=== PATIENT | female | born 1965 | race Caucasian/White ===

== ENCOUNTER → 2020-06-14 08:48 | Outpatient (BNVA) | payer MEDICAID, SELFPAY | PROVIDERS: PCP Internal Medicine; Referring Provider Internal Medicine; Visit Provider Internal Medicine Gastroenterology | DX: K59.09 Other constipation (principal); R13.14 Dysphagia, pharyngoesophageal phase; R07.89 Other chest pain; K21.9 Gastro-esophageal reflux disease without esophagitis; Z79.899 Other long term (current) drug therapy | CPT/HCPCS: 99212 ==

== ENCOUNTER → 2020-11-25 09:51 | Outpatient (BNVA) | payer SELFPAY | PROVIDERS: PCP Internal Medicine; Visit Provider Internal Medicine Gastroenterology ==

== ENCOUNTER → 2022-06-02 13:54 | Outpatient (BNVA) | payer OTHER, SELFPAY | PROVIDERS: PCP Internal Medicine; Visit Provider Internal Medicine | DX: K21.9 Gastro-esophageal reflux disease without esophagitis (principal); K59.09 Other constipation; K62.5 Hemorrhage of anus and rectum | CPT/HCPCS: 99212 ==

== ENCOUNTER → 2022-08-23 09:18 | Outpatient (BNVA) | payer OTHER, SELFPAY | PROVIDERS: PCP Internal Medicine; Visit Provider Internal Medicine | DX: K58.1 Irritable bowel syndrome with constipation (principal); K21.9 Gastro-esophageal reflux disease without esophagitis | CPT/HCPCS: 99212 ==

== ENCOUNTER 2022-10-30 13:14 | Outpatient (REF) | payer OTHER, SELFPAY ==
[2022-10-30 14:08] LABS: Hematocrit 40.7 % (37.0-47.0); Hemoglobin 13.4 g/dl (12.0-16.0); Mean Corpuscular HGB Conc 32.9 g/dl (31.0-35.0); Mean Corpuscular Hemoglobin 30.9 pg (27.0-33.0); Mean Platelet Volume 8.8 fL (9.4-12.3); Platelet Count 247 X10*3/uL (160-400); Red Blood Count 4.33 X10*6/uL (4.20-5.50); Red Cell Distribution Width 12.2 % (11.0-16.0); White Blood Count 6.5 X10*3/uL (4.8-10.8)
[2022-10-30 15:01] LABS: Alanine Aminotransferase 21 U/L (0-31); Albumin Level 4.2 g/dL (3.5-5.0); Alkaline Phosphatase 101 U/L (39-117); Anion Gap 9 (12-20); Aspartate Amino Transferase 21 U/L (5-31); Bilirubin Total 0.4 mg/dL (0.0-1.0); Blood Urea Nitrogen 13 mg/dL (9-16); Calcium 9.5 mg/dL (8.4-10.2); Carbon Dioxide 31 mmol/L (22-29); Chloride 105 mmol/L (96-108); Estimated Glomerular Filt Rate > 60; Glucose Random 92 mg/dL (60-115); Potassium 4.3 mmol/L (3.3-5.1); Sodium 141 mmol/L (135-145); Total Protein 7.6 g/dL (6.5-8.0)
== END 2022-10-30 13:15 | disposition home or self-care (01) ==
LOC: HO.LAB 13:14
PROVIDERS: PCP Internal Medicine; Visit Provider Internal Medicine
DX: R19.7 Diarrhea, unspecified (principal); K58.1 Irritable bowel syndrome with constipation
CPT/HCPCS: 36415; 80053; 85027; 99212

== ENCOUNTER 2022-11-01 11:49 | Outpatient (REF) | payer OTHER, SELFPAY ==
[2022-11-01 14:10] LABS: Adenovirus F 40/41 Not Detected (Not Detect.); Astrovirus Not Detected (Not Detect.); Campylobacter Not Detected (Not Detect.); Cryptosporidium Not Detected (Not Detect.); Cyclospora cayetanensis Not Detected (Not Detect.); E. coli EAEC Not Detected (Not Detect.); E. coli EPEC Not Detected (Not Detect.); E. coli ETEC Not Detected (Not Detect.); E. coli STEC Not Detected (Not Detect.); Entamoeba histolytica Not Detected (Not Detect.); Giardia lamblia Not Detected (Not Detect.); Norovirus GI/GII Not Detected (Not Detect.); Plesiomonas shigelloides Not Detected (Not Detect.); Rotavirus A Not Detected (Not Detect.); Salmonella Not Detected (Not Detect.); Sapovirus Not Detected (Not Detect.); Shigella sp./EIEC Not Detected (Not Detect.); Vibrio Not Detected (Not Detect.); Vibrio Cholerae Not Detected (Not Detect.); Yersinia enterocolitica Not Detected (Not Detect.)
== END 2022-11-01 11:50 | disposition home or self-care (01) ==
LOC: HO.LNP 11:49
PROVIDERS: Visit Provider Internal Medicine
DX: R19.7 Diarrhea, unspecified (principal)
CPT/HCPCS: 87177; 87209; 87507

== ENCOUNTER → 2023-03-02 14:14 | Outpatient (BNVA) | payer OTHER, SELFPAY | PROVIDERS: PCP Internal Medicine; Visit Provider Physician Assistant ==

== ENCOUNTER 2023-04-02 12:44 | Outpatient (AMB) | payer OTHER, SELFPAY ==
--- NOTE | 2023-04-02 12:50 | MHC.OFFVIS ---
Intake Vital Signs 04/02/23 12:55 Height 5 ft 6 in Weight 144 lb BMI 23.2 BP 108/59 L Blood Pressure Location Lt brachial Position Sitting Pulse 66 Intake Visit Reasons: 4 months follow up IBS Intake Note: María Elena presents in the office as a 4 month follow upp. CC: No concerns today. She stated that she had a BBL since her last visit. Petrophysical Engineer Required: Yes Petrophysical Engineer Name: Shahid [id number] Allergies No Known Allergies Allergy (Verified 04/02/23 12:52) HPI HPI Comments History of Present Illness Details This is a 56-year-old female past medical history of migraines, hypothyroidism, GERD who presents to the office for follow-up. Initial visit 06/02/22: She was last seen in the office in 2020 (Dr. Spain). Has 2 main complaints: -heartburn: She states that her heartburn had been pretty well controlled with pantoprazole in the last 1 and half year. However, 3 months ago, she started experiencing recurrence of symptoms that she described as severe burning sensation retrosternally associated with some nausea, decrease in appetite and bloating. Symptoms are persistent throughout the day. Has been taking PPI once daily with food for this. Denies any NSAIDs, recent medication changes. No painful or difficulty swallowing, vomiting, unintentional weight loss, changes in bowel habits. -constipation, episode of BRBPR: Tells me that around a month ago, she had a very severe bout of constipation where she was training for quite some time before she managed to pass a bowel movement. She noticed some blood on top of the stool, also on wiping. This was single episode on describes the blood is scant in amount. Has not recurred since. Last colonoscopy was in 2018 and did show moderate hemorrhoids. Has baseline constipation, which she manages with p.r.n. Amitiza. Unable to take it regularly due to abdominal cramping. Splinting+, excessive straining+, digitalization+. Of note, patient has history of 3 pregnancies carried to term with vaginal delivery. Denies any sexual trauma history. No bladder issues. 08/23/22: Reports heartburn is better but continues to have the cramping sensation in her abdomen which is associated with nausea, and constipation. Present most of the days of the week. Cramping gets better with passing BM. No relation to food intake or activity. Sx more prominent at night time. No fevers or chills. Appetite is unchanged. No further blood in stool. No unintentional weight loss. Continues to take Amitiza on p.r.n. basis only. 10/30/22: Reports possible food-borne infection in the past couple of weeks. Reports eating out from [employer], had a cheeseburger. Within a day developed abdominal cramping, nausea, vomiting and diarrhea. Vomiting and diarrhea has resolved, continues to have abdominal cramping, which is also improving. Outside of this episode, reports excellent response to Amitiza. Bowel movement frequency has gone from once in a week to every day. Stool consistency has also normalized, patient does not have to strain as much. Patient also reports improvement in her bloating. Continues to take fiber supplement. She did stop her MiraLax, as she felt that made her more nauseous. 04/02/23: Here for follow up. Reports sx of food getting stuck in upper throat is getting worse. Clears her throat very often. Otherwise no N,V or difficulty swallowing. No unintentional weight loss. GERD persistent despite taking protonix. Sx are more pronounced at night time. IBS-C well controlled on Amitiza. Taking only 4mcg BID. [facility] Medical History Cervicalgia Hx of migraine headaches Hypothyroidism Microscopic hematuria Seasonal allergies Surgical History History of colonoscopy Hx of endoscopy Family History Father Leukemia Mother No problems noted. Social History Household Members: None Alcohol intake: never Review of Systems Const All systems reviewed & are unremarkable except as noted in HPI and below Physical Exam Vital Signs: Last Vital Signs Pulse 66 04/02/23 12:55 BP 108/59 L 04/02/23 12:55 BMI result Body Mass Index 23.2 Gen appear: NAD HEENT: nonicteric, no cervical lymphadenopathy Chest: CTA CVS: Regular S1/S2 Abd: soft, nontender, nondistended, bowel sounds + Ext: no peripheral edema Neuro: A/Ox3, noted to move all extremities spontaneously Psych: interacting appropriately Assessment & Plan Assessment & Plan (1) Irritable bowel syndrome with constipation: Code(s): K58.1 - Irritable bowel syndrome with constipation Plan: Excellent response to Amitiza. Continue 4mcg BID (2) GERD (gastroesophageal reflux disease): Code(s): K21.9 - Gastro-esophageal reflux disease without esophagitis (3) Dysphagia, pharyngoesophageal phase: Code(s): R13.14 - Dysphagia, pharyngoesophageal phase Plan: Discussed that sensation of food getting stuck could possibly be due to dysmotility as noted in prior EGD in 2018. However, given worsening of both reflux as well as globus sensation, will evaluate with anotehr EGD +/- dilation. In the meantime, recommend switching PPI to nexium to be taken at night time Add wedge pillow EGD to be done OFF ppi therapy x 2 weeks Plan Follow up after EGD Medications: New esomeprazole magnesium 20 mg PO DAILY 90 caps 1RF [wedge pillow] at night 1 ea 0RF reflux Coding Level of Care Code Est Pt Level 4 (42968) Diagnoses Irritable bowel syndrome with constipation K58.1 GERD (gastroesophageal reflux disease) K21.9 Dysphagia, pharyngoesophageal phase R13.14
[2023-04-02 12:55] VITALS: BP 108/59; PULSE 66; BMI 23.2
== END 2023-04-02 16:37 | disposition home or self-care (01) ==
PROVIDERS: Visit Provider Internal Medicine
DX: K58.1 Irritable bowel syndrome with constipation (principal); K21.9 Gastro-esophageal reflux disease without esophagitis; R13.14 Dysphagia, pharyngoesophageal phase
CPT/HCPCS: 99214

== ENCOUNTER → 2023-04-02 12:44 | Outpatient (BNVA) | payer OTHER, SELFPAY | PROVIDERS: Visit Provider Internal Medicine | DX: R13.14 Dysphagia, pharyngoesophageal phase (principal); K21.9 Gastro-esophageal reflux disease without esophagitis; K58.1 Irritable bowel syndrome with constipation | CPT/HCPCS: 99212 ==

== ENCOUNTER 2023-09-18 08:26 | Day surgery (SDC) | payer OTHER, SELFPAY ==
--- OUTSIDE RECORDS SUMMARY | 2023-09-18 08:29 | XMS_ITS | Continuity of Care Document ---
Author Name Unknown Organization [facility] Address [address] [place] [address]- Care Team Providers Care Agricultural Education Teacher Name Role Phone Terrance KING, Flynn Ratliff Primary Care Physician [phone] Encounter [facility] Date(s): 07/26/21 - 08/25/21 [facility] [address], [place] [id number] Allergies, Adverse Reactions, Alerts Substance Reaction Severity Status [place] Active Latex SWELLING Moderate Active Immunizations Given and Recorded Vaccine Date Status Refusal Reason SARS-CoV-2 (COVID-19) mRNA BNT-162b2 vac 12/24/20 Given SARS-CoV-2 (COVID-19) mRNA BNT-162b2 vac 12/03/20 Given Medications Acetaminophen 0 Refills, Maintenance, 11/17/20 17:36:00 EDT, Partial fill upon patient request if the prescription is for a schedule II opioid drug. Start Date: 11/17/20 Status: Ordered Amitiza 8 mcg oral capsule 1 capsule = 8 mcg, By Mouth, 2 times a day, take with food label in [place]e, # 60 capsule, 6 Refills, Maintenance, 08/02/20 11:46:00 EST, [facility], Partial fill upon patient requestif the prescription is for a schedule II opioid Start Date: 08/02/20 Stop Date: 02/28/21 Status: Ordered amitriptyline 25 mg oral tablet See Instructions, start 2 tablet By Mouth Daily at bedtime. Increase if needed after 2 weeks to 3 tablet at bedtime. 30 days, # 90 tablet, Refills 5, Tot. Refills 5, Maintenance, 08/16/21 6:54:00 EST, Instructions Replace Required Details, Route to P... Start Date: 08/16/21 Status: Ordered Carafate 1 gm oral tablet 1 Gm, 1, tablet, By Mouth, 3 times a day before meals and bedtime, Refills 0, Maintenance, 11/17/2116:37:00 EDT, Partial fill upon patient request if the prescription is for a schedule II opioid drug. Start Date: 11/17/20 Status: Ordered cetirizine 10 mg oral tablet See Instructions, SUDHIR 1 TABLETA POR LA BOCA CADA CHASE, # 30 tablet, 3 Refills, [facility], 165.1, cm, 06/14/21 15:59:00 EDT, Height Start Date: 07/26/21 Status: Ordered cromolyn 4% ophthalmic solution via spindle carver Dr Sol, 0 Refills, Maintenance, 11/17/20 17:44:00 EDT, Partial fill upon patient request if the prescription is for a schedule II opioid drug. Start Date: 11/17/20 Status: Ordered diclofenac 1% topical gel 1 application, Topically, 4 times a day, # 100 Gm, 0 Refills, Maintenance, 10/15/20 16:35:00 EST, Gel, [facility]., Partial fill upon patient request if the prescription is for a schedule II opioid drug., 165.1, cm, 10/15/20 14:34:00 ES... Start Date: 10/15/20 Status: Ordered flunisolide 25 mcg/inh nasal spray 2 puffs, Nares, Both, Daily, # 25 mL, 6 Refills, Maintenance, 03/04/21 14:56:00 EDT, [place], [facility]., Partial fill upon patient request if the prescription is for a schedule II opioid drug., 2 puffs Nares, Both Daily, 165.1, cm, 02/17... Start Date: 03/04/21 Status: Ordered fluticasone 50 mcg/inh nasal spray via Dr Sol, spindle carver, 0 Refills, Maintenance, 11/17/20 17:44:00 EDT, Partial fill upon patient request if the prescription is for a schedule II opioid drug. Start Date: 11/17/20 Status: Ordered gabapentin 300 mg oral capsule 300 mg, 1, capsule, By Mouth, 3 times a day, label in [place], # 90 capsule, Refills 5, Tot. Refills 5, Maintenance, 07/20/20 14:53:00 EST, Route to Pharmacy Electronically, [facility]/pharmacy #[id number], Partial fill upon patient request if the prescription is... Start Date: 07/20/20 Status: Ordered levothyroxine 50 mcg (0.05 mg) oral capsule 1 capsule = 50 mcg, By Mouth, Daily, # 30 capsule, 11 Refills, Maintenance, 09/14/20 7:41:00 EST, Capsule, [facility]., Partial fill upon patient request if the prescription is for a schedule II opioid drug., 165.1, cm, 06/12/19 15:36:0... Start Date: 09/14/20 Status: Ordered metoprolol 25 mg oral tablet 25 mg, 1, tablet, By Mouth, 2 times a day, # 60 tablet, Refills 0, Tot. Refills 0, Maintenance, 06/12/19 16:47:18 EDT, Route to Pharmacy Electronically, MAPDP_[id number], [facility] Start Date: 06/12/19 Status: Ordered pantoprazole 40 mg oral delayed release tablet See Instructions, SUDHIR 1 TABLETA POR LA BOCA CADA CHASE, # 30 tablet, 5 Refills, 165.1, cm, 04/12/2114:30:00 EDT, Height Start Date: 04/14/21 Status: Ordered SUMAtriptan 50 mg oral tablet 1 tablet = 50 mg, By Mouth, Once, PRN Migraine Headache, label all medications in [place]e, # 18 tablet, 1 Refills, Soft Stop, 07/04/21 16:07:00 EST, Tablet, [facility]., Partial fill upon patient request if the prescription is for a tamara... Start Date: 07/04/21 Status: Ordered Vitamin B Complex oral tablet, extended release 1 tablet, By Mouth, Daily, # 90 tablet, 3 Refills, Maintenance, 03/04/21 14:55:00 EDT, [facility]., Partial fill upon patient request if the prescription is for a schedule II opioid drug., 1 tablet By Mouth Daily, 165.1, cm, 03/04/21 14... 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, spindle carver Dr Sol in past(Confirmed) Active Hematuria(Confirmed) Active Chronic bilateral low back pain(Confirmed) Active Exposure to COVID-19 virus(Confirmed) Active Abdominal cramping(Confirmed) Active Heartburn(Confirmed) Active Hypothyroidism(Confirmed) Active IBS (irritable colon syndrome)(Confirmed) Active Menopausal state(Confirmed) Active Migraine(Confirmed) Active Hernia, cerebellar(Confirmed) Active Social History Social History Type Response Smoking Status Never (less than 100 in lifetime) entered on: 07/20/20 Sex
--- OUTSIDE RECORDS SUMMARY | 2023-09-18 08:29 | XMS_ITS | Continuity of Care Document ---
Author Name Unknown Organization [facility] Address [address] [place] [address]- Care Team Providers Care Conservation Educator Name Role Phone Flynn Carlos MD Primary Care Physician [phone] Encounter [facility] Date(s): 08/10/20 - 09/09/20 [facility] [address], [place] [address] Attending Physician: Chad Sofia Admitting Physician: AdmtrChad Referring Physician: Admtr, [id number] Allergies, Adverse Reactions, Alerts Substance Reaction Severity Status Latex SWELLING Moderate Active Medications Amitiza 8 mcg oral capsule 1 capsule = 8 mcg, By Mouth, 2 times a day, take with food label in [place], # 60 capsule, 6 Refills, Maintenance, 08/02/20 11:46:00 EST[facility] upon patient requestif the prescription is for a schedule II opioid Start Date: 08/02/20 Stop Date: 02/28/21 Status: Ordered amitriptyline 25 mg oral tablet 25 mg, 1, tablet, By Mouth, Daily at bedtime, label in [place], # 30 tablet, Refills 4, Tot. Refills 4, Maintenance, 07/20/20 14:55:00 EST, Route to Pharmacy Electronically, [facility]/pharmacy #[id number], Partial fill upon patient request if the prescription is... Start Date: 07/20/20 Stop Date: 12/17/20 Status: Ordered aspirin 81 mg oral delayed release tablet 81 mg, 1, tablet, By Mouth, Daily, # 30 tablet, Refills 0, Tot. Refills 0, Maintenance, 06/12/19 16:47:09 EDT, Route to Pharmacy Electronically, NCPDP_ID- [id number], [facility] Start Date: 06/12/19 Status: Ordered gabapentin 300 mg oral capsule 300 mg, 1, capsule, By Mouth, 3 times a day, label in [place], # 90 capsule, Refills 5, Tot. Refills 5, Maintenance, 07/20/20 14:53:00 EST, Route to Pharmacy Electronically, [facility]/pharmacy #[id number], Partial fill upon patient request if the prescription is... Start Date: 07/20/20 Status: Ordered levothyroxine 50 mcg (0.05 mg) oral capsule 1 capsule = 50 mcg, By Mouth, Daily, # 30 capsule, 0 Refills, Maintenance, 07/20/20 14:45:00 EST, Capsule, [facility]/pharmacy #[id number], Partial fill upon patient request if the prescription is for a schedule II opioid drug., 165.1, cm, 06/12/19 15:36:00 EDT, H... Start Date: 07/20/20 Status: Ordered metoprolol 25 mg oral tablet 25 mg, 1, tablet, By Mouth, 2 times a day, # 60 tablet, Refills 0, Tot. Refills 0, Maintenance, 06/12/19 16:47:18 EDT, [id number] Start Date: 06/12/19 Status: Ordered Protonix 40 mg oral delayed release tablet 1 tablet = 40 mg, By Mouth, Daily, # 30 tablet, 0 Refills, Maintenance, 07/20/20 14:45:00 EST, EC Tablet, 165.1, cm, 06/12/19 15:36:00 EDT, Height Start Date: 07/20/20 Status: Ordered SUMAtriptan 50 mg oral tablet 1 tablet = 50 mg, By Mouth, Once, PRN Migraine Headache, label all medications in [place], # 18 tablet, 1 Refills, Soft Stop, 07/20/20 14:45:00 EST, Tablet, [facility]/pharmacy #[id number], Partial fill upon patient request if the prescription is for a schedule II... Start Date: 07/20/20 Status: Ordered tiZANidine 4 mg oral tablet 4 mg, 1, tablet, By Mouth, Every 8 hours, PRN, label in [place], # 60 tablet, Refills 1, Tot. Refills 1, Maintenance, back pain, 07/20/20 14:54:00 EST, Route to Pharmacy Electronically, [facility]/pharmacy #[id number], Partial fill upon patient request if the pres... Start Date: 07/20/20 Stop Date: 08/31/20 Status: Ordered traZODone 100 mg oral tablet 100 mg, 1, tablet, By Mouth, 3 times a day, Refills 0, Maintenance, 06/12/19 16:27:17 EDT Start Date: 06/12/19 Status: Ordered Zyrtec 10 mg oral tablet 10, mg, 1, tablet, By Mouth, Daily, 0, 02/07/06 13:20:55, Print MP Number, [id number], Constant Indicator Start Date: 02/07/06 Status: Ordered Problem List Condition Effective Dates Status Health Status Inform ant Hematuria(Confirmed) Active Chronic bilateral low back pain(Confirmed) Active Exposure to COVID-19 virus(Confirmed) Active Abdominal cramping(Confirmed) Active Heartburn(Confirmed) Active Adult hypothyroidism(Confirmed) Active IBS (irritable colon syndrome)(Confirmed) Active Menopausal state(Confirmed) Active Migraine(Confirmed) Active Social History Social History Type Response Smoking Status Never (less than 100 in lifetime) entered on: 07/20/20 Sex
--- OUTSIDE RECORDS SUMMARY | 2023-09-18 08:29 | XMS_ITS | Continuity of Care Document ---
Author Name Unknown Organization [facility] Address [address] [place] [address]- Care Team Providers Care Dealer Sales Rep Name Role Phone Flynn Carlos MD Primary Care Physician Encounter [facility] Date(s): 02/10/21 - 05/04/[address] [address]- Attending Physician: Josiane Arroyo Admitting Physician: Josiane Arroyo Referring Physician: Flynn Carlos MD Allergies, Adverse Reactions, Alerts Substance Reaction Severity Status [place] Active Latex SWELLING Moderate Active Immunizations Given [...] a day, take with food label in [place], # 60 capsule, 6 Refills, Maintenance, 08/02/20 11:46:00 EST, [facility], Partial fill upon patient requestif the prescription is for a schedule II opioid . Start Date: 08/02/20 Stop Date: 02/28/21 Status: Ordered amitriptyline 25 mg oral tablet 25 mg, 1, tablet, By Mouth, Daily at bedtime, label in [place], # 30 tablet, Refills 5, Tot. Refills 5, Maintenance, 02/17/21 6:54:00 EDT, Route to Pharmacy Electronically, [facility], Partial fill upon patient request if the prescript... Start Date: 02/17/21 Stop Date: 08/16/21 Status: Ordered Carafate 1 gm oral tablet 1 Gm, 1, tablet, By Mouth, 3 times a day before meals and bedtime, Refills 0, Maintenance, 11/17/2116:37:00 EDT, Partial fill upon patient request if the prescription is for a schedule II opioid drug. Start Date: 11/17/20 Status: Ordered cromolyn 4% ophthalmic solution via ethics officer Dr Sol, 0 Refills, Maintenance, 11/17/20 17:44:00 EDT, Partial fill upon patient request if the prescription is for a schedule II opioid drug. Start Date: 11/17/20 Status: Ordered diclofenac 1% topical gel 1 application, Topically, 4 times a day, # 100 Gm, 0 Refills, Maintenance, 10/15/20 16:35:00 EST, Gel, [facility], Partial fill upon patient request if the prescription is for a schedule II opioid drug., 165.1, cm, 10/15/20 14:34:00 ES... Start Date: 10/15/20 Status: Ordered flunisolide 25 mcg/inh nasal spray 2 puffs, Nares, Both, Daily, # 25 mL, 6 Refills, Maintenance, 03/04/21 14:56:00 EDT, [place], [facility], Partial fill upon patient request if the prescription is for a schedule II opioid drug., 2 puffs Nares, Both Daily, 165.1, cm, 02/17... Start Date: 03/04/21 Status: Ordered fluticasone 50 mcg/inh nasal spray via Dr Sol, ethics officer, 0 Refills, Maintenance, 11/17/20 17:44:00 EDT, Partial fill upon patient request if the prescription is for a schedule II opioid drug. Start Date: 11/17/20 Status: Ordered gabapentin 300 mg oral capsule 300 mg, 1, capsule, By Mouth, 3 times a day, label in [place], # 90 capsule, Refills 5, Tot. Refills 5, Maintenance, 07/20/20 14:53:00 EST, Route to Pharmacy Electronically, [facility]/pharmacy #[id number], Partial fill upon patient request if the prescription is... Start Date: 07/20/20 Status: Ordered levothyroxine 50 mcg (0.05 mg) oral capsule 1 capsule = 50 mcg, By Mouth, Daily, # 30 capsule, 11 Refills, Maintenance, 09/14/20 7:41:00 EST, Capsule, [facility]., Partial fill upon patient request if the prescription is for a schedule II opioid drug., 165.1, cm, 06/12/19 15:36:0... Start Date: 09/14/20 Status: Ordered metoprolol 25 mg oral tablet 25 mg, 1, tablet, By Mouth, 2 times a day, # 60 tablet, Refills 0, Tot. Refills 0, Maintenance, 06/12/19 16:47:18 EDT, Route to Pharmacy Electronically, NCPDP_ID-[id number], [facility] Start Date: 06/12/19 Status: Ordered pantoprazole 40 mg oral delayed release tablet See Instructions, SUDHIR 1 TABLETA POR LA BOCA CADA CHASE, # 30 tablet, 5 Refills, 165.1, cm, 04/12/2114:30:00 EDT, Height Start Date: 04/14/21 Status: Ordered SUMAtriptan 50 mg oral tablet 1 tablet = 50 mg, By Mouth, Once, PRN Migraine Headache, label all medications in [place], # 18 tablet, 1 Refills, Soft Stop, 12/29/20 16:12:00 EDT, Tablet, [facility]., Partial fill upon patient request if the prescription is for a tamara... Start Date: 12/29/20 Status: Ordered Vitamin B Complex oral tablet, extended release 1 tablet, By Mouth, Daily, # 90 tablet, 3 Refills, Maintenance, 03/04/21 14:55:00 EDT, [facility]., Partial fill upon patient request if the prescription is for a schedule II opioid drug., 1 tablet By Mouth Daily, 165.1, cm, 03/04/21 14... Start Date: 03/04/21 Stop Date: 04/03/21 Status: Ordered ZyrTEC 10 mg oral tablet 1 tablet = 10 mg, By Mouth, Daily, # 30 tablet, 3 Refills, Maintenance, 03/04/21 14:51:00 EDT, [facility], Partial fill upon patient request if the prescription is for a schedule II opioid drug., 165.1, cm, 03/04/21 14:25:00 EDT, Height Start Date: 03/04/21 Status: Ordered Problem List Condition Effective Dates Status Health Status Inform ant Allergic rhinitis, ethics officer Dr Sol in past(Confirmed) Active Hematuria(Confirmed) Active Chronic bilateral low back pain(Confirmed) Active Exposure to COVID-19 virus(Confirmed) Active Abdominal cramping(Confirmed) Active Heartburn(Confirmed) Active Hypothyroidism(Confirmed) Active IBS (irritable colon syndrome)(Confirmed) Active Menopausal state(Confirmed) Active Migraine(Confirmed) Active Hernia, cerebellar(Confirmed) Active Social History Social History Type Response Smoking Status Never (less than 100 in lifetime) entered on: 07/20/20 Sex
--- OUTSIDE RECORDS SUMMARY | 2023-09-18 08:29 | XMS_ITS | Continuity of Care Document ---
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 Name Role Phone Flynn Carlos MD Primary Care Physician [phone] Encounter [facility] ACCT R [id number] Date(s): 01/11/21 - 03/16/21 [facility] [address] [place] [address]- Attending Physician: Flynn Carlos MD Admitting Physician: Flynn Carlos MD Allergies, Adverse Reactions, Alerts Substance Reaction Severity Status [place] Active Latex SWELLING Moderate Active Immunizations Given [...] a day, take with food label in Liberian, # 60 capsule, 6 Refills, Maintenance, 08/02/20 11:46:00 EST, [facility], Partial fill upon patient requestif the prescription is for a schedule II opioid . Start Date: 08/02/20 Stop Date: 02/28/21 Status: Ordered amitriptyline 25 mg oral tablet 25 mg, 1, tablet, By Mouth, Daily at bedtime, label in Liberian, # 30 tablet, Refills 5, Tot. Refills 5, Maintenance, 02/17/21 6:54:00 EDT, Route to Pharmacy Electronically, [facility] Partial fill upon patient request if the [...] Status: Ordered cromolyn 4% ophthalmic solution via finished goods stock clerk Dr Sol, 0 Refills, Maintenance, 11/17/20 17:44:00 EDT, Partial fill upon patient request if the prescription is for a schedule II opioid drug. Start Date: 11/17/20 Status: Ordered diclofenac 1% topical gel 1 application, Topically, 4 times a day, # 100 Gm, 0 Refills, Maintenance, 10/15/20 16:35:00 EST, Gel, [facility] Partial fill upon patient request if the prescription is for a schedule II opioid drug., 165.1, cm, 10/15/20 14:34:00 ES... Start Date: 10/15/20 Status: Ordered diphenhydrAMINE 25 mg oral tablet 1 capsule, By Mouth, Daily at bedtime, PRN as needed for allergy symptoms, for 30 days, # 100 tablet, 1 Refills, Acute 05/03/21 14:55:00 EDT, 03/04/21 14:55:00 EDT, Capsule, [facility]., Partial fill upon patient request if the prescrip... Start Date: 03/04/21 Stop Date: 05/03/21 Status: Ordered flunisolide 25 mcg/inh nasal spray 2 puffs, Nares, Both, Daily, # 25 mL, 6 Refills, Maintenance, 03/04/21 14:56:00 EDT, [place], [facility] Partial fill upon patient request if the prescription is for a schedule II opioid drug., 2 puffs Nares, Both Daily, 165.1, cm, 02/17... Start Date: 03/04/21 Status: Ordered fluticasone 50 mcg/inh nasal spray via Dr Sol, finished goods stock clerk, 0 Refills, Maintenance, 11/17/20 17:44:00 EDT, Partial fill upon patient request if the prescription is for a schedule II opioid drug. Start Date: 11/17/20 Status: Ordered gabapentin 300 mg oral capsule 300 mg, 1, capsule, By Mouth, 3 times a day, label in Liberian, # 90 capsule, Refills 5, Tot. Refills 5, Maintenance, 07/20/20 14:53:00 EST, Route to Pharmacy Electronically, [facility][id number], Partial fill upon patient request if the prescription is... Start Date: 07/20/20 Status: Ordered levothyroxine 50 mcg (0.05 mg) oral capsule 1 capsule = 50 mcg, By Mouth, Daily, # 30 capsule, 11 Refills, Maintenance, 09/14/20 7:41:00 EST, Capsule, [facility], Partial fill upon patient request if the prescription is for a schedule II opioid drug., 165.1, cm, 06/12/19 15:36:0... Start Date: 09/14/20 Status: Ordered Loratadine By Mouth, Daily, Refills 0, Maintenance, 11/17/20 17:46:00 EDT, Partial fill upon patient request if the prescription is for a schedule II opioid drug. Start Date: 11/17/20 Status: Ordered metoprolol 25 mg oral tablet 25 mg, 1, tablet, By Mouth, 2 times a day, # 60 tablet, Refills 0, Tot. Refills 0, Maintenance, 06/12/19 16:47:18 EDT, Route to Pharmacy Electronically, NCPDP_[id number], [facility] Start Date: 06/12/19 Status: Ordered Protonix 40 mg oral delayed release tablet 1 tablet = 40 mg, By Mouth, Daily, # 30 tablet, 2 Refills, Maintenance, 01/19/21 9:45:00 EDT, EC Tablet, 165.1, cm, 11/30/20 19:08:00 EDT, Height Start Date: 01/19/21 Status: Ordered SUMAtriptan 50 mg oral tablet 1 tablet = 50 mg, By Mouth, Once, PRN Migraine Headache, label all medications in Liberian, # 18 tablet, 1 Refills, Soft Stop, 12/29/20 16:12:00 EDT, Tablet, [facility] Partial fill upon patient request if the prescription is for a tamara... Start Date: 12/29/20 Status: Ordered Vitamin B Complex oral tablet, extended release 1 tablet, By Mouth, Daily, # 90 tablet, 3 Refills, Maintenance, 03/04/21 14:55:00 EDT, [facility]., Partial fill upon patient request if the prescription is for a schedule II opioid drug., 1 tablet By Mouth Daily, 165.1, cm, 03/04/21 14... 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
--- OUTSIDE RECORDS SUMMARY | 2023-09-18 08:29 | XMS_ITS | Continuity of Care Document ---
Author Name Unknown Organization [facility] Address [address] [place] [address]- Care Team Providers Care Director Call Name Role Phone Flynn Carlos MD Primary Care Physician [phone] Encounter [facility] Date(s): 05/17/22 - 08/03/22 [facility] [address] [place] [address]- Attending Physician: Flynn Carlos MD Admitting Physician: Flynn Carlos MD Allergies, Adverse Reactions, Alerts Substance Reaction Severity Status [place] Active Latex SWELLING Moderate Active Immunizations Given and Recorded Vaccine Date Status Refusal Reason influenza virus vaccine, inactivated 06/21/21 Emmanuel rded SARS-CoV-2 (COVID-19) mRNA BNT-162b2 vac 12/24/20 Given SARS-CoV-2 (COVID-19) mRNA BNT-162b2 vac 12/03/20 Given tetanus/diphtheria/pertussis, acel(Tdap) 06/29/16 Recorded Medications acetaminophen 325 mg oral tablet See Instructions, SUDHIR 2 TABLETAS POR LA BOCA CADA 4 HORAS CUANDO SEA NECESARIO PARA EL DOLOR MODERADO, # 100 tablet, Refills 1, Maintenance, 06/21/22 10:10:00 EDT, Instructions Replace Required Details, Route to Pharmacy Electronically, [facility]... Start Date: 06/21/22 Status: Ordered amitriptyline 25 mg oral tablet 25 mg, 1, tablet, By Mouth, Daily at bedtime, # 30 tablet, Refills 11, Tot. Refills 11, Maintenance, 04/11/22 14:19:00 EDT, Route to Pharmacy Electronically, [facility], Partial fill upon patient request if the prescription is for a sc... Start Date: 04/11/22 Status: Ordered B-Plex Vitamin B Complex oral tablet 1 tablet, By Mouth, Daily, # 100 tablet, 3 Refills, Maintenance, 10/27/21 15:26:00 EST, Tablet, [facility] Partial fill upon patient request if the prescription is for a schedule II opioid drug., 1 tablet By Mouth Daily, 165.1, cm, 03... Start Date: 10/27/21 Status: Ordered cetirizine 10 mg oral tablet See Instructions, SUDHIR 1 TABLETA POR LA BOCA CADA CHASE, # 30 tablet, 3 Refills, 04/11/22 14:22:00 EDT, [facility] 165.1, cm, 04/11/22 14:14:00 EDT, Height Start Date: 04/11/22 Status: Ordered dicyclomine 20 mg oral tablet 1 tablet = 20 mg, By Mouth, 2 times a day, please take for spasm pain not more than twice per day, please label in Bulgarian., # 60 tablet, 1 Refills, Maintenance, 05/16/22 15:52:00 EDT, Tablet, [facility] Partial fill upon patient requ... Start Date: 05/16/22 Stop Date: 07/15/22 Status: Ordered diphenhydrAMINE 25 mg oral capsule 1 capsule = 25 mg, By Mouth, 3 times a day, PRN for allergy symptoms, # 30 capsule, 0 Refills, Maintenance, 11/03/21 12:50:00 EDT, Capsule, [facility] Partial fill upon patient request if the prescription is for a schedule II opioid d... Start Date: 11/03/21 Status: Ordered flunisolide 25 mcg/inh nasal spray 2 puffs, Nares, Both, Daily, # 25 mL, 6 Refills, Maintenance, 03/04/21 14:56:00 EDT, [place], [facility] Partial fill upon patient request if the prescription is for a schedule II opioid drug., 2 puffs Nares, Both Daily, 165.1, cm, 02/17... Start Date: 03/04/21 Status: Ordered gabapentin 600 mg oral tablet 1 tablet = 600 mg, By Mouth, 3 times a day, # 90 tablet, 5 Refills, Maintenance, 01/17/22 16:55:00 EDT, Tablet, [facility]., Partial fill upon patient request if the prescription is for a schedule II opioid drug., 165.1, cm, 01/17/22 16... Start Date: 01/17/22 Status: Ordered levothyroxine 50 mcg (0.05 mg) oral capsule 1 capsule = 50 mcg, By Mouth, Daily, # 30 capsule, 5 Refills, Maintenance, 07/17/22 17:27:00 EST, Capsule, [facility] Partial fill upon patient request if the prescription is for a schedule II opioid drug., 165.1, cm, 05/16/22 15:42:0... Start Date: 07/17/22 Status: Ordered pantoprazole 40 mg oral delayed release tablet See Instructions, SUDHIR 1 TABLETA POR LA BOCA CADA CHASE, # 30 tablet, 2 Refills, Maintenance, 05/11/22 16:05:00 EDT, 165.1, cm, 04/11/22 14:14:00 EDT, Height Start Date: 05/11/22 Status: Ordered SUMAtriptan 50 mg oral tablet See Instructions, SUDHIR 1 TABLETA POR LA BOCA LITTLE VEZ CUANDO SEA NECESARIO PARA LA MIGRANA, # 12 tablet, 1 Refills, Maintenance, 06/21/22 10:10:00 EDT, [facility], 165.1, cm, 05/16/22 15:42:00 EDT, Height Start Date: 06/21/22 Status: Ordered Vitamin B Complex oral tablet, extended release 1 tablet, By Mouth, Daily, # 90 tablet, 3 Refills, Maintenance, 03/04/21 14:55:00 EDT, [facility] Partial fill upon patient request if the prescription is for a schedule II opioid drug., 1 tablet By Mouth Daily, 165.1, cm, 03/04/21 14... 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 Hematuria Confirmed Active Cervicogenic headache Confirmed Active Chronic bilateral low back pain Confirmed Active Exposure to COVID-19 virus Confirmed Active Abdominal cramping Confirmed Active Headache Confirmed Active Heartburn Confirmed Active Hypothyroidism Confirmed Active Insomnia Confirmed Active IBS (irritable colon syndrome) Confirmed Active Menopausal state Confirmed Active Migraine Confirmed Active Neck pain Confirmed Active Health maintenance examination Confirmed Active Hernia, cerebellar Confirmed Active Social History Social History Type Response Smoking Status Never (less than 100 in lifetime) entered on: 07/20/20 Sex Patient Care team information Care Team Personnel Name: Terrance KING, Flynn Ratliff Position: S Primary Care Physician Member Role: PCP Address: Address: [address] [place] [address], [facility] [place] [address]- Care Team Related Persons Name: SCOTT BERNABE Address: home [address] [place] [address]
--- OUTSIDE RECORDS SUMMARY | 2023-09-18 08:29 | XMS_ITS | Continuity of Care Document ---
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 Date(s): 03/02/22 - 04/07/22 [facility] [address] [place], [place] [address] Attending Physician: Stacey Daniel DO Admitting Physician: Stacey Daniel DO Allergies, Adverse Reactions, Alerts Substance Reaction Severity Status [place] Active Latex SWELLING Moderate Active Immunizations Given and Recorded Vaccine Date Status Refusal Reason influenza virus vaccine, inactivated 06/21/21 Emmanuel rded SARS-CoV-2 (COVID-19) mRNA BNT-162b2 vac 12/24/20 Given SARS-CoV-2 (COVID-19) mRNA BNT-162b2 vac 12/03/20 Given tetanus/diphtheria/pertussis, acel(Tdap) 06/29/16 Recorded Medications acetaminophen 325 mg oral tablet 650 mg, 2, tablet, By Mouth, Every 4 hours, PRN, # 100 tablet, Refills 1, Tot. Refills 1, Maintenance, Pain , Moderate, 01/19/22 13:11:00 EDT, Route to Pharmacy Electronically, [facility] Partial fill upon patient request if the presc... Start Date: 01/19/22 Status: Ordered amitriptyline 25 mg oral tablet 25 mg, 1, tablet, By Mouth, Daily at bedtime, # 30 tablet, Refills 11, Tot. Refills 11, Maintenance, 11/04/21 10:40:00 EDT, Route to Pharmacy Electronically, [facility]., Partial fill upon patient request if the prescription is for a sc... Start Date: 11/04/21 Status: Ordered B-Plex Vitamin B Complex oral tablet 1 tablet, By Mouth, Daily, # 100 tablet, 3 Refills, Maintenance, 10/27/21 15:26:00 EST, Tablet, [facility] Partial fill upon patient request if the prescription is for a schedule II opioid drug., 1 tablet By Mouth Daily, 165.1, cm, 03... Start Date: 10/27/21 Status: Ordered cetirizine 10 mg oral tablet See Instructions, SUDHIR 1 TABLETA POR LA BOCA CADA CHASE, # 30 tablet, 3 Refills, [facility], 165.1, cm, 06/14/21 15:59:00 EDT, Height Start Date: 07/26/21 Status: Ordered diphenhydrAMINE 25 mg oral capsule 1 capsule = 25 mg, By Mouth, 3 times a day, PRN for allergy symptoms, # 30 capsule, 0 Refills, Maintenance, 11/03/21 12:50:00 EDT, Capsule, [facility] Partial fill upon patient request if the prescription is for a schedule II opioid d... Start Date: 11/03/21 Status: Ordered flunisolide 25 mcg/inh nasal spray 2 puffs, Nares, Both, Daily, # 25 mL, 6 Refills, Maintenance, 03/04/21 14:56:00 EDT, [place], [facility] Partial fill upon patient request if the prescription is for a schedule II opioid drug., 2 puffs Nares, Both Daily, 165.1, cm, 02/17... Start Date: 03/04/21 Status: Ordered gabapentin 600 mg oral tablet 1 tablet = 600 mg, By Mouth, 3 times a day, # 90 tablet, 5 Refills, Maintenance, 01/17/22 16:55:00 EDT, Tablet, [facility] Partial fill upon patient request if the prescription is for a schedule II opioid drug., 165.1, cm, 01/17/22 16... Start Date: 01/17/22 Status: Ordered levothyroxine 50 mcg (0.05 mg) oral capsule 1 capsule = 50 mcg, By Mouth, Daily, # 30 capsule, 5 Refills, Maintenance, 01/03/22 19:00:00 EDT, Capsule, [facility] Partial fill upon patient request if the prescription is for a schedule II opioid drug., 165.1, cm, 12/20/21 13:05:0... Start Date: 01/03/22 Status: Ordered pantoprazole 40 mg oral delayed release tablet See Instructions, SUDHIR 1 TABLETA POR LA BOCA CADA CHASE, # 30 tablet, 5 Refills, 165.1, cm, 10/24/2217:38:00 EST, Height Start Date: 11/02/21 Status: Ordered SUMAtriptan 50 mg oral tablet See Instructions, SUDHIR 1 TABLETA POR LA BOCA LITTLE VEZ CUANDO SEA NECESARIO PARA LA MIGRANA, # 12 tablet, 1 Refills, [facility], 165.1, cm, 11/04/21 10:21:00 EDT, Height Start Date: 11/29/21 Status: Ordered Vitamin B Complex oral tablet, extended release 1 tablet, By Mouth, Daily, # 90 tablet, 3 Refills, Maintenance, 03/04/21 14:55:00 EDT, [facility]., Partial fill upon patient request if the prescription is for a schedule II opioid drug., 1 tablet By Mouth Daily, 165.1, cm, 03/04/21 14... 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 Hematuria(Confirmed) Active Cervicogenic headache(Confirmed) Active Chronic bilateral low back pain(Confirmed) Active Exposure to COVID-19 virus(Confirmed) Active Abdominal cramping(Confirmed) Active Headache(Confirmed) Active Heartburn(Confirmed) Active Hypothyroidism(Confirmed) Active Insomnia(Confirmed) Active IBS (irritable colon syndrome)(Confirmed) Active Menopausal state(Confirmed) Active Migraine(Confirmed) Active Neck pain(Confirmed) Active Health maintenance examination(Confirmed) Active Hernia, cerebellar(Confirmed) Active Social History Social History Type Response Smoking Status Never (less than 100 in lifetime) entered on: 07/20/20 Sex
--- OUTSIDE RECORDS SUMMARY | 2023-09-18 08:29 | XMS_ITS | Continuity of Care Document ---
Author Name Unknown Organization [facility] ter Address [address] [place] [id number]- Care Team Providers Care Packaging Clerk Name Role Phone Flynn Carlos MD Primary Care Physician [phone] Encounter [facility] Date(s): 06/01/22 - 09/02/[address] [address] Attending Physician: Flynn Carlos MD Admitting Physician: Flynn Carlos MD Referring Physician: Flynn Carlos MD Allergies, Adverse Reactions, Alerts Substance Reaction Severity Status [place] Active Latex SWELLING Moderate Active Immunizations Given [...] Replace Required Details, Route to Pharmacy Electronically, [facility]... Start Date: 06/21/22 Status: Ordered amitriptyline 25 mg oral tablet 25 mg, 1, tablet, By Mouth, Daily at bedtime, # 30 tablet, Refills 11, Tot. Refills 11, Maintenance, 04/11/22 14:19:00 EDT, Route to Pharmacy Electronically, [facility], Partial fill upon patient request if the prescription is for a sc... Start Date: 04/11/22 Status: Ordered B-Plex Vitamin B Complex oral tablet 1 tablet, By Mouth, Daily, # 100 tablet, 3 Refills, Maintenance, 10/27/21 15:26:00 EST, Tablet, [facility] Partial fill upon patient request if the prescription is for a schedule II opioid drug., 1 tablet By Mouth Daily, 165.1, cm, 03... Start Date: 10/27/21 Status: Ordered cetirizine 10 mg oral tablet See Instructions, SUDHIR 1 TABLETA POR LA BOCA CADA CHASE, # 30 tablet, 3 Refills, 04/11/22 14:22:00 EDT, [facility] 165.1, cm, 04/11/22 14:14:00 EDT, Height Start Date: 04/11/22 Status: Ordered dicyclomine 20 mg oral tablet 1 tablet = 20 mg, By Mouth, 2 times a day, please take for spasm pain not more than twice per day, please label in Romanian., # 60 tablet, 1 Refills, Maintenance, 05/16/22 15:52:00 EDT, Tablet, [facility] Partial fill upon patient requ... Start Date: 05/16/22 Stop Date: 07/15/22 Status: Ordered diphenhydrAMINE 25 mg oral capsule 1 capsule = 25 mg, By Mouth, 3 times a day, PRN for allergy symptoms, # 30 capsule, 0 Refills, Maintenance, 11/03/21 12:50:00 EDT, Capsule, [facility] Partial fill upon patient request if the prescription is for a schedule II opioid d... Start Date: 11/03/21 Status: Ordered flunisolide 25 mcg/inh nasal spray 2 puffs, Nares, Both, Daily, # 25 mL, 6 Refills, Maintenance, 03/04/21 14:56:00 EDT, [place], [facility] Partial fill upon patient request if the prescription is for a schedule II opioid drug., 2 puffs Nares, Both Daily, 165.1, cm, 02/17... Start Date: 03/04/21 Status: Ordered gabapentin 600 mg oral tablet 1 tablet = 600 mg, By Mouth, 3 times a day, # 90 tablet, 5 Refills, Maintenance, 01/17/22 16:55:00 EDT, Tablet, [facility]., Partial fill upon patient request if the prescription is for a schedule II opioid drug., 165.1, cm, 01/17/22 16... Start Date: 01/17/22 Status: Ordered levothyroxine 50 mcg (0.05 mg) oral capsule 1 capsule = 50 mcg, By Mouth, Daily, # 30 capsule, 5 Refills, Maintenance, 07/17/22 17:27:00 EST, Capsule, [facility] Partial fill upon patient request if the prescription is for a schedule II opioid drug., 165.1, cm, 05/16/22 15:42:0... Start Date: 07/17/22 Status: Ordered pantoprazole 40 mg oral delayed release tablet See Instructions, SUDHIR 1 TABLETA POR LA BOCA CADA CHASE, # 30 tablet, 2 Refills, Maintenance, 08/23/22 11:00:00 EST, 165.1, cm, 07/24/22 11:33:00 EST, Height Start Date: 08/23/22 Status: Ordered SUMAtriptan 50 mg oral tablet See Instructions, SUDHIR 1 TABLETA POR LA BOCA LITTLE VEZ CUANDO SEA NECESARIO PARA LA MIGRANA, # 12 tablet, 1 Refills, Maintenance, 06/21/22 10:10:00 EDT, [facility], 165.1, cm, 05/16/22 15:42:00 EDT, Height Start Date: 06/21/22 Status: Ordered Vitamin B Complex oral tablet, extended release 1 tablet, By Mouth, Daily, # 90 tablet, 3 Refills, Maintenance, 03/04/21 14:55:00 EDT, [facility] Partial fill upon patient request if the prescription is for a schedule II opioid drug., 1 tablet By Mouth Daily, 165.1, cm, 03/04/21 14... 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
--- OUTSIDE RECORDS SUMMARY | 2023-09-18 08:29 | XMS_ITS | Continuity of Care Document ---
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
--- OUTSIDE RECORDS SUMMARY | 2023-09-18 08:29 | XMS_ITS | Continuity of Care Document ---
Author Name Unknown Organization [facility] [place] Address [address] [place] [address]- Care Team Providers Care Jewelry Appraiser Name Role Phone Ethel KING, Idris Primary Care Physician Encounter [facility] Date(s): 04/12/20 - 05/14/20 [facility] [place] [address] [place] [address]- [facility] Attending Physician: Trevor Purcell NP Referring Physician: Shawn Davenport MD Allergies, Adverse Reactions, Alerts Substance Reaction Severity Status Latex SWELLING Moderate Active Medications aspirin 81 mg oral delayed release tablet 81 mg, 1, tablet, By Mouth, Daily, # 30 tablet, Refills 0, Tot. Refills 0, Maintenance, 06/12/19 16:47:09 EDT, Route to Pharmacy Electronically, NCPDP_ID- [id number], [facility] Start Date: 06/12/19 Status: Ordered gabapentin 300 mg oral capsule 300 mg, 1, capsule, By Mouth, 3 times a day, # 90 capsule, Refills 0, Maintenance, 06/12/19 16:26:56 EDT Start Date: 06/12/19 Status: Ordered levothyroxine 50 mcg (0.05 mg) oral capsule 1 capsule = 50 mcg, By Mouth, Daily, # 30 capsule, 0 Refills, Maintenance, 06/12/19 16:26:20 EDT, Capsule Start Date: 06/12/19 Status: Ordered metoprolol 25 mg oral tablet 25 mg, 1, tablet, By Mouth, 2 times a day, # 60 tablet, Refills 0, Tot. Refills 0, Maintenance, 06/12/19 16:47:18 EDT, Route to Pharmacy Electronically, NCPDP_[id number], [facility] Start Date: 06/12/19 Status: Ordered Protonix 40 mg oral delayed release tablet 1 tablet = 40 mg, By Mouth, Daily, # 30 tablet, 0 Refills, Maintenance, 06/12/19 16:26:07 EDT, EC Tablet Start Date: 06/12/19 Status: Ordered Sumatriptan Once, 0 Refills, Maintenance, 06/12/19 16:26:34 EDT Start Date: 06/12/19 Status: Ordered traZODone 100 mg oral tablet 100 mg, 1, tablet, By Mouth, 3 times a day, Refills 0, Maintenance, 06/12/19 16:27:17 EDT Start Date: 06/12/19 Status: Ordered Zyrtec 10 mg oral tablet 10, mg, 1, tablet, By Mouth, Daily, 0, 02/07/06 13:20:55, Print MP Number, [id number], Constant Indicator Start Date: 02/07/06 Status: Ordered
--- OUTSIDE RECORDS SUMMARY | 2023-09-18 08:29 | XMS_ITS | Continuity of Care Document ---
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 Name Role Phone Flynn Carlos MD Primary Care Physician Encounter [facility] Date(s): 12/15/20 - 02/19/21 [facility] [address] [place] [id number]- Attending Physician: Ifrah Artis MD Admitting Physician: Ifrah Artis MD Referring Physician: Flynn Carlos MD Allergies, Adverse Reactions, Alerts Substance Reaction Severity Status [place] Active Latex SWELLING Moderate Active Immunizations Given [...] a day, take with food label in Samoan, # 60 capsule, 6 Refills, Maintenance, 08/02/20 11:46:00 EST, [facility] upon patient requestif the prescription is for a schedule II opioid . Start Date: 08/02/20 Stop Date: 02/28/21 Status: Ordered amitriptyline 25 mg oral tablet 25 mg, 1, tablet, By Mouth, Daily at bedtime, label in Samoan, # 30 tablet, Refills 5, Tot. Refills 5, Maintenance, 02/17/21 6:54:00 EDT, Route to Pharmacy Electronically, [facility]., Partial fill upon patient request [...] Status: Ordered cromolyn 4% ophthalmic solution via waistline joiner Dr Sol, 0 Refills, Maintenance, 11/17/20 17:44:00 EDT, Partial fill upon patient request if the prescription is for a schedule II opioid drug. Start Date: 11/17/20 Status: Ordered diclofenac 1% topical gel 1 application, Topically, 4 times a day, # 100 Gm, 0 Refills, Maintenance, 10/15/20 16:35:00 EST, Gel, [facility], Partial fill upon patient request if the prescription is for a schedule II opioid drug., 165.1, cm, 10/15/20 14:34:00 ES... Start Date: 10/15/20 Status: Ordered fluticasone 50 mcg/inh nasal spray via Dr Sol, waistline joiner, 0 Refills, Maintenance, 11/17/20 17:44:00 EDT, Partial fill upon patient request if the prescription is for a schedule II opioid drug. Start Date: 11/17/20 Status: Ordered gabapentin 300 mg oral capsule 300 mg, 1, capsule, By Mouth, 3 times a day, label in Samoan, # 90 capsule, Refills 5, Tot. Refills 5, Maintenance, 07/20/20 14:53:00 EST, Route to Pharmacy Electronically, [facility]/pharmacy #[id number], Partial fill upon patient request if the prescription is... Start Date: 07/20/20 Status: Ordered levothyroxine 50 mcg (0.05 mg) oral capsule 1 capsule = 50 mcg, By Mouth, Daily, # 30 capsule, 11 Refills, Maintenance, 09/14/20 7:41:00 EST, Capsule, [facility], Partial fill upon patient request if the prescription is for a schedule II opioid drug., 165.1, cm, 06/12/19 15:36:0... Start Date: 09/14/20 Status: Ordered Loratadine By Mouth, Daily, Refills 0, Maintenance, 11/17/20 17:46:00 EDT, Partial fill upon patient request if the prescription is for a schedule II opioid drug. Start Date: 11/17/20 Status: Ordered loratadine 10 mg oral tablet 10 mg, 1, tablet, By Mouth, Daily, # 30 tablet, Refills 6, Tot. Refills 6, Maintenance, 01/27/21 10:07:00 EDT, Route to Pharmacy Electronically, [facility]., Partial fill upon patient request if the prescription is for a schedule II opi... Start Date: 01/27/21 Status: Ordered metoprolol 25 mg oral tablet 25 mg, 1, tablet, By Mouth, 2 times a day, # 60 tablet, Refills 0, Tot. Refills 0, Maintenance, 06/12/19 16:47:18 EDT, Route to Pharmacy Electronically, NCPDP_[id number], [facility] Start Date: [...] PRN Migraine Headache, label all medications in Samoan, # 18 tablet, 1 Refills, Soft Stop, 12/29/20 16:12:00 EDT, Tablet, [facility]., Partial fill upon patient request if the prescription is for a tamara... 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
--- OUTSIDE RECORDS SUMMARY | 2023-09-18 08:29 | XMS_ITS | Continuity of Care Document ---
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 Name Role Phone Terrance KING, Flynn Ratliff Primary Care Physician Encounter [facility] Date(s): 07/25/23 - 08/30/[address] [address] Attending Physician: Chad Rankin Admitting Physician: Chad Rankin Referring Physician: Chad Rankin Allergies, Adverse Reactions, Alerts Substance Reaction Severity Status [place] Active Latex SWELLING Moderate Active Immunizations Given and Recorded Vaccine Date Status Refusal Reason influenza virus vaccine, inactivated 06/05/23 Give n influenza virus vaccine, inactivated 06/21/21 Emmanuel rded SARS-CoV-2 (COVID-19) mRNA BNT-162b2 vac 12/24/20 Given SARS-CoV-2 (COVID-19) mRNA BNT-162b2 vac 12/03/20 Given tetanus/diphtheria/pertussis, acel(Tdap) 06/29/16 Recorded Medications acetaminophen 325 mg oral tablet See Instructions, SUDHIR 2 TABLETAS POR LA BOCA CADA 4 HORAS CUANDO SEA NECESARIO PARA EL DOLOR MODERADO, # 100 tablet, Refills 1, Tot. Refills 1, Maintenance, 11/27/22 15:15:00 EDT, Instructions Replace Required Details, Route to Pharmacy Electronical... Start Date: 11/27/22 Status: Ordered All Day Allergy 10 mg oral tablet See Instructions, SUDHIR 1 TABLETA POR LA BOCA CADA CHASE, # 30 tablet, 5 Refills, Maintenance, 07/13/23 8:59:00 EST, [facility], 167, cm, 06/26/23 4:14:00 EST, Height, 66, kg, 06/26/23 4:14:00 EST, Dry Weight Start Date: 07/13/23 Status: Ordered amitriptyline 25 mg oral tablet 25 mg, 1, tablet, By Mouth, Daily at bedtime, # 30 tablet, Refills 11, Tot. Refills 11, Maintenance, 04/11/22 14:19:00 EDT, Route to Pharmacy Electronically, [facility]., Partial fill upon patient request if the prescription is for a sc... Start Date: 04/11/22 Status: Ordered B-Plex Vitamin B Complex oral tablet 1 tablet, By Mouth, Daily, # 100 tablet, 3 Refills, Maintenance, 10/27/21 15:26:00 EST, Tablet, [facility] Partial fill upon patient request if the prescription is for a schedule II opioid drug., 1 tablet By Mouth Daily, 165.1, cm, 03... Start Date: 10/27/21 Status: Ordered cromolyn 4% ophthalmic solution 1 drops, Eyes, Both, 4 times a day, # 10 mL, 3 Refills, Maintenance, 04/19/23 16:16:00 EDT, Solution, [facility] Partial fill upon patient request if the prescription is for a schedule II opioid drug., 1 drops Eyes, Both 4 times a day... Start Date: 04/19/23 Status: Ordered diclofenac 1% topical gel 1 application, Topically, 4 times a day, # 100 Gm, 1 Refills, Maintenance, 07/25/23 15:01:00 EST, Gel, [facility] Partial fill upon patient request if the prescription is for a schedule II opioid drug., 167, cm, 07/25/23 14:07:00 EST,... Start Date: 07/25/23 Status: Ordered dicyclomine 20 mg oral tablet 1 tablet = 20 mg, By Mouth, 2 times a day, please take for spasm pain not more than twice per day, please label in Stateless., # 60 tablet, 1 Refills, Maintenance, 06/05/23 14:57:00 EDT, Tablet, [facility] Partial fill upon patient requ... Start Date: 06/05/23 Stop Date: 08/04/23 Status: Ordered diphenhydrAMINE 25 mg oral capsule 1 capsule = 25 mg, By Mouth, 3 times a day, PRN for allergy symptoms, # 30 capsule, 4 Refills, Maintenance, 09/28/22 11:26:00 EST, [facility]apsule[facility] Partial fill upon patient request if the prescription is for a schedule II opioid d... Start Date: 09/28/22 Status: Ordered esomeprazole 20 mg oral enteric coated capsule 1 capsule = 20 mg, By Mouth, Daily, # 30 capsule, 0 Refills, Maintenance, 06/05/23 14:58:00 EDT, ECCapsule, Partial fill upon patient request if the prescription is for a schedule II opioid drug. Start Date: 06/05/23 Status: Ordered fluticasone 27.5 mcg/inh nasal spray 1 sprays, Nares, Both, Daily, PRN for allergy symptoms, # 10 Gm, 6 Refills, Maintenance, 04/24/23 10:44:00 EDT, [place], [facility] Partial fill upon patient request if the prescription is for a schedule II opioid drug., 1 sprays Nares,... Start Date: 04/24/23 Status: Ordered gabapentin 600 mg oral tablet 1 tablet = 600 mg, By Mouth, 3 times a day, # 90 tablet, 5 Refills, Maintenance, 06/05/23 15:03:00 EDT, Tablet[facility] Partial fill upon patient request if the prescription is for a schedule II opioid drug., 165.1, cm, 06/05/23 14... Start Date: 06/05/23 Status: Ordered levothyroxine 50 mcg (0.05 mg) oral capsule 1 capsule = 50 mcg, By Mouth, Daily, # 90 capsule, 6 Refills, Maintenance, 08/30/23 15:37:00 EST, Capsule, [facility] Partial fill upon patient request if the prescription is for a schedule II opioid drug., 167, cm, 07/25/23 14:07:00... Start Date: 08/30/23 Status: Ordered SUMAtriptan 50 mg oral tablet See Instructions, SUDHIR 1 TABLETA POR LA BOCA LITTLE VEZ CUANDO SEA NECESARIO PARA LA MIGRANA, # 12 tablet, 1 Refills, Maintenance, 04/19/23 16:14:00 EDT, [facility]., 165.1, cm, 04/19/2316:01:00 EDT, Height Start Date: 04/19/23 Status: Ordered tiZANidine 2 mg oral tablet 2 mg, 1, tablet, By Mouth, Every 8 hours, label in singaporean, # 21 tablet, Refills 0, Tot. Refills 0,Maintenance, 06/05/23 15:00:00 EDT, Route to Pharmacy Electronically, [facility], Partial fill upon patient request if the prescription... Start Date: 06/05/23 Stop Date: 06/12/23 Status: Ordered Topamax 25 mg oral tablet 2 tablet = 50 mg, By Mouth, Daily, label in singaporean, # 60 tablet, 3 Refills, Maintenance, 04/19/23 16:12:00 EDT, Tablet, [facility]., Partial fill upon patient request if the prescription is for a schedule II opioid drug., 165.1, cm, 08... Start Date: 04/19/23 Status: Ordered Vitamin B Complex oral tablet, extended release 1 tablet, By Mouth, Daily, # 90 tablet, 3 Refills, Maintenance, 03/04/21 14:55:00 EDT, [facility], Partial fill upon patient request if the prescription is for a schedule II opioid drug., 1 tablet By Mouth Daily, 165.1, cm, 03/04/21 14... 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
--- OUTSIDE RECORDS SUMMARY | 2023-09-18 08:29 | XMS_ITS | Continuity of Care Document ---
Author Name Unknown Organization [facility] ter Address [address] [place] [id number]- Care Team Providers Care Magnetic Doctor Name Role Phone Flynn Carlos MD Primary Care Physician Encounter [facility] Date(s): 06/26/23 - 06/26/[address] [address]- Discharge Disposition: A-D/C Walkout Attending Physician: Not on Staff, Attending MD Admitting Physician: Not on Staff, Admitting MD Referring Physician: Not on Staff, Referring MD Allergies, Adverse Reactions, Alerts Substance Reaction Severity Status [place] Active Latex SWELLING Moderate Active Immunizations Given [...] Pharmacy Electronical... Start Date: 11/27/22 Status: Ordered amitriptyline 25 mg oral tablet 25 mg, 1, tablet, By Mouth, Daily at bedtime, # 30 tablet, Refills 11, Tot. Refills 11, Maintenance, 04/11/22 14:19:00 EDT, Route to Pharmacy Electronically, [facility]., Partial fill upon patient request if the prescription is for a sc... Start Date: 04/11/22 Status: Ordered B-Plex Vitamin B Complex oral tablet 1 tablet, By Mouth, Daily, # 100 tablet, 3 Refills, Maintenance, 10/27/21 15:26:00 EST, Tablet, [facility] Partial fill upon patient request if the prescription is for a schedule II opioid drug., 1 tablet By Mouth Daily, 165.1, cm, 03... Start Date: 10/27/21 Status: Ordered cetirizine 10 mg oral tablet See Instructions, SUDHIR 1 TABLETA POR LA BOCA CADA CHASE, # 30 tablet, 3 Refills, 09/28/22 12:13:00 EST, [facility] 165.1, cm, 09/28/22 11:27:00 EST, Height Start Date: 09/28/22 Status: Ordered cromolyn 4% ophthalmic solution 1 drops, Eyes, Both, 4 times a day, # 10 mL, 3 Refills, Maintenance, 04/19/23 16:16:00 EDT, Solution, [facility] Partial fill upon patient request if the prescription is for a schedule II opioid drug., 1 drops Eyes, Both 4 times a day... Start Date: 04/19/23 Status: Ordered dicyclomine 20 mg oral tablet 1 tablet = 20 mg, By Mouth, 2 times a day, please take for spasm pain not more than twice per day, please label in Liberian., # 60 tablet, 1 Refills, Maintenance, 06/05/23 14:57:00 EDT, Tablet, [facility] Partial fill upon patient requ... Start Date: 06/05/23 Stop Date: 08/04/23 Status: Ordered diphenhydrAMINE 25 mg oral capsule 1 capsule = 25 mg, By Mouth, 3 times a day, PRN for allergy symptoms, # 30 capsule, 4 Refills, Maintenance, 09/28/22 11:26:00 EST, Capsule, [facility] Partial fill upon patient [...] Gm, 6 Refills, Maintenance, 04/24/23 10:44:00 EDT, [place], [facility] Partial fill upon patient request if the prescription is for a schedule II opioid drug., 1 sprays Nares,... Start Date: 04/24/23 Status: Ordered gabapentin 600 mg oral tablet 1 tablet = 600 mg, By Mouth, 3 times a day, # 90 tablet, 5 Refills, Maintenance, 06/05/23 15:03:00 EDT, Tablet, [facility] Partial fill upon patient request if the prescription is for a schedule II opioid drug., 165.1, cm, 06/05/23 14... Start Date: 06/05/23 Status: Ordered levothyroxine 50 mcg (0.05 mg) oral capsule 1 capsule = 50 mcg, By Mouth, Daily, # 90 capsule, 6 Refills, Maintenance, 12/07/22 15:43:00 EDT, Capsule, [facility] Partial fill upon patient request if the prescription is for a schedule II opioid drug., 165.1, cm, 12/07/22 10:52:0... Start Date: 12/07/22 Status: Ordered SUMAtriptan 50 mg oral tablet See Instructions, SUDHIR 1 TABLETA POR LA BOCA LITTLE VEZ CUANDO SEA NECESARIO PARA LA MIGRANA, # 12 tablet, 1 Refills, Maintenance, 04/19/23 16:14:00 EDT, [facility] 165.1, cm, 04/19/2316:01:00 EDT, Height Start Date: 04/19/23 Status: Ordered tiZANidine 2 mg oral tablet 2 mg, 1, tablet, By Mouth, Every 8 hours, label in american, # 21 tablet, Refills 0, Tot. Refills 0,Maintenance, 06/05/23 15:00:00 EDT, Route to Pharmacy Electronically, [facility]., Partial fill upon patient request if the prescription... Start Date: 06/05/23 Stop Date: 06/12/23 Status: Ordered Topamax 25 mg oral tablet 2 tablet = 50 mg, By Mouth, Daily, label in american, # 60 tablet, 3 Refills, Maintenance, 04/19/23 16:12:00 EDT, Tablet, [facility]., Partial fill upon patient request if the prescription is for a schedule II opioid drug., 165.1, cm, 08... Start Date: 04/19/23 Status: Ordered Vitamin B Complex oral tablet, extended release 1 tablet, By Mouth, Daily, # 90 tablet, 3 Refills, Maintenance, 03/04/21 14:55:00 EDT, [facility]., Partial fill upon patient request if the prescription is for a schedule II opioid drug., 1 tablet By Mouth Daily, 165.1, cm, 03/04/21 14... 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 Active Hematuria [...] examination Confirmed Active Hernia, cerebellar Confirmed Active Vital Signs Most recent to oldest [Reference Range]: 1 2 Height 167 cm (06/26/23 4:14 AM) 165 cm (06/26/23 4:13 AM) Weight 66 kg (06/26/23 4:14 AM) 66 kg (06/26/23 4:13 AM) Oxygen Saturation [94-100 %] 100 % (06/26/23 4:13 AM) Pulse Rate [55-90 bpm] 63 bpm (06/26/23 4:13 AM) Body Mass Index [18.5-24.99 kg/m2] 24.24 kg/m2 (06/26/23 4:13 AM) Blood Pressure [90-138/55-84 mm Hg] 129/ 75mm Hg (06/26/23 4:13 AM) Temperature [96.8-100.4 DegF] 98.1 DegF (06/26/23 4:13 AM) Mode of Delivery (Oxygen) Room air (06/26/23 4:13 AM) Blood pressure sites Arm, left (06/26/23 4:13 AM) Temperature Route Oral (06/26/23 4:13 AM) Dry Weight 66 kg (06/26/23 4:14 AM) 66 kg (06/26/23 4:13 AM) Weight Obtained Via Standing scale (06/26/23 4:13 AM) Dry Weight Obtained Via Standing scale (06/26/23 4:13 AM) Social History Social History Type Response Smoking Status Never (less than 100 in lifetime) entered on: 07/20/20 Sex Patient Care team information Care Team Personnel Name: Terrance KING, Flynn Ratliff Position: S Physician - Primary Care Member Role: PCP Address: Address: [address] [facility], [facility] [place] [address]- Care Team Related Persons Name: SCOTT BERNABE Address: home [address] [place] [address]
--- OUTSIDE RECORDS SUMMARY | 2023-09-18 08:29 | XMS_ITS | Continuity of Care Document ---
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 Name Role Phone Terrance KING, Flynn Ratliff Primary Care Physician [phone] [place] [facility] [place] 09/10/21 [facility] Francsav FelizRevolutionary Conceptss [facility] [address], [address] [place] [address]- Allergies, Adverse Reactions, Alerts Substance Reaction Severity Status [place] Active Latex SWELLING Moderate Active Immunizations Given [...] a day, take with food label in Ukrainian, # 60 capsule, 6 Refills, Maintenance, 08/02/20 11:46:00 EST, [facility] upon patient requestif the [...] CADA CHASE, # 30 tablet, 3 Refills, [facility], 165.1, cm, 06/14/21 15:59:00 EDT, Height Start Date: 07/26/21 Status: Ordered cromolyn 4% ophthalmic solution via impregnating tank operator Dr Sol, 0 Refills, Maintenance, 11/17/20 17:44:00 EDT, Partial fill upon patient request if the prescription is for a schedule II opioid drug. Start Date: 11/17/20 Status: Ordered diclofenac 1% topical gel 1 application, Topically, 4 times a day, # 100 Gm, 0 Refills, Maintenance, 10/15/20 16:35:00 EST, Gel, [facility]., Partial fill upon patient request if the prescription is for a schedule II opioid drug., 165.1, cm, 10/15/20 14:34:00 ES... Start Date: 10/15/20 Status: Ordered flunisolide 25 mcg/inh nasal spray 2 puffs, Nares, Both, Daily, # 25 mL, 6 Refills, Maintenance, 03/04/21 14:56:00 EDT, [place], [facility] Partial fill upon patient request if the prescription is for a schedule II opioid drug., 2 puffs Nares, Both Daily, 165.1, cm, 02/17... Start Date: 03/04/21 Status: Ordered fluticasone 50 mcg/inh nasal spray via Dr Sol, impregnating tank operator, 0 Refills, Maintenance, 11/17/20 17:44:00 EDT, Partial fill upon patient request if the prescription is for a schedule II opioid drug. Start Date: 11/17/20 Status: Ordered gabapentin 300 mg oral capsule 300 mg, 1, capsule, By Mouth, 3 times a day, label in Ukrainian, # 90 capsule, Refills 5, Tot. Refills 5, Maintenance, 07/20/20 14:53:00 EST, Route to Pharmacy Electronically, [facility]/pharmacy #[id number], Partial fill upon patient request if the prescription is... Start Date: 07/20/20 Status: Ordered levothyroxine 50 mcg (0.05 mg) oral capsule 1 capsule = 50 mcg, By Mouth, Daily, # 30 capsule, 11 Refills, Maintenance, 09/14/20 7:41:00 EST, Capsule, [facility]., Partial fill upon patient request if the prescription is for a schedule II opioid drug., 165.1, cm, 06/12/19 15:36:0... Start Date: 09/14/20 Status: Ordered metoprolol 25 mg oral tablet 25 mg, 1, tablet, By Mouth, 2 times a day, # 60 tablet, Refills 0, Tot. Refills 0, Maintenance, 06/12/19 16:47:18 EDT, Route to Pharmacy Electronically, [id number]_[id number], [facility] Start Date: 06/12/19 Status: Ordered pantoprazole 40 mg oral delayed release tablet See Instructions, SUDHIR 1 TABLETA POR LA BOCA CADA CHASE, # 30 tablet, 5 Refills, 165.1, cm, 04/12/2114:30:00 EDT, Height Start Date: 04/14/21 Status: Ordered SUMAtriptan 50 mg oral tablet 1 tablet = 50 mg, By Mouth, Once, PRN Migraine Headache, label all medications in Ukrainian, # 18 tablet, 1 Refills, Soft Stop, 07/04/21 16:07:00 EST, Tablet, [facility] Partial fill upon patient request if the prescription is for a tamara... Start Date: 07/04/21 Status: Ordered Vitamin B Complex oral tablet, extended release 1 tablet, By Mouth, Daily, # 90 tablet, 3 Refills, Maintenance, 03/04/21 14:55:00 EDT, [facility]., Partial fill upon patient request if the prescription is for a schedule II opioid drug., 1 tablet By Mouth Daily, 165.1, cm, 03/04/21 14... 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
--- OUTSIDE RECORDS SUMMARY | 2023-09-18 08:29 | XMS_ITS | Continuity of Care Document ---
Author Name Unknown Organization [facility] Address Unknown Care Team Providers Care Disease And Insect Control Boss Name Role Phone Terrance KING, Flynn Ratliff Primary Care Physician [phone] [place] [facility] [place] 05/19/21 [facility] Allergies, Adverse Reactions, Alerts Substance Reaction Severity Status [place] Active Latex SWELLING Moderate Active Immunizations Given [...] a day, take with food label in Greenlandic, # 60 capsule, 6 Refills, Maintenance, 08/02/20 11:46:00 EST, [facility], Partial fill upon patient requestif the prescription is for a schedule II opioid Start Date: 08/02/20 Stop Date: 02/28/21 Status: Ordered amitriptyline 25 mg oral tablet 25 mg, 1, tablet, By Mouth, Daily at bedtime, label in Greenlandic, # 30 tablet, Refills 5, Tot. Refills 5, Maintenance, 02/17/21 6:54:00 EDT, Route to Pharmacy Electronically, [facility], Partial fill upon patient request if [...] Status: Ordered cromolyn 4% ophthalmic solution via business systems architect Dr Sol, 0 Refills, Maintenance, 11/17/20 17:44:00 EDT, Partial fill upon patient request if the prescription is for a schedule II opioid drug. Start Date: 11/17/20 Status: Ordered diclofenac 1% topical gel 1 application, Topically, 4 times a day, # 100 Gm, 0 Refills, Maintenance, 10/15/20 16:35:00 EST, Gel, [facility]., Partial fill upon patient request if the prescription is for a schedule II opioid drug., 165.1, cm, 10/15/20 14:34:00 ES... Start Date: 10/15/20 Status: Ordered flunisolide 25 mcg/inh nasal spray 2 puffs, Nares, Both, Daily, # 25 mL, 6 Refills, Maintenance, 03/04/21 14:56:00 EDT, [place], [facility]., Partial fill upon patient request if the prescription is for a schedule II opioid drug., 2 puffs Nares, Both Daily, 165.1, cm, 02/17... Start Date: 03/04/21 Status: Ordered fluticasone 50 mcg/inh nasal spray via Dr Sol, business systems architect, 0 Refills, Maintenance, 11/17/20 17:44:00 EDT, Partial fill upon patient request if the prescription is for a schedule II opioid drug. Start Date: 11/17/20 Status: Ordered gabapentin 300 mg oral capsule 300 mg, 1, capsule, By Mouth, 3 times a day, label in Greenlandic, # 90 capsule, Refills 5, Tot. Refills 5, Maintenance, 07/20/20 14:53:00 EST, Route to Pharmacy Electronically, [facility]/pharmacy #[id number], Partial fill upon patient request if the prescription is... Start Date: 07/20/20 Status: Ordered levothyroxine 50 mcg (0.05 mg) oral capsule 1 capsule = 50 mcg, By Mouth, Daily, # 30 capsule, 11 Refills, Maintenance, 09/14/20 7:41:00 EST, Capsule, [facility] Partial fill upon patient request if the prescription is for a schedule II opioid drug., 165.1, cm, 06/12/19 15:36:0... Start Date: 09/14/20 Status: Ordered metoprolol 25 mg oral tablet 25 mg, 1, tablet, By Mouth, 2 times a day, # 60 tablet, Refills 0, Tot. Refills 0, Maintenance, 06/12/19 16:47:18 EDT, Route to Pharmacy Electronically, NCPDP_[id number], [facility] Start Date: 06/12/19 Status: Ordered pantoprazole 40 mg oral delayed release tablet See Instructions, SUDHIR 1 TABLETA POR LA BOCA CADA CHASE, # 30 tablet, 5 Refills, 165.1, cm, 04/12/2114:30:00 EDT, Height Start Date: 04/14/21 Status: Ordered SUMAtriptan 50 mg oral tablet 1 tablet = 50 mg, By Mouth, Once, PRN Migraine Headache, label all medications in Greenlandic, # 18 tablet, 1 Refills, Soft Stop, 12/29/20 16:12:00 EDT, Tablet, [facility]., Partial fill upon patient request if the prescription is for a tamara... Start Date: 12/29/20 Status: Ordered Vitamin B Complex oral tablet, extended release 1 tablet, By Mouth, Daily, # 90 tablet, 3 Refills, Maintenance, 03/04/21 14:55:00 EDT, [facility]., Partial fill upon patient request if the prescription is for a schedule II opioid drug., 1 tablet By Mouth Daily, 165.1, cm, 03/04/21 14... 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
--- OUTSIDE RECORDS SUMMARY | 2023-09-18 08:29 | XMS_ITS | Continuity of Care Document ---
Author Name Unknown Organization [facility] Address [address] [place] [address]- Care Team Providers Care Rod Bending Machine Operator Name Role Phone Flynn Carlos MD Primary Care Physician [place] [facility] [place](s): 07/17/22 - 08/16/22 [facility] [address] [place] [address]- Allergies, Adverse Reactions, Alerts Substance Reaction Severity Status [place] Active Latex SWELLING Moderate Active Immunizations Given [...] Replace Required Details, Route to Pharmacy Electronically, [facility]... Start Date: 06/21/22 Status: Ordered amitriptyline 25 mg oral tablet 25 mg, 1, tablet, By Mouth, Daily at bedtime, # 30 tablet, Refills 11, Tot. Refills 11, Maintenance, 04/11/22 14:19:00 EDT, [facility], Partial fill upon patient request if the prescription is for a sc... Start Date: 04/11/22 Status: Ordered B-Plex Vitamin B Complex oral tablet 1 tablet, By Mouth, Daily, # 100 tablet, 3 Refills, Maintenance, 10/27/21 15:26:00 EST, Tablet, [facility] Partial fill upon patient request if the prescription is for a schedule II opioid drug., 1 tablet By Mouth Daily, 165.1, cm, 03... Start Date: 10/27/21 Status: Ordered cetirizine 10 mg oral tablet See Instructions, SUDHIR 1 TABLETA POR LA BOCA CADA CHASE, # 30 tablet, 3 Refills, 04/11/22 14:22:00 EDT, [facility] 165.1, cm, 04/11/22 14:14:00 EDT, Height Start Date: 04/11/22 Status: Ordered dicyclomine 20 mg oral tablet 1 tablet = 20 mg, By Mouth, 2 times a day, please take for spasm pain not more than twice per day, please label in [place]., # 60 tablet, 1 Refills, Maintenance, 05/16/22 15:52:00 EDT, Tablet, [facility] Partial fill upon patient requ... Start Date: 05/16/22 Stop Date: 07/15/22 Status: Ordered diphenhydrAMINE 25 mg oral capsule 1 capsule = 25 mg, By Mouth, 3 times a day, PRN for allergy symptoms, # 30 capsule, 0 Refills, Maintenance, 11/03/21 12:50:00 EDT, Capsule, [facility] Partial fill upon patient request if the prescription is for a schedule II opioid d... Start Date: 11/03/21 Status: Ordered flunisolide 25 mcg/inh nasal spray 2 puffs, Nares, Both, Daily, # 25 mL, 6 Refills, Maintenance, 03/04/21 14:56:00 EDT, [place], [facility] Partial fill upon patient request if the prescription is for a schedule II opioid drug., 2 puffs Nares, Both Daily, 165.1, cm, 02/17... Start Date: 03/04/21 Status: Ordered gabapentin 600 mg oral tablet 1 tablet = 600 mg, By Mouth, 3 times a day, # 90 tablet, 5 Refills, Maintenance, 01/17/22 16:55:00 EDT, Tablet, [facility] Partial fill upon patient request if the prescription is for a schedule II opioid drug., 165.1, cm, 01/17/22 16... Start Date: 01/17/22 Status: Ordered levothyroxine 50 mcg (0.05 mg) oral capsule 1 capsule = 50 mcg, By Mouth, Daily, # 30 capsule, 5 Refills, Maintenance, 07/17/22 17:27:00 EST, Capsule, [facility]., Partial fill upon patient request if [...] tablet, 1 Refills, Maintenance, 06/21/22 10:10:00 EDT, [facility], 165.1, cm, 05/16/22 15:42:00 EDT, Height Start Date: 06/21/22 Status: Ordered Vitamin B Complex oral tablet, extended release 1 tablet, By Mouth, Daily, # 90 tablet, 3 Refills, Maintenance, 03/04/21 14:55:00 EDT, [facility]., Partial fill upon patient request if the prescription is for a schedule II opioid drug., 1 tablet By Mouth Daily, 165.1, cm, 03/04/21 14... 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
--- OUTSIDE RECORDS SUMMARY | 2023-09-18 08:29 | XMS_ITS | Continuity of Care Document ---
Author Name Unknown Organization [facility] Franc hanFTRANSkelsi [facility] Address [address] [place] [address]- Care Team Providers Care Licensed Esthetician Name Role Phone Ethel KING, Idris Primary Care Physician [place] [facility] [place] ACCT R [id number] Date(s): 11/03/19 - 11/13/19 [facility] Francsav FelizFTRANSs [facility] [address] [place] [address]- Attending Physician: Chad Sofia Admitting Physician: Chad Sofai Referring Physician: AdmtrChad Allergies, Adverse Reactions, Alerts Substance Reaction Severity Status Latex SWELLING Moderate Active Medications aspirin 81 mg oral delayed release tablet 81 mg, 1, tablet, By Mouth, Daily, # 30 tablet, Refills 0, Tot. Refills 0, Maintenance, 06/12/19 16:47:09 EDT, Route to Pharmacy Electronically, NCPDP_ID- [id number], [facility] Start Date: 06/12/19 Status: [...] 06/12/19 16:47:18 EDT, Route to Pharmacy Electronically, NCPDP_[id number], [facility] Start Date: 06/12/19 Status: [...] Daily, 0, 02/07/06 13:20:55, Print MP Number, [id number], Constant Indicator Start Date: 02/07/06 Status: Ordered
--- OUTSIDE RECORDS SUMMARY | 2023-09-18 08:29 | XMS_ITS | Continuity of Care Document ---
Author Name Unknown Organization [facility] Address [address] [place] [address]- Care Team Providers Care Highway Engineer Name Role Phone Flynn Carlos MD Primary Care Physician [phone] [place] [facility] [place](s[place] 12/07/22 - 01/06/23 [facility] [address] [place] [address]- Attending Physician: Admtr, Chad Admitting Physician: Admtr, [id number] Referring Physician: Admtr, [id number] Allergies, Adverse Reactions, Alerts Substance Reaction Severity Status [place] Active Latex SWELLING Moderate Active Immunizations Given [...] 04/11/22 14:19:00 EDT, [facility], [facility] fill upon patient request if the prescription is for a sc... Start Date: 04/11/22 Status: Ordered B-Plex Vitamin B Complex oral tablet 1 tablet, By Mouth, Daily, # 100 tablet, 3 Refills, Maintenance, 10/27/21 15:26:00 EST, Tablet, [facility] Partial fill upon patient request if the prescription is for a schedule II opioid drug., 1 tablet By Mouth Daily, 165.1, cm, 03... Start Date: 10/27/21 Status: Ordered cetirizine 10 mg oral tablet See Instructions, SUDHIR 1 TABLETA POR LA BOCA CADA CHASE, # 30 tablet, 3 Refills, 09/28/22 12:13:00 EST, [facility] 165.1, cm, 09/28/22 11:27:00 EST, Height Start Date: 09/28/22 Status: Ordered cromolyn 4% ophthalmic solution 1 drops, Eyes, Both, 4 times a day, # 10 mL, 3 Refills, Maintenance, 09/28/22 12:14:00 EST, [place], [facility] Partial fill upon patient request if the prescription is for a schedule II opioid drug., 1 drops Eyes, Both 4 times a day... Start Date: 09/28/22 Status: Ordered dicyclomine 20 mg oral tablet 1 tablet = 20 mg, By Mouth, 2 times a day, please take for spasm pain not more than twice per day, please label in Luxembourgish., # 60 tablet, 1 Refills, Maintenance, 05/16/22 15:52:00 EDT, Tablet, [facility] Partial fill upon patient requ... Start Date: 05/16/22 Stop Date: 07/15/22 Status: Ordered diphenhydrAMINE 25 mg oral capsule 1 capsule = 25 mg, By Mouth, 3 times a day, PRN for allergy symptoms, # 30 capsule, 4 Refills, Maintenance, 09/28/22 11:26:00 EST, Capsule, [facility] Partial fill upon patient request if the prescription is for a schedule II opioid d... Start Date: 09/28/22 Status: Ordered flunisolide 25 mcg/inh nasal spray 2 puffs, Nares, Both, Daily, # 25 mL, 6 Refills, Maintenance, 03/04/21 14:56:00 EDT, [place], [facility] Partial fill upon patient request if the prescription is for a schedule II opioid drug., 2 puffs Nares, Both Daily, 165.1, cm, 02/17... Start Date: 03/04/21 Status: Ordered levothyroxine 0.05 mg oral tablet 1 tablet = 50 mcg, By Mouth, Daily, # 90 tablet, 6 Refills, Maintenance, 12/07/22 16:42:00 EDT, Tablet, [facility] Partial fill upon patient request if the prescription is for a schedule II opioid drug., 165.1, cm, 12/07/22 10:52:00 E... Start Date: 12/07/22 Status: Ordered levothyroxine 50 mcg (0.05 mg) oral capsule 1 capsule = 50 mcg, By Mouth, Daily, # 90 capsule, 6 Refills, Maintenance, 12/07/22 15:43:00 EDT, Capsule, [facility]., Partial fill upon patient request if the prescription is for a schedule II opioid drug., 165.1, cm, 12/07/22 10:52:0... Start Date: 12/07/22 Status: Ordered pantoprazole 40 mg oral delayed release tablet See Instructions, SUDHIR 1 TABLETA POR LA BOCA CADA CHASE, # 90 tablet, 0 Refills, Maintenance, 11/29/22 10:52:00 EDT, 165.1, cm, 10/26/22 10:56:00 EST, Height Start Date: 11/29/22 Status: Ordered SUMAtriptan 50 mg oral tablet See Instructions, SUDHIR 1 TABLETA POR LA BOCA LITTLE VEZ CUANDO SEA NECESARIO PARA LA MIGRANA, # 12 tablet, 1 Refills, Maintenance, 11/01/22 12:58:00 EDT, [facility] 165.1, cm, 10/26/2309:56:00 EST, Height Start Date: 11/01/22 Status: Ordered tiZANidine 2 mg oral tablet 2 mg, 1, tablet, By Mouth, Every 8 hours, label in ecuadorean, # 21 tablet, Refills 0, Tot. Refills 0,Maintenance, 12/07/22 11:52:00 EDT, Route to Pharmacy Electronically, [facility], Partial fill upon patient request if the prescription... Start Date: 12/07/22 Stop Date: 12/14/22 Status: Ordered Vitamin B Complex oral tablet, extended release 1 tablet, By Mouth, Daily, # 90 tablet, 3 Refills, Maintenance, 03/04/21 14:55:00 EDT, [facility], Partial fill upon patient request if the prescription is for a schedule II opioid drug., 1 tablet By Mouth Daily, 165.1, cm, 03/04/21 14... 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, [facility] [place] [address]- Care Team Related Persons Name: SCOTT BERNABE Address: [address] [place] [address]
--- OUTSIDE RECORDS SUMMARY | 2023-09-18 08:29 | XMS_ITS | Continuity of Care Document ---
Author Name Unknown Organization [facility] Address [address] [place] [address]- Care Team Providers Care Sausage Meat Trimmer Name Role Phone Terrance KING, Flynn Ratliff Primary Care Physician [phone] Encounter [facility] [place] ACCT R [id number] Date(s): 11/26/20 - 01/16/21 [facility] [address] [place] [address]- Attending Physician: Roberto Cantu MD Admitting Physician: Roberto Cantu MD Allergies, Adverse Reactions, Alerts Substance Reaction Severity Status [place] Active Latex SWELLING Moderate Active Immunizations Given [...] capsule, 6 Refills, Maintenance, 08/02/20 11:46:00 EST, [facility] fill upon patient requestif the prescription is for a schedule II opioid . Start Date: 08/02/20 Stop Date: 02/28/21 Status: Ordered amitriptyline 25 mg oral tablet 25 mg, 1, tablet, By Mouth, Daily at bedtime, label in Ukrainian, # 30 tablet, Refills 4, Tot. Refills 4, Maintenance, 07/20/20 14:55:00 EST, Route to Pharmacy Electronically, [facility]/pharmacy #[id number], Partial fill upon patient request if the prescription is... Start Date: 07/20/20 Stop Date: 12/17/20 Status: Ordered Carafate 1 gm oral tablet 1 Gm, 1, tablet, By Mouth, 3 times a day before meals and bedtime, Refills 0, Maintenance, 11/17/2116:37:00 EDT, Partial fill upon patient request if the prescription is for a schedule II opioid drug. Start Date: 11/17/20 Status: Ordered cromolyn 4% ophthalmic solution via day care assistant Dr Sol, 0 Refills, Maintenance, 11/17/20 17:44:00 EDT, Partial fill upon patient request if the prescription is for a schedule II opioid drug. Start Date: 11/17/20 Status: Ordered diclofenac 1% topical gel 1 application, Topically, 4 times a day, # 100 Gm, 0 Refills, Maintenance, 10/15/20 16:35:00 EST, Gel, [facility]., Partial fill upon patient request if the prescription is for a schedule II opioid drug., 165.1, cm, 10/15/20 14:34:00 ES... Start Date: 10/15/20 Status: Ordered fluticasone 50 mcg/inh nasal spray via Dr Sol, day care assistant, 0 Refills, Maintenance, 11/17/20 17:44:00 EDT, Partial fill upon patient request if the prescription is for a schedule II opioid drug. Start Date: 11/17/20 Status: Ordered gabapentin 300 mg oral capsule 300 mg, 1, capsule, By Mouth, 3 times a day, label in Ukrainian, # 90 capsule, Refills 5, Tot. Refills 5, Maintenance, 07/20/20 14:53:00 EST, Route to Pharmacy Electronically, [facility]/pharmacy #[id number], Partial fill upon patient request if the prescription is... Start Date: 07/20/20 Status: Ordered levothyroxine 50 mcg (0.05 mg) oral capsule 1 capsule = 50 mcg, By Mouth, Daily, # 30 capsule, 11 Refills, Maintenance, 09/14/20 7:41:00 EST, Capsule, [facility]., Partial fill upon patient request [...] 06/12/19 16:47:18 EDT, Route to Pharmacy Electronically, NCPDP_[id number], [facility] Start Date: 06/12/19 Status: Ordered Protonix 40 mg oral delayed release tablet 1 tablet = 40 mg, By Mouth, Daily, # 30 tablet, 2 Refills, Maintenance, 10/14/20 8:37:00 EST, EC Tablet, 165.1, cm, 06/12/19 15:36:00 EDT, Height Start Date: 10/14/20 Status: Ordered SUMAtriptan 50 mg oral tablet 1 tablet = 50 mg, By Mouth, Once, PRN Migraine Headache, label all medications in Ukrainian, # 18 tablet, 1 Refills, Soft Stop, 12/29/20 16:12:00 EDT, Tablet, [facility], Partial fill upon patient request if the prescription is for a tamara... 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
--- OUTSIDE RECORDS SUMMARY | 2023-09-18 08:29 | XMS_ITS | Continuity of Care Document ---
Author Name Unknown Organization [facility] Address [address] [place] [address]- Care Team Providers Care Tire Buster Name Role Phone Ethel KING, Idris Primary Care Physician [phone] Encounter [facility] Date(s): 04/16/20 - 06/11/20 [facility] [address] [place] [address]- [facility] Attending Physician: Trevor Purcell NP Referring Physician: Shawn Davenport MD Allergies, Adverse Reactions, Alerts Substance Reaction Severity Status Latex SWELLING Moderate Active Medications aspirin 81 mg oral delayed release tablet 81 mg, 1, tablet, By Mouth, Daily, # 30 tablet, Refills 0, Tot. Refills 0, Maintenance, 06/12/19 16:47:09 EDT, Route to Pharmacy Electronically, NCPDP_ID- [id number], [facility] Start Date: [...] 06/12/19 16:47:18 EDT, Route to Pharmacy Electronically, NCPDP_[id number], [facility] Start Date: [...] Daily, 0, 02/07/06 13:20:55, Print MP Number, [id number], Constant Indicator Start Date: 02/07/06 Status: Ordered
--- OUTSIDE RECORDS SUMMARY | 2023-09-18 08:29 | XMS_ITS | Continuity of Care Document ---
Author Name Unknown Organization [facility] ter Address [address] [place] [id number]- Care Team Providers Care Sprayer Leather Name Role Phone Terrance KING, Flynn Ratliff Primary Care Physician [place] [facility] [place] [id number] Date(s): 12/28/20 - 02/19/[address] [address]- Attending Physician: Gerald Barnard MD Admitting Physician: Gerald Barnard MD Referring Physician: Flynn Carlos MD Allergies, Adverse Reactions, Alerts Substance Reaction Severity Status [place] Active Latex SWELLING Moderate Active Immunizations Given [...] a day, take with food label in Portuguese, # 60 capsule, 6 Refills, Maintenance, 08/02/20 11:46:00 EST, [facility] upon patient requestif the prescription is for a schedule II opioid . Start Date: 08/02/20 Stop Date: 02/28/21 Status: Ordered amitriptyline 25 mg oral tablet 25 mg, 1, tablet, By Mouth, Daily at bedtime, label in Portuguese, # 30 tablet, Refills 5, Tot. Refills 5, Maintenance, 02/17/21 6:54:00 EDT, Route to Pharmacy Electronically, [facility]., Partial fill [...] Status: Ordered cromolyn 4% ophthalmic solution via grazing examiner Dr Sol, 0 Refills, Maintenance, 11/17/20 17:44:00 EDT, Partial fill upon patient request if the prescription is for a schedule II opioid drug. Start Date: 11/17/20 Status: Ordered diclofenac 1% topical gel 1 application, Topically, 4 times a day, # 100 Gm, 0 Refills, Maintenance, 10/15/20 16:35:00 EST, Gel, [facility], Partial fill upon patient request if the prescription is for a schedule II opioid drug., 165.1, cm, 10/15/20 14:34:00 ES... Start Date: 10/15/20 Status: Ordered fluticasone 50 mcg/inh nasal spray via Dr Sol, grazing examiner, 0 Refills, Maintenance, 11/17/20 17:44:00 EDT, Partial fill upon patient request if the prescription is for a schedule II opioid drug. Start Date: 11/17/20 Status: Ordered gabapentin 300 mg oral capsule 300 mg, 1, capsule, By Mouth, 3 times a day, label in Portuguese, # 90 capsule, Refills 5, Tot. Refills 5, Maintenance, 07/20/20 14:53:00 EST, Route to Pharmacy Electronically, [facility]/pharmacy #[id number], Partial fill upon patient request if the prescription is... Start Date: 07/20/20 Status: Ordered levothyroxine 50 mcg (0.05 mg) oral capsule 1 capsule = 50 mcg, By Mouth, Daily, # 30 capsule, 11 Refills, Maintenance, 09/14/20 7:41:00 EST, Capsule, [facility]., Partial fill upon patient request if the prescription is for a schedule II opioid drug., 165.1, cm, 10/24/19 15:36:0... Start Date: 09/14/20 Status: Ordered Loratadine [...] 01/27/21 10:07:00 EDT, Route to Pharmacy Electronically, [facility]., Partial fill upon patient request if the prescription is for a schedule II opi... Start Date: 01/27/21 Status: Ordered metoprolol 25 mg oral tablet 25 mg, 1, tablet, By Mouth, 2 times a day, # 60 tablet, Refills 0, Tot. Refills 0, Maintenance, 06/12/19 16:47:18 EDT, Route to Pharmacy Electronically, NCPDP_[id number], [facility] - C Start [...] PRN Migraine Headache, label all medications in Portuguese, # 18 tablet, 1 Refills, Soft Stop, 12/29/20 16:12:00 EDT, Tablet, [facility]., Partial fill upon patient request if the prescription is for a tamara... 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
--- OUTSIDE RECORDS SUMMARY | 2023-09-18 08:29 | XMS_ITS | Continuity of Care Document ---
Author Name Unknown Organization [facility] Address [address] [place] [address]- Care Team Providers Care Set Designer Name Role Phone Flynn Carlos MD Primary Care Physician [place] [facility] [place](s): 12/08/20 - 02/10/21 [facility] [address] [place], [place] [address] Attending Physician: Flynn Carlos MD Admitting Physician: Flynn Carlos MD Allergies, Adverse Reactions, Alerts Substance Reaction Severity Status [place] Active Latex SWELLING Moderate Active Immunizations Given [...] a day, take with food label in Gabonese, # 60 capsule, 6 Refills, Maintenance, 08/02/20 11:46:00 EST, [facility] fill upon patient requestif the prescription is for a schedule II opioid . Start Date: 08/02/20 Stop Date: 02/28/21 Status: Ordered amitriptyline 25 mg oral tablet 25 mg, 1, tablet, By Mouth, Daily at bedtime, label in Gabonese, # 30 tablet, Refills 4, Tot. Refills 4, Maintenance, 07/20/20 14:55:00 EST, Route to Pharmacy Electronically, [facility]/pharmacy #[id number], Partial fill upon patient request if [...] Status: Ordered cromolyn 4% ophthalmic solution via real estate utilization officer Dr Sol, 0 Refills, Maintenance, 11/17/20 17:44:00 EDT, Partial fill upon patient request if the prescription is for a schedule II opioid drug. Start Date: 11/17/20 Status: Ordered diclofenac 1% topical gel 1 application, Topically, 4 times a day, # 100 Gm, 0 Refills, Maintenance, 10/15/20 16:35:00 EST, Gel, [facility]., Partial fill upon patient request if the prescription is for a schedule II opioid drug., 165.1, cm, 10/15/20 14:34:00 ES... Start Date: 10/15/20 Status: Ordered fluticasone 50 mcg/inh nasal spray via Dr Sol, real estate utilization officer, 0 Refills, Maintenance, 11/17/20 17:44:00 EDT, Partial fill upon patient request if the prescription is for a schedule II opioid drug. Start Date: 11/17/20 Status: Ordered gabapentin 300 mg oral capsule 300 mg, 1, capsule, By Mouth, 3 times a day, label in Gabonese, # 90 capsule, Refills 5, Tot. Refills 5, Maintenance, 07/20/20 14:53:00 EST, Route to Pharmacy Electronically, [facility]/pharmacy #[id number], Partial fill upon patient request if the prescription is... Start Date: 07/20/20 Status: Ordered levothyroxine 50 mcg (0.05 mg) oral capsule 1 capsule = 50 mcg, By Mouth, Daily, # 30 capsule, 11 Refills, Maintenance, 09/14/20 7:41:00 EST, Capsule, [facility]., Partial fill upon patient request if [...] 01/27/21 10:07:00 EDT, Route to Pharmacy Electronically, [facility]., Partial fill upon patient request if the prescription is for a schedule II opi... Start Date: 01/27/21 Status: Ordered metoprolol 25 mg oral tablet 25 mg, 1, tablet, By Mouth, 2 times a day, # 60 tablet, Refills 0, Tot. Refills 0, Maintenance, 06/12/19 16:47:18 EDT, Route to Pharmacy Electronically, NCPDP_[id number], [facility] C Start Date: 06/12/19 Status: [...] PRN Migraine Headache, label all medications in Gabonese, # 18 tablet, 1 Refills, Soft Stop, 12/29/20 16:12:00 EDT, Tablet, [facility]., Partial fill upon patient request if the prescription is for a tamara... Start Date: 12/29/20 Status: Ordered Problem List Condition Effective Dates Status Health Status Inform ant Allergic rhinitis, real estate utilization officer Dr Sol in past(Confirmed) Active Hematuria(Confirmed) [...]
--- OUTSIDE RECORDS SUMMARY | 2023-09-18 08:29 | XMS_ITS | Continuity of Care Document ---
Author Name Unknown Organization [facility] Address [address] [place] [address]- Care Team Providers Care Registered Associate Name Role Phone Flynn Carlos MD Primary Care Physician Encounter [facility] [place] Date(s): 07/24/22 - 08/23/22 [facility] [address] [place] [address]- Attending Physician: Admtr, Chad Admitting Physician: Admtr, [id number] Referring Physician: Admtr, Ar8 Allergies, Adverse Reactions, Alerts Substance Reaction Severity Status [place] Active Latex SWELLING Moderate Active Immunizations Given [...] Replace Required Details, Route to Pharmacy Electronically, [facility]... Start Date: 06/21/22 Status: Ordered amitriptyline 25 mg oral tablet 25 mg, 1, tablet, By Mouth, Daily at bedtime, # 30 tablet, Refills 11, Tot. Refills 11, Maintenance, 04/11/22 14:19:00 EDT, Route to Pharmacy Electronically, [facility], Partial fill upon patient request if the prescription is for a sc... Start Date: 04/11/22 Status: Ordered B-Plex Vitamin B Complex oral tablet 1 tablet, By Mouth, Daily, # 100 tablet, 3 Refills, Maintenance, 10/27/21 15:26:00 EST, [facility] fill upon patient request if the prescription is for a schedule II opioid drug., 1 tablet By Mouth Daily, 165.1, cm, 03... Start Date: 10/27/21 Status: Ordered cetirizine 10 mg oral tablet See Instructions, SUDHIR 1 TABLETA POR LA BOCA CADA CHASE, # 30 tablet, 3 Refills, 04/11/22 14:22:00 EDT, [facility] 165.1, cm, 04/11/22 14:14:00 EDT, Height Start Date: 04/11/22 Status: Ordered dicyclomine 20 mg oral tablet 1 tablet = 20 mg, By Mouth, 2 times a day, please take for spasm pain not more than twice per day, please label in Macedonian., # 60 tablet, 1 Refills, Maintenance, 05/16/22 15:52:00 EDT, Tablet, [facility] Partial fill upon patient requ... Start Date: 05/16/22 Stop Date: 07/15/22 Status: Ordered diphenhydrAMINE 25 mg oral capsule 1 capsule = 25 mg, By Mouth, 3 times a day, PRN for allergy symptoms, # 30 capsule, 0 Refills, Maintenance, 11/03/21 12:50:00 EDT, Capsule, [facility] Partial fill upon patient request if the prescription is for a schedule II opioid d... Start Date: 11/03/21 Status: Ordered flunisolide 25 mcg/inh nasal spray 2 puffs, Nares, Both, Daily, # 25 mL, 6 Refills, Maintenance, 03/04/21 14:56:00 EDT, [place], [facility] Partial fill upon patient request if the prescription is for a schedule II opioid drug., 2 puffs Nares, Both Daily, 165.1, cm, 02/17... Start Date: 03/04/21 Status: Ordered gabapentin 600 mg oral tablet 1 tablet = 600 mg, By Mouth, 3 times a day, # 90 tablet, 5 Refills, Maintenance, 01/17/22 16:55:00 EDT, Tablet, [facility] Partial fill upon patient request if the prescription is for a schedule II opioid drug., 165.1, cm, 01/17/22 16... Start Date: 01/17/22 Status: Ordered levothyroxine 50 mcg (0.05 mg) oral capsule 1 capsule = 50 mcg, By Mouth, Daily, # 30 capsule, 5 Refills, Maintenance, 07/17/22 17:27:00 EST, Capsule, [facility] Partial fill upon patient request if [...] tablet, 3 Refills, Maintenance, 03/04/21 14:55:00 EDT, [facility] Partial fill upon patient request if the prescription is for a schedule II opioid drug., 1 tablet By Mouth Daily, 165.1, cm, 03/04/21 14... 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
--- OUTSIDE RECORDS SUMMARY | 2023-09-18 08:29 | XMS_ITS | Continuity of Care Document ---
Author Name Unknown Organization [facility] Address [address] [place] [address]- Care Team Providers Care Actimize Architect Name Role Phone Flynn Carlos MD Primary Care Physician [place] [facility] [place]25/22 [facility] [address] [place] [address]- Attending Physician: Admtr, Chad Admitting Physician: Admtr, [id number] Referring Physician: Admtr, Ar8 Allergies, Adverse Reactions, Alerts Substance Reaction Severity Status [place] Active Latex SWELLING Moderate Active Immunizations Given [...] Replace Required Details, Route to Pharmacy Electronically, [facility]... Start Date: 06/21/22 Status: Ordered amitriptyline 25 mg oral tablet 25 mg, 1, tablet, By Mouth, Daily at bedtime, # 30 tablet, Refills 11, Tot. Refills 11, Maintenance, 04/11/22 14:19:00 EDT, Route to Pharmacy Electronically, [facility], Partial fill upon patient request if the prescription is for a sc... Start Date: 04/11/22 Status: Ordered B-Plex Vitamin B Complex oral tablet 1 tablet, By Mouth, Daily, # 100 tablet, 3 Refills, Maintenance, 10/27/21 15:26:00 EST, Tablet, [facility] Partial fill upon patient request if the prescription is for a schedule II opioid drug., 1 tablet By Mouth Daily, 165.1, cm, 03... Start Date: 10/27/21 Status: Ordered cetirizine 10 mg oral tablet See Instructions, SUDHIR 1 TABLETA POR LA BOCA CADA CHASE, # 30 tablet, 3 Refills, 09/28/22 12:13:00 EST, [facility] 165.1, cm, 09/28/22 11:27:00 EST, Height Start Date: 09/28/22 Status: Ordered cromolyn 4% ophthalmic solution 1 drops, Eyes, Both, 4 times a day, # 10 mL, 3 Refills, Maintenance, 09/28/22 12:14:00 EST, Solution, [facility] Partial fill upon patient request if the prescription is for a schedule II opioid drug., 1 drops Eyes, Both 4 times a day... Start Date: 09/28/22 Status: Ordered dicyclomine 20 mg oral tablet 1 tablet = 20 mg, By Mouth, 2 times a day, please take for spasm pain not more than twice per day, please label in Lao., # 60 tablet, 1 Refills, Maintenance, 05/16/22 15:52:00 EDT, Tablet, [facility] Partial fill upon patient requ... Start Date: 05/16/22 Stop Date: 07/15/22 Status: Ordered diphenhydrAMINE 25 mg oral capsule 1 capsule = 25 mg, By Mouth, 3 times a day, PRN for allergy symptoms, # 30 capsule, 4 Refills, Maintenance, 09/28/22 11:26:00 EST, Capsule, [facility] Partial fill upon patient request if the prescription is for a schedule II opioid d... Start Date: 09/28/22 Status: Ordered flunisolide 25 mcg/inh nasal spray 2 puffs, Nares, Both, Daily, # 25 mL, 6 Refills, Maintenance, 03/04/21 14:56:00 EDT, [place], [facility] Partial fill upon patient request if the prescription is for a schedule II opioid drug., 2 puffs Nares, Both Daily, 165.1, cm, 02/17... Start Date: 03/04/21 Status: Ordered gabapentin 600 mg oral tablet 1 tablet = 600 mg, By Mouth, 3 times a day, # 90 tablet, 5 Refills, Maintenance, 01/17/22 16:55:00 EDT, Tablet, [facility] Partial fill upon patient request if the prescription is for a schedule II opioid drug., 165.1, cm, 01/17/22 16... Start Date: 01/17/22 Status: Ordered levothyroxine 50 mcg (0.05 mg) oral capsule 1 capsule = 50 mcg, By Mouth, Daily, # 30 capsule, 5 Refills, Maintenance, 07/17/22 17:27:00 EST, Capsule, [facility]., Partial [...] tablet, 1 Refills, Maintenance, 11/01/22 12:58:00 EDT, [facility] 165.1, cm, 10/26/2309:56:00 EST, Height Start Date: 11/01/22 Status: Ordered Vitamin B Complex oral tablet, extended release 1 tablet, By Mouth, Daily, # 90 tablet, 3 Refills, Maintenance, 03/04/21 14:55:00 EDT, [facility] Partial fill upon patient request if the prescription is for a schedule II opioid drug., 1 tablet By Mouth Daily, 165.1, cm, 03/04/21 14... 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 [place] [address]- Care Team Related Persons Name: SCOTT BERNABE Address: home [address] [place] [address]
--- OUTSIDE RECORDS SUMMARY | 2023-09-18 08:29 | XMS_ITS | Continuity of Care Document ---
Author Name Unknown Organization [facility] Address [address] [place] [address]- Care Team Providers Care Hot Tar Roofer Name Role Phone Flynn Carlos MD Primary Care Physician En[place] [facility] [place](s): 07/05/20 - 08/19/20 [facility] [address] [place], [place] [address] Attending Physician: Flynn Carlos MD Admitting Physician: Flynn Carlos MD Allergies, Adverse Reactions, Alerts Substance Reaction Severity Status Latex SWELLING Moderate Active Medications Amitiza 8 mcg oral capsule 1 capsule = 8 mcg, By Mouth, 2 times a day, take with food label in Paraguayan, # 60 capsule, 6 Refills, Maintenance, 08/02/20 11:46:00 EST, [facility] upon patient requestif the prescription is for a schedule II opioid Start Date: 08/02/20 Stop Date: 02/28/21 Status: Ordered amitriptyline 25 mg oral tablet 25 mg, 1, tablet, By Mouth, Daily at bedtime, label in Paraguayan, # 30 tablet, Refills 4, Tot. Refills 4, Maintenance, 07/20/20 14:55:00 EST, Route to Pharmacy Electronically, [facility]/pharmacy #[id number], Partial fill upon patient request if the prescription is... Start Date: 07/20/20 Stop Date: 12/17/20 Status: Ordered aspirin 81 mg oral delayed release tablet 81 mg, 1, tablet, By Mouth, Daily, # 30 tablet, Refills 0, Tot. Refills 0, Maintenance, 06/12/19 16:47:09 EDT, Route to Pharmacy Electronically, NCPDP_ID- [id number], [facility] Start Date: 06/12/19 Status: Ordered gabapentin 300 mg oral capsule 300 mg, 1, capsule, By Mouth, 3 times a day, label in [place]aguayan, # 90 capsule, Refills 5, Tot. Refills 5, Maintenance, 07/20/20 14:53:00 EST, Route to Pharmacy Electronically, [facility]/pharmacy #[id number], Partial fill upon patient request if the prescription is... Start Date: 07/20/20 Status: Ordered levothyroxine 50 mcg (0.05 mg) oral capsule 1 capsule = 50 mcg, By Mouth, Daily, # 30 capsule, 0 Refills, Maintenance, 07/20/20 14:45:00 EST, Capsule, [facility]/pharmacy #[id number], Partial fill upon patient request if the prescription is for a schedule II opioid drug., 165.1, cm, 06/12/19 15:36:00 EDT, H... Start Date: 07/20/20 Status: Ordered metoprolol 25 mg oral tablet 25 mg, 1, tablet, By Mouth, 2 times a day, # 60 tablet, Refills 0, Tot. Refills 0, Maintenance, 06/12/19 16:47:18 EDT, [id number] Start Date: 06/12/19 [...] PRN Migraine Headache, label all medications in Paraguayan, # 18 tablet, 1 Refills, Soft Stop, 07/20/20 14:45:00 EST, Tablet, [facility]/pharmacy #[id number], Partial fill upon patient request if the prescription is for a schedule II... Start Date: 07/20/20 Status: Ordered tiZANidine 4 mg oral tablet 4 mg, 1, tablet, By Mouth, Every 8 hours, PRN, label in Paraguayan, # 60 tablet, Refills 1, Tot. Refills 1, Maintenance, back pain, 07/20/20 14:54:00 EST, Route to Pharmacy Electronically, [facility]/pharmacy #[id number], Partial fill upon patient request if the pres... Start Date: 07/20/20 Stop Date: 08/31/20 Status: Ordered traZODone 100 mg oral tablet 100 mg, 1, tablet, By Mouth, 3 times a day, Refills 0, Maintenance, 06/12/19 16:27:17 EDT Start Date: 06/12/19 Status: Ordered Zyrtec 10 mg oral tablet 10, mg, 1, tablet, By Mouth, Daily, 0, 02/07/06 13:20:55, Print MP Number, [id number], Constant Indicator Start Date: 02/07/06 Status: Ordered [...]
--- OUTSIDE RECORDS SUMMARY | 2023-09-18 08:30 | XMS_ITS | Continuity of Care Document ---
Author Name Unknown Organization [facility] Address [address] [place] [address]- Care Team Providers Care Portrait Painter Name Role Phone Terrance KING, Flynn Ratliff Primary Care Physician [place] [facility] [place] 06[place]18/21 [facility] [address] [place] [address]- Attending Physician: Not on Staff, Attending MD Allergies, Adverse Reactions, Alerts Substance Reaction Severity Status [place] Active Latex SWELLING Moderate Active Immunizations Given [...] a day, take with food label in Taiwanese, # 60 capsule, 6 Refills, Maintenance, 08/02/20 11:46:00 EST, [facility] upon patient requestif the prescription [...] to P... Start Date: 08/16/21 Status: Ordered amitriptyline 25 mg oral tablet 25 mg, 1, tablet, By Mouth, Daily at bedtime, for 30 days, label in Taiwanese, # 30 tablet, Refills 5, Tot. Refills 5, Hard Stop 08/16/21 6:54:00 EST, 02/17/21 6:54:00 EDT, Route to Pharmacy Electronically, [facility], Partial fill upon... Start Date: 02/17/21 Stop Date: 08/16/21 Status: Ordered Carafate 1 gm oral tablet 1 Gm, 1, tablet, By Mouth, 3 times a day before meals and bedtime, Refills 0, Maintenance, 11/17/2116:37:00 EDT, Partial fill upon patient request if the prescription is for a schedule II opioid drug. Start Date: 11/17/20 Status: Ordered cromolyn 4% ophthalmic solution via technology applications engineer Dr Sol, 0 Refills, Maintenance, 11/17/20 17:44:00 EDT, Partial fill upon patient request if the prescription is for a schedule II opioid drug. Start Date: 11/17/20 Status: Ordered diclofenac 1% topical gel 1 application, Topically, 4 times a day, # 100 Gm, 0 Refills, Maintenance, 10/15/20 16:35:00 EST, Gel, [facility]., Partial fill upon patient request if the prescription is for a schedule II opioid drug., 165.1, cm, 10/15/20 14:34:00 ES... Start Date: 10/15/20 Status: Ordered flunisolide 25 mcg/inh nasal spray 2 puffs, Nares, Both, Daily, # 25 mL, 6 Refills, Maintenance, 03/04/21 14:56:00 EDT, [place], [facility]., Partial fill upon patient request if the prescription is for a schedule II opioid drug., 2 puffs Nares, Both Daily, 165.1, cm, 02/17... Start Date: 03/04/21 Status: Ordered fluticasone 50 mcg/inh nasal spray via Dr Sol, technology applications engineer, 0 Refills, Maintenance, 11/17/20 17:44:00 EDT, Partial fill upon patient request if the prescription is for a schedule II opioid drug. Start Date: 11/17/20 Status: Ordered gabapentin 300 mg oral capsule 300 mg, 1, capsule, By Mouth, 3 times a day, label in Taiwanese, # 90 capsule, Refills 5, Tot. Refills 5, Maintenance, 07/20/20 14:53:00 EST, Route to Pharmacy Electronically, [facility]/pharmacy #[id number], Partial fill upon patient request if the prescription is... Start Date: 07/20/20 Status: Ordered levothyroxine 50 mcg (0.05 mg) oral capsule 1 capsule = 50 mcg, By Mouth, Daily, # 30 capsule, 11 Refills, Maintenance, 09/14/20 7:41:00 EST, Capsule, [facility]., Partial fill upon patient request if the prescription is for a schedule II opioid drug., 165.1, cm, 06/12/19 15:36:0... Start Date: 09/14/20 Status: Ordered metoprolol 25 mg oral tablet 25 mg, 1, tablet, By Mouth, 2 times a day, # 60 tablet, Refills 0, Tot. Refills 0, Maintenance, 06/12/19 16:47:18 EDT, [id number] Start Date: 06/12/19 Status: Ordered pantoprazole 40 mg oral delayed release tablet See Instructions, SUDHIR 1 TABLETA POR LA BOCA CADA CHASE, # 30 tablet, 5 Refills, 165.1, cm, 04/12/2114:30:00 EDT, Height Start Date: 04/14/21 Status: Ordered SUMAtriptan 50 mg oral tablet 1 tablet = 50 mg, By Mouth, Once, PRN Migraine Headache, label all medications in Taiwanese, # 18 tablet, 1 Refills, Soft Stop, 12/29/20 16:12:00 EDT, Tablet, [facility]., Partial fill upon patient request if the prescription is for a tamara... Start Date: 12/29/20 Status: Ordered Vitamin B Complex oral tablet, extended release 1 tablet, By Mouth, Daily, # 90 tablet, 3 Refills, Maintenance, 03/04/21 14:55:00 EDT, [facility]., Partial fill upon patient request if the prescription is for a schedule II opioid drug., 1 tablet By Mouth Daily, 165.1, cm, 03/04/21 14... Start Date: 03/04/21 Stop Date: 04/03/21 Status: Ordered ZyrTEC 10 mg oral tablet 1 tablet = 10 mg, By Mouth, Daily, # 30 tablet, 3 Refills, Maintenance, 03/04/21 14:51:00 EDT, [facility]., Partial fill upon patient request if the prescription is for a schedule II opioid drug., 165.1, cm, 03/04/21 14:25:00 EDT, Height Start Date: 03/04/21 Status: Ordered Problem List Condition Effective Dates Status Health Status Inform ant Allergic rhinitis, technology applications engineer Dr Sol in past(Confirmed) Active Hematuria(Confirmed) Active Chronic bilateral low back pain(Confirmed) Active Exposure to COVID-19 virus(Confirmed) Active Abdominal cramping(Confirmed) Active Heartburn(Confirmed) Active Hypothyroidism(Confirmed) Active IBS (irritable colon syndrome)(Confirmed) Active Menopausal state(Confirmed) Active Migraine(Confirmed) Active Hernia, cerebellar(Confirmed) Active Social History Social History Type Response Smoking Status Never (less than 100 in lifetime) entered on: 07/20/20 Sex
--- OUTSIDE RECORDS SUMMARY | 2023-09-18 08:30 | XMS_ITS | Continuity of Care Document ---
Author Name Unknown Organization [facility] Address [address] [place] [address]- Care Team Providers Care Sales Administration Manager Name Role Phone Terrance KING, Flynn Ratliff Primary Care Physician [phone] [place] [facility] [place]s): 08/05/21 - 09/07/21 [facility] [address] [place] [address]- Attending Physician: Lauri Santos MD Admitting Physician: Lauri Santos MD Allergies, Adverse Reactions, Alerts Substance Reaction Severity Status [place] Active Latex SWELLING Moderate Active Immunizations Given [...] a day, take with food label in Chilean, # 60 capsule, 6 Refills, Maintenance, 08/02/20 11:46:00 EST, [facility] upon patient [...] CADA CHASE, # 30 tablet, 3 Refills, [facility], 165.1, cm, 06/14/21 15:59:00 EDT, Height Start Date: 07/26/21 Status: Ordered cromolyn 4% ophthalmic solution via compressor engineer Dr Sol, 0 Refills, Maintenance, 11/17/20 17:44:00 EDT, Partial fill upon patient request if the prescription is for a schedule II opioid drug. Start Date: 11/17/20 Status: Ordered diclofenac 1% topical gel 1 application, Topically, 4 times a day, # 100 Gm, 0 Refills, Maintenance, 10/15/20 16:35:00 EST, Gel, [facility]., Partial fill upon patient request if the prescription is for a schedule II opioid drug., 165.1, cm, 10/15/20 14:34:00 ES... Start Date: 10/15/20 Status: Ordered flunisolide 25 mcg/inh nasal spray 2 puffs, Nares, Both, Daily, # 25 mL, 6 Refills, Maintenance, 03/04/21 14:56:00 EDT, [place], [facility] Partial fill upon patient request if the prescription is for a schedule II opioid drug., 2 puffs Nares, Both Daily, 165.1, cm, 02/17... Start Date: 03/04/21 Status: Ordered fluticasone 50 mcg/inh nasal spray via Dr Sol, compressor engineer, 0 Refills, Maintenance, 11/17/20 17:44:00 EDT, Partial fill upon patient request if the prescription is for a schedule II opioid drug. Start Date: 11/17/20 Status: Ordered gabapentin 300 mg oral capsule 300 mg, 1, capsule, By Mouth, 3 times a day, label in [place]an, # 90 capsule, Refills 5, Tot. Refills 5, Maintenance, 07/20/20 14:53:00 EST, Route to Pharmacy Electronically, [facility]/pharmacy #[id number], Partial fill upon patient request if the prescription is... Start Date: 07/20/20 Status: Ordered levothyroxine 50 mcg (0.05 mg) oral capsule 1 capsule = 50 mcg, By Mouth, Daily, # 30 capsule, 11 Refills, Maintenance, 09/14/20 7:41:00 EST, Capsule, [facility]., Partial fill upon patient request if the prescription is for a schedule II opioid drug., 165.1, cm, 06/12/19 15:36:0... Start Date: 09/14/20 Status: Ordered metoprolol 25 mg oral tablet 25 mg, 1, tablet, By Mouth, 2 times a day, # 60 tablet, Refills 0, Tot. Refills 0, Maintenance, 06/12/19 16:47:18 EDT, [id number] Start Date: 06/12/19 Status: Ordered pantoprazole 40 mg oral delayed release tablet See Instructions, SUDHIR 1 TABLETA POR LA BOCA CADA CHASE, # 30 tablet, 5 Refills, 165.1, cm, 04/12/2114:30:00 EDT, Height Start Date: 04/14/21 Status: Ordered SUMAtriptan 50 mg oral tablet 1 tablet = 50 mg, By Mouth, Once, PRN Migraine Headache, label all medications in Chilean, # 18 tablet, 1 Refills, Soft Stop, 07/04/21 16:07:00 EST, Tablet, [facility]., Partial fill upon patient request if the prescription is for a tamara... Start Date: 07/04/21 Status: Ordered Vitamin B Complex oral tablet, extended release 1 tablet, By Mouth, Daily, # 90 tablet, 3 Refills, Maintenance, 03/04/21 14:55:00 EDT, [facility]., Partial fill upon patient request if the prescription is for a schedule II opioid drug., 1 tablet By Mouth Daily, 165.1, cm, 03/04/21 14... 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
--- OUTSIDE RECORDS SUMMARY | 2023-09-18 08:30 | XMS_ITS | Continuity of Care Document ---
Author Name Unknown Organization [facility] Address [address] [place] [address]- Care Team Providers Care Wildlife Ecology Professor Name Role Phone Flynn Carlos MD Primary Care Physician [place] [facility] [place] [facility] [address] [place], [place] [address] Allergies, Adverse Reactions, Alerts Substance Reaction Severity Status Latex SWELLING Moderate Active Medications Amitiza 8 mcg oral capsule 1 capsule = 8 mcg, By Mouth, 2 times a day, take with food label in Cymraes, # 60 capsule, 6 Refills, Maintenance, 08/02/20 11:46:00 EST, [facility], Partial fill upon patient requestif the prescription is for a schedule II opioid . Start Date: 08/02/20 Stop Date: 02/28/21 Status: Ordered amitriptyline 25 mg oral tablet 25 mg, 1, tablet, By Mouth, Daily at bedtime, label in Cymraes, # 30 tablet, Refills 4, Tot. Refills 4, Maintenance, 07/20/20 14:55:00 EST, Route to Pharmacy Electronically, [facility]/pharmacy #[id number], Partial fill upon patient request if the prescription is... Start Date: 07/20/20 Stop Date: 12/17/20 Status: Ordered aspirin 81 mg oral delayed release tablet 81 mg, 1, tablet, By Mouth, Daily, # 30 tablet, Refills 0, Tot. Refills 0, Maintenance, 06/12/19 16:47:09 EDT, Route to Pharmacy Electronically, NCPDP_ID- [id number], [facility] - [facility] Start Date: 06/12/19 Status: Ordered diclofenac 1% topical gel 1 application, Topically, 4 times a day, # 100 Gm, 0 Refills, Maintenance, 10/15/20 16:35:00 EST, Gel, [facility] Partial fill upon patient request if the prescription is for a schedule II opioid drug., 165.1, cm, 10/15/20 14:34:00 ES... Start Date: 10/15/20 Status: Ordered gabapentin 300 mg oral capsule 300 mg, 1, capsule, By Mouth, 3 times a day, label in Cymraes, # 90 capsule, Refills 5, Tot. Refills 5, Maintenance, 07/20/20 14:53:00 EST, Route to Pharmacy Electronically, [facility]/pharmacy #[id number], Partial fill upon patient request if the prescription is... Start Date: 07/20/20 Status: Ordered levothyroxine 50 mcg (0.05 mg) oral capsule 1 capsule = 50 mcg, By Mouth, Daily, # 30 capsule, 11 Refills, Maintenance, 09/14/20 7:41:00 EST, Capsule, [facility]., Partial fill upon patient request if the prescription is for a schedule II opioid drug., 165.1, cm, 06/12/19 15:36:0... Start Date: 09/14/20 Status: Ordered metoprolol 25 mg oral tablet 25 mg, 1, tablet, By Mouth, 2 times a day, # 60 tablet, Refills 0, Tot. Refills 0, Maintenance, 06/12/19 16:47:18 EDT, Route to Pharmacy Electronically, VAPDP_[id number], [facility] - [facility] Start Date: 06/12/19 [...] PRN Migraine Headache, label all medications in Cymraes, # 18 tablet, 1 Refills, Soft Stop, 07/20/20 14:45:00 EST, Tablet, [facility]/pharmacy #[id number], Partial fill upon patient request if the prescription is for a schedule II... Start Date: 07/20/20 Status: Ordered tiZANidine 4 mg oral tablet 4 mg, 1, tablet, By Mouth, Every 8 hours, PRN, label in Cymraes, # 60 tablet, Refills 1, Tot. Refills 1, Maintenance, back pain, 07/20/20 14:54:00 EST, Route to Pharmacy Electronically, [facility]/pharmacy #[id number], Partial fill upon patient request if the pres... Start Date: 07/20/20 Stop Date: 08/31/20 Status: Ordered traZODone 100 mg oral tablet 100 mg, 1, tablet, By Mouth, 3 times a day, Refills 0, Maintenance, 06/12/19 16:27:17 EDT Start Date: 06/12/19 Status: Ordered Zyrtec 10 mg oral tablet 10, mg, 1, tablet, By Mouth, Daily, 0, 02/07/06 13:20:55, Print MP Number, [id number], Constant Indicator Start Date: 02/07/06 Status: Ordered [...]
--- OUTSIDE RECORDS SUMMARY | 2023-09-18 08:30 | XMS_ITS | Continuity of Care Document ---
Author Name Unknown Organization [facility] [place] Address [address] [place] [address]- Care Team Providers Care Solvent Station Attendant Name Role Phone Not on Staff, PCP Primary Care Physician Unavail able Encounter [facility] [id number] Date(s): 04/09/20 - 05/14/20 [facility] [place] [address] [place] [address]- [facility] Attending Physician: Toy López MD Referring Physician: Arielle KING, Cornel
--- OUTSIDE RECORDS SUMMARY | 2023-09-18 08:30 | XMS_ITS | Continuity of Care Document ---
Author Name Unknown Organization [facility] Address [address], [address] [place] [address]- Care Team Providers Care Lagging Machine Operator Name Role Phone Ethel KING, Idris [id number] [address] [place] [address]- Attending Physician: Chela Martinez MD Admitting Physician: Chela Martinez MD Referring Physician: Idris Davenport MD Allergies, Adverse Reactions, Alerts Substance Reaction Severity Status Latex SWELLING Moderate Active Medications aspirin 81 mg oral delayed release tablet 81 mg, 1, tablet, By Mouth, Daily, # 30 tablet, Refills 0, Tot. Refills 0, Maintenance, 06/12/19 16:47:09 EDT, Route to Pharmacy Electronically, NCPDP_ID- [id number], [facility] Start Date: 06/12/19 [...] 06/12/19 16:47:18 EDT, Route to Pharmacy Electronically, NCPDP_[id number], [facility] Start Date: 06/12/19 [...] Daily, 0, 02/07/06 13:20:55, Print MP Number, [id number], Constant Indicator Start Date: 02/07/06 Status: Ordered
--- OUTSIDE RECORDS SUMMARY | 2023-09-18 08:30 | XMS_ITS | Continuity of Care Document ---
Author Name Unknown Organization [facility] y Address [address] [place] [address]- Care Team Providers Care Sample Dye Mixer Name Role Phone Flynn Carlos MD Primary Care Physician Encounter [facility] AC[facility] R [id number] Date(s): 11/04/21 - 12/04/21 [facility] [address] [place] [address]- Attending Physician: Chad Sofia Admitting Physician: AdmtrChad Referring Physician: Admtr, Ar8 Allergies, Adverse Reactions, Alerts Substance Reaction Severity Status [place] Active Latex SWELLING Moderate Active Immunizations Given [...] a day, take with food label in Jamaican, # 60 capsule, 6 Refills, Maintenance, 08/02/20 11:46:00 EST[facility] upon patient requestif the prescription is for a schedule II opioid . Start Date: 08/02/20 Stop Date: 02/28/21 Status: Ordered amitriptyline 25 mg oral tablet 25 mg, 1, tablet, By Mouth, Daily at bedtime, # 30 tablet, Refills 11, Tot. Refills 11, Maintenance, 11/04/21 10:40:00 EDT, Route to Pharmacy Electronically, [facility] Partial fill upon patient request if the prescription is for a sc... Start Date: 11/04/21 Status: Ordered B-Plex Vitamin B Complex oral tablet 1 tablet, By Mouth, Daily, # 100 tablet, 3 Refills, Maintenance, 10/27/21 15:26:00 EST, Tablet, [facility] Partial fill upon patient request if the prescription is for a schedule II opioid drug., 1 tablet By Mouth Daily, 165.1, cm, 03... Start Date: 10/27/21 Status: Ordered Carafate 1 gm oral tablet [...] CADA CHASE, # 30 tablet, 3 Refills, [facility], 165.1, cm, 06/14/21 15:59:00 EDT, Height Start Date: 07/26/21 Status: Ordered cromolyn 4% ophthalmic solution via digital marketing intern Dr Sol, 0 Refills, Maintenance, 11/17/20 17:44:00 EDT, Partial fill upon patient request if the prescription is for a schedule II opioid drug. Start Date: 11/17/20 Status: Ordered diclofenac 1% topical gel 1 application, Topically, 4 times a day, # 100 Gm, 0 Refills, Maintenance, 10/15/20 16:35:00 EST, Gel, [facility] Partial fill upon patient request if the prescription is for a schedule II opioid drug., 165.1, cm, 10/15/20 14:34:00 ES... Start Date: 10/15/20 Status: Ordered diphenhydrAMINE 25 mg oral capsule 1 capsule = 25 mg, By Mouth, 3 times a day, PRN for allergy symptoms, # 30 capsule, 0 Refills, Maintenance, 11/03/21 12:50:00 EDT, Capsule, [facility] Partial fill upon patient request if the prescription is for a schedule II opioid d... Start Date: 11/03/21 Status: Ordered flunisolide 25 mcg/inh nasal spray 2 puffs, Nares, Both, Daily, # 25 mL, 6 Refills, Maintenance, 03/04/21 14:56:00 EDT, [place], [facility] Partial fill upon patient request if the prescription is for a schedule II opioid drug., 2 puffs Nares, Both Daily, 165.1, cm, 02/17... Start Date: 03/04/21 Status: Ordered fluticasone 50 mcg/inh nasal spray via Dr Sol, digital marketing intern, 0 Refills, Maintenance, 11/17/20 17:44:00 EDT, Partial fill upon patient request if the prescription is for a schedule II opioid drug. Start Date: 11/17/20 Status: Ordered gabapentin 300 mg oral capsule 300 mg, 1, capsule, By Mouth, 3 times a day, label in Jamaican, # 90 capsule, Refills 5, Tot. Refills 5, Maintenance, 07/20/20 14:53:00 EST, Route to Pharmacy Electronically, [facility]/pharmacy #[id number], Partial fill upon patient request if the prescription is... Start Date: 07/20/20 Status: Ordered levothyroxine 50 mcg (0.05 mg) oral capsule 1 capsule = 50 mcg, By Mouth, Daily, # 30 capsule, 5 Refills, Maintenance, 09/29/21 20:39:00 EST, Capsule, [facility]., Partial fill upon patient request if the prescription is for a schedule II opioid drug., 165.1, cm, 09/29/21 10:51:0... Start Date: 09/29/21 Status: Ordered metoprolol 25 mg oral tablet 25 mg, 1, tablet, By Mouth, 2 times a day, # 60 tablet, Refills 0, Tot. Refills 0, Maintenance, 06/12/19 16:47:18 EDT, Route to Pharmacy Electronically, NCPDP_[id number], [facility] Start Date: [...] [place], # 12 tablet, 1 Refills, [facility], 165.1, cm, 11/04/21 10:21:00 EDT, Height Start Date: 11/29/21 Status: Ordered tiZANidine 4 mg oral tablet 4 mg, 1, tablet, By Mouth, 3 times a day, # 15 tablet, Refills 0, Tot. Refills 0, Maintenance, 09/26/21 18:14:00 EST, Route to Pharmacy Electronically, [facility]/pharmacy #[id number], Partial fill upon patient request if the prescription is for a schedule II opio... Start Date: 09/26/21 Stop Date: 10/01/21 Status: Ordered Vitamin B Complex oral tablet, extended release 1 tablet, By Mouth, Daily, # 90 tablet, 3 Refills, Maintenance, 03/04/21 14:55:00 EDT, [facility] fill upon patient request if the prescription is for a schedule II opioid drug., 1 tablet By Mouth Daily, 165.1, cm, 03/04/21 14... 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, digital marketing intern Dr Sol in past(Confirmed) Active Hematuria(Confirmed) Active Cervicogenic headache(Confirmed) Active Chronic bilateral low back pain(Confirmed) Active Exposure to COVID-19 virus(Confirmed) Active Abdominal cramping(Confirmed) Active Heartburn(Confirmed) Active Hypothyroidism(Confirmed) Active Insomnia(Confirmed) Active IBS (irritable colon syndrome)(Confirmed) Active Menopausal state(Confirmed) Active Migraine(Confirmed) Active Hernia, cerebellar(Confirmed) Active Social History Social History Type Response Smoking Status Never (less than 100 in lifetime) entered on: 07/20/20 Sex
--- OUTSIDE RECORDS SUMMARY | 2023-09-18 08:30 | XMS_ITS | Continuity of Care Document ---
Author Name Unknown Organization [facility] Address [address] [place] [address]- Care Team Providers Care Social Sciences Instructor Name Role Phone Flynn Carlos MD Primary Care Physician Encounter [facility] Date(s): 08/23/20 - 09/22/20 [facility] [address] [place], [place] [address] Allergies, Adverse Reactions, Alerts Substance Reaction Severity Status Latex SWELLING Moderate Active Medications Amitiza 8 mcg oral capsule 1 capsule = 8 mcg, By Mouth, 2 times a day, take with food label in Taiwanese, # 60 capsule, 6 Refills, Maintenance, 08/02/20 11:46:00 EST, [facility], Partial fill upon patient requestif the prescription is for a schedule II opioid drRachel. Start Date: 08/02/20 Stop Date: 02/28/21 Status: Ordered amitriptyline 25 mg oral tablet 25 mg, 1, tablet, By Mouth, Daily at bedtime, label in Taiwanese, # 30 tablet, Refills 4, Tot. Refills 4, Maintenance, 07/20/20 14:55:00 EST, Route to Pharmacy Electronically, [facility]/pharmacy #[id number], Partial fill upon patient request if the prescription is... Start Date: 07/20/20 Stop Date: 12/17/20 Status: Ordered aspirin 81 mg oral delayed release tablet 81 mg, 1, tablet, By Mouth, Daily, # 30 tablet, Refills 0, Tot. Refills 0, Maintenance, 06/12/19 16:47:09 EDT, Route to Pharmacy Electronically, NCPDP_ID- [id number], [facility] Start Date: 06/12/19 Status: Ordered gabapentin 300 mg oral capsule 300 mg, 1, capsule, By Mouth, 3 times a day, label in Taiwanese, # 90 capsule, Refills 5, Tot. Refills 5, Maintenance, 07/20/20 14:53:00 EST, Route to Pharmacy Electronically, [facility]/pharmacy #[id number], Partial fill upon patient request if the prescription is... Start Date: 07/20/20 Status: Ordered levothyroxine 50 mcg (0.05 mg) oral capsule 1 capsule = 50 mcg, By Mouth, Daily, # 30 capsule, 11 Refills, Maintenance, 09/14/20 7:41:00 EST, Capsule, [facility], Partial fill upon patient request if the prescription is for a schedule II opioid drug., 165.1, cm, 06/12/19 15:36:0... Start Date: 09/14/20 Status: Ordered metoprolol 25 mg oral tablet 25 mg, 1, tablet, By Mouth, 2 times a day, # 60 tablet, Refills 0, Tot. Refills 0, Maintenance, 06/12/19 16:47:18 EDT, [id number] Start [...] Refills, Soft Stop, 07/20/20 14:45:00 EST, Tablet, [facility]/pharmacy #[id number], Partial fill upon patient request if the prescription is for a schedule II... Start Date: 07/20/20 Status: Ordered tiZANidine 4 mg oral tablet 4 mg, 1, tablet, By Mouth, Every 8 hours, PRN, label in Taiwanese, # 60 tablet, Refills 1, Tot. Refills 1, Maintenance, back pain, 07/20/20 14:54:00 EST, Route to Pharmacy Electronically, [facility]/pharmacy #[id number], Partial fill upon patient request if the pres... Start Date: 07/20/20 Stop Date: 08/31/20 Status: Ordered traZODone 100 mg oral tablet 100 mg, 1, tablet, By Mouth, 3 times a day, Refills 0, Maintenance, 06/12/19 16:27:17 EDT Start Date: 06/12/19 Status: Ordered Zyrtec 10 mg oral tablet 10, mg, 1, tablet, By Mouth, Daily, 0, 02/07/06 13:20:55, Print MP Number, [id number], Constant Indicator Start Date: 02/07/06 Status: Ordered [...]
--- OUTSIDE RECORDS SUMMARY | 2023-09-18 08:30 | XMS_ITS | Continuity of Care Document ---
Author Name Unknown Organization [facility] Address [address] [place] [address]- Care Team Providers Care Tree Killer Name Role Phone Flynn Carlos MD Primary Care Physician Encounter [facility] Date(s): 08/24/21 - 10/07/21 [facility] [address] [place] [address]- Attending Physician: Roberto Cantu MD Admitting Physician: Roberto Cantu MD Allergies, Adverse Reactions, Alerts Substance Reaction Severity Status [place] Active Latex SWELLING Moderate Active Immunizations Given [...] a day, take with food label in Peruvian, # 60 capsule, 6 Refills, Maintenance, 08/02/20 11:46:00 EST, [facility], Partial fill upon patient requestif the [...] CADA CHASE, # 30 tablet, 3 Refills, [facility], 165.1, cm, 06/14/21 15:59:00 EDT, Height Start Date: 07/26/21 Status: Ordered cromolyn 4% ophthalmic solution via basin tender Dr Sol, 0 Refills, Maintenance, 11/17/20 17:44:00 EDT, Partial fill upon patient request if the prescription is for a schedule II opioid drug. Start Date: 11/17/20 Status: Ordered diclofenac 1% topical gel 1 application, Topically, 4 times a day, # 100 Gm, 0 Refills, Maintenance, 10/15/20 16:35:00 EST, Gel, [facility]., Partial fill upon patient request if the prescription is for a schedule II opioid drug., 165.1, cm, 10/15/20 14:34:00 ES... Start Date: 10/15/20 Status: Ordered flunisolide 25 mcg/inh nasal spray 2 puffs, Nares, Both, Daily, # 25 mL, 6 Refills, Maintenance, 03/04/21 14:56:00 EDT, [place], [facility] Partial fill upon patient request if the prescription is for a schedule II opioid drug., 2 puffs Nares, Both Daily, 165.1, cm, 02/17... Start Date: 03/04/21 Status: Ordered fluticasone 50 mcg/inh nasal spray via Dr Sol, basin tender, 0 Refills, Maintenance, 11/17/20 17:44:00 EDT, Partial fill upon patient request if the prescription is for a schedule II opioid drug. Start Date: 11/17/20 Status: Ordered gabapentin 300 mg oral capsule 300 mg, 1, capsule, By Mouth, 3 times a day, label in Peruvian, # 90 capsule, Refills 5, Tot. Refills 5, Maintenance, 07/20/20 14:53:00 EST, Route to Pharmacy Electronically, [facility]/pharmacy #[id number], Partial fill upon patient request if the prescription is... Start Date: 07/20/20 Status: Ordered indomethacin 50 mg oral capsule 1 capsule = 50 mg, By Mouth, 3 times a day, PRN for pain, # 30 capsule, 0 Refills, Maintenance, 09/29/21 11:10:00 EST, Capsule, [facility]., Partial fill upon patient request if the prescription is for a schedule II opioid drug., 165.1,... Start Date: 09/29/21 Stop Date: 10/09/21 Status: Ordered levothyroxine 50 mcg (0.05 mg) oral capsule 1 capsule = 50 mcg, By Mouth, Daily, # 30 capsule, 5 Refills, Maintenance, 09/29/21 20:39:00 EST, Capsule, [facility]., Partial fill upon patient request if the prescription is for a schedule II opioid drug., 165.1, cm, 09/29/21 10:51:0... Start Date: 09/29/21 Status: Ordered metoprolol 25 mg oral tablet 25 mg, 1, tablet, By Mouth, 2 times a day, # 60 tablet, Refills 0, Tot. Refills 0, Maintenance, 06/12/19 16:47:18 EDT, [id number] Start Date: 06/12/19 Status: Ordered pantoprazole 40 mg oral delayed release tablet See Instructions, SUDHIR 1 TABLETA POR LA BOCA CADA CHASE, # 30 tablet, 5 Refills, 165.1, cm, 04/12/2114:30:00 EDT, Height Start Date: 04/14/21 Status: Ordered SUMAtriptan 50 mg oral tablet 1 tablet = 50 mg, By Mouth, Once, PRN Migraine Headache, label all medications in Peruvian, # 18 tablet, 1 Refills, Soft Stop, 07/04/21 16:07:00 EST, Tablet, [facility] Partial fill upon patient request if the prescription is for a tamara... Start Date: 07/04/21 Status: Ordered tiZANidine 4 mg oral tablet 4 mg, 1, tablet, By Mouth, 3 times a day, # 15 tablet, Refills 0, Tot. Refills 0, Maintenance, 09/26/21 18:14:00 EST, Route to Pharmacy Electronically, [facility]/pharmacy #[id number], Partial fill upon patient request if the prescription is for a schedule II opio... Start Date: 09/26/21 Stop Date: 10/01/21 Status: Ordered traMADol 50 mg oral tablet 1 tablet = 50 mg, By Mouth, Every 12 hours, PRN as needed for pain, label in palestinian, # 12 tablet, 0 Refills, Acute 10/25/21 16:35:00 EST, 09/30/21 16:34:00 EST, Tablet, [facility]., Partial fill upon patient request if the prescription... Start Date: 09/30/21 Stop Date: 10/25/21 Status: Ordered Vitamin B Complex oral tablet, extended release 1 tablet, By Mouth, Daily, # 90 tablet, 3 Refills, Maintenance, 03/04/21 14:55:00 EDT, [facility], Partial fill upon patient request if the prescription is for a schedule II opioid drug., 1 tablet By Mouth Daily, 165.1, cm, 03/04/21 14... 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, basin tender Dr Sol in past(Confirmed) Active Hematuria(Confirmed) Active Chronic bilateral low back pain(Confirmed) Active Exposure to COVID-19 virus(Confirmed) Active Abdominal cramping(Confirmed) Active Heartburn(Confirmed) Active Hypothyroidism(Confirmed) Active IBS (irritable colon syndrome)(Confirmed) Active Menopausal state(Confirmed) Active Migraine(Confirmed) Active Hernia, cerebellar(Confirmed) Active Social History Social History Type Response Smoking Status Never (less than 100 in lifetime) entered on: 07/20/20 Sex
--- OUTSIDE RECORDS SUMMARY | 2023-09-18 08:30 | XMS_ITS | Continuity of Care Document ---
Author Name Unknown Organization [facility] Address [address] [place] [address]- Care Team Providers Care Packager Name Role Phone Terrance KING, Flynn Ratliff Primary Care Physician Encounter [facility] Date(s): 12/29/20 - 01/28/21 [facility] [address] [place] [address]- Allergies, Adverse Reactions, Alerts Substance Reaction Severity Status [place] Active Latex SWELLING Moderate Active Immunizations Given [...] a day, take with food label in [place] Islander, # 60 capsule, 6 Refills, Maintenance, 08/02/20 11:46:00 EST, [facility] upon patient requestif the prescription is for a schedule II opioid Start Date: 08/02/20 Stop Date: 02/28/21 Status: Ordered amitriptyline 25 mg oral tablet 25 mg, 1, tablet, By Mouth, Daily at bedtime, label in [place] Islander, # 30 tablet, Refills 4, Tot. Refills 4, Maintenance, 07/20/20 14:55:00 EST, Route to Pharmacy Electronically, [facility]/pharmacy #[id number], Partial fill upon patient request if [...] Status: Ordered cromolyn 4% ophthalmic solution via supervising nurse Dr Sol, 0 Refills, Maintenance, 11/17/20 17:44:00 EDT, Partial fill upon patient request if the prescription is for a schedule II opioid drug. Start Date: 11/17/20 Status: Ordered diclofenac 1% topical gel 1 application, Topically, 4 times a day, # 100 Gm, 0 Refills, Maintenance, 10/15/20 16:35:00 EST, Gel, [facility], Partial fill upon patient request if the prescription is for a schedule II opioid drug., 165.1, cm, 10/15/20 14:34:00 ES... Start Date: 10/15/20 Status: Ordered fluticasone 50 mcg/inh nasal spray via Dr Sol, supervising nurse, 0 Refills, Maintenance, 11/17/20 17:44:00 EDT, Partial fill upon patient request if the prescription is for a schedule II opioid drug. Start Date: 11/17/20 Status: Ordered gabapentin 300 mg oral capsule 300 mg, 1, capsule, By Mouth, 3 times a day, label in [place] Islander, # 90 capsule, Refills 5, Tot. Refills 5, Maintenance, 07/20/20 14:53:00 EST, Route to Pharmacy Electronically, [facility]/pharmacy #[id number], Partial fill upon patient request if the prescription is... Start Date: 07/20/20 Status: Ordered levothyroxine 50 mcg (0.05 mg) oral capsule 1 capsule = 50 mcg, By Mouth, Daily, # 30 capsule, 11 Refills, Maintenance, 09/14/20 7:41:00 EST, Capsule, [facility], Partial fill upon patient request if [...] 01/27/21 10:07:00 EDT, Route to Pharmacy Electronically, [facility] Partial fill upon patient request if the prescription is for a schedule II opi... Start Date: 01/27/21 Status: Ordered metoprolol 25 mg oral tablet 25 mg, 1, tablet, By Mouth, 2 times a day, # 60 tablet, Refills 0, Tot. Refills 0, Maintenance, 06/12/19 16:47:18 EDT, Route to Pharmacy Electronically, NCPDP_[id number], [facility] Start [...] PRN Migraine Headache, label all medications in [place] Islander, # 18 tablet, 1 Refills, Soft Stop, 12/29/20 16:12:00 EDT, Tablet, [facility] Partial fill upon patient request if the prescription is for a tamara... Start Date: 12/29/20 Status: Ordered Problem List Condition Effective Dates Status Health Status Inform ant Allergic rhinitis, supervising nurse Dr Sol in past(Confirmed) Active Hematuria(Confirmed) Active Chronic bilateral low back pain(Confirmed) Active Exposure to COVID-19 virus(Confirmed) Active Abdominal cramping(Confirmed) Active Heartburn(Confirmed) Active Hypothyroidism(Confirmed) Active IBS (irritable colon syndrome)(Confirmed) Active Menopausal state(Confirmed) Active Migraine(Confirmed) Active Hernia, cerebellar(Confirmed) Active Social History Social History Type Response Smoking Status Never (less than 100 in lifetime) entered on: 07/20/20 Sex
--- OUTSIDE RECORDS SUMMARY | 2023-09-18 08:30 | XMS_ITS | Continuity of Care Document ---
Author Name Unknown Organization [facility] Address [address] [place] [address]- Care Team Providers Care Radio Station Audio Engineer Name Role Phone Flynn Carlos MD Primary Care Physician Encounter [facility] Date(s): 04/21/21 - 05/21/21 [facility] [address], [place] [address] Allergies, Adverse Reactions, Alerts Substance Reaction Severity Status [place] Active Latex SWELLING Moderate Active Immunizations Given [...] a day, take with food label in Syrian, # 60 capsule, 6 Refills, Maintenance, 08/02/20 11:46:00 EST, [facility], Partial fill upon patient requestif the prescription is for a schedule II opioid drRachel. Start Date: 08/02/20 Stop Date: 02/28/21 Status: Ordered amitriptyline 25 mg oral tablet 25 mg, 1, tablet, By Mouth, Daily at bedtime, label in Syrian, # 30 tablet, Refills 5, Tot. Refills 5, Maintenance, 02/17/21 6:54:00 EDT, Route to Pharmacy Electronically, [facility], Partial fill upon patient request if [...] Status: Ordered cromolyn 4% ophthalmic solution via termite inspector Dr Sol, 0 Refills, Maintenance, 11/17/20 17:44:00 EDT, Partial fill upon patient request if the prescription is for a schedule II opioid drug. Start Date: 11/17/20 Status: Ordered diclofenac 1% topical gel 1 application, Topically, 4 times a day, # 100 Gm, 0 Refills, Maintenance, 10/15/20 16:35:00 EST, Gel, [facility]., Partial fill upon patient request if the prescription is for a schedule II opioid drug., 165.1, cm, 10/15/20 14:34:00 ES... Start Date: 10/15/20 Status: Ordered flunisolide 25 mcg/inh nasal spray 2 puffs, Nares, Both, Daily, # 25 mL, 6 Refills, Maintenance, 03/04/21 14:56:00 EDT, [place], [facility]., Partial fill upon patient request if the prescription is for a schedule II opioid drug., 2 puffs Nares, Both Daily, 165.1, cm, 02/17... Start Date: 03/04/21 Status: Ordered fluticasone 50 mcg/inh nasal spray via Dr Sol, termite inspector, 0 Refills, Maintenance, 11/17/20 17:44:00 EDT, Partial fill upon patient request if the prescription is for a schedule II opioid drug. Start Date: 11/17/20 Status: Ordered gabapentin 300 mg oral capsule 300 mg, 1, capsule, By Mouth, 3 times a day, label in Syrian, # 90 capsule, Refills 5, Tot. Refills 5, Maintenance, 07/20/20 14:53:00 EST, Route to Pharmacy Electronically, [facility]/pharmacy #[id number], Partial fill upon patient request if the prescription is... Start Date: 07/20/20 Status: Ordered levothyroxine 50 mcg (0.05 mg) oral capsule 1 capsule = 50 mcg, By Mouth, Daily, # 30 capsule, 11 Refills, Maintenance, 09/14/20 7:41:00 EST, Capsule, [facility] Partial fill upon patient request if the prescription is for a schedule II opioid drug., 165.1, cm, 06/12/19 15:36:0... Start Date: 09/14/20 Status: Ordered metoprolol 25 mg oral tablet 25 mg, 1, tablet, By Mouth, 2 times a day, # 60 tablet, Refills 0, Tot. Refills 0, Maintenance, 06/12/19 16:47:18 EDT, Route to Pharmacy Electronically, [id number], [facility] Start Date: 06/12/19 Status: Ordered pantoprazole 40 mg oral delayed release tablet See Instructions, SUDHIR 1 TABLETA POR LA BOCA CADA CHASE, # 30 tablet, 5 Refills, 165.1, cm, 04/12/2114:30:00 EDT, Height Start Date: 04/14/21 Status: Ordered SUMAtriptan 50 mg oral tablet 1 tablet = 50 mg, By Mouth, Once, PRN Migraine Headache, label all medications in Syrian, # 18 tablet, 1 Refills, Soft Stop, 12/29/20 16:12:00 EDT, Tablet, [facility]., Partial fill upon patient request if the prescription is for a tamara... Start Date: 12/29/20 Status: Ordered Vitamin B Complex oral tablet, extended release 1 tablet, By Mouth, Daily, # 90 tablet, 3 Refills, Maintenance, 03/04/21 14:55:00 EDT, [facility] Partial fill upon patient request if the prescription is for a schedule II opioid drug., 1 tablet By Mouth Daily, 165.1, cm, 03/04/21 14... 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
--- OUTSIDE RECORDS SUMMARY | 2023-09-18 08:30 | XMS_ITS | Continuity of Care Document ---
Author Name Unknown Organization [facility] Address [address] [place] [address]- Care Team Providers Care Finish Filer Name Role Phone Flynn Carlos MD Primary Care Physician [id number] Date(s): 02/24/22 - 03/28/[address] [address] Discharge Disposition: A-D/C Home Attending Physician: Flynn Carlos MD Admitting Physician: Flynn Carlos MD Referring Physician: Flynn Carlos MD Allergies, Adverse Reactions, Alerts Substance Reaction Severity Status [place] Active Latex SWELLING Moderate Active Immunizations Given [...] 01/19/22 13:11:00 EDT, Route to Pharmacy Electronically, [facility]., Partial fill upon patient request if the pres... Start Date: 01/19/22 Status: Ordered amitriptyline 25 mg oral tablet 25 mg, 1, tablet, By Mouth, Daily at bedtime, # 30 tablet, Refills 11, Tot. Refills 11, Maintenance, 11/04/21 10:40:00 EDT, Route to Pharmacy Electronically, [facility] Partial fill upon patient request if the prescription is for a sc... Start Date: 11/04/21 Status: Ordered B-Plex Vitamin B Complex oral tablet 1 tablet, By Mouth, Daily, # 100 tablet, 3 Refills, Maintenance, 10/27/21 15:26:00 EST, Tablet, [facility] Partial fill upon patient request if the prescription is for a schedule II opioid drug., 1 tablet By Mouth Daily, 165.1, cm, 03... Start Date: 10/27/21 Status: Ordered cetirizine 10 mg oral tablet See Instructions, SUDHIR 1 TABLETA POR LA BOCA CADA CHASE, # 30 tablet, 3 Refills, [facility], 165.1, cm, 06/14/21 15:59:00 EDT, Height Start Date: 07/26/21 Status: Ordered diphenhydrAMINE 25 mg oral capsule 1 capsule = 25 mg, By Mouth, 3 times a day, PRN for allergy symptoms, # 30 capsule, 0 Refills, Maintenance, 11/03/21 12:50:00 EDT, Capsule, [facility] Partial fill upon patient request if the prescription is for a schedule II opioid d... Start Date: 11/03/21 Status: Ordered flunisolide 25 mcg/inh nasal spray 2 puffs, Nares, Both, Daily, # 25 mL, 6 Refills, Maintenance, 03/04/21 14:56:00 EDT, [place], [facility] Partial fill upon patient request if the prescription is for a schedule II opioid drug., 2 puffs Nares, Both Daily, 165.1, cm, 02/17... Start Date: 03/04/21 Status: Ordered gabapentin 600 mg oral tablet 1 tablet = 600 mg, By Mouth, 3 times a day, # 90 tablet, 5 Refills, Maintenance, 01/17/22 16:55:00 EDT, Tablet, [facility] Partial fill upon patient request if the prescription is for a schedule II opioid drug., 165.1, cm, 01/17/22 16... Start Date: 01/17/22 Status: Ordered levothyroxine 50 mcg (0.05 mg) oral capsule 1 capsule = 50 mcg, By Mouth, Daily, # 30 capsule, 5 Refills, Maintenance, 01/03/22 19:00:00 EDT, Capsule, [facility] Partial fill upon patient request [...] LA MIGRANA, # 12 tablet, 1 Refills, [facility], 165.1, cm, 11/04/21 10:21:00 EDT, Height Start Date: 11/29/21 Status: Ordered Vitamin B Complex oral tablet, extended release 1 tablet, By Mouth, Daily, # 90 tablet, 3 Refills, Maintenance, 03/04/21 14:55:00 EDT, [facility] Partial fill upon patient request if the prescription is for a schedule II opioid drug., 1 tablet By Mouth Daily, 165.1, cm, 03/04/21 14... 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
--- OUTSIDE RECORDS SUMMARY | 2023-09-18 08:30 | XMS_ITS | Continuity of Care Document ---
Author Name Unknown Organization [facility] Address [address] [place] [address]- Care Team Providers Care Seed Analysis Laboratory Assistant Name Role Phone Terrance KING, Flynn Ratliff Primary Care Physician [phone] Encounter [facility] Date(s): 05/19/21 - 06/18/21 [facility] [address] [place] [address]- Attending Physician: Chad Sofia Admitting Physician: Chad Sofia Referring Physician: AdmtrChad Allergies, Adverse Reactions, Alerts Substance Reaction Severity Status [place] Active Latex SWELLING Moderate Active Immunizations Given [...] a day, take with food label in [place], # 60 capsule, 6 Refills, Maintenance, 08/02/20 11:46:00 EST, [facility] Partial fill upon patient requestif the [...] at bedtime, for 30 days, label in [place], # 30 tablet, Refills 5, Tot. Refills 5, Hard Stop 08/16/21 6:54:00 EST, 02/17/21 6:54:00 EDT, Route to Pharmacy Electronically, [facility], Partial fill upon... Start Date: 02/17/21 Stop Date: 08/16/21 Status: Ordered Carafate 1 gm oral tablet 1 Gm, 1, tablet, By Mouth, 3 times a day before meals and bedtime, Refills 0, Maintenance, 11/17/2116:37:00 EDT, Partial fill upon patient request if the prescription is for a schedule II opioid drug. Start Date: 11/17/20 Status: Ordered cromolyn 4% ophthalmic solution via contracts advisor Dr Sol, 0 Refills, Maintenance, 11/17/20 17:44:00 EDT, Partial fill upon patient request if the prescription is for a schedule II opioid drug. Start Date: 11/17/20 Status: Ordered diclofenac 1% topical gel 1 application, Topically, 4 times a day, # 100 Gm, 0 Refills, Maintenance, 10/15/20 16:35:00 EST, Gel, [facility], Partial fill upon patient request if the prescription is for a schedule II opioid drug., 165.1, cm, 10/15/20 14:34:00 ES... Start Date: 10/15/20 Status: Ordered flunisolide 25 mcg/inh nasal spray 2 puffs, Nares, Both, Daily, # 25 mL, 6 Refills, Maintenance, 03/04/21 14:56:00 EDT, [place], [facility], Partial fill upon patient request if the prescription is for a schedule II opioid drug., 2 puffs Nares, Both Daily, 165.1, cm, 02/17... Start Date: 03/04/21 Status: Ordered fluticasone 50 mcg/inh nasal spray via Dr Sol, contracts advisor, 0 Refills, Maintenance, 11/17/20 17:44:00 EDT, Partial fill upon patient request if the prescription is for a schedule II opioid drug. Start Date: 11/17/20 Status: Ordered gabapentin 300 mg oral capsule 300 mg, 1, capsule, By Mouth, 3 times a day, label in [place], # 90 capsule, Refills 5, Tot. Refills 5, Maintenance, 07/20/20 14:53:00 EST, Route to Pharmacy Electronically, [facility]/pharmacy #[id number], Partial fill upon patient request if the prescription is... Start Date: 07/20/20 Status: Ordered levothyroxine 50 mcg (0.05 mg) oral capsule 1 capsule = 50 mcg, By Mouth, Daily, # 30 capsule, 11 Refills, Maintenance, 09/14/20 7:41:00 EST, Capsule, [facility]., Partial fill upon patient request if the prescription is for a schedule II opioid drug., 165.1, cm, 06/12/19 15:36:0... Start Date: 09/14/20 Status: Ordered metoprolol 25 mg oral tablet 25 mg, 1, tablet, By Mouth, 2 times a day, # 60 tablet, Refills 0, Tot. Refills 0, Maintenance, 06/12/19 16:47:18 EDT, Route to Pharmacy Electronically, [id number], [facility] [...] PRN Migraine Headache, label all medications in [place], # 18 tablet, 1 Refills, Soft Stop, 12/29/20 16:12:00 EDT, Tablet, [facility]., Partial fill upon patient request if the prescription is for a tamara... Start Date: 12/29/20 Status: Ordered Vitamin B Complex oral tablet, extended release 1 tablet, By Mouth, Daily, # 90 tablet, 3 Refills, Maintenance, 03/04/21 14:55:00 EDT, [facility]., Partial fill upon patient request if the prescription is for a schedule II opioid drug., 1 tablet By Mouth Daily, 165.1, cm, 03/04/21 14... 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
--- OUTSIDE RECORDS SUMMARY | 2023-09-18 08:30 | XMS_ITS | Continuity of Care Document ---
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 Driver Name Role Phone Terrance KING, Flynn Ratliff Primary Care Physician [phone] Encounter [facility] R [id number] Date(s): 11/26/20 - 12/26/20 [facility] [address] [place] [address]- Attending Physician: Roberto Cantu MD Admitting Physician: Roberto Cantu MD Allergies, Adverse Reactions, Alerts Substance Reaction Severity Status [place] Active Latex SWELLING Moderate Active Immunizations Given [...] a day, take with food label in Yoruba, # 60 capsule, 6 Refills, Maintenance, 08/02/20 11:46:00 EST, [facility] upon patient requestif the prescription is for a schedule II opioid . Start Date: 08/02/20 Stop Date: 02/28/21 Status: Ordered amitriptyline 25 mg oral tablet 25 mg, 1, tablet, By Mouth, Daily at bedtime, label in Yoruba, # 30 tablet, Refills 4, Tot. Refills 4, Maintenance, 07/20/20 14:55:00 EST, Route to Pharmacy Electronically, [facility]/pharmacy #[id number], Partial fill upon patient [...] Status: Ordered cromolyn 4% ophthalmic solution via plate developer Dr Sol, 0 Refills, Maintenance, 11/17/20 17:44:00 EDT, Partial fill upon patient request if the prescription is for a schedule II opioid drug. Start Date: 11/17/20 Status: Ordered diclofenac 1% topical gel 1 application, Topically, 4 times a day, # 100 Gm, 0 Refills, Maintenance, 10/15/20 16:35:00 EST, Gel, [facility]., Partial fill upon patient request if the prescription is for a schedule II opioid drug., 165.1, cm, 10/15/20 14:34:00 ES... Start Date: 10/15/20 Status: Ordered fluticasone 50 mcg/inh nasal spray via Dr Sol, plate developer, 0 Refills, Maintenance, 11/17/20 17:44:00 EDT, Partial fill upon patient request if the prescription is for a schedule II opioid drug. Start Date: 11/17/20 Status: Ordered gabapentin 300 mg oral capsule 300 mg, 1, capsule, By Mouth, 3 times a day, label in Yoruba, # 90 capsule, Refills 5, Tot. Refills 5, Maintenance, 07/20/20 14:53:00 EST, Route to Pharmacy Electronically, [facility]/pharmacy #[id number], Partial fill upon patient request if the prescription is... Start Date: 07/20/20 Status: Ordered levothyroxine 50 mcg (0.05 mg) oral capsule 1 capsule = 50 mcg, By Mouth, Daily, # 30 capsule, 11 Refills, Maintenance, 09/14/20 7:41:00 EST, Capsule, [facility]., Partial fill upon patient request if [...] 06/12/19 16:47:18 EDT, Route to Pharmacy Electronically, NCPDP_[id number], [facility] - [facility] Start [...] PRN Migraine Headache, label all medications in Yoruba, # 18 tablet, 1 Refills, Soft Stop, 07/20/20 14:45:00 EST, Tablet, [facility]/pharmacy #[id number], Partial fill upon patient request if the prescription is for a schedule II... 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
--- OUTSIDE RECORDS SUMMARY | 2023-09-18 08:30 | XMS_ITS | Continuity of Care Document ---
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 Name Role Phone Flynn Carlos MD Primary Care Physician [phone] [id number] Date(s): 03/22/22 - 04/21/[address] [address] Attending Physician: Admtr, Chad Admitting Physician: Admtr, Ar8 Referring Physician: Admtr, Ar8 Allergies, Adverse Reactions, Alerts Substance Reaction Severity Status [place] Active Latex SWELLING Moderate Active Immunizations Given [...] 01/19/22 13:11:00 EDT, Route to Pharmacy Electronically, [facility] Partial fill upon patient request if the presc... Start Date: 01/19/22 Status: Ordered amitriptyline 25 mg oral tablet 25 mg, 1, tablet, By Mouth, Daily at bedtime, # 30 tablet, Refills 11, Tot. Refills 11, Maintenance, 04/11/22 14:19:00 EDT, Route to Pharmacy Electronically, [facility]., Partial fill upon patient request if the prescription is for a sc... Start Date: 04/11/22 Status: Ordered B-Plex Vitamin B Complex oral tablet 1 tablet, By Mouth, Daily, # 100 tablet, 3 Refills, Maintenance, 10/27/21 15:26:00 EST, Tablet, [facility] Partial fill upon patient request if the prescription is for a schedule II opioid drug., 1 tablet By Mouth Daily, 165.1, cm, 03... Start Date: 10/27/21 Status: Ordered cetirizine 10 mg oral tablet See Instructions, SUDHIR 1 TABLETA POR LA BOCA CADA CHASE, # 30 tablet, 3 Refills, 04/11/22 14:22:00 EDT, [facility] 165.1, cm, 04/11/22 14:14:00 EDT, Height Start Date: 04/11/22 Status: Ordered diphenhydrAMINE 25 mg oral capsule 1 capsule = 25 mg, By Mouth, 3 times a day, PRN for allergy symptoms, # 30 capsule, 0 Refills, Maintenance, 11/03/21 12:50:00 EDT, Capsule, [facility] Partial fill upon patient request if the prescription is for a schedule II opioid d... Start Date: 11/03/21 Status: Ordered flunisolide 25 mcg/inh nasal spray 2 puffs, Nares, Both, Daily, # 25 mL, 6 Refills, Maintenance, 03/04/21 14:56:00 EDT, [place], [facility] Partial fill upon patient request if the prescription is for a schedule II opioid drug., 2 puffs Nares, Both Daily, 165.1, cm, 02/17... Start Date: 03/04/21 Status: Ordered gabapentin 600 mg oral tablet 1 tablet = 600 mg, By Mouth, 3 times a day, # 90 tablet, 5 Refills, Maintenance, 01/17/22 16:55:00 EDT, Tablet, [facility] Partial fill upon patient request if the prescription is for a schedule II opioid drug., 165.1, cm, 01/17/22 16... Start Date: 01/17/22 Status: Ordered levothyroxine 50 mcg (0.05 mg) oral capsule 1 capsule = 50 mcg, By Mouth, Daily, # 30 capsule, 5 Refills, Maintenance, 01/03/22 19:00:00 EDT, Capsule, [facility] Partial fill upon patient request [...] LA MIGRANA, # 12 tablet, 1 Refills, [facility], 165.1, cm, 04/11/22 14:14:00 EDT, Height Start Date: 04/12/22 Status: Ordered Vitamin B Complex oral tablet, extended release 1 tablet, By Mouth, Daily, # 90 tablet, 3 Refills, Maintenance, 03/04/21 14:55:00 EDT, [facility]., Partial fill upon patient request if the prescription is for a schedule II opioid drug., 1 tablet By Mouth Daily, 165.1, cm, 03/04/21 14... 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
--- OUTSIDE RECORDS SUMMARY | 2023-09-18 08:30 | XMS_ITS | Continuity of Care Document ---
Author Name Unknown Organization [facility] Address [address] [place] [address]- Care Team Providers Care Student Records Specialist Name Role Phone Terrance KING, Flynn Ratliff Primary Care Physician [phone] [place] [facility] [place]): 07/26/23 - 08/25/23 [facility] [address], [place] [address] Allergies, Adverse Reactions, Alerts Substance Reaction Severity Status [place] Active Latex SWELLING Moderate Active Immunizations Given [...] tablet, 5 Refills, Maintenance, 07/13/23 8:59:00 EST, [facility], 167, cm, 06/26/23 4:14:00 EST, Height, 66, kg, 06/26/23 4:14:00 EST, Dry Weight Start Date: 07/13/23 Status: Ordered amitriptyline 25 mg oral tablet 25 mg, 1, tablet, By Mouth, Daily at bedtime, # 30 tablet, Refills 11, Tot. Refills 11, Maintenance, 04/11/22 14:19:00 EDT, Route to Pharmacy Electronically, [facility]., Partial fill upon patient request if the prescription is for a sc... Start Date: 04/11/22 Status: Ordered B-Plex Vitamin B Complex oral tablet 1 tablet, By Mouth, Daily, # 100 tablet, 3 Refills, Maintenance, 10/27/21 15:26:00 EST, Tablet, [facility]., Partial fill upon patient request if the prescription is for a schedule II opioid drug., 1 tablet By Mouth Daily, 165.1, cm, 03... Start Date: 10/27/21 Status: Ordered cromolyn 4% ophthalmic solution 1 drops, Eyes, Both, 4 times a day, # 10 mL, 3 Refills, Maintenance, 04/19/23 16:16:00 EDT, Solution, [facility]., Partial fill upon patient request if the prescription is for a schedule II opioid drug., 1 drops Eyes, Both 4 times a day... Start Date: 04/19/23 Status: Ordered diclofenac 1% topical gel 1 application, Topically, 4 times a day, # 100 Gm, 1 Refills, Maintenance, 07/25/23 15:01:00 EST, Gel, [facility]., Partial fill upon patient request if the prescription is for a schedule II opioid drug., 167, cm, 07/25/23 14:07:00 EST,... Start Date: 07/25/23 Status: Ordered dicyclomine 20 mg oral tablet 1 tablet = 20 mg, By Mouth, 2 times a day, please take for spasm pain not more than twice per day, please label in [place]., # 60 tablet, 1 Refills, Maintenance, 06/05/23 14:57:00 EDT, Tablet, [facility]., Partial fill upon patient requ... Start Date: 06/05/23 Stop Date: 08/04/23 Status: Ordered diphenhydrAMINE 25 mg oral capsule 1 capsule = 25 mg, By Mouth, 3 times a day, PRN for allergy symptoms, # 30 capsule, 4 Refills, Maintenance, 09/28/22 11:26:00 EST, Capsule, [facility] Partial fill upon patient [...] Gm, 6 Refills, Maintenance, 04/24/23 10:44:00 EDT, [place], [facility] Partial fill upon patient request if the prescription is for a schedule II opioid drug., 1 sprays Nares,... Start Date: 04/24/23 Status: Ordered gabapentin 600 mg oral tablet 1 tablet = 600 mg, By Mouth, 3 times a day, # 90 tablet, 5 Refills, Maintenance, 06/05/23 15:03:00 EDT, Tablet, [facility] Partial fill upon patient request if the prescription is for a schedule II opioid drug., 165.1, cm, 06/05/23 14... Start Date: 06/05/23 Status: Ordered levothyroxine 50 mcg (0.05 mg) oral capsule 1 capsule = 50 mcg, By Mouth, Daily, # 90 capsule, 6 Refills, Maintenance, 12/07/22 15:43:00 EDT, Capsule, [facility] Partial fill upon patient request if the prescription is for a schedule II opioid drug., 165.1, cm, 12/07/22 10:52:0... Start Date: 12/07/22 Status: Ordered SUMAtriptan 50 mg oral tablet See Instructions, SUDHIR 1 TABLETA POR LA BOCA LITTLE VEZ CUANDO SEA NECESARIO PARA LA MIGRANA, # 12 tablet, 1 Refills, Maintenance, 04/19/23 16:14:00 EDT, [facility], 165.1, cm, 04/19/2316:01:00 EDT, Height Start Date: 04/19/23 Status: Ordered tiZANidine 2 mg oral tablet 2 mg, 1, tablet, By Mouth, Every 8 hours, label in argentine, # 21 tablet, Refills 0, Tot. Refills 0,Maintenance, 06/05/23 15:00:00 EDT, Route to Pharmacy Electronically, [facility], Partial fill upon patient request if the prescription... Start Date: 06/05/23 Stop Date: 06/12/23 Status: Ordered Topamax 25 mg oral tablet 2 tablet = 50 mg, By Mouth, Daily, label in argentine, # 60 tablet, 3 Refills, Maintenance, 04/19/23 16:12:00 EDT, Tablet, [facility], Partial fill upon patient request if the prescription is for a schedule II opioid drug., 165.1, cm, 08... Start Date: 04/19/23 Status: Ordered Vitamin B Complex oral tablet, extended release 1 tablet, By Mouth, Daily, # 90 tablet, 3 Refills, Maintenance, 03/04/21 14:55:00 EDT, [facility], Partial fill upon patient request if the prescription is for a schedule II opioid drug., 1 tablet By Mouth Daily, 165.1, cm, 03/04/21 14... 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
--- OUTSIDE RECORDS SUMMARY | 2023-09-18 08:30 | XMS_ITS | Continuity of Care Document ---
Author Name Unknown Organization [facility] Address [address] [place] [address]- Care Team Providers Care Box Car Checker Name Role Phone Terrance KING, Flynn Ratliff Primary Care Physician Encounter [facility] [place] Date(s): 01/17/22 - 02/16/22 [facility] [address] [place] [address]- Attending Physician: Chad Sofia Admitting Physician: AdmChad melendez Referring Physician: AdmtrChad Allergies, Adverse Reactions, Alerts Substance Reaction Severity Status [place] Active Latex SWELLING Moderate Active Immunizations Given [...] 01/19/22 13:11:00 EDT, Route to Pharmacy Electronically, [facility]., Partial fill upon patient request [...] 3 Refills, Maintenance, 10/27/21 15:26:00 EST, Tablet, [facility] Partial fill upon patient request if the prescription is for a schedule II opioid drug., 1 tablet By Mouth Daily, 165.1, cm, 03... Start Date: 10/27/21 Status: Ordered cetirizine 10 mg oral tablet See Instructions, SUDHIR 1 TABLETA POR LA BOCA CADA CHASE, # 30 tablet, 3 Refills, [facility], 165.1, cm, 06/14/21 15:59:00 EDT, Height Start Date: 07/26/21 Status: Ordered diphenhydrAMINE 25 mg oral capsule 1 capsule = 25 mg, By Mouth, 3 times a day, PRN for allergy symptoms, # 30 capsule, 0 Refills, Maintenance, 11/03/21 12:50:00 EDT, Capsule, [facility] Partial fill upon patient request if the prescription is for a schedule II opioid d... Start Date: 11/03/21 Status: Ordered flunisolide 25 mcg/inh nasal spray 2 puffs, Nares, Both, Daily, # 25 mL, 6 Refills, Maintenance, 03/04/21 14:56:00 EDT, [place], [facility] Partial fill upon patient request if the prescription is for a schedule II opioid drug., 2 puffs Nares, Both Daily, 165.1, cm, 02/17... Start Date: 03/04/21 Status: Ordered gabapentin 600 mg oral tablet 1 tablet = 600 mg, By Mouth, 3 times a day, # 90 tablet, 5 Refills, Maintenance, 01/17/22 16:55:00 EDT, Tablet, [facility] Partial fill upon patient request if the prescription is for a schedule II opioid drug., 165.1, cm, 01/17/22 16... Start Date: 01/17/22 Status: Ordered levothyroxine 50 mcg (0.05 mg) oral capsule 1 capsule = 50 mcg, By Mouth, Daily, # 30 capsule, 5 Refills, Maintenance, 01/03/22 19:00:00 EDT, [facility]apsule[facility] Partial fill upon patient request [...] [place], # 12 tablet, 1 Refills, [facility], 165.1, cm, 11/04/21 10:21:00 EDT, Height Start Date: 11/29/21 Status: Ordered Vitamin B Complex oral tablet, extended release 1 tablet, By Mouth, Daily, # 90 tablet, 3 Refills, Maintenance, 03/04/21 14:55:00 EDT, [facility]., Partial fill upon patient request if the prescription is for a schedule II opioid drug., 1 tablet By Mouth Daily, 165.1, cm, 03/04/21 14... 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
--- OUTSIDE RECORDS SUMMARY | 2023-09-18 08:30 | XMS_ITS | Continuity of Care Document ---
Author Name Unknown Organization [facility] Address [address] [place] [address]- Care Team Providers Care Line Worker Name Role Phone Flynn Carlos MD Primary Care Physician [place] [facility] [place]s): 07/06/23 - 09/05/23 [facility] [address] [place] [address]- Attending Physician: Not on Staff, Attending MD Allergies, Adverse Reactions, Alerts Substance Reaction Severity Status [place] Active Latex SWELLING Moderate Active Immunizations Given [...] tablet, 5 Refills, Maintenance, 07/13/23 8:59:00 EST, [facility], 167, cm, 06/26/23 4:14:00 EST, Height, 66, kg, 06/26/23 4:14:00 EST, Dry Weight Start Date: 07/13/23 Status: Ordered amitriptyline 25 mg oral tablet 25 mg, 1, tablet, By Mouth, Daily at bedtime, # 30 tablet, Refills 11, Tot. Refills 11, Maintenance, 04/11/22 14:19:00 EDT, Route to Pharmacy Electronically, [facility]., Partial fill upon patient request if the prescription is for a sc... Start Date: 04/11/22 Status: Ordered B-Plex Vitamin B Complex oral tablet 1 tablet, By Mouth, Daily, # 100 tablet, 3 Refills, Maintenance, 10/27/21 15:26:00 EST, Tablet, [facility]., Partial fill upon patient request if the prescription is for a schedule II opioid drug., 1 tablet By Mouth Daily, 165.1, cm, 03... Start Date: 10/27/21 Status: Ordered cromolyn 4% ophthalmic solution 1 drops, Eyes, Both, 4 times a day, # 10 mL, 3 Refills, Maintenance, 04/19/23 16:16:00 EDT, Solution, [facility]., Partial fill upon patient request if the prescription is for a schedule II opioid drug., 1 drops Eyes, Both 4 times a day... Start Date: 04/19/23 Status: Ordered diclofenac 1% topical gel 1 application, Topically, 4 times a day, # 100 Gm, 1 Refills, Maintenance, 07/25/23 15:01:00 EST, Gel, [facility] Partial fill upon patient request if the prescription is for a schedule II opioid drug., 167, cm, 07/25/23 14:07:00 EST,... Start Date: 07/25/23 Status: Ordered dicyclomine 20 mg oral tablet 1 tablet = 20 mg, By Mouth, 2 times a day, please take for spasm pain not more than twice per day, please label in Serbian., # 60 tablet, 1 Refills, Maintenance, 06/05/23 14:57:00 EDT, Tablet, [facility]., Partial fill upon patient requ... Start Date: 06/05/23 Stop Date: 08/04/23 Status: Ordered diphenhydrAMINE 25 mg oral capsule 1 capsule = 25 mg, By Mouth, 3 times a day, PRN for allergy symptoms, # 30 capsule, 4 Refills, Maintenance, 09/28/22 11:26:00 EST, Capsule, [facility] Partial fill upon patient [...] Gm, 6 Refills, Maintenance, 04/24/23 10:44:00 EDT, [place], [facility] Partial fill upon patient request if the prescription is for a schedule II opioid drug., 1 sprays Nares,... Start Date: 04/24/23 Status: Ordered gabapentin 600 mg oral tablet 1 tablet = 600 mg, By Mouth, 3 times a day, # 90 tablet, 5 Refills, Maintenance, 06/05/23 15:03:00 EDT, Tablet, [facility] Partial fill upon patient request if the prescription is for a schedule II opioid drug., 165.1, cm, 06/05/23 14... Start Date: 06/05/23 Status: Ordered levothyroxine 50 mcg (0.05 mg) oral capsule 1 capsule = 50 mcg, By Mouth, Daily, # 90 capsule, 6 Refills, Maintenance, 08/30/23 15:37:00 EST, Capsule, [facility] Partial fill upon patient request if the prescription is for a schedule II opioid drug., 167, cm, 07/25/23 14:07:00... Start Date: 08/30/23 Status: Ordered SUMAtriptan 50 mg oral tablet See Instructions, SUDHIR 1 TABLETA POR LA BOCA LITTLE VEZ CUANDO SEA NECESARIO PARA LA MIGRANA, # 12 tablet, 1 Refills, Maintenance, 04/19/23 16:14:00 EDT, [facility]., 165.1, cm, 04/19/2316:01:00 EDT, Height Start Date: 04/19/23 Status: Ordered tiZANidine 2 mg oral tablet 2 mg, 1, tablet, By Mouth, Every 8 hours, label in czech, # 21 tablet, Refills 0, Tot. Refills 0,Maintenance, 06/05/23 15:00:00 EDT, Route to Pharmacy Electronically, [facility], Partial fill upon patient request if the prescription... Start Date: 06/05/23 Stop Date: 06/12/23 Status: Ordered Topamax 25 mg oral tablet 2 tablet = 50 mg, By Mouth, Daily, label in czech, # 60 tablet, 3 Refills, Maintenance, 04/19/23 16:12:00 EDT, Tablet, [facility], Partial fill upon patient request if the prescription is for a schedule II opioid drug., 165.1, cm, 08... Start Date: 04/19/23 Status: Ordered Vitamin B Complex oral tablet, extended release 1 tablet, By Mouth, Daily, # 90 tablet, 3 Refills, Maintenance, 03/04/21 14:55:00 EDT, [facility], Partial fill upon patient request if the prescription is for a schedule II opioid drug., 1 tablet By Mouth Daily, 165.1, cm, 03/04/21 14... 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
--- OUTSIDE RECORDS SUMMARY | 2023-09-18 08:30 | XMS_ITS | Continuity of Care Document ---
Author Name Unknown Organization [facility] Address [address] [place] [address]- Care Team Providers Care Produce Field Merchandiser Name Role Phone Flynn Carlos MD Primary Care Physician [place] [facility] [place] 04/08/23 [facility] [address] [place] [address]- Allergies, Adverse Reactions, Alerts Substance Reaction Severity Status [place] Active Latex SWELLING Moderate Active Immunizations Given and Recorded Vaccine Date Status Refusal Reason influenza virus vaccine, inactivated 06/21/21 Emmanuel rded SARS-CoV-2 (COVID-19) mRNA BNT-162b2 vac 12/24/20 Given SARS-CoV-2 (COVID-19) mRNA BNT-162b2 vac 12/03/20 Given tetanus/diphtheria/pertussis, acel(Tdap) 06/29/16 Recorded Medications acetaminophen 325 mg oral tablet See Instructions, SUDHRI 2 TABLETAS POR LA BOCA CADA 4 [...] 04/11/22 14:19:00 EDT, [facility], Partial fill upon patient request if the prescription is for a sc... Start Date: 04/11/22 Status: Ordered B-Plex Vitamin B Complex oral tablet 1 tablet, By Mouth, Daily, # 100 tablet, 3 Refills, Maintenance, 10/27/21 15:26:00 EST, Tablet[facility] Partial fill upon patient request if the prescription is for a schedule II opioid drug., 1 tablet By Mouth Daily, 165.1, cm, 03... Start Date: 10/27/21 Status: Ordered cetirizine 10 mg oral tablet See Instructions, SUDHIR 1 TABLETA POR LA BOCA CADA CHASE, # 30 tablet, 3 Refills, 09/28/22 12:13:00 EST, [facility] 165.1, cm, 09/28/22 11:27:00 EST, Height Start Date: 09/28/22 Status: Ordered cromolyn 4% ophthalmic solution 1 drops, Eyes, Both, 4 times a day, # 10 mL, 3 Refills, Maintenance, 09/28/22 12:14:00 EST, [facility] Partial fill upon patient request if the prescription is for a schedule II opioid drug., 1 drops Eyes, Both 4 times a day... Start Date: 09/28/22 Status: Ordered dicyclomine 20 mg oral tablet 1 tablet = 20 mg, By Mouth, 2 times a day, please take for spasm pain not more than twice per day, please label in Greenlandic., # 60 tablet, 1 Refills, Maintenance, 05/16/22 15:52:00 EDT, Tablet, [facility] fill upon patient requ... Start [...] mL, 6 Refills, Maintenance, 03/04/21 14:56:00 EDT, [place] Partial fill upon patient request if the prescription is for a schedule II opioid drug., 2 puffs Nares, Both Daily, 165.1, cm, 02/17... Start Date: 03/04/21 Status: Ordered levothyroxine 0.05 mg oral tablet 1 tablet = 50 mcg, By Mouth, Daily, # 90 tablet, 6 Refills, Maintenance, 12/07/22 16:42:00 EDT, Tablet, [facility]., Partial fill upon patient request if the prescription is for a schedule II opioid drug., 165.1, cm, 12/07/22 10:52:00 E... Start Date: 12/07/22 Status: Ordered levothyroxine 50 mcg (0.05 mg) oral capsule 1 capsule = 50 mcg, By Mouth, Daily, # 90 capsule, 6 Refills, Maintenance, 12/07/22 15:43:00 EDT, Capsule, [facility]., Partial fill upon patient request if the prescription is for a schedule II opioid drug., 165.1, cm, 12/07/22 10:52:0... Start Date: 12/07/22 Status: Ordered pantoprazole 40 mg oral delayed release tablet See Instructions, SUDHIR 1 TABLETA POR LA BOCA CADA CHASE, # 90 tablet, 1 Refills, Maintenance, 03/27/23 11:01:00 EDT, 165.1, cm, 03/07/23 10:36:00 EDT, Height Start Date: 03/27/23 Status: Ordered SUMAtriptan 50 mg oral tablet See Instructions, SUDHIR 1 TABLETA POR LA BOCA LITTLE VEZ CUANDO SEA NECESARIO PARA [place] MIGRA[place], # 12 tablet, 1 Refills, Maintenance, 11/01/22 12:58:00 EDT, [facility] 165.1, cm, 10/26/2309:56:00 EST, Height Start Date: 11/01/22 Status: Ordered tiZANidine 2 mg oral tablet 2 mg, 1, tablet, By Mouth, Every 8 hours, label in brazilian, # 21 tablet, Refills 0, Tot. Refills 0,Maintenance, 12/07/22 11:52:00 EDT, Route to Pharmacy Electronically, [facility]., Partial fill upon patient request if the prescription... Start Date: 12/07/22 Stop Date: 12/14/22 Status: Ordered Vitamin B Complex oral tablet, extended release 1 tablet, By Mouth, Daily, # 90 tablet, 3 Refills, Maintenance, 03/04/21 14:55:00 EDT, [facility], Partial fill upon patient request if the prescription is for a schedule II opioid drug., 1 tablet By Mouth Daily, 165.1, cm, 03/04/21 14... 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, [address] [facility] [place] [address]- Care Team Related Persons Name: SCOTT BERNABE Address: [address] [place] [address]
--- OUTSIDE RECORDS SUMMARY | 2023-09-18 08:30 | XMS_ITS | Continuity of Care Document ---
Author Name Unknown Organization [facility] [place] Address [address] [place] [address]- Care Team Providers Care Shovel Operator Name Role Phone Idris Davenport MD Primary Care Physician [phone] Encounter [facility] Date(s): 05/12/20 - 06/11/20 [facility] [place] [address] [place] [address]- [facility] Attending Physician: Chad Sofia Admitting Physician: AdmtrChad Referring Physician: Admtr, Ar8 Allergies, Adverse Reactions, Alerts Substance Reaction Severity Status Latex SWELLING Moderate Active Medications aspirin 81 mg oral delayed release tablet 81 mg, 1, tablet, By Mouth, Daily, # 30 tablet, Refills 0, Tot. Refills 0, Maintenance, 06/12/19 16:47:09 EDT, Route to Pharmacy Electronically, [facility]_ID- [id number], [facility] Start [...] 06/12/19 16:47:18 EDT, Route to Pharmacy Electronically, [facility]ID-[id number], [facility] - [facility] Start [...] Daily, 0, 02/07/06 13:20:55, Print MP Number, [id number], Constant Indicator Start Date: 02/07/06 Status: Ordered
--- OUTSIDE RECORDS SUMMARY | 2023-09-18 08:30 | XMS_ITS | Continuity of Care Document ---
Author Name Unknown Organization [facility] Address [address] [place] [phone]- Care Team Providers Care Plug Paster Name Role Phone Flynn Carlos MD Primary Care Physician [place] [facility] [place] [id number] Date(s): 01/20/21 - 02/19/21 [facility] [address] [place] [id number]- Attending Physician: Chad Sofia Admitting Physician: AdmChad melendez Referring Physician: Admtr, Ar8 Allergies, Adverse Reactions, Alerts Substance Reaction Severity Status [place] Active Latex SWELLING Moderate Active Immunizations Given [...] a day, take with food label in [place]ib[place]ian, # 60 capsule, 6 Refills, Maintenance, 08/02/20 11:46:00 EST, [facility] upon patient requestif the prescription is for a schedule II opioid . Start Date: 08/02/20 Stop Date: 02/28/21 Status: Ordered amitriptyline 25 mg oral tablet 25 mg, 1, tablet, By Mouth, Daily at bedtime, label in [place]ib[place]ian, # 30 tablet, Refills 5, Tot. 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 Start Date: 11/17/20 Status: Ordered diclofenac 1% topical gel 1 application, Topically, 4 times a day, # 100 Gm, 0 Refills, Maintenance, 10/15/20 16:35:00 EST, Gel, [facility]., Partial fill upon patient request if the prescription is for a schedule II opioid drug., 165.1, cm, 10/15/20 14:34:00 ES... 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 Start Date: 11/17/20 Status: Ordered gabapentin 300 mg oral capsule 300 mg, 1, capsule, By Mouth, 3 times a day, label in Djib[place]ian, # 90 capsule, Refills 5, Tot. Refills 5, Maintenance, 07/20/20 14:53:00 EST, Route to Pharmacy Electronically, [facility]/pharmacy #[id number], Partial fill upon patient request if the prescription is... Start Date: 07/20/20 Status: Ordered levothyroxine 50 mcg (0.05 mg) oral capsule 1 capsule = 50 mcg, By Mouth, Daily, # 30 capsule, 11 Refills, Maintenance, 09/14/20 7:41:00 EST, Capsule, [facility]., Partial fill upon patient request if [...] 01/27/21 10:07:00 EDT, Route to Pharmacy Electronically, [facility]., Partial fill upon patient request if the prescription is for a schedule II opi... Start Date: 01/27/21 Status: Ordered metoprolol 25 mg oral tablet 25 mg, 1, tablet, By Mouth, 2 times a day, # 60 tablet, Refills 0, Tot. Refills 0, Maintenance, 06/12/19 16:47:18 EDT, Route to Pharmacy Electronically, [id number], [facility] Start Date: 06/12/19 Status: [...] PRN Migraine Headache, label all medications in [place]ib[place]ian, # 18 tablet, 1 Refills, Soft Stop, 12/29/20 16:12:00 EDT, Tablet, [facility]., Partial fill upon patient request if the prescription is for a tamara... 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
--- OUTSIDE RECORDS SUMMARY | 2023-09-18 08:30 | XMS_ITS | Continuity of Care Document ---
Author Name Unknown Organization [facility] Address [address] [place] [phone]- Care Team Providers Care Correspondence Dictator Name Role Phone Terrance KING, Flynn Ratliff Primary Care Physician Encounter [facility] [place] Date(s): 04/15/21 - 06/27/[address] [address] Attending Physician: Tavo ELLIOTT, Krystin Mora Admitting Physician: Tavo ELLIOTT, Krystin Mora Referring Physician: Tavo ELLIOTT, Krystin Mora Allergies, Adverse Reactions, Alerts Substance Reaction Severity Status [place] Active Latex SWELLING Moderate Active Immunizations Given [...] a day, take with food label in Swedish, # 60 capsule, 6 Refills, Maintenance, 08/02/20 11:46:00 EST, [facility] fill upon patient requestif [...] at bedtime, for 30 days, label in Swedish, # 30 tablet, Refills 5, Tot. Refills 5, Hard Stop 08/16/21 6:54:00 EST, 02/17/21 6:54:00 EDT, Route to Pharmacy Electronically, [facility], Partial fill upon... Start Date: 02/17/21 Stop Date: 08/16/21 Status: Ordered Carafate 1 gm oral tablet 1 Gm, 1, tablet, By Mouth, 3 times a day before meals and bedtime, Refills 0, Maintenance, 11/17/2116:37:00 EDT, Partial fill upon patient request if the prescription is for a schedule II opioid drug. Start Date: 11/17/20 Status: Ordered cromolyn 4% ophthalmic solution via chemical dependency therapist Dr Sol, 0 Refills, Maintenance, 11/17/20 17:44:00 EDT, Partial fill upon patient request if the prescription is for a schedule II opioid drug. Start Date: 11/17/20 Status: Ordered diclofenac 1% topical gel 1 application, Topically, 4 times a day, # 100 Gm, 0 Refills, Maintenance, 10/15/20 16:35:00 EST, Gel, [facility], Partial fill upon patient request if the prescription is for a schedule II opioid drug., 165.1, cm, 10/15/20 14:34:00 ES... Start Date: 10/15/20 Status: Ordered flunisolide 25 mcg/inh nasal spray 2 puffs, Nares, Both, Daily, # 25 mL, 6 Refills, Maintenance, 03/04/21 14:56:00 EDT, [place], [facility], Partial fill upon patient request if the prescription is for a schedule II opioid drug., 2 puffs Nares, Both Daily, 165.1, cm, 02/17... Start Date: 03/04/21 Status: Ordered fluticasone 50 mcg/inh nasal spray via Dr Sol, chemical dependency therapist, 0 Refills, Maintenance, 11/17/20 17:44:00 EDT, Partial fill upon patient request if the prescription is for a schedule II opioid drug. Start Date: 11/17/20 Status: Ordered gabapentin 300 mg oral capsule 300 mg, 1, capsule, By Mouth, 3 times a day, label in Swedish, # 90 capsule, Refills 5, Tot. Refills 5, Maintenance, 07/20/20 14:53:00 EST, Route to Pharmacy Electronically, [facility]/pharmacy #[id number], Partial fill upon patient request if the prescription is... Start Date: 07/20/20 Status: Ordered levothyroxine 50 mcg (0.05 mg) oral capsule 1 capsule = 50 mcg, By Mouth, Daily, # 30 capsule, 11 Refills, Maintenance, 09/14/20 7:41:00 EST, Capsule, [facility]., Partial fill upon patient request if the prescription is for a schedule II opioid drug., 165.1, cm, 06/12/19 15:36:0... Start Date: 09/14/20 Status: Ordered metoprolol 25 mg oral tablet 25 mg, 1, tablet, By Mouth, 2 times a day, # 60 tablet, Refills 0, Tot. Refills 0, Maintenance, 06/12/19 16:47:18 EDT, Route to Pharmacy Electronically, [id number], [facility] Start Date: 06/12/19 Status: Ordered pantoprazole 40 mg oral delayed release tablet See Instructions, SUDHIR 1 TABLETA POR LA BOCA CADA CHASE, # 30 tablet, 5 Refills, 165.1, cm, 04/12/2114:30:00 EDT, Height Start Date: 04/14/21 Status: Ordered SUMAtriptan 50 mg oral tablet 1 tablet = 50 mg, By Mouth, Once, PRN Migraine Headache, label all medications in Swedish, # 18 tablet, 1 Refills, Soft Stop, 12/29/20 16:12:00 EDT, Tablet, [facility]., Partial fill upon patient request if the prescription is for a tamara... Start Date: 12/29/20 Status: Ordered Vitamin B Complex oral tablet, extended release 1 tablet, By Mouth, Daily, # 90 tablet, 3 Refills, Maintenance, 03/04/21 14:55:00 EDT, [facility]., Partial fill upon patient request if the prescription is for a schedule II opioid drug., 1 tablet By Mouth Daily, 165.1, cm, 03/04/21 14... Start Date: 03/04/21 Stop Date: 04/03/21 Status: Ordered ZyrTEC 10 mg oral tablet 1 tablet = 10 mg, By Mouth, Daily, # 30 tablet, 3 Refills, Maintenance, 03/04/21 14:51:00 EDT, [facility]., Partial fill upon patient request if the prescription is for a schedule II opioid drug., 165.1, cm, 03/04/21 14:25:00 EDT, Height Start Date: 03/04/21 Status: Ordered Problem List Condition Effective Dates Status Health Status Inform ant Allergic rhinitis, chemical dependency therapist Dr Sol in past(Confirmed) Active Hematuria(Confirmed) Active Chronic bilateral low back pain(Confirmed) Active Exposure to COVID-19 virus(Confirmed) Active Abdominal cramping(Confirmed) Active Heartburn(Confirmed) Active Hypothyroidism(Confirmed) Active IBS (irritable colon syndrome)(Confirmed) Active Menopausal state(Confirmed) Active Migraine(Confirmed) Active Hernia, cerebellar(Confirmed) Active Social History Social History Type Response Smoking Status Never (less than 100 in lifetime) entered on: 07/20/20 Sex
--- OUTSIDE RECORDS SUMMARY | 2023-09-18 08:30 | XMS_ITS | Continuity of Care Document ---
Author Name Unknown Organization [facility] y Address [address] [place] [address]- Care Team Providers Care Poultry Husbandry Worker Name Role Phone Terrance KING, Flynn Ratliff Primary Care Physician [place] [facility] [place](s): 06/03/21 - 07/03/21 [facility] [address] [place] [address]- Attending Physician: Chad Sofia Admitting Physician: AdmChad melendez Referring Physician: AdmtrChad Allergies, Adverse Reactions, Alerts Substance Reaction Severity Status [place] Active Latex SWELLING Moderate Active Immunizations Given [...] a day, take with food label in Angolan, # 60 capsule, 6 Refills, Maintenance, 08/02/20 11:46:00 EST, [facility], Partial fill upon patient requestif the [...] at bedtime, for 30 days, label in Angolan, # 30 tablet, Refills 5, Tot. Refills 5, Hard Stop 08/16/21 6:54:00 EST, 02/17/21 6:54:00 EDT, Route to Pharmacy Electronically, [facility], Partial fill upon... Start Date: 02/17/21 Stop Date: 08/16/21 Status: Ordered Carafate 1 gm oral tablet 1 Gm, 1, tablet, By Mouth, 3 times a day before meals and bedtime, Refills 0, Maintenance, 11/17/2116:37:00 EDT, Partial fill upon patient request if the prescription is for a schedule II opioid drug. Start Date: 11/17/20 Status: Ordered cromolyn 4% ophthalmic solution via turn down worker Dr Sol, 0 Refills, Maintenance, 11/17/20 17:44:00 EDT, Partial fill upon patient request if the prescription is for a schedule II opioid drug. Start Date: 11/17/20 Status: Ordered diclofenac 1% topical gel 1 application, Topically, 4 times a day, # 100 Gm, 0 Refills, Maintenance, 10/15/20 16:35:00 EST, Gel, [facility], Partial fill upon patient request if the prescription is for a schedule II opioid drug., 165.1, cm, 10/15/20 14:34:00 ES... Start Date: 10/15/20 Status: Ordered flunisolide 25 mcg/inh nasal spray 2 puffs, Nares, Both, Daily, # 25 mL, 6 Refills, Maintenance, 03/04/21 14:56:00 EDT, [place], [facility], Partial fill upon patient request if the prescription is for a schedule II opioid drug., 2 puffs Nares, Both Daily, 165.1, cm, 02/17... Start Date: 03/04/21 Status: Ordered fluticasone 50 mcg/inh nasal spray via Dr Sol, turn down worker, 0 Refills, Maintenance, 11/17/20 17:44:00 EDT, Partial fill upon patient request if the prescription is for a schedule II opioid drug. Start Date: 11/17/20 Status: Ordered gabapentin 300 mg oral capsule 300 mg, 1, capsule, By Mouth, 3 times a day, label in Angolan, # 90 capsule, Refills 5, Tot. Refills 5, Maintenance, 07/20/20 14:53:00 EST, Route to Pharmacy Electronically, [facility]/pharmacy #[id number], Partial fill upon patient request if the prescription is... Start Date: 07/20/20 Status: Ordered levothyroxine 50 mcg (0.05 mg) oral capsule 1 capsule = 50 mcg, By Mouth, Daily, # 30 capsule, 11 Refills, Maintenance, 09/14/20 7:41:00 EST, Capsule, [facility]., Partial fill upon patient request if the prescription is for a schedule II opioid drug., 165.1, cm, 06/12/19 15:36:0... Start Date: 09/14/20 Status: Ordered metoprolol 25 mg oral tablet 25 mg, 1, tablet, By Mouth, 2 times a day, # 60 tablet, Refills 0, Tot. Refills 0, Maintenance, 06/12/19 16:47:18 EDT, Route to Pharmacy Electronically, CAPDP_[id number], [facility] Start Date: 06/12/19 Status: Ordered pantoprazole 40 mg oral delayed release tablet See Instructions, SUDHIR 1 TABLETA POR LA BOCA CADA CHASE, # 30 tablet, 5 Refills, 165.1, cm, 04/12/2114:30:00 EDT, Height Start Date: 04/14/21 Status: Ordered SUMAtriptan 50 mg oral tablet 1 tablet = 50 mg, By Mouth, Once, PRN Migraine Headache, label all medications in [place]olan, # 18 tablet, 1 Refills, Soft Stop, 12/29/20 16:12:00 EDT, Tablet, [facility]., Partial fill upon patient request if the prescription is for a tamara... Start Date: 12/29/20 Status: Ordered Vitamin B Complex oral tablet, extended release 1 tablet, By Mouth, Daily, # 90 tablet, 3 Refills, Maintenance, 03/04/21 14:55:00 EDT, [facility]., Partial fill upon patient request if the prescription is for a schedule II opioid drug., 1 tablet By Mouth Daily, 165.1, cm, 03/04/21 14... Start Date: 03/04/21 Stop Date: 04/03/21 Status: Ordered ZyrTEC 10 mg oral tablet 1 tablet = 10 mg, By Mouth, Daily, # 30 tablet, 3 Refills, Maintenance, 03/04/21 14:51:00 EDT, [facility]., Partial fill upon patient request if the prescription is for a schedule II opioid drug., 165.1, cm, 03/04/21 14:25:00 EDT, Height Start Date: 03/04/21 Status: Ordered Problem List Condition Effective Dates Status Health Status Inform ant Allergic rhinitis, turn down worker Dr Sol in past(Confirmed) Active Hematuria(Confirmed) Active Chronic bilateral low back pain(Confirmed) Active Exposure to COVID-19 virus(Confirmed) Active Abdominal cramping(Confirmed) Active Heartburn(Confirmed) Active Hypothyroidism(Confirmed) Active IBS (irritable colon syndrome)(Confirmed) Active Menopausal state(Confirmed) Active Migraine(Confirmed) Active Hernia, cerebellar(Confirmed) Active Social History Social History Type Response Smoking Status Never (less than 100 in lifetime) entered on: 07/20/20 Sex
--- OUTSIDE RECORDS SUMMARY | 2023-09-18 08:30 | XMS_ITS | Continuity of Care Document ---
Author Name Unknown Organization [facility] Address [address] [place] [id number]- Care Team Providers Care Meteorologist Liaison Name Role Phone Terrance KING, Flynn Ratliff Primary Care Physician En[place] [facility] [place](s): 08/26/21 - 09/25/[address] [address] Attending Physician: Chad Sofia Admitting Physician: AdmtrChad Referring Physician: Admtr, Ar8 Allergies, Adverse Reactions, Alerts Substance Reaction Severity Status [place] Active Latex SWELLING Moderate Active Immunizations Given [...] capsule, 6 Refills, Maintenance, 08/02/20 11:46:00 EST, [facility] Partial fill upon patient requestif the prescription [...] CADA CHASE, # 30 tablet, 3 Refills, [facility], 165.1, cm, 06/14/21 15:59:00 EDT, Height Start Date: 07/26/21 Status: Ordered cromolyn 4% ophthalmic solution via mail teller Dr Sol, 0 Refills, Maintenance, 11/17/20 17:44:00 EDT, Partial fill upon patient request if the prescription is for a schedule II opioid drug. Start Date: 11/17/20 Status: Ordered diclofenac 1% topical gel 1 application, Topically, 4 times a day, # 100 Gm, 0 Refills, Maintenance, 10/15/20 16:35:00 EST, Gel, [facility]., Partial fill upon patient request if the prescription is for a schedule II opioid drug., 165.1, cm, 10/15/20 14:34:00 ES... Start Date: 10/15/20 Status: Ordered flunisolide 25 mcg/inh nasal spray 2 puffs, Nares, Both, Daily, # 25 mL, 6 Refills, Maintenance, 03/04/21 14:56:00 EDT, [place], [facility] Partial fill upon patient request if the prescription is for a schedule II opioid drug., 2 puffs Nares, Both Daily, 165.1, cm, 02/17... Start Date: 03/04/21 Status: Ordered fluticasone 50 mcg/inh nasal spray via Dr Sol, mail teller, 0 Refills, Maintenance, 11/17/20 17:44:00 EDT, Partial fill upon patient request if the prescription is for a schedule II opioid drug. Start Date: 11/17/20 Status: Ordered gabapentin 300 mg oral capsule 300 mg, 1, capsule, By Mouth, 3 times a day, label in [place], # 90 capsule, Refills 5, Tot. Refills 5, Maintenance, 07/20/20 14:53:00 EST, Route to Pharmacy Electronically, [facility]/pharmacy #[id number], Partial fill upon patient request if [...] 06/12/19 16:47:18 EDT, [id number] Start Date: 06/12/19 [...] Refills, Soft Stop, 07/04/21 16:07:00 EST, Tablet, [facility] Partial fill upon patient request if the prescription is for a tamara... Start Date: 07/04/21 Status: Ordered Vitamin B Complex oral tablet, extended release 1 tablet, By Mouth, Daily, # 90 tablet, 3 Refills, Maintenance, 03/04/21 14:55:00 EDT, [facility] Partial fill upon patient request if the prescription is for a schedule II opioid drug., 1 tablet By Mouth Daily, 165.1, cm, 03/04/21 14... 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, mail teller Dr Sol in past(Confirmed) Active Hematuria(Confirmed) Active Chronic bilateral low back pain(Confirmed) Active Exposure to COVID-19 virus(Confirmed) Active Abdominal cramping(Confirmed) Active Heartburn(Confirmed) Active Hypothyroidism(Confirmed) Active IBS (irritable colon syndrome)(Confirmed) Active Menopausal state(Confirmed) Active Migraine(Confirmed) Active Hernia, cerebellar(Confirmed) Active Social History Social History Type Response Smoking Status Never (less than 100 in lifetime) entered on: 07/20/20 Sex
--- OUTSIDE RECORDS SUMMARY | 2023-09-18 08:31 | XMS_ITS | Continuity of Care Document ---
Author Name Unknown Organization [facility] Address [address] [place] [address]- Care Team Providers Care Lifeline Representatives Name Role Phone Terrance KING, Flynn Ratliff Primary Care Physician Encounter [facility] [place] Date(s): 06/29/21 - 07/29/21 [facility] [address], [place] [address] Allergies, Adverse Reactions, Alerts Substance Reaction Severity Status [place] Active Latex SWELLING Moderate Active Immunizations Given [...] Refills, Maintenance, 08/02/20 11:46:00 EST, [facility], Partial fill upon patient requestif the [...] 02/17/21 6:54:00 EDT, Route to Pharmacy Electronically, [facility] Partial fill upon... Start Date: 02/17/21 Stop [...] CADA CHASE, # 30 tablet, 3 Refills, [facility], 165.1, cm, 06/14/21 15:59:00 EDT, Height Start Date: 07/26/21 Status: Ordered cromolyn 4% ophthalmic solution via program facilitator Dr Sol, 0 Refills, Maintenance, 11/17/20 17:44:00 EDT, Partial fill upon patient request if the prescription is for a schedule II opioid drug. Start Date: 11/17/20 Status: Ordered diclofenac 1% topical gel 1 application, Topically, 4 times a day, # 100 Gm, 0 Refills, Maintenance, 10/15/20 16:35:00 EST, Gel, [facility]., Partial fill upon patient request if the prescription is for a schedule II opioid drug., 165.1, cm, 10/15/20 14:34:00 ES... Start Date: 10/15/20 Status: Ordered flunisolide 25 mcg/inh nasal spray 2 puffs, Nares, Both, Daily, # 25 mL, 6 Refills, Maintenance, 03/04/21 14:56:00 EDT, [place], [facility]., Partial fill upon patient request if the prescription is for a schedule II opioid drug., 2 puffs Nares, Both Daily, 165.1, cm, 02/17... Start Date: 03/04/21 Status: Ordered fluticasone 50 mcg/inh nasal spray via Dr Sol, program facilitator, 0 Refills, Maintenance, 11/17/20 17:44:00 EDT, Partial [...] 11 Refills, Maintenance, 09/14/20 7:41:00 EST, Capsule, [facility], Partial fill upon patient request if the prescription is for a schedule II opioid drug., 165.1, cm, 06/12/19 15:36:0... Start Date: 09/14/20 Status: Ordered metoprolol 25 mg oral tablet 25 mg, 1, tablet, By Mouth, 2 times a day, # 60 tablet, Refills 0, Tot. Refills 0, Maintenance, 06/12/19 16:47:18 EDT, [id number] Start Date: 06/12/19 Status: [...] Refills, Soft Stop, 07/04/21 16:07:00 EST, Tablet, [facility], Partial fill upon patient request if the prescription is for a tamara... Start Date: 07/04/21 Status: Ordered Vitamin B Complex oral tablet, extended release 1 tablet, By Mouth, Daily, # 90 tablet, 3 Refills, Maintenance, 03/04/21 14:55:00 EDT, [facility], Partial fill upon patient request if the prescription is for a schedule II opioid drug., 1 tablet By Mouth Daily, 165.1, cm, 03/04/21 14... 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, program facilitator Dr Sol in past(Confirmed) Active Hematuria(Confirmed) Active Chronic bilateral low back pain(Confirmed) Active Exposure to COVID-19 virus(Confirmed) Active Abdominal cramping(Confirmed) Active Heartburn(Confirmed) Active Hypothyroidism(Confirmed) Active IBS (irritable colon syndrome)(Confirmed) Active Menopausal state(Confirmed) Active Migraine(Confirmed) Active Hernia, cerebellar(Confirmed) Active Social History Social History Type Response Smoking Status Never (less than 100 in lifetime) entered on: 07/20/20 Sex
--- OUTSIDE RECORDS SUMMARY | 2023-09-18 08:31 | XMS_ITS | Continuity of Care Document ---
Author Name Unknown Organization [facility] Address [address] [place] [address]- Care Team Providers Care Director Nursery [employer] Name Role Phone Terrance KING, Flynn Ratliff Primary Care Physician [place] [facility] [place]): 08/11/21 - 09/10/21 [facility] [address] [place] [address]- Allergies, Adverse Reactions, Alerts Substance Reaction Severity Status [place] Active Latex SWELLING Moderate Active Immunizations Given [...] a day, take with food label in [place], # 60 capsule, 6 Refills, Maintenance, 08/02/20 11:46:00 EST, [facility] [...] CHASE, # 30 tablet, 3 Refills, [facility], 165.1, cm, 06/14/21 15:59:00 EDT, Height Start Date: 07/26/21 Status: Ordered cromolyn 4% ophthalmic solution via employment adjudicator Dr Sol, 0 Refills, Maintenance, 11/17/20 17:44:00 EDT, Partial fill upon patient request if the prescription is for a schedule II opioid drug. Start Date: 11/17/20 Status: Ordered diclofenac 1% topical gel 1 application, Topically, 4 times a day, # 100 Gm, 0 Refills, Maintenance, 10/15/20 16:35:00 EST, Gel, [facility]., Partial fill upon patient request if the prescription is for a schedule II opioid drug., 165.1, cm, 10/15/20 14:34:00 ES... Start Date: 10/15/20 Status: Ordered flunisolide 25 mcg/inh nasal spray 2 puffs, Nares, Both, Daily, # 25 mL, 6 Refills, Maintenance, 03/04/21 14:56:00 EDT, [place], [facility] Partial fill upon patient request if the prescription is for a schedule II opioid drug., 2 puffs Nares, Both Daily, 165.1, cm, 02/17... Start Date: 03/04/21 Status: Ordered fluticasone 50 mcg/inh nasal spray via Dr Sol, employment adjudicator, 0 Refills, Maintenance, 11/17/20 17:44:00 EDT, Partial fill upon patient request if the prescription is for a schedule II opioid drug. Start Date: 11/17/20 Status: Ordered gabapentin 300 mg oral capsule 300 mg, 1, capsule, By Mouth, 3 times a day, label in [place], # 90 capsule, Refills 5, Tot. Refills 5, Maintenance, 07/20/20 14:53:00 EST, Route to Pharmacy Electronically, [facility]/pharmacy #[id number], Partial fill upon patient request if the prescription is... Start Date: 07/20/20 Status: Ordered levothyroxine 50 mcg (0.05 mg) oral capsule 1 capsule = 50 mcg, By Mouth, Daily, # 30 capsule, 11 Refills, Maintenance, 09/14/20 7:41:00 EST, Capsule, [facility]., Partial fill upon patient request if the prescription is for a schedule II opioid drug., 165.1, cm, 06/12/19 15:36:0... Start Date: 09/14/20 Status: Ordered metoprolol 25 mg oral tablet 25 mg, 1, tablet, By Mouth, 2 times a day, # 60 tablet, Refills 0, Tot. Refills 0, Maintenance, 06/12/19 16:47:18 EDT, Route to Pharmacy Electronically, [id number], [facility] Start Date: 06/12/19 Status: Ordered pantoprazole 40 mg oral delayed release tablet See Instructions, SUDHIR 1 TABLETA POR LA BOCA CADA CHASE, # 30 tablet, 5 Refills, 165.1, cm, 04/12/2114:30:00 EDT, Height Start Date: 04/14/21 Status: Ordered SUMAtriptan 50 mg oral tablet 1 tablet = 50 mg, By Mouth, Once, PRN Migraine Headache, label all medications in [place], # 18 tablet, 1 Refills, Soft Stop, 07/04/21 16:07:00 EST, Tablet, [facility] Partial fill upon patient request if the prescription is for a tamara... Start Date: 07/04/21 Status: Ordered Vitamin B Complex oral tablet, extended release 1 tablet, By Mouth, Daily, # 90 tablet, 3 Refills, Maintenance, 03/04/21 14:55:00 EDT, [facility]., Partial fill upon patient request if the prescription is for a schedule II opioid drug., 1 tablet By Mouth Daily, 165.1, cm, 03/04/21 14... 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, employment adjudicator Dr Sol in past(Confirmed) Active Hematuria(Confirmed) Active Chronic bilateral low back pain(Confirmed) Active Exposure to COVID-19 virus(Confirmed) Active Abdominal cramping(Confirmed) Active Heartburn(Confirmed) Active Hypothyroidism(Confirmed) Active IBS (irritable colon syndrome)(Confirmed) Active Menopausal state(Confirmed) Active Migraine(Confirmed) Active Hernia, cerebellar(Confirmed) Active Social History Social History Type Response Smoking Status Never (less than 100 in lifetime) entered on: 07/20/20 Sex
--- OUTSIDE RECORDS SUMMARY | 2023-09-18 08:31 | XMS_ITS | Continuity of Care Document ---
Author Name Unknown Organization [facility] Address [address] [place] [id number]- Care Team Providers Care Nail Cutter Name Role Phone Flynn Carlos MD Primary Care Physician [place] [facility] [place](s): 12/04/20 - 02/11/21 [facility] [address] [place] [id number] Attending Physician: Nhan Khanna MD Admitting Physician: Nhan Khanna MD Referring Physician: Flynn Carlos MD Allergies, Adverse Reactions, Alerts Substance Reaction Severity Status [place] Active Latex SWELLING Moderate Active Immunizations Given [...] a day, take with food label in Yemeni, # 60 capsule, 6 Refills, Maintenance, 08/02/20 11:46:00 EST, [facility] fill upon patient requestif the prescription is for a schedule II opioid . Start Date: 08/02/20 Stop Date: 02/28/21 Status: Ordered amitriptyline 25 mg oral tablet 25 mg, 1, tablet, By Mouth, Daily at bedtime, label in Yemeni, # 30 tablet, Refills 4, Tot. Refills 4, Maintenance, 07/20/20 14:55:00 EST, Route to Pharmacy Electronically, [facility]/pharmacy #[id number], Partial fill upon patient request [...] Status: Ordered cromolyn 4% ophthalmic solution via wastewater project manager Dr Sol, 0 Refills, Maintenance, 11/17/20 17:44:00 EDT, Partial fill upon patient request if the prescription is for a schedule II opioid drug. Start Date: 11/17/20 Status: Ordered diclofenac 1% topical gel 1 application, Topically, 4 times a day, # 100 Gm, 0 Refills, Maintenance, 10/15/20 16:35:00 EST, Gel, [facility], Partial fill upon patient request if the prescription is for a schedule II opioid drug., 165.1, cm, 10/15/20 14:34:00 ES... Start Date: 10/15/20 Status: Ordered fluticasone 50 mcg/inh nasal spray via Dr Sol, wastewater project manager, 0 Refills, Maintenance, 11/17/20 17:44:00 EDT, Partial fill upon patient request if the prescription is for a schedule II opioid drug. Start Date: 11/17/20 Status: Ordered gabapentin 300 mg oral capsule 300 mg, 1, capsule, By Mouth, 3 times a day, label in Yemeni, # 90 capsule, Refills 5, Tot. Refills 5, Maintenance, 07/20/20 14:53:00 EST, Route to Pharmacy Electronically, [facility]/pharmacy #[id number], Partial fill upon patient request if the prescription is... Start Date: 07/20/20 Status: Ordered levothyroxine 50 mcg (0.05 mg) oral capsule 1 capsule = 50 mcg, By Mouth, Daily, # 30 capsule, 11 Refills, Maintenance, 09/14/20 7:41:00 EST, Capsule, [facility]., Partial fill upon patient request if [...] 01/27/21 10:07:00 EDT, Route to Pharmacy Electronically, [facility]., Partial fill upon patient request if the prescription is for a schedule II opi... Start Date: 01/27/21 Status: Ordered metoprolol 25 mg oral tablet 25 mg, 1, tablet, By Mouth, 2 times a day, # 60 tablet, Refills 0, Tot. Refills 0, Maintenance, 06/12/19 16:47:18 EDT, Route to Pharmacy Electronically, [id number]_[id number], [facility] Start Date: 06/12/19 [...] PRN Migraine Headache, label all medications in Yemeni, # 18 tablet, 1 Refills, Soft Stop, 12/29/20 16:12:00 EDT, Tablet, [facility]., Partial fill upon patient request if the prescription is for a tamara... Start Date: 12/29/20 Status: Ordered Problem List Condition Effective Dates Status Health Status Inform ant Allergic rhinitis, wastewater project manager Dr Sol in past(Confirmed) Active Hematuria(Confirmed) [...]
--- OUTSIDE RECORDS SUMMARY | 2023-09-18 08:31 | XMS_ITS | Continuity of Care Document ---
Author Name Unknown Organization [facility] Address [address] [place] [address]- Care Team Providers Care Human Resources Benefits Specialist Name Role Phone Terrance KING, Flynn Ratliff Primary Care Physician Encounter [facility] [place] Date(s): 06/09/21 - 07/09/[address] [address]- Attending Physician: Chad Sofia Admitting Physician: Chad Sofia Referring Physician: AdmtrChad Allergies, Adverse Reactions, Alerts Substance Reaction Severity Status [place] Active Latex SWELLING Moderate Active Immunizations Given [...] a day, take with food label in Fijian, # 60 capsule, 6 Refills, Maintenance, 08/02/20 11:46:00 EST, [facility] Partial fill upon patient requestif [...] at bedtime, for 30 days, label in Fijian, # 30 tablet, Refills 5, Tot. Refills 5, Hard Stop 08/16/21 6:54:00 EST, 02/17/21 6:54:00 EDT, Route to Pharmacy Electronically, [facility], Partial fill upon... Start Date: 02/17/21 Stop Date: 08/16/21 Status: Ordered Carafate 1 gm oral tablet 1 Gm, 1, tablet, By Mouth, 3 times a day before meals and bedtime, Refills 0, Maintenance, 11/17/2116:37:00 EDT, Partial fill upon patient request if the prescription is for a schedule II opioid drug. Start Date: 11/17/20 Status: Ordered cromolyn 4% ophthalmic solution via property utilization manager Dr Sol, 0 Refills, Maintenance, 11/17/20 17:44:00 EDT, Partial fill upon patient request if the prescription is for a schedule II opioid drug. Start Date: 11/17/20 Status: Ordered diclofenac 1% topical gel 1 application, Topically, 4 times a day, # 100 Gm, 0 Refills, Maintenance, 10/15/20 16:35:00 EST, Gel, [facility]., Partial fill upon patient request if the prescription is for a schedule II opioid drug., 165.1, cm, 10/15/20 14:34:00 ES... Start Date: 10/15/20 Status: Ordered flunisolide 25 mcg/inh nasal spray 2 puffs, Nares, Both, Daily, # 25 mL, 6 Refills, Maintenance, 03/04/21 14:56:00 EDT, [place], [facility]., Partial fill upon patient request if the prescription is for a schedule II opioid drug., 2 puffs Nares, Both Daily, 165.1, cm, 02/17... Start Date: 03/04/21 Status: Ordered fluticasone 50 mcg/inh nasal spray via Dr Sol, property utilization manager, 0 Refills, Maintenance, 11/17/20 17:44:00 EDT, Partial fill upon patient request if the prescription is for a schedule II opioid drug. Start Date: 11/17/20 Status: Ordered gabapentin 300 mg oral capsule 300 mg, 1, capsule, By Mouth, 3 times a day, label in Fijian, # 90 capsule, Refills 5, Tot. Refills 5, Maintenance, 07/20/20 14:53:00 EST, Route to Pharmacy Electronically, [facility]/pharmacy #[id number], Partial fill upon patient request if the prescription is... Start Date: 07/20/20 Status: Ordered levothyroxine 50 mcg (0.05 mg) oral capsule 1 capsule = 50 mcg, By Mouth, Daily, # 30 capsule, 11 Refills, Maintenance, 09/14/20 7:41:00 EST, Capsule, [facility]., Partial fill upon patient request if the prescription is for a schedule II opioid drug., 165.1, cm, 06/12/19 15:36:0... Start Date: 09/14/20 Status: Ordered metoprolol 25 mg oral tablet 25 mg, 1, tablet, By Mouth, 2 times a day, # 60 tablet, Refills 0, Tot. Refills 0, Maintenance, 06/12/19 16:47:18 EDT, Route to Pharmacy Electronically, NCPDP_[id number], [facility] Start Date: 06/12/19 Status: Ordered pantoprazole 40 mg oral delayed release tablet See Instructions, SUDHIR 1 TABLETA POR LA BOCA CADA CHASE, # 30 tablet, 5 Refills, 165.1, cm, 04/12/2114:30:00 EDT, Height Start Date: 04/14/21 Status: Ordered SUMAtriptan 50 mg oral tablet 1 tablet = 50 mg, By Mouth, Once, PRN Migraine Headache, label all medications in Fijian, # 18 tablet, 1 Refills, Soft Stop, 07/04/21 16:07:00 EST, Tablet, [facility]., Partial fill upon patient request if the prescription is for a tamara... Start Date: 07/04/21 Status: Ordered Vitamin B Complex oral tablet, extended release 1 tablet, By Mouth, Daily, # 90 tablet, 3 Refills, Maintenance, 03/04/21 14:55:00 EDT, [facility]., Partial fill upon patient request if the prescription is for a schedule II opioid drug., 1 tablet By Mouth Daily, 165.1, cm, 03/04/21 14... Start Date: 03/04/21 Stop Date: 04/03/21 Status: Ordered ZyrTEC 10 mg oral tablet 1 tablet = 10 mg, By Mouth, Daily, # 30 tablet, 3 Refills, Maintenance, 03/04/21 14:51:00 EDT, [facility]., Partial fill upon patient request if the prescription is for a schedule II opioid drug., 165.1, cm, 03/04/21 14:25:00 EDT, Height Start Date: 03/04/21 Status: Ordered Problem List Condition Effective Dates Status Health Status Inform ant Allergic rhinitis, property utilization manager Dr Sol in past(Confirmed) Active Hematuria(Confirmed) [...]
--- OUTSIDE RECORDS SUMMARY | 2023-09-18 08:31 | XMS_ITS | Continuity of Care Document ---
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 Rig Operator Name Role Phone Flynn Carlos MD Primary Care Physician [phone] [place] [facility] [place] 12[place]17/20 [facility] [address] [place] [address]- Allergies, Adverse Reactions, Alerts Substance Reaction Severity Status [place] Active Latex SWELLING Moderate Active Immunizations Given and Recorded Vaccine Date Status Refusal Reason SARS-CoV-2 (COVID-19) mRNA BNT-162b2 vac 12/03/20 Given Medications Acetaminophen 0 Refills, Maintenance, 11/17/20 17:36:00 EDT, Partial fill upon patient request if the prescription is for a schedule II opioid drug. Start Date: 11/17/20 Status: Ordered Amitiza 8 mcg oral capsule 1 capsule = 8 mcg, By Mouth, 2 times a day, take with food label in Omani, # 60 capsule, 6 Refills, Maintenance, 08/02/20 11:46:00 EST, [facility], Partial fill upon patient requestif the prescription is for a schedule II opioid drChrista.. Start Date: 08/02/20 Stop Date: 02/28/21 Status: Ordered amitriptyline 25 mg oral tablet 25 mg, 1, tablet, By Mouth, Daily at bedtime, label in Omani, # 30 tablet, Refills 4, Tot. Refills 4, Maintenance, 07/20/20 14:55:00 EST, Route to Pharmacy Electronically, [facility]/pharmacy #[id number], Partial fill upon [...] Status: Ordered cromolyn 4% ophthalmic solution via scraper loader operator Dr Sol, 0 Refills, Maintenance, 11/17/20 17:44:00 EDT, Partial fill upon patient request if the prescription is for a schedule II opioid drug. Start Date: 11/17/20 Status: Ordered diclofenac 1% topical gel 1 application, Topically, 4 times a day, # 100 Gm, 0 Refills, Maintenance, 10/15/20 16:35:00 EST, Gel, [facility]., Partial fill upon patient request if the prescription is for a schedule II opioid drug., 165.1, cm, 10/15/20 14:34:00 ES... Start Date: 10/15/20 Status: Ordered fluticasone 50 mcg/inh nasal spray via Dr Sol, scraper loader operator, 0 Refills, Maintenance, 11/17/20 17:44:00 EDT, Partial fill upon patient request if the prescription is for a schedule II opioid drug. Start Date: 11/17/20 Status: Ordered gabapentin 300 mg oral capsule 300 mg, 1, capsule, By Mouth, 3 times a day, label in Omani, # 90 capsule, Refills 5, Tot. Refills 5, Maintenance, 07/20/20 14:53:00 EST, Route to Pharmacy Electronically, [facility]/pharmacy #[id number], Partial fill upon patient request if the prescription is... Start Date: 07/20/20 Status: Ordered levothyroxine 50 mcg (0.05 mg) oral capsule 1 capsule = 50 mcg, By Mouth, Daily, # 30 capsule, 11 Refills, Maintenance, 09/14/20 7:41:00 EST, Capsule, [facility]., Partial fill upon patient request [...] 06/12/19 16:47:18 EDT, Route to Pharmacy Electronically, NCPDP_[id number], [facility] - [...] PRN Migraine Headache, label all medications in Omani, # 18 tablet, 1 Refills, Soft Stop, 07/20/20 14:45:00 EST, Tablet, [facility]/pharmacy #[id number], Partial fill upon patient request if the prescription is for a schedule II... 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
--- OUTSIDE RECORDS SUMMARY | 2023-09-18 08:31 | XMS_ITS | Continuity of Care Document ---
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 Role Phone Terrance KING, Flynn Ratliff Primary Care Physician [place] [facility] [place] Date(s): 06/14/21 - 06/21/21 [facility] [address] [place] [address]- Attending Physician: Rebekah KING, Lissette Segura Referring Physician: Tavo ELLIOTT, Krystin Mora Allergies, Adverse Reactions, Alerts Substance Reaction Severity Status [place] Active Latex SWELLING Moderate Active Immunizations Given [...] a day, take with food label in Iraqi, # 60 capsule, 6 Refills, Maintenance, 08/02/20 11:46:00 EST, [facility], Partial fill upon patient requestif the [...] at bedtime, for 30 days, label in Iraqi, # 30 tablet, Refills 5, Tot. Refills 5, Hard Stop 08/16/21 6:54:00 EST, 02/17/21 6:54:00 EDT, Route to Pharmacy Electronically, [facility], Partial fill upon... Start Date: 02/17/21 Stop Date: 08/16/21 Status: Ordered Carafate 1 gm oral tablet 1 Gm, 1, tablet, By Mouth, 3 times a day before meals and bedtime, Refills 0, Maintenance, 11/17/2116:37:00 EDT, Partial fill upon patient request if the prescription is for a schedule II opioid drug. Start Date: 11/17/20 Status: Ordered cromolyn 4% ophthalmic solution via president practicing urologist Dr Sol, 0 Refills, Maintenance, 11/17/20 17:44:00 EDT, Partial fill upon patient request if the prescription is for a schedule II opioid drug. Start Date: 11/17/20 Status: Ordered diclofenac 1% topical gel 1 application, Topically, 4 times a day, # 100 Gm, 0 Refills, Maintenance, 10/15/20 16:35:00 EST, Gel, [facility]., Partial fill upon patient request if the prescription is for a schedule II opioid drug., 165.1, cm, 10/15/20 14:34:00 ES... Start Date: 10/15/20 Status: Ordered flunisolide 25 mcg/inh nasal spray 2 puffs, Nares, Both, Daily, # 25 mL, 6 Refills, Maintenance, 03/04/21 14:56:00 EDT, [place], [facility], Partial fill upon patient request if the prescription is for a schedule II opioid drug., 2 puffs Nares, Both Daily, 165.1, cm, 02/17... Start Date: 03/04/21 Status: Ordered fluticasone 50 mcg/inh nasal spray via Dr Sol, president practicing urologist, 0 Refills, Maintenance, 11/17/20 17:44:00 EDT, Partial fill upon patient request if the prescription is for a schedule II opioid drug. Start Date: 11/17/20 Status: Ordered gabapentin 300 mg oral capsule 300 mg, 1, capsule, By Mouth, 3 times a day, label in Iraqi, # 90 capsule, Refills 5, Tot. Refills 5, Maintenance, 07/20/20 14:53:00 EST, Route to Pharmacy Electronically, [facility]/pharmacy #[id number], Partial fill upon patient request if the prescription is... Start Date: 07/20/20 Status: Ordered levothyroxine 50 mcg (0.05 mg) oral capsule 1 capsule = 50 mcg, By Mouth, Daily, # 30 capsule, 11 Refills, Maintenance, 09/14/20 7:41:00 EST, Capsule, [facility]., Partial fill upon patient request if the prescription is for a schedule II opioid drug., 165.1, cm, 06/12/19 15:36:0... Start Date: 09/14/20 Status: Ordered metoprolol 25 mg oral tablet 25 mg, 1, tablet, By Mouth, 2 times a day, # 60 tablet, Refills 0, Tot. Refills 0, Maintenance, 06/12/19 16:47:18 EDT, Route to Pharmacy Electronically, NCPDP_[id number], [facility] - [facility] [...] PRN Migraine Headache, label all medications in Iraqi, # 18 tablet, 1 Refills, Soft Stop, 12/29/20 16:12:00 EDT, Tablet, [facility]., Partial fill upon patient request if the prescription is for a tamara... Start Date: 12/29/20 Status: Ordered Vitamin B Complex oral tablet, extended release 1 tablet, By Mouth, Daily, # 90 tablet, 3 Refills, Maintenance, 03/04/21 14:55:00 EDT, [facility]., Partial fill upon patient request if the prescription is for a schedule II opioid drug., 1 tablet By Mouth Daily, 165.1, cm, 03/04/21 14... Start Date: 03/04/21 Stop Date: 04/03/21 Status: Ordered ZyrTEC 10 mg oral tablet 1 tablet = 10 mg, By Mouth, Daily, # 30 tablet, 3 Refills, Maintenance, 03/04/21 14:51:00 EDT, [facility]., Partial fill upon patient request if the prescription is for a schedule II opioid drug., 165.1, cm, 03/04/21 14:25:00 EDT, Height Start Date: 03/04/21 Status: Ordered Problem List Condition Effective Dates Status Health Status Inform ant Allergic rhinitis, president practicing urologist Dr Sol in past(Confirmed) Active Hematuria(Confirmed) Active Chronic bilateral low back pain(Confirmed) Active Exposure to COVID-19 virus(Confirmed) Active Abdominal cramping(Confirmed) Active Heartburn(Confirmed) Active Hypothyroidism(Confirmed) Active IBS (irritable colon syndrome)(Confirmed) Active Menopausal state(Confirmed) Active Migraine(Confirmed) Active Hernia, cerebellar(Confirmed) Active Procedures Procedure Date Related Diagnosis Body Site Status Abdominoplasty Completed Vaginal hysterectomy Comp leted Vital Signs Most recent to oldest [Reference Range]: 1 Height 165.10 cm (06/14/21 3:59 PM) Weight 69 kg (06/14/21 3:59 PM) Pulse Rate [55-90 bpm] 68 bpm (06/14/21 3:59 PM) Body Mass Index [18.5-24.99] 25.31 *H* (06/14/21 3:59 PM) Blood Pressure [90-138/55-84 mm Hg] 103/ 59mm Hg (06/14/21 3:59 PM) Respiratory Rate [16-30 br/min] 17 br/mi n (06/14/21 3:59 PM) Blood pressure sites Arm, right (06/14/21 3:59 PM) Weight Obtained Via Standing scale (06/14/21 3:59 PM) Social History Social History Type Response Smoking Status Never (less than 100 in lifetime) entered on: 07/20/20 Sex
--- OUTSIDE RECORDS SUMMARY | 2023-09-18 08:31 | XMS_ITS | Continuity of Care Document ---
Author Name Unknown Organization [facility] [place] Jose Alfredo hanQyukis Shipzi Address [address], [address] [place] [address]- Care Team Providers Care Test Architect Name Role Phone Terrance KING, Flynn Ratliff Primary Care Physician Encounter [facility] ACCT R [id number] Date(s): 06/14/21 - 07/14/21 [facility] Franc TrayQyukis [facility] [address] [place], [place] [address] Attending Physician: Chad Sofia Admitting Physician: AdmChad melendez Referring Physician: AdmtrChad Allergies, Adverse Reactions, Alerts Substance Reaction Severity Status [place] Active Latex SWELLING Moderate Active Immunizations Given [...] a day, take with food label in Zimbabwean, # 60 capsule, 6 Refills, Maintenance, 08/02/20 11:46:00 EST, [facility] upon [facility]if [...] at bedtime, for 30 days, label in [place]an, # 30 tablet, Refills 5, Tot. Refills 5, Hard Stop 08/16/21 6:54:00 EST, 02/17/21 6:54:00 EDT, Route to Pharmacy Electronically, [facility], Partial fill upon... Start Date: 02/17/21 Stop Date: 08/16/21 Status: Ordered Carafate 1 gm oral tablet 1 Gm, 1, tablet, By Mouth, 3 times a day before meals and bedtime, Refills 0, Maintenance, 11/17/2116:37:00 EDT, Partial fill upon patient request if the prescription is for a schedule II opioid drug. Start Date: 11/17/20 Status: Ordered cromolyn 4% ophthalmic solution via nursing care partner Dr Sol, 0 Refills, Maintenance, 11/17/20 17:44:00 EDT, Partial fill upon patient request if the prescription is for a schedule II opioid drug. Start Date: 11/17/20 Status: Ordered diclofenac 1% topical gel 1 application, Topically, 4 times a day, # 100 Gm, 0 Refills, Maintenance, 10/15/20 16:35:00 EST, Gel, [facility] Partial fill upon patient request if the prescription is for a schedule II opioid drug., 165.1, cm, 10/15/20 14:34:00 ES... Start Date: 10/15/20 Status: Ordered flunisolide 25 mcg/inh nasal spray 2 puffs, Nares, Both, Daily, # 25 mL, 6 Refills, Maintenance, 03/04/21 14:56:00 EDT, [place], [facility]., Partial fill upon patient request if the prescription is for a schedule II opioid drug., 2 puffs Nares, Both Daily, 165.1, cm, 02/17... Start Date: 03/04/21 Status: Ordered fluticasone 50 mcg/inh nasal spray via Dr Sol, nursing care partner, 0 Refills, Maintenance, 11/17/20 17:44:00 EDT, Partial fill upon patient request if the prescription is for a schedule II opioid drug. Start Date: 11/17/20 Status: Ordered gabapentin 300 mg oral capsule 300 mg, 1, capsule, By Mouth, 3 times a day, label in [place]an, # 90 capsule, Refills 5, Tot. Refills 5, Maintenance, 07/20/20 14:53:00 EST, Route to Pharmacy Electronically, [facility]/pharmacy #[id number], Partial fill upon patient request if the prescription is... Start Date: 07/20/20 Status: Ordered levothyroxine 50 mcg (0.05 mg) oral capsule 1 capsule = 50 mcg, By Mouth, Daily, # 30 capsule, 11 Refills, Maintenance, 09/14/20 7:41:00 EST, Capsule, [facility]., Partial fill upon patient request if the prescription is for a schedule II opioid drug., 165.1, cm, 06/12/19 15:36:0... Start Date: 09/14/20 Status: Ordered metoprolol 25 mg oral tablet 25 mg, 1, tablet, By Mouth, 2 times a day, # 60 tablet, Refills 0, Tot. Refills 0, Maintenance, 06/12/19 16:47:18 EDT, Route to Pharmacy Electronically, NYPDP_[id number], [facility] Start Date: 06/12/19 Status: Ordered pantoprazole 40 mg oral delayed release tablet See Instructions, SUDHIR 1 TABLETA POR LA BOCA CADA CHASE, # 30 tablet, 5 Refills, 165.1, cm, 04/12/2114:30:00 EDT, Height Start Date: 04/14/21 Status: Ordered SUMAtriptan 50 mg oral tablet 1 tablet = 50 mg, By Mouth, Once, PRN Migraine Headache, label all medications in [place]an, # 18 tablet, 1 Refills, Soft Stop, 07/04/21 16:07:00 EST, Tablet, [facility]., Partial fill upon patient request if the prescription is for a tamara... Start Date: 07/04/21 Status: Ordered Vitamin B Complex oral tablet, extended release 1 tablet, By Mouth, Daily, # 90 tablet, 3 Refills, Maintenance, 03/04/21 14:55:00 EDT, [facility]., Partial fill upon patient request if the prescription is for a schedule II opioid drug., 1 tablet By Mouth Daily, 165.1, cm, 03/04/21 14... Start Date: 03/04/21 Stop Date: 04/03/21 Status: Ordered ZyrTEC 10 mg oral tablet 1 tablet = 10 mg, By Mouth, Daily, # 30 tablet, 3 Refills, Maintenance, 03/04/21 14:51:00 EDT, [facility]., Partial fill upon patient request if the prescription is for a schedule II opioid drug., 165.1, cm, 03/04/21 14:25:00 EDT, Height Start Date: 03/04/21 Status: Ordered Problem List Condition Effective Dates Status Health Status Inform ant Allergic rhinitis, nursing care partner Dr Sol in past(Confirmed) Active Hematuria(Confirmed) Active Chronic bilateral low back pain(Confirmed) Active Exposure to COVID-19 virus(Confirmed) Active Abdominal cramping(Confirmed) Active Heartburn(Confirmed) Active Hypothyroidism(Confirmed) Active IBS (irritable colon syndrome)(Confirmed) Active Menopausal state(Confirmed) Active Migraine(Confirmed) Active Hernia, cerebellar(Confirmed) Active Social History Social History Type Response Smoking Status Never (less than 100 in lifetime) entered on: 07/20/20 Sex
--- OUTSIDE RECORDS SUMMARY | 2023-09-18 08:31 | XMS_ITS | Continuity of Care Document ---
Author Name Unknown Organization [facility] Franc Jose Alfredo hanHelp/[facility]ss [facility] Address [address], [address] [place] [address]- Care Team Providers Care Marble Mechanic Helper Name Role Phone Terrance KING, Flynn Ratliff Primary Care Physician [phone] [facility] Date(s): 08/10/21 - 09/09/21 [facility] Francsav FelizHelp/[facility] [address], [address] [place] [address]- Allergies, Adverse Reactions, Alerts Substance Reaction Severity Status [place] Active Latex SWELLING Moderate Active Immunizations Given [...] a day, take with food label in Kuwaiti, # 60 capsule, 6 Refills, Maintenance, 08/02/20 11:46:00 EST, [facility] fill upon patient requestif the prescription [...] CADA CHASE, # 30 tablet, 3 Refills, [facility], 165.1, cm, 06/14/21 15:59:00 EDT, Height Start Date: 07/26/21 Status: Ordered cromolyn 4% ophthalmic solution via wood fuel pelletizer Dr Sol, 0 Refills, Maintenance, 11/17/20 17:44:00 EDT, Partial fill upon patient request if the prescription is for a schedule II opioid drug. Start Date: 11/17/20 Status: Ordered diclofenac 1% topical gel 1 application, Topically, 4 times a day, # 100 Gm, 0 Refills, Maintenance, 10/15/20 16:35:00 EST, Gel, [facility]., Partial fill upon patient request if the prescription is for a schedule II opioid drug., 165.1, cm, 10/15/20 14:34:00 ES... Start Date: 10/15/20 Status: Ordered flunisolide 25 mcg/inh nasal spray 2 puffs, Nares, Both, Daily, # 25 mL, 6 Refills, Maintenance, 03/04/21 14:56:00 EDT, [place], [facility] Partial fill upon patient request if the prescription is for a schedule II opioid drug., 2 puffs Nares, Both Daily, 165.1, cm, 02/17... Start Date: 03/04/21 Status: Ordered fluticasone 50 mcg/inh nasal spray via Dr Sol, wood fuel pelletizer, 0 Refills, Maintenance, 11/17/20 17:44:00 EDT, Partial fill upon patient request if the prescription is for a schedule II opioid drug. Start Date: 11/17/20 Status: Ordered gabapentin 300 mg oral capsule 300 mg, 1, capsule, By Mouth, 3 times a day, label in [place]i, # 90 capsule, Refills 5, Tot. Refills 5, Maintenance, 07/20/20 14:53:00 EST, Route to Pharmacy Electronically, [facility]/pharmacy #[id number], Partial fill upon patient request if the prescription is... Start Date: 07/20/20 Status: Ordered levothyroxine 50 mcg (0.05 mg) oral capsule 1 capsule = 50 mcg, By Mouth, Daily, # 30 capsule, 11 Refills, Maintenance, 09/14/20 7:41:00 EST, Capsule, [facility]., Partial fill upon patient request if the prescription is for a schedule II opioid drug., 165.1, cm, 06/12/19 15:36:0... Start Date: 09/14/20 Status: Ordered metoprolol 25 mg oral tablet 25 mg, 1, tablet, By Mouth, 2 times a day, # 60 tablet, Refills 0, Tot. Refills 0, Maintenance, 06/12/19 16:47:18 EDT, Route to Pharmacy Electronically, [id number], [facility] [...] PRN Migraine Headache, label all medications in [place]i, # 18 tablet, 1 Refills, Soft Stop, 07/04/21 16:07:00 EST, Tablet, [facility] Partial fill upon patient request if the prescription is for a tamara... Start Date: 07/04/21 Status: Ordered Vitamin B Complex oral tablet, extended release 1 tablet, By Mouth, Daily, # 90 tablet, 3 Refills, Maintenance, 03/04/21 14:55:00 EDT, [facility]., Partial fill upon patient request if the prescription is for a schedule II opioid drug., 1 tablet By Mouth Daily, 165.1, cm, 03/04/21 14... 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
--- OUTSIDE RECORDS SUMMARY | 2023-09-18 08:31 | XMS_ITS | Continuity of Care Document ---
Author Name Unknown Organization [facility] Address [address] [place] [address]- Care Team Providers Care Char Filter Tank Tender Name Role Phone Terrance KING, Flynn Ratliff Primary Care Physician [facility] [id number] Date(s): 04/20/21 - 05/20/[address] [address]- Attending Physician: Chad Sofia Admitting Physician: Admtr, Chad Referring Physician: Admtr, Ar8 Allergies, Adverse Reactions, Alerts Substance Reaction Severity Status [place] Active Latex SWELLING Moderate Active Immunizations Given [...] a day, take with food label in Barbadian, # 60 capsule, 6 Refills, Maintenance, 08/02/20 11:46:00 EST, [facility] upon patient requestif the prescription is for a schedule II opioid . Start Date: 08/02/20 Stop Date: 02/28/21 Status: Ordered amitriptyline 25 mg oral tablet 25 mg, 1, tablet, By Mouth, Daily at bedtime, label in Barbadian, # 30 tablet, Refills 5, Tot. Refills 5, Maintenance, 02/17/21 6:54:00 EDT, Route to Pharmacy Electronically, [facility], Partial fill upon patient request if [...] Status: Ordered cromolyn 4% ophthalmic solution via universal grinder tool Dr Sol, 0 Refills, Maintenance, 11/17/20 17:44:00 EDT, Partial fill upon patient request if the prescription is for a schedule II opioid drug. Start Date: 11/17/20 Status: Ordered diclofenac 1% topical gel 1 application, Topically, 4 times a day, # 100 Gm, 0 Refills, Maintenance, 10/15/20 16:35:00 EST, Gel, [facility], Partial fill upon patient request if the prescription is for a schedule II opioid drug., 165.1, cm, 10/15/20 14:34:00 ES... Start Date: 10/15/20 Status: Ordered flunisolide 25 mcg/inh nasal spray 2 puffs, Nares, Both, Daily, # 25 mL, 6 Refills, Maintenance, 03/04/21 14:56:00 EDT, [place], [facility], Partial fill upon patient request if the prescription is for a schedule II opioid drug., 2 puffs Nares, Both Daily, 165.1, cm, 02/17... Start Date: 03/04/21 Status: Ordered fluticasone 50 mcg/inh nasal spray via Dr Sol, universal grinder tool, 0 Refills, Maintenance, 11/17/20 17:44:00 EDT, Partial fill upon patient request if the prescription is for a schedule II opioid drug. Start Date: 11/17/20 Status: Ordered gabapentin 300 mg oral capsule 300 mg, 1, capsule, By Mouth, 3 times a day, label in Barbadian, # 90 capsule, Refills 5, Tot. Refills 5, Maintenance, 07/20/20 14:53:00 EST, Route to Pharmacy Electronically, [facility][id number], Partial fill upon patient request [...] 06/12/19 16:47:18 EDT, Route to Pharmacy Electronically, NCPDP_[id number], [facility] Start Date: 06/12/19 Status: Ordered pantoprazole 40 mg oral delayed release tablet See Instructions, SUDHIR 1 TABLETA POR LA BOCA CADA CHASE, # 30 tablet, 5 Refills, 165.1, cm, 04/12/2114:30:00 EDT, Height Start Date: 04/14/21 Status: Ordered SUMAtriptan 50 mg oral tablet 1 tablet = 50 mg, By Mouth, Once, PRN Migraine Headache, label all medications in Barbadian, # 18 tablet, 1 Refills, Soft Stop, 12/29/20 16:12:00 EDT, Tablet, [facility]., Partial fill upon patient request if the prescription is for a tamara... Start Date: 12/29/20 Status: Ordered Vitamin B Complex oral tablet, extended release 1 tablet, By Mouth, Daily, # 90 tablet, 3 Refills, Maintenance, 03/04/21 14:55:00 EDT, [facility]., Partial fill upon patient request if the prescription is for a schedule II opioid drug., 1 tablet By Mouth Daily, 165.1, cm, 03/04/21 14... 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
--- OUTSIDE RECORDS SUMMARY | 2023-09-18 08:31 | XMS_ITS | Continuity of Care Document ---
Author Name Unknown Organization [facility] Address [address] [place] [address]- Care Team Providers Care Support Services Manager Name Role Phone Ethel KING, Idris Primary Care Physician [phone] Encounter [facility] ACCT [facility] [id number] Date(s): 06/20/19 - 10/18/19 [facility] [address] [place] [address]- Attending Physician: Per Mccrary MD Admitting Physician: Per Mccrary MD Allergies, Adverse Reactions, Alerts Substance Reaction Severity Status Latex SWELLING Moderate Active Medications aspirin 81 mg oral delayed release tablet 81 mg, 1, tablet, By Mouth, Daily, # 30 tablet, Refills 0, Tot. Refills 0, Maintenance, 06/12/19 16:47:09 EDT, Route to Pharmacy Electronically, NCPDP_ID- [id number], [facility] Start Date: 06/12/19 Status: [...] 06/12/19 16:47:18 EDT, Route to Pharmacy Electronically, NCPDP_[id number], [facility] Start Date: 06/12/19 Status: [...] Daily, 0, 02/07/06 13:20:55, Print MP Number, [id number], Constant Indicator Start Date: 02/07/06 Status: Ordered
--- OUTSIDE RECORDS SUMMARY | 2023-09-18 08:31 | XMS_ITS | Continuity of Care Document ---
Author Name Unknown Organization 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 [address] [place] [address]- Attending Physician: Not on Staff, Attending MD Allergies, Adverse Reactions, Alerts Substance Reaction Severity Status [place] Active Latex SWELLING Moderate Active Immunizations Given [...] Replace Required Details, Route to Pharmacy Electronically, [facility] Start Date: 06/21/22 Status: Ordered amitriptyline 25 mg oral tablet 25 mg, 1, tablet, By Mouth, Daily at bedtime, # 30 tablet, Refills 11, Tot. Refills 11, Maintenance, 04/11/22 14:19:00 EDT, Route to Pharmacy Electronically, [facility], Partial fill upon patient request if the prescription is for a sc... Start Date: 04/11/22 Status: Ordered B-Plex Vitamin B Complex oral tablet 1 tablet, By Mouth, Daily, # 100 tablet, 3 Refills, Maintenance, 10/27/21 15:26:00 EST, Tablet, [facility] Partial fill upon patient request if the prescription is for a schedule II opioid drug., 1 tablet By Mouth Daily, 165.1, cm, 03... Start Date: 10/27/21 Status: Ordered cetirizine 10 mg oral tablet See Instructions, SUDHIR 1 TABLETA POR LA BOCA CADA CHASE, # 30 tablet, 3 Refills, 09/28/22 12:13:00 EST, [facility] 165.1, cm, 09/28/22 11:27:00 EST, Height Start Date: 09/28/22 Status: Ordered cromolyn 4% ophthalmic solution 1 drops, Eyes, Both, 4 times a day, # 10 mL, 3 Refills, Maintenance, 09/28/22 12:14:00 EST, Solution, [facility] Partial fill upon patient request if the prescription is for a schedule II opioid drug., 1 drops Eyes, Both 4 times a day... Start Date: 09/28/22 Status: Ordered dicyclomine 20 mg oral tablet 1 tablet = 20 mg, By Mouth, 2 times a day, please take for spasm pain not more than twice per day, please label in [place]., # 60 tablet, 1 Refills, Maintenance, 05/16/22 15:52:00 EDT, Tablet, [facility] Partial fill upon patient requ... Start Date: 05/16/22 Stop Date: 07/15/22 Status: Ordered diphenhydrAMINE 25 mg oral capsule 1 capsule = 25 mg, By Mouth, 3 times a day, PRN for allergy symptoms, # 30 capsule, 4 Refills, Maintenance, 09/28/22 11:26:00 EST, Capsule, [facility] Partial fill upon patient request if the prescription is for a schedule II opioid d... Start Date: 09/28/22 Status: Ordered flunisolide 25 mcg/inh nasal spray 2 puffs, Nares, Both, Daily, # 25 mL, 6 Refills, Maintenance, 03/04/21 14:56:00 EDT, [place], [facility] Partial fill upon patient request if the prescription is for a schedule II opioid drug., 2 puffs Nares, Both Daily, 165.1, cm, 02/17... Start Date: 03/04/21 Status: Ordered gabapentin 600 mg oral tablet 1 tablet = 600 mg, By Mouth, 3 times a day, # 90 tablet, 5 Refills, Maintenance, 01/17/22 16:55:00 EDT, Tablet, [facility]., Partial fill upon patient request if the prescription is for a schedule II opioid drug., 165.1, cm, 01/17/22 16... Start Date: 01/17/22 Status: Ordered levothyroxine 50 mcg (0.05 mg) oral capsule 1 capsule = 50 mcg, By Mouth, Daily, # 30 capsule, 5 Refills, Maintenance, 07/17/22 17:27:00 EST, Capsule, [facility]., Partial fill upon patient request if [...] tablet, 1 Refills, Maintenance, 06/21/22 10:10:00 [facility], cm, 05/16/22 15:42:00 EDT, Height Start Date: 06/21/22 Status: Ordered Vitamin B Complex oral tablet, extended release 1 tablet, By Mouth, Daily, # 90 tablet, 3 Refills, Maintenance, 03/04/21 14:55:00 EDT, [facility] Partial fill upon patient request if the prescription is for a schedule II opioid drug., 1 tablet By Mouth Daily, 165.1, cm, 03/04/21 14... 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, reverser Dr Sol in past Confirmed Active Hematuria [...] Care Physician Member Role: PCP Address: Address: [address] [place] [address], [facility] [place] [place] [address]- Care Team Related Persons Name: SCOTT BERNABE Address: [address] [place] [address]
--- OUTSIDE RECORDS SUMMARY | 2023-09-18 08:31 | XMS_ITS | Continuity of Care Document ---
Author Name Unknown Organization [facility] Address [address] [place] [address]- Care Team Providers Care Sterile Processing Tech Name Role Phone Terrance KING, Flynn Ratliff Primary Care Physician Encounter [facility] [place] Date(s): 06/06/23 - 08/16/23 [facility] [address] [place] [address]- Attending Physician: Flynn Carlos MD Admitting Physician: Flynn Carlos MD Allergies, Adverse Reactions, Alerts Substance Reaction Severity Status [place] Active Latex SWELLING Moderate Active Immunizations Given [...] tablet, 5 Refills, Maintenance, 07/13/23 8:59:00 EST, [facility], 167, cm, 06/26/23 4:14:00 EST, Height, 66, kg, 06/26/23 4:14:00 EST, Dry Weight Start Date: 07/13/23 Status: Ordered amitriptyline 25 mg oral tablet 25 mg, 1, tablet, By Mouth, Daily at bedtime, # 30 tablet, Refills 11, Tot. Refills 11, Maintenance, 04/11/22 14:19:00 EDT, Route to Pharmacy Electronically, [facility] Partial fill upon patient request if the prescription is for a sc... Start Date: 04/11/22 Status: Ordered B-Plex Vitamin B Complex oral tablet 1 tablet, By Mouth, Daily, # 100 tablet, 3 Refills, Maintenance, 10/27/21 15:26:00 EST, Tablet, [facility] Partial fill upon patient request if the prescription is for a schedule II opioid drug., 1 tablet By Mouth Daily, 165.1, cm, 03... Start Date: 10/27/21 Status: Ordered cromolyn 4% ophthalmic solution 1 drops, Eyes, Both, 4 times a day, # 10 mL, 3 Refills, Maintenance, 04/19/23 16:16:00 EDT, Solution, [facility] Partial fill upon patient request if the prescription is for a schedule II opioid drug., 1 drops Eyes, Both 4 times a day... Start Date: 04/19/23 Status: Ordered diclofenac 1% topical gel 1 application, Topically, 4 times a day, # 100 Gm, 1 Refills, Maintenance, 07/25/23 15:01:00 EST, Gel, [facility] Partial fill upon patient request if the prescription is for a schedule II opioid drug., 167, cm, 07/25/23 14:07:00 EST,... Start Date: 07/25/23 Status: Ordered dicyclomine 20 mg oral tablet 1 tablet = 20 mg, By Mouth, 2 times a day, please take for spasm pain not more than twice per day, please label in Ang[place]., # 60 tablet, 1 Refills, Maintenance, 06/05/23 14:57:00 EDT, Tablet, [facility] Partial fill upon patient requ... Start Date: 06/05/23 Stop Date: 08/04/23 Status: Ordered diphenhydrAMINE 25 mg oral capsule 1 capsule = 25 mg, By Mouth, 3 times a day, PRN for allergy symptoms, # 30 capsule, 4 Refills, Maintenance, 09/28/22 11:26:00 EST, [facility] fill upon patient [...] Gm, 6 Refills, Maintenance, 04/24/23 10:44:00 EDT, [place], [facility] Partial fill upon patient request if the prescription is for a schedule II opioid drug., 1 sprays Nares,... Start Date: 04/24/23 Status: Ordered gabapentin 600 mg oral tablet 1 tablet = 600 mg, By Mouth, 3 times a day, # 90 tablet, 5 Refills, Maintenance, 06/05/23 15:03:00 EDT, Tablet, [facility] Partial fill upon patient request if the prescription is for a schedule II opioid drug., 165.1, cm, 06/05/23 14... Start Date: 06/05/23 Status: Ordered levothyroxine 50 mcg (0.05 mg) oral capsule 1 capsule = 50 mcg, By Mouth, Daily, # 90 capsule, 6 Refills, Maintenance, 12/07/22 15:43:00 EDT, Capsule, [facility] Partial fill upon patient request if the prescription is for a schedule II opioid drug., 165.1, cm, 12/07/22 10:52:0... Start Date: 12/07/22 Status: Ordered SUMAtriptan 50 mg oral tablet See Instructions, SUDHIR 1 TABLETA POR LA BOCA LITTLE VEZ CUANDO SEA NECESARIO PARA LA MIGRANA, # 12 tablet, 1 Refills, Maintenance, 04/19/23 16:14:00 EDT, [facility] 165.1, cm, 04/19/2316:01:00 EDT, Height Start Date: 04/19/23 Status: Ordered tiZANidine 2 mg oral tablet 2 mg, 1, tablet, By Mouth, Every 8 hours, label in macedonian, # 21 tablet, Refills 0, Tot. Refills 0,Maintenance, 06/05/23 15:00:00 EDT, Route to Pharmacy Electronically, [facility], Partial fill upon patient request if the prescription... 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
--- OUTSIDE RECORDS SUMMARY | 2023-09-18 08:31 | XMS_ITS | Continuity of Care Document ---
Author Name Unknown Organization [facility] Address [address] [place] [address]- Care Team Providers Care Service Or Work Dispatcher Chief Name Role Phone Flynn Carlos MD Primary Care Physician [phone] Encounter [facility] R [id number] Date(s): 06/30/21 - 08/07/21 [facility] [address] [place] [address]- Attending Physician: Not on Staff, Attending MD Allergies, Adverse Reactions, Alerts Substance Reaction Severity Status [place] Active Latex SWELLING Moderate Active Immunizations Given [...] a day, take with food label in [place], # 60 capsule, 6 Refills, Maintenance, 08/02/20 [...] at bedtime, for 30 days, label in [place], # 30 tablet, Refills 5, Tot. Refills 5, Hard Stop 08/16/21 6:54:00 EST, 02/17/21 6:54:00 EDT, Route to Pharmacy Electronically, [facility] Partial fill upon... Start Date: 02/17/21 Stop [...] CADA CHASE, # 30 tablet, 3 Refills, [facility], 165.1, cm, 06/14/21 15:59:00 EDT, Height Start Date: 07/26/21 Status: Ordered cromolyn 4% ophthalmic solution via secondary education professor Dr Sol, 0 Refills, Maintenance, 11/17/20 17:44:00 EDT, Partial fill upon patient request if the prescription is for a schedule II opioid drug. Start Date: 11/17/20 Status: Ordered diclofenac 1% topical gel 1 application, Topically, 4 times a day, # 100 Gm, 0 Refills, Maintenance, 10/15/20 16:35:00 EST, Gel, [facility]., Partial fill upon patient request if the prescription is for a schedule II opioid drug., 165.1, cm, 10/15/20 14:34:00 ES... Start Date: 10/15/20 Status: Ordered flunisolide 25 mcg/inh nasal spray 2 puffs, Nares, Both, Daily, # 25 mL, 6 Refills, Maintenance, 03/04/21 14:56:00 EDT, [place], [facility]., Partial fill upon patient request if the prescription is for a schedule II opioid drug., 2 puffs Nares, Both Daily, 165.1, cm, 02/17... Start Date: 03/04/21 Status: Ordered fluticasone 50 mcg/inh nasal spray via Dr Sol, secondary education professor, 0 Refills, Maintenance, 11/17/20 17:44:00 EDT, Partial fill upon patient request if the prescription is for a schedule II opioid drug. Start Date: 11/17/20 Status: Ordered gabapentin 300 mg oral capsule 300 mg, 1, capsule, By Mouth, 3 times a day, label in [place], # 90 capsule, Refills 5, Tot. Refills 5, Maintenance, 07/20/20 14:53:00 EST, Route to Pharmacy Electronically, [facility]/pharmacy #[id number], Partial fill upon patient request if the prescription is... Start Date: 07/20/20 Status: Ordered levothyroxine 50 mcg (0.05 mg) oral capsule 1 capsule = 50 mcg, By Mouth, Daily, # 30 capsule, 11 Refills, Maintenance, 09/14/20 7:41:00 EST, Capsule, [facility], Partial fill upon patient request if the prescription is for a schedule II opioid drug., 165.1, cm, 06/12/19 15:36:0... Start Date: 09/14/20 Status: Ordered metoprolol 25 mg oral tablet 25 mg, 1, tablet, By Mouth, 2 times a day, # 60 tablet, Refills 0, Tot. Refills 0, Maintenance, 06/12/19 16:47:18 EDT, [id number] [...] PRN Migraine Headache, label all medications in [place], # 18 tablet, 1 Refills, Soft Stop, 07/04/21 16:07:00 EST, Tablet, [facility], Partial fill upon patient request if the prescription is for a tamara... Start Date: 07/04/21 Status: Ordered Vitamin B Complex oral tablet, extended release 1 tablet, By Mouth, Daily, # 90 tablet, 3 Refills, Maintenance, 03/04/21 14:55:00 EDT, [facility], Partial fill upon patient request if the prescription is for a schedule II opioid drug., 1 tablet By Mouth Daily, 165.1, cm, 03/04/21 14... 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
[2023-09-18 10:17] VITALS: BP 131/41; PULSE 74; RESP 16; TEMP 36.3; O2SAT 99; BMI 23.4
--- NOTE | 2023-09-18 10:27 | HO.ANESPROP2 ---
[facility] Active Problems Active Problems: All Active Problems (Updated 10/30/22 @ 13:31 by Alejandra Dinh MD) Diarrhea (Acute) Irritable bowel syndrome with constipation (Acute) BRBPR (bright red blood per rectum) (Acute) Hypothyroidism (Acute) Hx of migraine headaches (Acute) Seasonal allergies (Acute) GERD (gastroesophageal reflux disease) (Acute) Chest pain, atypical (Acute) Dysphagia, pharyngoesophageal phase (Acute) Chronic constipation (Acute) Past Medical History Medical History Microscopic hematuria Seasonal allergies Hx of migraine headaches Cervicalgia Hypothyroidism Family History Family History Father Leukemia Mother No problems noted. Surgical History Surgical History Hx of endoscopy History of colonoscopy History of Problems with Anesthesia: No Social History Social History Household Members: None Alcohol intake: never Advance Directives: No Advance Directives Information Provided: Yes Meds Allergies Allergy/AdvReac Type Severity Reaction Status Date / Time No Known Allergies Allergy Verified 04/02/23 12:52 Home Medications Medication Instructions Recorded Confirmed Last Taken Type cetirizine 10 mg tablet 10 mg PO DAILY 06/14/20 08/23/22 Unknown History levothyroxine 50 mcg tablet 50 mcg PO DAILY 06/14/20 08/23/22 Unknown History acetaminophen 650 mg 650 mg PO Q8H 11/25/20 08/23/22 Unknown History tablet,extended release ([facility]) gabapentin 600 mg tablet 600 mg PO TID 08/23/22 08/23/22 Unknown History sumatriptan succinate 50 mg tablet 0 mg PO 08/23/22 08/23/22 Unknown History cromolyn 4 % eye drops 0 drp ophthalmic (eye) 10/30/22 Unknown History flunisolide 25 mcg (0.025 %) nasal intranasal 10/30/22 Unknown History spray Exam Height,Weight and Vital Signs: Height 5 ft 6 in Weight 65.771 kg Last Vital Signs Temp 97.4 F 09/18/23 10:17 Pulse 74 09/18/23 10:17 Resp 16 09/18/23 10:17 BP 131/41 L 09/18/23 10:17 Pulse Ox 99 09/18/23 10:17 O2 Del Method Room Air 09/18/23 10:17 Assessment and Plan Final Anesthetic Review History of Problems with Anesthesia: No NPO: Yes ASA Class: II Final Preanesthetic Review: Meds/Allgs Chart Reviewed and Consent Obtained/Reviewed Patient Risk: Low Procedure Risk: Intermediate Assessment/Block/Sedation in SS: Assess/Block/Sedation-SS Anesthetic Plan Anesthetic Plan: MAC: Disposition: Standard PACU
--- NOTE | 2023-09-18 11:07 | MHC.SHP ---
Pre-Procedural Eval Section A - 24 Hr Update-Section A only Date of Service: 09/18/23 The patient is an INPATIENT: No The patient has been examined within 24 hours of the surgical procedure. The History & Physical has been completed within 30 days and I have reviewed it.: No Section B - Complete if H&P > 30 days Chief Complaint: GERD, dysphagia, globus sensation Relevant Family History (Specify if Yes): No Present Medications: see Short Stay Collaborative assessment Medical History: Significant History (Cervicalgia Hx of migraine headaches Hypothyroidism Microscopic hematuria Seasonal allergies) History of Previous Operations: Relevant previous surgery/procedure and date(s) (History of EGD and colonoscopy) Allergies: Allergies Allergy/AdvReac Type Severity Reaction Status Date / Time No Known Allergies Allergy Verified 04/02/23 12:52 Review of Systems Sugical H&P ROS: Negative: Constitution, Cardiovascular and Respiratory and Yes, Specify: Gastrointestinal (GERD, dysphagia) Exam Surgical H&P Exam: Normal: Heart, Normal: Lungs, Normal: Extremities and Normal: Abdomen Plan Diagnosis/Plan: Unchanged I have reviewed the history and physical and performed a pertinent physical examination on my patient. No changes have occurred unless specified. Time Spent With Patient Time: Total time managing care of this patient today ____ minutes.
[2023-09-18 11:44] VITALS: BP 100/63; PULSE 70; RESP 18; TEMP 36.1; O2SAT 100
--- NOTE | 2023-09-18 11:45 | P.OP_ITS ---
Operative Note Operative Note Date of Service: 09/18/23 Narrative: FLEXIBLE TRANSORAL UPPER GASTROINTESTINAL ENDOSCOPY WITH BIOPSIES AND ESOPHAGEAL BALLOON DILATION Pre-op diagnosis: GERD, dysphagia Post-op diagnosis: GERD, dysphagia, gastritis, gastric polyps Endoscopist:? Olegario Spain MD Anesthesia:?MAC Consent: Indications for the procedure and potential complications of bleeding, perforation, reaction to medications and missed diagnosis were discussed with the patient and informed consent was obtained. Instrument: Olympus GIF H 190 mid size upper endoscope Monitoring: Vital signs and clinical assessment, continuous EKG monitoring, Pulse oximetry, Carbon Dioxide monitoring and blood pressure monitoring were done throughout the procedure. Procedure: The patient was placed in the left lateral decubitis position and pre-procedure medications were administered and a bite block was placed. The endoscope was inserted into the mouth and advanced under direct vision to the third part of duodenum. A careful inspection was made as the upper endoscope was withdrawn including a retroflexed examination of the proximal stomach; Findings and interventions are described below. Findings: Larynx: Normal Esophagus: Tortuous esophagus with increased tertiary contractions without stricture or ring - biopsies were obtained from proximal esophagus to check for EOE. GE junction at 38 cms. No esophagitis or Christopher's. Empiric balloon dilation of the cricopharyngeal area was performed with an 18 mm (54F) CRE balloon x 60 seconds Empiric dilation of the distal esophagus was performed with a 20 mm CRE balloon times 60 seconds Stomach: Mild gastric erythema. Biopsies were obtained. Grade 2 flap valve on retroflexed examination of the cardia. Duodenum: Normal bulb and descending duodenum Intervention: Biopsies and esophageal balloon dilation as noted above Impression and Post Procedure Diagnosis: Endoscopy Findings: ESOPHAGUS: Dysphagia likely due to esophageal motility disorder - empiric balloon dilation of proximal and distal esophagus was performed. (No stricture noted on barium swallow in 2019) STOMACH: Mild gastritis and a few gastric polyps Plan: Await pathology results Patient has an appointment on 10/15/23 in the GI Clinic with Dr Dinh. Above findings were reviewed with the patient and GERD and Gastric polyps handouts were given in the discharge area Patient was advised to chew her food well and take it with sips of fluids. Of note: Pt was referred to [facility] for esophageal manometry in 2020 and did not return for a FU appt till 2022. Pt reports that she went to [facility] for the study. Request sent to [facility] for manormetry results.
[2023-09-18 11:59] VITALS: BP 103/65; PULSE 71; RESP 16; TEMP 36.2; O2SAT 98
== END 2023-09-18 12:20 | disposition home or self-care (01) ==
PROVIDERS: PCP Internal Medicine; Visit Provider Internal Medicine Gastroenterology
PROC: 0DJ08ZZ Inspection of Upper Intestinal Tract, Via Natural or Artificial Opening Endoscopic (ICD-10-PCS; CPT 43235; principal; 2023-09-18 11:00)
DX: R13.14 Dysphagia, pharyngoesophageal phase (principal); K21.9 Gastro-esophageal reflux disease without esophagitis; K22.89 Other specified disease of esophagus; K29.50 Unspecified chronic gastritis without bleeding; K31.7 Polyp of stomach and duodenum; K58.1 Irritable bowel syndrome with constipation; Z79.899 Other long term (current) drug therapy
CPT/HCPCS: 43249; 43239; 88305; 88313; 88342; C1726; J2704

== ENCOUNTER → 2023-09-18 08:26 | Outpatient (BNV) | payer OTHER, SELFPAY | PROVIDERS: PCP Internal Medicine; Visit Provider Internal Medicine Gastroenterology | DX: K21.9 Gastro-esophageal reflux disease without esophagitis (principal); R13.10 Dysphagia, unspecified; K31.7 Polyp of stomach and duodenum; K29.70 Gastritis, unspecified, without bleeding | CPT/HCPCS: 43239; 43249 ==

== ENCOUNTER 2023-10-19 12:26 | Outpatient (AMB) | payer OTHER, SELFPAY ==
--- NOTE | 2023-10-19 12:33 | A.OFFVIS_ITS ---
Intake Vital Signs 10/19/23 12:37 Height 5 ft 6 in Weight 141 lb BMI 22.8 BP 105/49 L Blood Pressure Location Lt brachial Position Sitting Pulse 68 Intake Visit Reasons: S/P EGD Intake Note: Patient follow up for EGD results. Patient cc: acid reflex with burning sensation on her chest and also swallowing problems on and off. Signals Collector/Analyst Required: Yes Signals Collector/Analyst Name: Stefani [facility] Accompanied by: Self / Same As Patient Allergies No Known Allergies Allergy (Verified 10/19/23 12:33) HPI HPI Comments History of Present Illness Details This is a 56-year-old female past medical history of migraines, hypothyroidism, GERD who presents to the office for follow-up. Initial visit 06/02/22: She was last seen in the office in 2020 (Dr. Spain). Has 2 main complaints: -heartburn: She states that her heartbu rn had been pretty well controlled with pantoprazole in the last 1 and half year. However, 3 months ago, she started experiencing recurrence of symptoms that she described as severe burning sensation retrosternally associated with some nausea, decrease in appetite and bloating. Symptoms are persistent throughout the day. Has been taking PPI once daily with food for this. Denies any NSAIDs, recent medication changes. No painful or difficulty swallowing, vomiting, unintentional weight loss, changes in bowel habits. -constipation, episode of BRBPR: Tells me that around a month ago, she had a very severe bout of constipation where she was training for quite some time before she managed to pass a bowel movement. She noticed some blood on top of the stool, also on wiping. This was single episode on describes the blood is scant in amount. Has not recurred since. Last colonoscopy was in 2018 and did show moderate hemorrhoids. Has baseline constipation, which she manages with p.r.n. Amitiza. Unable to take it regularly due to abdominal cramping. Splinting+, excessive straining+, digitalization+. Of note, patient has history of 3 pregnancies carried to term with vaginal delivery. Denies any sexual trauma history. No bladder issues. 08/23/22: Reports heartburn is better but continues to have the cramping sensation in her abdomen which is associated with nausea, and constipation. Present most of the days of the week. Cramping gets better with passing BM. No relation to food intake or activity. Sx more prominent at night time. No fevers or chills. Appetite is unchanged. No further blood in stool. No unintentional weight loss. Continues to take Amitiza on p.r.n. basis only. 10/30/22: Reports possible food-borne infection in the past couple of weeks. Reports eating out from [email or web address], had a cheeseburger. Within a day developed abdominal cramping, nausea, vomiting and diarrhea. Vomiting and diarrhea has resolved, continues to have abdominal cramping, which is also improving. Outside of this episode, reports excellent response to Amitiza. Bowel movement frequency has gone from once in a week to every day. Stool consistency has also normalized, patient does not have to strain as much. Patient also reports improvement in her bloating. Continues to take fiber supplement. She did stop her MiraLax, as she felt that made her more nauseous. 04/02/23: Here for follow up. Reports sx of food getting stuck in upper throat is getting worse. Clears her throat very often. Otherwise no N,V or difficulty swallowing. No unintentional weight loss. GERD persistent despite taking protonix. Sx are more pronounced at night time. IBS-C well controlled on Amitiza. Taking only 4mcg BID. 09/18/23: EGD (Dr Spain) ESOPHAGUS: Dysphagia likely due to esophageal motility disorder - empiric balloon dilation of proximal and distal esophagus was performed. (No stricture noted on barium swallow in 2019) STOMACH: Mild gastritis and a few gastric polyps Path: A. Gastric antrum, biopsy: Gastric antral mucosa with minimal chronic inactive gastritis; negative for H pylori, intestinal metaplasia and dysplasia. B. Gastric polyp, biopsy: Gastric body mucosa with focal minimal chronic inactive inflammation and no specific change; negative for H pylori, intestinal metaplasia and dysplasia. C. Esophagus, proximal, biopsy: Squamous mucosa with no specific change; no columnar mucosa present. 10/19/23: Seen with live client reporting associate. Comes in after EGD. Reports some improvement with empiric dilation but continues to have globus sensation in upper chest/throat and feels the need to roseann bolus down with fluids. Pt does not recall having manometry study at [facility]. Otherwise, IBS-C related constipation is controlled wiht Amitiza. No other acute GI complaints. Results of EGD discussed and neg for EoE, esophagitis or H Pylori gastritis. PFSH Medical History Microscopic hematuria Seasonal allergies Hx of migraine headaches Cervicalgia Hypothyroidism Surgical History (Updated 10/19/23 @ 12:34 by Aurora Ahmadi) Hx of endoscopy History of colonoscopy Family History Father Leukemia Mother No problems noted. Social History Household Members: None Alcohol intake: never Patient Tobacco Use Status: Never used Tobacco Review of Systems Const All systems reviewed & are unremarkable except as noted in HPI and below Physical Exam Vital Signs: Last Vital Signs Pulse 68 10/19/23 12:37 BP 105/49 L 10/19/23 12:37 BMI result Body Mass Index 22.8 Const General: healthy appearing and comfortable Orientation/consciousness: patient oriented x3 Resp Effort & Inspection: normal respiratory effort Neuro General: patient oriented x3 and gait normal Extrem General: Yes full ROM Assessment & Plan Assessment & Plan (1) Dysphagia, pharyngoesophageal phase: Code(s): R13.14 - Dysphagia, pharyngoesophageal phase (2) GERD (gastroesophageal reflux disease): Code(s): K21.9 - Gastro-esophageal reflux disease without esophagitis Plan: Reminded pt that manometry was recommended after last EGD as well for furhter eval of dysmotility. Will resend referral. Currnetly no evidence of erosive esophagitis but since some ineffective motiltiy can be contributed by reflux, will cont PPI. Plan: - to be referred for HREM - will check for Granda vs [facility] - Cont Nexium (3) Irritable bowel syndrome with constipation: Code(s): K58.1 - Irritable bowel syndrome with constipation Plan: Excellent response to Amitiza. Continue 8mcg BID. Refilled on 10/15. Plan Follow up in 6 months Coding Level of Care Code Est Pt Level 4 (90726) Diagnoses Dysphagia, pharyngoesophageal phase R13.14 GERD (gastroesophageal reflux disease) K21.9 Irritable bowel syndrome with constipation K58.1
[2023-10-19 12:37] VITALS: BP 105/49; PULSE 68; BMI 22.8
== END 2023-10-19 12:58 | disposition home or self-care (01) ==
PROVIDERS: PCP Internal Medicine; Visit Provider Internal Medicine
DX: R13.14 Dysphagia, pharyngoesophageal phase (principal); K21.9 Gastro-esophageal reflux disease without esophagitis; K58.1 Irritable bowel syndrome with constipation
CPT/HCPCS: 99214

== ENCOUNTER → 2023-10-19 12:26 | Outpatient (BNVA) | payer OTHER, SELFPAY | PROVIDERS: PCP Internal Medicine; Visit Provider Internal Medicine | DX: K21.9 Gastro-esophageal reflux disease without esophagitis (principal); K58.1 Irritable bowel syndrome with constipation; R13.14 Dysphagia, pharyngoesophageal phase | CPT/HCPCS: 99212 ==

== ENCOUNTER 2024-09-07 10:56 | Emergency (ER) | payer OTHER, SELFPAY ==
--- NOTE | ~2024-09-07 | US_ITS ---
CLINICAL HISTORY: hx dvt, worsening left lower leg pain, no thinners Venous duplex ultrasound left lower extremity Comparison: None Findings: The visualized deep veins are fully compressible with normal Doppler color flow and spectral tracings. No popliteal cyst. In the region discomfort along the left medial thigh, there is a thrombosed varicosity. IMPRESSION: 1. Negative for left lower extremity deep vein thrombosis. 2. Superficial thrombophlebitis. This document has been electronically signed by: David Mancuso MD on 09/07/2024 12:08:56
[2024-09-07 11:06] VITALS: BP 128/61; PULSE 75; RESP 18; TEMP 36.6; O2SAT 99; BMI 23.0
--- NOTE | 2024-09-07 11:17 | ED.LOWEXIN ---
HPI - Extremity Injury (Lower) General Chief Complaint: Extremity Injury, Lower Stated Complaint: L leg, vein hurts Time Seen by Provider: 09/07/24 14:10 Source: patient, RN notes reviewed, old records reviewed and retail marketing coordinator Mode of arrival: ambulatory Limitations: language barrier History of Present Illness ED Provider: Laura HPI Narrative: Patient is a 59-year-old Prydeinig-speaking female with history of GERD, hypothyroidism, IBS presenting to the emergency department with complaint of left leg pain which began this morning. Reports history of vein procedures around 1 year ago to same leg. Denies any fever or chills. Did not take any [id number] meds prior to arrival. Denies any weakness, numbness, tingling to extremity. Denies color change to leg. Does report that 1 of her veins is typically soft to the touch but today felt firm. Exacerbating factors: movement and palpation Related Data Home Medications ?Medication ?Instructions ?Recorded ?Confirmed cetirizine 10 mg tablet 10 mg PO DAILY 06/14/20 08/23/22 levothyroxine 50 mcg tablet 50 mcg PO DAILY 06/14/20 08/23/22 acetaminophen 650 mg 650 mg PO Q8H 11/25/20 08/23/22 tablet,extended release (Mapap Arthritis Pain) gabapentin 600 mg tablet 600 mg PO TID 08/23/22 08/23/22 sumatriptan succinate 50 mg tablet 0 mg PO 08/23/22 08/23/22 cromolyn 4 % eye drops 0 drp ophthalmic (eye) 10/30/22 flunisolide 25 mcg (0.025 %) nasal intranasal 10/30/22 spray Previous Rx's ?Medication ?Instructions ?Recorded psyllium 1 tbsp PO DAILY #300 grams 06/02/22 wedge pillow #1 ea 04/02/23 lubiprostone 8 mcg capsule 8 mcg PO BID 30 days #60 caps 10/15/23 (Amitiza) esomeprazole magnesium 20 mg 20 mg PO DAILY #90 caps 04/28/24 capsule,delayed release diclofenac sodium 1 % topical gel 4 g topical QID #100 grams 09/07/24 Allergies Allergy/AdvReac Type Severity Reaction Status Date / Time No Known Allergies Allergy Verified 09/07/24 11:07 Review of Systems Review of Systems: As per HPI Yes all other systems are reviewed and are negative Constitutional: Constitutional: Reports as per HPI [facility] Past Medical History Medical History (Updated 09/07/24 @ 15:33 by Shiela Sanchez NP) Microscopic hematuria Seasonal allergies Hx of migraine headaches Cervicalgia Hypothyroidism Surgical History (Updated 10/19/23 @ 12:34 by Aurora Ahmadi) Hx of endoscopy History of colonoscopy Family History Family History Father Leukemia Mother No problems noted. Social History Social History Household Members: None Alcohol intake: never Patient Tobacco Use Status: Never used Tobacco Advance Directives: No Advance Directives Information Provided: Yes Physical Exam Vital Signs: Vital Signs: Last Vital Signs Temp 97.9 F 09/07/24 11:06 Pulse 75 09/07/24 11:06 Resp 18 09/07/24 11:06 BP 128/61 09/07/24 11:06 Pulse Ox 99 09/07/24 11:06 O2 Del Method Room Air 09/07/24 11:06 BMI result Body Mass Index 23.0 Vital signs have been reviewed and appear to be correct. Blood pressure normal. Heart rate normal. Respiratory rate normal. Temperature normal. Oxygen saturation normal. Const: General: cooperative, healthy appearing and no acute distress Orientation/consciousness: oriented to person, oriented to place, oriented to time and patient oriented x3 Limitations: no limitations HEENT: Head: Yes normocephalic and Yes atraumatic Ears: external ears normal General nose exam: Normal external nose present Face and sinus: Yes face symmetric Mouth: oropharynx normal and moist mucous membranes Throat: Yes uvula midline Eyes: Pupils: Equal, round and reactive pupils present Neck: Neck: Yes normal visual inspection and Yes supple Resp: Effort & Inspection: normal respiratory effort and able to speak in complete sentences Auscultation: clear to auscultation bilaterally Cardio: Rate: regular rate Rhythm: regular rhythm Heart sounds: S1 normal heart sound present and S2 normal heart sound present GI: Palpation (GI): Soft to palpation and nontender Auscultation: normoactive bowel sounds : General: Yes no CVA tenderness Back/Spine/Pelvis: Back: no CVA tenderness Skin: General skin exam: elasticity normal and turgor normal Neuro: General: oriented to person, oriented to place, oriented to time, patient oriented x3, moves all extremities, no focal motor deficits and CN's II-XI intact bilaterally Cranial nerves: Yes Equal, round and reactive pupils present Cognition (Neuro): normal cognition Extrem: General: Yes full ROM, Yes no pedal edema and Yes no calf tenderness Left lower extremity: hip/thigh Details: normal to inspection, tenderness Location: of the mid upper leg and normal ROM; no ecchymosis and no unusual warmth and foot Details: vascular exam Details: dorsalis pedis pulse present, posterior tibial pulse present and normal capillary refill Psych: Mental Status: mental status grossly normal Affect: normal affect Thought process: Normal thought process present Course Course Course Narrative: This is a Rapid Medical Examination (RME) performed by Abhishek Aguayo PA-C in triage. Full HPI, ROS, assessment and treatment plan per primary provider in the Main ED. 59-year-old Prydeinig-speaking female with history of GERD, hypothyroid, migraine headaches, IBS here for eval of LLE pain x1 year, worsening this week. hx of DVT - states this feels similar. not currently on AC. Plan: basic labs, coags, venous duplex Medical Decision Making Medical Decision Making [facility] Narrative: Patient is a 59-year-old Prydeinig-speaking female with history of GERD, hypothyroidism, IBS presenting to the emergency department with complaint of left leg pain which began this morning. On exam patient is awake, A+Ox3, VS WNL, afebrile, normal neurological exam without focal deficits, physical exam findings as above. Given reported symptoms and physical exam findings, initial differential includes but is not limited to DVT, phlebitis, muscle strain. Labs unremarkable. Ultrasound LLE notable for superficial thrombophlebitis, no evidence of DVT. My interpretation is in agreement with the radiologist's interpretation. Results discussed with patient and all questions answered. Advised compression, elevation, ice, NSAIDs. Will send prescription for diclofenac gel. Instructed patient to follow-up with vascular surgeon for any ongoing symptoms. Return precautions discussed at bedside. Patient verbalized understanding of and agreement with plan. In-person repairer was utilized for all interactions, assessments, and discussions. Differential Diagnosis Differential Diagnoses: The differential diagnosis associated with the presentation includes As per MDM Admission/Observation Consideration of admission/observation: Escalation of care including admission/observation considered Patient would have been admitted to the hospital had their work up had any findings where hospital admission was appropriate and their clinical presentation warranted hospital admission. Lab Data [facility] Lab Attestation statement: I reviewed the patient's lab results. As per [facility] 09/07/24 11:28 09/07/24 11:28 Labs: Lab Results 09/07/24 Range/Units 11:28 WBC 4.5 L (4.8-10.8) X10*3/uL RBC 4.25 (4.20-5.50) X10*6/uL Hgb 13.3 (12.0-16.0) g/dl Hct 39.6 (37.0-47.0) % MCV 93.2 (80.0-98.0) fL MCH 31.3 (27.0-33.0) pg MCHC 33.6 (31.0-35.0) g/dl RDW 12.5 (11.0-16.0) % Plt Count 257 (160-400) X10*3/uL MPV 8.1 L (9.4-12.3) fL Immature Gran % (Auto) 0.0 (0.0-0.4) % Neut % (Auto) 52.0 (45-73) % Lymph % (Auto) 34.9 (20-40) % Charles % (Auto) 9.8 (2-11) % Eos % (Auto) 2.4 (0-4) % Baso % (Auto) 0.9 (0-2) % Lymph # (Auto) 1.6 (1.2-4.9) X10*3/uL Charles # (Auto) 0.4 (0.1-1.2) X10*3/uL Eos # (Auto) 0.1 (0.0-0.4) X10*3/uL Baso # (Auto) 0.0 (0.0-0.2) X10*3/uL Abs Immat Gran (auto) 0.00 (0.00-0.03) X10*3/uL Absolute Neuts (auto) 2.3 (2.0-8.3) x10*3/uL Absolute Nucleated RBC 0.000 (0.0-0.012) X10*3/uL Nucleated RBC % (auto) 0.0 (0.0-0.2) /100WBC PT 12.1 (10.9-12.4) SEC INR 1.0 (0.9-1.1) APTT 27.2 (26.0-36.8) SEC Sodium 143 (135-145) mmol/L Potassium 4.0 (3.3-5.1) mmol/L Chloride 109 H (96-108) mmol/L Carbon Dioxide 29 (22-29) mmol/L Anion Gap 9 L (12-20) BUN 13 (9-16) mg/dL Creatinine 0.72 (0.5-1.4) mg/dL Estim Creat Clear Calc 78.7 Estimated GFR > 60 Random Glucose 89 (60-115) mg/dL Calcium 9.1 (8.4-10.2) mg/dL Total Bilirubin 0.4 (0.0-1.0) mg/dL AST 44 H (5-31) U/L ALT 28 (0-31) U/L Alkaline Phosphatase 88 (39-117) U/L Total Protein 8.0 (6.5-8.0) g/dL Albumin 4.2 (3.5-5.0) g/dL Independent Interpretation I performed an independent interpretation of an: Ultrasound Interpretation: Ultrasound of left lower extremity notable for superficial thrombophlebitis, no DVT Radiology Impression Discussion of test interpretation with radiology: I have reviewed the radiologist's reading. Radiologist Impression: Findings: The visualized deep veins are fully compressible with normal Doppler color flow and spectral tracings. No popliteal cyst. In the region discomfort along the left medial thigh, there is a thrombosed varicosity. IMPRESSION: 1. Negative for left lower extremity deep vein thrombosis. 2. Superficial thrombophlebitis. External Record Review External record reviewed: Inpatient record, Office record and Outpatient record Prescription Management I considered prescription management with: Pain Medication Discharge Plan Discharge Clinical Impression: Superficial thrombophlebitis of left leg Patient Disposition: Home, Self-Care Instructions: Superficial Thrombophlebitis (ED) Additional Instructions: You were evaluated in the emergency department today for left leg pain. Your ultrasound did not show evidence of a DVT, also known as a blood clot, but did show superficial thrombophlebitis. We recommend that you elevate your legs while at rest, apply ice to painful areas, use Tylenol or ibuprofen every 6 hours as needed for pain. You are being prescribed diclofenac gel which you can apply topically to the affected area every 6 hours. Follow-up with your vascular surgeon if symptoms persist. Return to the emergency department if you develop worsening pain, new weakness, numbness, tingling to her leg, change of color in your leg or foot or any other concerning symptoms. Prescriptions: New diclofenac sodium 1 % gel 4 g topical QID Qty: 100 0RF Rx Instructions: apply to left leg No Action Amitiza 8 mcg capsule 8 mcg PO BID 30 Days Qty: 60 2RF esomeprazole magnesium 20 mg capsule,delayed release(DR/EC) 20 mg PO DAILY Qty: 90 1RF levothyroxine 50 mcg tablet 50 mcg PO DAILY cetirizine 10 mg tablet 10 mg PO DAILY acetaminophen [Mapap Arthritis Pain] 650 mg tablet extended release 650 mg PO Q8H sumatriptan succinate 50 mg tablet 0 mg PO gabapentin 600 mg tablet 600 mg PO TID cromolyn 4 % drops 0 drp ophthalmic (eye) flunisolide 25 mcg (0.025 %) spray,non-aerosol intranasal (DME) wedge pillow See Rx Instructions .Route .MEDSUPPLY Qty: 1 0RF Rx Instructions: at night psyllium Powder 1 tbsp PO DAILY Qty: 300 2RF Rx Instructions: mix into at least 8 oz of water or juice before administering Print Language: Prydeinig
[2024-09-07 11:32] LABS: MANUAL DIFF FLAG NO
[2024-09-07 11:36] LABS: Basophils Percent Auto 0.9 % (0-2); Eosinophils Absolute Auto 0.1 X10*3/uL (0.0-0.4); Eosinophils Percent Auto 2.4 % (0-4); Hematocrit 39.6 % (37.0-47.0); Hemoglobin 13.3 g/dl (12.0-16.0); Lymphocytes Absolute Auto 1.6 X10*3/uL (1.2-4.9); Lymphocytes Percent Auto 34.9 % (20-40); Mean Corpuscular HGB Conc 33.6 g/dl (31.0-35.0); Mean Corpuscular Hemoglobin 31.3 pg (27.0-33.0); Mean Corpuscular Volume 93.2 fL (80.0-98.0); Mean Platelet Volume 8.1 fL (9.4-12.3); Monocytes Absolute Auto 0.4 X10*3/uL (0.1-1.2); Monocytes Percent Auto 9.8 % (2-11); Neutrophils Absolute Auto 2.3 x10*3/uL (2.0-8.3); Platelet Count 257 X10*3/uL (160-400); Red Blood Count 4.25 X10*6/uL (4.20-5.50); Red Cell Distribution Width 12.5 % (11.0-16.0); White Blood Count 4.5 X10*3/uL (4.8-10.8)
[2024-09-07 11:43] LABS: Prothrombin Time 12.1 SEC (10.9-12.4)
[2024-09-07 11:46] LABS: Partial Thromboplastin Time 27.2 SEC (26.0-36.8)
[2024-09-07 11:51] LABS: Alanine Aminotransferase 28 U/L (0-31); Albumin Level 4.2 g/dL (3.5-5.0); Alkaline Phosphatase 88 U/L (39-117); Anion Gap 9 (12-20); Aspartate Amino Transferase 44 U/L (5-31); Bilirubin Total 0.4 mg/dL (0.0-1.0); Blood Urea Nitrogen 13 mg/dL (9-16); Calcium 9.1 mg/dL (8.4-10.2); Carbon Dioxide 29 mmol/L (22-29); Chloride 109 mmol/L (96-108); Creatinine Clr Calc Pharmacy 78.7; Estimated Glomerular Filt Rate > 60; Glucose Random 89 mg/dL (60-115); Sodium 143 mmol/L (135-145)
[2024-09-07 15:53] VITALS: BP 128/61; PULSE 75; RESP 18; TEMP 36.9; O2SAT 99
== END 2024-09-07 15:59 | disposition home or self-care (01) ==
PROVIDERS: Physician Assistant Medical; Emergency Provider Emergency Medicine; PCP Internal Medicine
DX: I80.02 Phlebitis and thrombophlebitis of superficial vessels of left lower extremity (principal); R60.0 Localized edema; M79.605 Pain in left leg; Z79.899 Other long term (current) drug therapy
CPT/HCPCS: 36415; 80053; 85025; 85610; 85730; 93971; 99282; 99284

== ENCOUNTER 2025-07-01 10:33 | Outpatient (AMB) | payer OTHER, SELFPAY ==
--- OUTSIDE RECORDS SUMMARY | 2025-06-26 14:45 | XMS_ITS | Encounter Summary ---
Author Organization [facility] Address [address] [place] [address] Care Team Providers Care Tugboat Operator Name Role Phone Merry Iqbal MD Primary Care Prov ider Reason for Visit * Reason Comments Consult Encounter Details Date Type Department Care Team (Late st Contact Info) Description 06/26/2025 2:45 PM EST Office Visit [facility] [address] [place], [place] [phone] Marija Yoo DO [address] [place], [place] Vaginal atrophy (Primary Dx) Social History Tobacco Use Types Packs/Day Years Used Date Smoking Tobacco: Never Smokeless Tobacco: Never Tobacco Cessation:Counseling Given: Not Answered Alcohol Use Standard Drinks/Week Comments Not Currently 0 (1 standard drink = 0.6 oz pur e alcohol) Housing Instability Answer Date Recorde d Are you worried that in the next 2 months you may not have stable housing? No 07/15/2024 Food Access & Nutrition Answer Date Rec orded Do you have access to a vari ety of food including fruits and vegetables? Yes 07/15/2024 Access to Healthcare Answer Date Record ed Within the last 3 months, gertrude mauricio many times did you visit the emergency department for your medical care? 0 07/15/2024 Health Literacy Answer Date Recorded How often do you need to hav e someone help you when you read instructions, pamphlets, or other written material from your doctor or pharmacy? Never 07/15/2024 Caregiver: How often do you need to have someone help you when you read instructions, pamphlets, or other written material from your doctor or pharmacy? Not on file 07/15/2024 Financial Risk Answer Date Recorded How hard is it for you to pa y for the very basics like food, housing, medical care, and air conditioning / heating? Not very hard 07/15/2024 Transportation Answer Date Recorded Has the lack of transportati on kept you from meetings, work, or from getting things needed for daily living? No Has the lack of transportati on kept you from medical appointments or from getting medications? No 07/15/2024 Social Isolation Answer Date Recorded How often do you feel lonely or isolated from th ose around you? Never 07/15/2024 Food Risk Answer Date Recorded Within the past 12 months we worried whether our food would run out before we got money to buy more. Sometimes true 025 Within the past 12 months th e food we bought just didn't last and we didn't have money to get more. Sometimes true 04/09/2025 Dependent Care Answer Date Recorded Do you need help finding or paying for care for your loved ones. For example, childbirth and infant care teacher or elderly care for an older adult? No 07/15/2024 Education Answer Date Recorded Do you think completing more education or training, like finishing a GED, going to college, or learning a trade, would be helpful for you? Yes 04/09/2025 Employment and Income Answer Date Recor ded During the last four weeks, have you been actively looking for work? No 07/15/2024 Living Situation Answer Date Recorded What is your living situation? Unrecognized valu e 04/09/2025 Interpersonal Safety Answer Date Record ed Physical Abuse Unrecognized value 05/28/2025 Verbal Abuse Unrecognized value 05/28/2025 Comments No Sex and Gender Information Value Date Recorded Sex Assigned at Female 09/09/2024 7:24 PM EST Legal Sex Female 10:12 AM EST Gender Identity Female 09/09/2024 7:24 PM EST Sexual Orientation Not on file documented as of this encounter Last Filed Vital Signs Vital Sign Reading Time Taken Comments Blood Pressure 91/62 06/26/2025 2:51 PM EST Pulse 79 06/26/2025 2:51 PM EST Temperature - - Respiratory Rate - - Oxygen Saturation - - Inhaled Oxygen Concentration - - Weight 65 kg (143 lb 3.2 oz) 06/26/2025 2:51 PM EST Height - - Body Mass Index 23.83 05/28/2025 12:58 PM EDT documented in this encounter Ordered Prescriptions Prescription Sig Dispense Quantity Refills Last Filled Start Date End Date estradioL (ESTRACE) 0.01 % (0.1 mg/gram) vaginal cream 1g PV nightly x2 weeks then twice weekly thereafter 34 g 3 06/26/2025 documented in this encounter Progress Notes * Marija Yoo DO - 06/26/2025 2:45 PM EST Images from the original note were not included. CHIEF COMPLAINT: Consult IDENTIFIER:María Elena Ladd is a 59 y.o. female HPI: Pt is Armenian-speaking, home visits nurse used throughout the entire visit. She presents today for consultation for vaginal concerns. She has a h/o hysterectomy and experienced some abnormal discharge and bleeding that was concerning to her. She started experiencing menopausal symptoms at the age of 45, so she is confident she is menopausal. She has never used vaginal estrogen before because she has FH significant for breast and uterine CA. She herself has never been diagnosed with breast CA or uterine CA. 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 If you have any questions, ask your nurse or doctor. START taking these medications Instructions Last Dose Given Next Dose Due estradioL 0.01 % (0.1 mg/gram) vaginal cream Commonly known as: ESTRACE Started by: Roby Yoo DO 1g PV nightly x2 weeks then twice weekly thereafter CONTINUE taking these medications Instructions Last Dose Given Next Dose Due amitriptyline 10 mg tablet Commonly known as: ELAVIL Take 1 tablet (10 mg total) by mouth at bedtime. betamethasone valerate 0.1 % ointment Commonly known as: VALISONE APPLY TO AFFECTED AREA TWICE A DAY cetirizine 10 mg tablet Commonly known as: ZyrTEC Take 1 tablet (10 mg total) by mouth 1 (one) time each day. EPINEPHrine 0.3 mg/0.3 mL injection Commonly known as: EPIPEN Inject 0.3 mL (0.3 mg total) into the thigh if needed for anaphylaxis. Fill with whichever brand iscovered by insurance. esomeprazole [address] capsule Commonly known as: NexIUM Take 1 capsule (20 mg total) by mouth 1 (one) time each day before breakfast. famotidine 40 mg tablet Commonly known as: PEPCID TAKE 1 TABLET BY MOUTH TWICE A DAY fluticasone propionate 50 mcg/actuation nasal spray Commonly known as: FLONASE ADMINISTER 1 SPRAY INTO EACH NOSTRIL 2 TIMES A DAY FOR 10 DAYS. SHAKE GENTLY CLEAN TIP, REPLACE CAP levothyroxine 50 mcg tablet Commonly known as: SYNTHROID, LEVOTHROID TAKE 1 TABLET BY MOUTH EVERY DAY riboflavin 400 mg tablet Commonly known as: VITAMIN B2 Take 1 tablet (400 mg total) by mouth 1 (one) time each day. SUMAtriptan 50 mg tablet Commonly known as: IMITREX Take 1 tablet (50 mg total) by mouth 1 (one) time if needed for migraine. Where to Get Your Medications These medications were sent to [facility]/pharmacy #[id number] - [address] [address] Hours: 24-hours estradioL 0.01 % (0.1 mg/gram) vaginal cream Contraception: NA ALLERGIES: Current Allergies[4] PHYSICAL EXAM: Visit Vitals BP 91/62 Pulse 79 Wt 65 kg (143 lb 3.2 oz) BMI 23.83 kg/m?? OB Status Hysterectomy Smoking Status Never BSA 1.72 m?? APPEARANCE:Healthy, alert, active, cooperative, and in no distress MA present as tonguer A bivalve speculum was used for a portion of the following exam: EXTERNAL GENITALIA: normal external genitalia, no erythema, no discharge URETHRA: midline with no erythema, mass or drainage VAGINA: atrophic, no lesions or discharge noted, vaginal cuff intact without defect or lesions CERVIX: absent UTERUS: uterus absent PSYCH: affect appropriate LABS: ASSESSMENT: 1. Vaginal atrophy PLAN: Reassured María Elena that her exam is consistent with her age and menopausal status. Reviewed the affectthat menopause has on the vagina. I suspect that her discharge and bleeding is due to atrophy. Recommend vaginal estrogen. It is a safe, low risk medication. Recent research even suggests it's safe to give to women who have a personal h/o breast CA. She is amenable to trying it. Reviewed initiation and maintenance. No orders of the defined types were placed in this encounter. Marija Yoo DO [1] Patient Active Problem List Diagnosis Abnormal mammogram Allergic rhinitis Anxiety Cervical spondylosis Constipation Continuous right lower quadrant pain DDD (degenerative disc disease), lumbar Depressive disorder Fibrocystic breast Hypothyroidism Insomnia Migraine with aura Multiple food allergies Palpitations White matter abnormality on MRI of brain Neck pain Intermittent chest pain Chest pain [2] Social History Tobacco Use Smoking status: Never Smokeless tobacco: Never Substance Use Topics Alcohol use: Not Currently Drug use: Not Currently [3] Family History Problem Relation Name Age of Onset Prostate cancer Father Breast cancer Sister Cervical cancer Sister Uterine cancer Sister Colon cancer Paternal Grandfather [4] Allergies Allergen Reactions Latex Swelling [facility] Dust Pollen Extracts documented in this encounter Plan of Treatment Upcoming Encounters Date Type Department Care Team (Late st Contact Info) Description 08/05/2025 1:00 PM EST Procedure visit [facility] [address] [facility] [address] [place] [phone] Boby Saunders MD [address] [place] [address] 09/10/2025 11:30 AM EST Procedure visit Vascular Surgery - [place] [address] [facility] [address] [place] [phone] Deo Mckeon MD [address] [place] [phone] 10/01/2025 10:30 AM EST Office Visit Vascular Surgery [facility] [address] [facility] [address] [place] [phone] Manisha Lynch PA [address] [facility] [address] [place] [address] 12/09/2025 3:40 PM EDT Appointment Radiology Department - [address] [phone] 12/29/2025 2:00 PM EDT Office Visit Gastroenterology - [address] [facility] [address] [facility] [address] [place] [address] Radha Cordon, EARL [address] [facility] [address] [place] [address] documented as of this encounter Visit Diagnoses Diagnosis Vaginal atrophy- Primary Postmenopausal atrophic vaginitis documented in this encounter Additional Health Concerns Assessment Noted Time PHQ-9 Depression Total Score: 16 025 2:24 PM EDT documented as of this encounter Care Teams Tugboat Operator Relationship Specialty Start Date End Date Merry Iqbal MD [address] [place] [phone] PCP - General Internal Medicine 10/17/24 documented as of this encounter
--- OUTSIDE RECORDS SUMMARY | 2025-06-30 14:30 | XMS_ITS | Encounter Summary ---
Author Organization [facility] Address [address] [place] [address] Care Team Providers Care Auto Transmission Technician Name Role Phone Merry Iqbal MD Primary Care Prov ider Reason for Referral * Consultation (Routine) - Closed Specialty Diagnoses / Procedures Referred By Shannan t Referred To Contact Orthopaedics Diagnoses Acute left-sided low back pain with left-sided sciatica Nika Foreman NP [address] [place] [address] Phone: tel: fax: [facility] [address] [place] [address] Phone: tel: fax: Referral ID Status Reason Start Date Expiration Date V isits Requested Visits Authorized [id number] Closed Consult and Treat 06/30/2025 06/30/2026 12 12 Reason for Visit * Reason Comments Back Pain Patient maddox painful urination and low back pain Encounter Details Date Type Department Care Team (Late st Contact Info) Description 06/30/2025 2:30 PM EST Office Visit Adult Medicine [address] [phone] Nika Foreman NP [address] [place], [place] Acute left-sided low back pain with left-sided sciatica (Primary Dx) Social History Tobacco Use Types [...] Record ed Within the last 3 months, ho w many times did you visit the emergency [...] care for your loved ones. For example, child neurologist or elderly care for an older adult? [...] Sign Reading Time Taken Comments Blood Pressure 116/61 06/30/2025 2:26 PM EST Pulse 87 06/30/2025 2:26 PM EST Temperature 35.9 C (96.7 F) 06/30/2025 2:26 PM EST Respiratory Rate - - Oxygen Saturation 95% 06/30/2025 2:26 PM EST Inhaled Oxygen Concentration - - Weight 66.2 kg (146 lb) 06/30/2025 2:26 PM EST Height 165.1 cm (5' 5 ) 06/30/2025 2:26 PM EST Body Mass Index 24.3 06/30/2025 2:26 PM EST documented in this encounter Ordered Prescriptions Prescription Sig Dispense Quantity Refills Last Filled Start Date End Date predniSONE (DELTASONE) 20 mg tabletIndications: Acute left-sided low back pain with left-sided sciatica Take 60 mg PO daily for 3 days, then take 40 mg PO daily for 3 days, then 20 mg PO daily for 3 days, then stop 18 tablet 06/30/2025 cyclobenzaprine (FLEXERIL) 5 mg tabletIndications: muscle spasm Take 1 tablet (5 mg total) by mouth 2 (two) times a day if needed for muscle spasms. 30 tablet 06/30/2025 08/29/2025 documented in this encounter Progress Notes * Nika Foreman NP - 06/30/2025 2:30 PM EST PATIENT'S PCP: Merry Robin MD LAST VISIT IN THIS DEPARTMENT: 01/15/2025 María Elena Ladd is a 59 y.o. (: 1965) female who presents today for: Chief Complaint Patient presents with Back Pain Patient maddox painful urination and low back pain SUBJECTIVE History of Present Illness The patient is a 59-year-old female who presents for evaluation of back pain. She has been experiencing back pain for the past week, which has progressively worsened. The pain is localized in the middle of her back and radiates down her left leg. She reports no recent falls orinjuries that could have exacerbated the condition. She also reports difficulty in lifting her leftfoot and increased pain while driving. The onset of her current pain episode was sudden, starting in her hip before radiating to her back and sides. She has difficulty sitting for extended periods and requires frequent standing and walking breaks. She has a history of back issues, including two bulging discs diagnosed during an emergency room visit in [place]. She has previously received cortisone injections from Dr. Short in [place], which provided long-term relief. However, she is currently seeking a stronger medication as gabapentin andTylenol have proven ineffective. She has been advised against surgical intervention by another physician. No bladder or bowel dysfunction, no saddle anesthesia Review Of System Review of Systems Constitutional: Negative. Respiratory: Negative. Cardiovascular: Negative. Gastrointestinal: Negative. Endocrine: Negative. Genitourinary: Negative. Musculoskeletal: Positive for back pain. Skin: Negative. Neurological: Negative. Hematological: Negative. The following portions of the patient's chart were reviewed in this encounter and updated as appropriate: OBJECTIVE Vitals: 06/30/25 1426 BP: 116/61 Pulse: 87 Temp: 35.9 ??C (96.7 ??F) TempSrc: Temporal SpO2: 95% Weight: 66.2 kg (146 lb) Height: 1.651 m (65 ) BP Readings from Last 5 Encounters: 06/30/25 116/61 06/26/25 91/62 05/29/25 115/76 05/21/25 108/70 05/05/25 87/51 Body mass index is 24.3 kg/m??. Plan is deferred until next visit Wt Readings from Last 5 Encounters: 06/30/25 66.2 kg (146 lb) 06/26/25 65 kg (143 lb 3.2 oz) 05/28/25 66 kg (145 lb 6.4 oz) 05/21/25 66.4 kg (146 lb 6.4 oz) 05/05/25 66.8 kg (147 lb 3.2 oz) Allergies[1] Active Medication: Current Outpatient Medications Medication Instructions amitriptyline (ELAVIL) 10 mg, oral, Nightly betamethasone valerate (VALISONE) 0.1 % ointment 1 Application, Topical, 2 times daily, APPLY TO AFFECTED AREA cetirizine (ZyrTEC) 10 mg tablet 1 tablet, Daily cyclobenzaprine (FLEXERIL) 5 mg, oral, 2 times daily PRN EPINEPHrine (EPIPEN) 0.3 mg, intramuscular, As needed, Fill with whichever brand is covered by insurance. esomeprazole (NEXIUM) 20 mg, oral, Every morning before breakfast estradioL (ESTRACE) 0.01 % (0.1 mg/gram) vaginal cream 1g PV nightly x2 weeks then twice weekly thereafter famotidine (PEPCID) 40 mg, oral, 2 times daily fluticasone propionate (FLONASE) 50 mcg/actuation nasal spray ADMINISTER 1 SPRAY INTO EACH NOSTRIL 2 TIMES A DAY FOR 10 DAYS. SHAKE GENTLY CLEAN TIP, REPLACE CAP levothyroxine (SYNTHROID, LEVOTHROID) 50 mcg, oral, Daily predniSONE (DELTASONE) 20 mg tablet Take 60 mg PO daily for 3 days, then take 40 mg PO daily for 3 days, then 20 mg PO daily for 3 days, then stop riboflavin (VITAMIN B2) 400 mg, oral, Daily SUMAtriptan (IMITREX) 50 mg, oral, Once as needed Physical Exam Vitals reviewed. Constitutional: Appearance: Normal appearance. Cardiovascular: Rate and Rhythm: Normal rate and regular rhythm. Pulses: Normal pulses. Heart sounds: Normal heart sounds. Pulmonary: Effort: Pulmonary effort is normal. Breath sounds: Normal breath sounds. Abdominal: General: Bowel sounds are normal. Palpations: Abdomen is soft. Musculoskeletal: Cervical back: Normal range of motion and neck supple. Lumbar back: Spasms and tenderness present. Decreased range of motion. Positive left straight leg raise test. Skin: General: Skin is warm and dry. Neurological: General: No focal deficit present. Mental Status: She is alert. Mental status is at baseline. Awake imaging No Pertinent Imaging Laboratory: CBC: Lab Results Component Value Date WBC 6.8 05/29/2025 HGB 11.7 05/29/2025 HCT 35.4 05/29/2025 MCV 91.9 05/29/2025 PLT 229 05/29/2025 CMP: Lab Results Component Value Date NA 139 05/29/2025 K 3.9 05/29/2025 CL 106 05/29/2025 CO2 28 05/29/2025 GLUCOSE 83 05/29/2025 BUN 12 05/29/2025 CREATININE 0.82 05/29/2025 CALCIUM 9.2 05/29/2025 PROT 7.7 05/28/2025 ALBUMIN 3.7 05/28/2025 BILITOT 0.2 05/28/2025 AST 24 05/28/2025 ALT 24 05/28/2025 MG 1.9 05/29/2025 ALKPHOS 99 05/28/2025 EGFR 83 05/29/2025 No results found for: LDLCALC 1. Acute left-sided low back pain with left-sided sciatica Assessment & Plan 1. Back pain: - Patient reports experiencing back pain for the past week, worsened and not alleviated by Tylenol - History of bulging discs and previous cortisone injections for similar pain - Pain located in the middle of lower back, radiates to left leg, especially when driving - Order x-ray of lower back to investigate cause - Conduct urine test to rule out UTI - Prescribe Flexeril 5 mg twice daily as muscle relaxant - Initiate prednisone taper: 60 mg for 3 days, then 40 mg for 3 days, and 20 mg for 3 days - Referral to orthopedics for further evaluation and potential cortisone injections - Advise against driving while on Flexeril due to drowsiness - Instruct to take prednisone with food - Patient had positive blood and POC urine, will send to lab for UA with culture Patient understands the plan and is in agreement with the plan. FOLLOW-UP: Follow up if symptoms worsen or fail to improve. Nika Foreman NP [address] I have obtained verbal consent from María Elena Ladd prior to the recording. I have advised María Elena Ladd that she may refuse the recording and require the recording to be turned off at any time during this encounter. Today's documentation was made using voice recognition software.This note may contain grammatical errors secondary to this software. [1] Allergies Allergen Reactions Latex Swelling [facility] Dust Pollen Extracts documented in this encounter Plan of Treatment Upcoming Encounters Date Type Department Care Team (Late st Contact Info) Description 08/05/2025 1:00 PM EST Procedure visit [facility] [place] 175 [facility] [address] [place] [phone] Boby Saunders MD [address] [place] [address] 09/10/2025 11:30 AM EST Procedure visit Vascular Surgery [facility] 300 [facility] [address] [place] [phone] Deo Mckeon MD [address] [place] [address] 10/01/2025 10:30 AM EST Office Visit Vascular Surgery [facility] 300 [facility] [address] [place] [phone] Manisha Lynch PA 300 [facility] [address] [place] [address] 12/09/2025 3:40 PM EDT Appointment Radiology Department - [address] [phone] 12/29/2025 2:00 PM EDT Office Visit Gastroenterology - 299 [facility] 299 [facility] [address] [place] [phone] Radha Cordon NP 299 [facility] [address] [place] [address] Scheduled Referrals Name Type Priority Associated Diagnoses Order Schedule Ambulatory referral to Orthopedic Outpatient Referral Routine Acute left-sided low back pain with left-sided sciatica 1 Occurrences starting 06/30/2025 until 06/30/2026 documented as of this encounter Procedures Procedure Name Priority Date/Time Associated Diagnosis Comments URINALYSIS WITH REFLEX MICROSCOPIC AND CULTURE Routine 06/30/2025 3:15 PM EST Acute left-sided low back pain with left-sided sciatica FRENCH URINE CULTURE TUBE Routine 06/30/2025 3:15 PM EST Acute left-sided low back pain with left-sided sciatica URINALYSIS WITH REFLEX MICROSCOPIC AND CULTURE Routine 06/30/2025 3:15 PM EST Acute left-sided low back pain with left-sided sciatica CULTURE URINE Routine 06/30/2025 3:15 PM EST Acute left-sided low back pain with left-sided sciatica POC URINE AUTO W/O MICRO Routine 06/30/2025 2:45 PM EST Acute left-sided low back pain with left-sided sciatica documented in this encounter Results * Culture urine (06/30/2025 3:15 PM EST) Pathologist [facility] Culture, Urine 10,000-49,000 CFU/mL Mixed urogenital ellen, no uropathogens present. Suggest repeat specimen if clinically indicated. 07/01/2025 8:09 AM EST [facility] Urine Urine specimen obtained by clean catch procedure / Unknown Non-blood Collection / Unknown 06/30/2025 3:15 PM EST 06/30/2025 5:03 PM EST us Nika Foreman NP LAB MICROBIOLOGY - GENERAL O RDERABLES Final Result [facility] [address] [place] [address], [place] [phone] * French urine culture tube (06/30/2025 3:15 PM EST) Pathologist [facility] Extra Tube Hold for add-ons. 06/30/2025 5:01 PM [facility] Comment:Auto resulted. Urine Urine specimen obtained by clean catch procedure / Unknown Non-blood Collection / Unknown 06/30/2025 3:15 PM EST 06/30/2025 3:16 PM EST us Nika Foreman PERFORMANCE MAKEUP ARTIST LAB URINE ORDERABLES Final R esult [facility] [address] [place] [address], [place] [phone] * (ABNORMAL) Urinalysis with reflex microscopic and culture (06/30/2025 3:15 PM EST) Specific [place] Urine 1.016 1.003 - 1.030 LAB URINALYSIS - AUTOMATED METHOD 06/30/2025 5:03 PM [facility] pH, Urine 6.0 5.0 - 8.0 pH LAB URINALYSIS - AUTOMATED METHOD 06/30/2025 5:03 PM [facility] Leukocytes, Urine Trace(A) Negative LAB URINALYSIS - AUTOMATED METHOD 06/30/2025 5:03 PM [facility] Nitrite, Urine Negative Negative LAB URINALYSIS - AUTOMATED METHOD 06/30/2025 5:03 PM [facility] Protein, Urine Negative <=Trace mg/dL LAB URINALYSIS - AUTOMATED METHOD 06/30/2025 5:03 PM [facility] Glucose, Urine Negative Negative mg/dL LAB URINALYSIS - AUTOMATED METHOD 06/30/2025 5:03 PM [facility] Ketones, Urine Negative Negative mg/dL LAB URINALYSIS - AUTOMATED METHOD 06/30/2025 5:03 PM [facility] Urobilinogen, Urine 0.2 0.2 - 1.0 mg/dL LAB URINALYSIS - AUTOMATED METHOD 06/30/2025 5:03 PM [facility] Bilirubin, Urine Negative Negative LAB URINALYSIS - AUTOMATED METHOD 06/30/2025 5:03 PM [facility] Blood, Urine Small(A) Negative LAB URINALYSIS - AUTOMATED METHOD 06/30/2025 5:03 PM [facility] RBC, Urine 10(H) 0 - 4 /HPF 06/30/2025 5:03 PM [facility] WBC, Urine 20(H) 0 - 4 /HPF 06/30/2025 5:03 PM [facility] Squamous Epithelial, Urine 80(H) 0 - 60 /LPF 06/30/2025 5:03 PM [facility] Bacteria, Urine Negative Negative /HPF 06/30/2025 5:03 PM [facility] Hyaline Casts, Urine 3 0 - 3 /LPF 06/30/2025 5:03 PM [facility] Urine Urine specimen obtained by clean catch procedure / Unknown Non-blood Collection / Unknown 06/30/2025 3:15 PM EST 06/30/2025 3:16 PM EST Nika Foreman PERFORMANCE MAKEUP ARTIST LAB URINE ORDERABLES Final R esult [facility] [address] [place] [address], * (ABNORMAL) POC Urine Auto W/O Micro (06/30/2025 2:45 PM EST) Leukocytes UA POC Negative Negative Nitrite UA POC Negative Negative Urobilinogen UA POC Negative Negative Protein UA POC Negative Negative PH UA POC 6.0 5.0 - 9.0 Blood UA POC Positive(A) Negative, Trace Specific [place] UA POC 1.020 1.001 - 1.035 Ketones UA POC 1+(A) Negative Bilirubin UA POC Negative Negative Glucose UA POC Normal Normal, Trace Urine Urine specimen obtained by clean catch procedure / Unknown 06/30/2025 2:45 PM EST us Nika Foreman PERFORMANCE MAKEUP ARTIST POINT OF CARE TEST ENTER/ADRIANE T ORDERABLES Final Result documented in this encounter Visit Diagnoses Diagnosis Acute left-sided low back pain with left-sided sciatica- Primary documented in this encounter Additional Health Concerns Assessment Noted Time PHQ-9 Depression Total Score: 16 025 2:24 PM EDT documented as of this encounter Care Teams Auto Transmission Technician Relationship Specialty Start Date End Date Merry Iqbal MD [address] [place] [address] PCP - General Internal Medicine 10/17/24 documented as of this encounter
--- OUTSIDE RECORDS SUMMARY | 2025-06-30 14:53 | XMS_ITS | Encounter Summary ---
Author Organization Address [address] [place] [address] Care Team Providers Care Ammonium Hydroxide Operator Name Role Phone Merry Iqbal MD Primary Care Prov ider Encounter Details Date Type Department Care Team (Latest Contact Info) Description 06/30/2025 2:53 PM EST - 06/30/2025 11:59 PM EST Hospital Encounter [facility] [address] [place] [address] Acute left-sided low back pain with left-sided sciatica Discharge Disposition: Home or Self Care Social History Tobacco Use Types Packs/Day Years Used Date Smoking Tobacco: Never Smokeless Tobacco: Never Alcohol Use Standard Drinks/Week Comments Not Currently [...] care for your loved ones. For example, childcare worker or elderly care for an older adult? [...] on file documented as of this encounter Medications at Time of Discharge amitriptyline (ELAVIL) 10 mg tablet Take 1 tablet (10 mg total) by mouth at bedtime. 30 each 11 10/20/2024 betamethasone valerate (VALISONE) 0.1 % ointment APPLY TO AFFECTED AREA TWICE A DAY 30 g 1 02/23/2025 cetirizine (ZyrTEC) 10 mg tablet Take 1 tablet (10 mg total) by mouth 1 (one) time each day. OTC 04/22/2024 cyclobenzaprine (FLEXERIL) 5 mg tabletIndication s:muscle spasm Take 1 tablet (5 mg total) by mouth 2 (two) times a day if needed for muscle spasms. 30 tablet 06/30/2025 EPINEPHrine (EPIPEN) 0.3 mg/0.3 mL injection Inject 0.3 mL (0.3 mg total) into the thigh if needed for anaphylaxis. Fill with whichever brand is covered by insurance. 1 each 2 05/18/2025 esomeprazole (NexIUM) [address] capsule Take 1 capsule (20 mg total) by mouth 1 (one) time each day before breakfast. 90 capsule 1 10/24/2024 estradioL (ESTRACE) 0.01 % (0.1 mg/gram) vaginal cream 1g PV nightly x2 weeks then twice weekly thereafter 34 g 3 06/26/2025 famotidine (PEPCID) 40 mg tablet TAKE 1 TABLET BY MOUTH TWICE A DAY 180 tablet 1 02/12/2025 fluticasone propionate (FLONASE) 50 mcg/actuation nasal spray ADMINISTER 1 SPRAY INTO EACH NOSTRIL 2 TIMES A DAY FOR 10 DAYS. SHAKE GENTLY CLEAN TIP, REPLACE CAP 48 mL 04/02/2025 levothyroxine (SYNTHROID, LEVOTHROID) 50 mcg tablet TAKE 1 TABLET BY MOUTH EVERY DAY 90 tablet 3 10/23/2024 predniSONE (DELTASONE) 20 mg tabletIndication s:Acute left-sided low back pain with left-sided sciatica Take 60 mg PO daily for 3 days, then take 40 mg PO daily for 3 days, then 20 mg PO daily for 3 days, then stop 18 tablet 06/30/2025 riboflavin (VITAMIN B2) 400 mg tablet Take 1 tablet (400 mg total) by mouth 1 (one) time each day. 90 tablet 2 09/29/2024 SUMAtriptan (IMITREX) 50 mg tablet Take 1 tablet (50 mg total) by mouth 1 (one) time if needed for migraine. 9 tablet 5 04/09/2025 documented as of this encounter Discharge Disposition Disposition Code Departure Means Destination Home or Self Care documented in this encounter Plan of Treatment Upcoming Encounters Date Type Department Care Team (Late st Contact Info) Description 08/05/2025 1:00 PM EST Procedure visit [facility] [place] [address] [facility] [address] [place] [phone] Boby Saunders MD [address] [place] [address] 09/10/2025 11:30 AM EST Procedure visit Vascular Surgery - [place] 300 [facility] [address] [place] [address] Deo Mckeon MD [address] [place] [address] 10/01/2025 10:30 AM EST Office Visit Vascular Surgery [facility] 300 [facility] [address] [place] [address] Manisha Lynch PA 300 [facility] [address] [place] [address] 12/09/2025 3:40 PM EDT Appointment Radiology Department - [address] [address] 12/29/2025 2:00 PM EDT Office Visit Gastroenterology - 299 [facility] 299 [facility] [address] [place] [phone] Radha Cordon NP 299 [facility] [address] [place] [address] documented as of this encounter Procedures Procedure Name Priority Date/Time Associated Diagnosis Comments XR LUMBAR SPINE 4+ VIEWS Routine 06/30/2025 3:15 PM EST Acute left-sided low back pain with left-sided sciatica documented in this encounter Results * XR Lumbar Spine 4+ Views (06/30/2025 3:15 PM EST) Anatomical Region Laterality Modality Spine, L-spine Radiographic Krista ging 06/30/2025 7:15 PM EST Impressions 06/30/2025 7:16 PM EST Moderate degenerative changes of the lumbar spine. -------- FINAL REPORT -------- Dictated By: Klever Carrillo Dictated Date: 06/30/2025 19:15 ET Assigned Physician: Klever Carrillo Reviewed and Electronically Signed By: Klever Carrillo Signed Date: 06/30/2025 19:16 ET Workstation ID: [id number] Transcribed By: Self Edit Transcribed Date: 06/30/2025 19:15 ET Narrative 06/30/2025 7:16 PM EST HISTORY: BACK PAIN, <6 WKS TECHNIQUE: 4 views of the lumbar spine COMPARISON: Lumbar spine radiograph from 07/19/2016 FINDINGS: Vertebral body height is grossly maintained. Decreased disc height at T11-T12, L1-L2, L4-L5 and L5-S1 with endplate sclerosis. Moderate-sized anterior osteophytes are present. Irregularity at the superior endplate of T12 may be due to degenerative changes. Moderate neuroforaminal stenosis at multiple levels. Large amount stool throughout the colon. The sacroiliac joints are patent. Procedure Note Klever Carrillo MD - 06/30/2025 HISTORY: BACK PAIN, <6 WKS TECHNIQUE: 4 views of the lumbar spine COMPARISON: Lumbar spine radiograph from 07/19/2016 FINDINGS: Vertebral body height is grossly maintained. Decreased disc height ndH95-B41, L1-L2, L4-L5 and L5-S1 with endplate sclerosis. Moderate-sizedanterior osteophytes are present. Irregularity at the superior endplate ofT12 may be due to degenerative changes. Moderate neuroforaminal stenosisat multiple levels. Large amount stool throughout the colon. Thesacroiliac joints are patent. IMPRESSION: Moderate degenerative changes of the lumbar spine. -------- FINAL REPORT -------- Dictated By: Klever Carrillo Dictated Date: 06/30/2025 19:15 ET Assigned Physician: Klever Carrillo Reviewed and Electronically Signed By: Klever Carrillo Signed Date: 06/30/2025 19:16 ET Workstation ID: [id number] Transcribed By: Self Edit Transcribed Date: 06/30/2025 19:15 ET Nika Foreman MINER IMG XR PROCEDURES Final Resu lt documented in this encounter Visit Diagnoses Diagnosis Acute left-sided low back pain with left-sided sciatica documented in this encounter Additional Health Concerns Assessment Noted Time PHQ-9 Depression Total Score: 16 025 2:24 PM EDT documented as of this encounter Care Teams Ammonium Hydroxide Operator Relationship Specialty Start Date End Date Merry Iqbal MD [address] [place] [phone] PCP - General Internal Medicine 10/17/24 documented as of this encounter
--- NOTE | 2025-07-01 10:46 | A.OFFVIS_ITS ---
Vital Signs 07/01/25 10:47 Height 5 ft 6 in Weight 141 lb 1.533 oz BMI 22.8 BP 98/59 L Blood Pressure Location Lt brachial Position Sitting Pulse 71 Intake Visit Reasons: Abdominal pain Intake Note: María Elena presents in the office as a follow up for abdominal pains. CC: She states that she has some pains in the stomach pains - she has some constipation at times but never loose stools. Lots of nausea. Bus And Rail Operator Required: No Allergies No Known Allergies Allergy (Verified 07/01/25 10:48) HPI Comments Details: This is a 56-year-old female past medical history of migraines, hypothyroidism, GERD who presents to the office for follow-up. Initial visit 06/02/22: She was last seen in the office in 2020 (Dr. Spain). Has 2 main complaints: -heartburn: She states that her heartburn had been pretty well controlled with pantoprazole in the last 1 and half year. However, 3 months ago, she started experiencing recurrence of symptoms that she described as severe burning sensation retrosternally associated with some nausea, decrease in appetite and bloating. Symptoms are persistent throughout the day. Has been taking PPI once daily with food for this. Denies any NSAIDs, recent medication changes. No painful or difficulty swallowing, vomiting, unintentional weight loss, changes in bowel habits. -constipation, episode of BRBPR: Tells me that around a month ago, she had a very severe bout of constipation where she was training for quite some time before she managed to pass a bowel movement. She noticed some blood on top of the stool, also on wiping. This was single episode on describes the blood is scant in amount. Has not recurred since. Last colonoscopy was in 2018 and did show moderate hemorrhoids. Has baseline constipation, which she manages with p.r.n. Amitiza. Unable to take it regularly due to abdominal cramping. Splinting+, excessive straining+, digitalization+. Of note, patient has history of 3 pregnancies carried to term with vaginal delivery. Denies any sexual trauma history. No bladder issues. 08/23/22: Reports heartburn is better but continues to have the cramping sensation in her abdomen which is associated with nausea, and constipation. Present most of the days of the week. Cramping gets better with passing BM. No relation to food intake or activity. Sx more prominent at night time. No fevers or chills. Appetite is unchanged. No further blood in stool. No unintentional weight loss. Continues to take Amitiza on p.r.n. basis only. 10/30/22: Reports possible food-borne infection in the past couple of weeks. Reports eating out from [employer], had a cheeseburger. Within a day developed abdominal cramping, nausea, vomiting and diarrhea. Vomiting and diarrhea has resolved, continues to have abdominal cramping, which is also improving. Outside of this episode, reports excellent response to Amitiza. Bowel movement frequency has gone from once in a week to every day. Stool consistency has also normalized, patient does not have to strain as much. Patient also reports improvement in her bloating. Continues to take fiber supplement. She did stop her MiraLax, as she felt that made her more nauseous. 04/02/23: Here for follow up. Reports sx of food getting stuck in upper throat is getting worse. Clears her throat very often. Otherwise no N,V or difficulty swallowing. No unintentional weight loss. GERD persistent despite taking protonix. Sx are more pronounced at night time. IBS-C well controlled on Amitiza. Taking only 4mcg BID. 09/18/23: EGD (Dr Spani) ESOPHAGUS: Dysphagia likely due to esophageal motility disorder - empiric balloon dilation of proximal and distal esophagus was performed. (No stricture noted on barium swallow in 2019) STOMACH: Mild gastritis and a few gastric polyps Path: A. Gastric antrum, biopsy: Gastric antral mucosa with minimal chronic inactive gastritis; negative for H pylori, intestinal metaplasia and dysplasia. B. Gastric polyp, biopsy: Gastric body mucosa with focal minimal chronic inactive inflammation and no specific change; negative for H pylori, intestinal metaplasia and dysplasia. C. Esophagus, proximal, biopsy: Squamous mucosa with no specific change; no columnar mucosa present. 10/19/23: Seen with live diplomatic interpreter/translator. Comes in after EGD. Reports some improvement with empiric dilation but continues to have globus sensation in upper chest/throat and feels the need to roseann bolus down with fluids. Pt does not recall having manometry study at [facility]. Otherwise, IBS-C related constipation is controlled wiht Amitiza. No other acute GI complaints. Results of EGD discussed and neg for EoE, esophagitis or H Pylori gastritis. 07/01/25: Here for follow up. Was last seen in 2023. Reports main issue remains IBS-C. Reports 1-2 BMs per week only when she takes something to help her go. On amitiza 8 mcg BID but thinks it has lost its effect. Was doing well until apr when she was seen in [facility] ER for chest pain. Was given morphine at that visit and since then constipation has been really hard to manage. Last BM was this morning but it was loose as she had taken dulcolax 3 tabs. Dysphagia had almost resolved post dilation. However reports return of sx in the last couple of months. Wondering if EGD can be repeated. However pt also with severe back pain these days and unable to sit or lay properly. Seeing neurosurgery next month. Also reports colo last year at [facility] - no polyps. [facility] Medical History Microscopic hematuria Seasonal allergies Hx of migraine headaches Cervicalgia Hypothyroidism Surgical History Hx of endoscopy History of colonoscopy Family History Father Leukemia Mother No problems noted. Social History Household Members: None Alcohol intake: never Patient Tobacco Use Status: Never used Tobacco Review of Systems Const All systems reviewed & are unremarkable except as noted in HPI and below Physical Exam Exam Exam: No apparent distress Nonicteric Abdomen soft, nondistended Alert and oriented x3 Vital Signs: Last Vital Signs Pulse 71 07/01/25 10:47 BP 98/59 L 07/01/25 10:47 BMI result Body Mass Index 22.8 Assessment & Plan Assessment & Plan (1) Dysphagia, pharyngoesophageal phase: Code(s): R13.14 - Dysphagia, pharyngoesophageal phase Category: Medical (2) Irritable bowel syndrome with constipation: Code(s): K58.1 - Irritable bowel syndrome with constipation Category: Medical Plan 1. IBS-C currently on amitiza 8 mcg BID which seems to not be helping as much as before. Plan: - Increase amitiza 16 mcg BID - Mag citrate 150 ml if no BM x 3 days despite increasing amitiza - Can also cont miralax once daily - If has diarrhea from above can decrease amitiza to 16 + 8 - [place] done 2023 per pt report, will get records from [facility] 2. Dysphagia Reports improvement after empiric dilation. Interested in rebooking EGD. However will defer this until pt able to position herself comfortably for the procedure. - Cont nexium - Follow up in 2 months Medications: New magnesium citrate Take half a bottle for no BM x 3 days despite amitiza 150 mL PO DAILY PRN 296 mL 0RF constipation 1 day Changed From lubiprostone (Amitiza) 8 mcg PO BID 30 days 60 caps 2RF To lubiprostone (Amitiza) 16 mcg (2 x 8 mcg) PO BID 30 days 120 caps 3RF Coding Level of Care Code Est Pt Level 4 (55428) Diagnoses Dysphagia, pharyngoesophageal phase R13.14 Irritable bowel syndrome with constipation K58.1
[2025-07-01 10:47] VITALS: BP 98/59; PULSE 71; BMI 22.8
--- OUTSIDE RECORDS SUMMARY | 2025-07-01 12:39 | XMS_ITS | Encounter Summary ---
Author Organization [facility] Address [address] [place] [address] Care Team Providers Care Gravity Meter Operator Name Role Phone Merry Iqbal MD Primary Care Prov ider Reason for Visit * Reason Onset Date Comments chronic back pain 06/29/2025 Insomnia 06/29/2025 Encounter Details Date Type Department Care Team ([facility] Contact Info) Description 06/29/2025 Telephone Adult Medicine [facility] [address] [place], [place] [phone] Merry Iqbal MD [address] [place], [place] Social History Tobacco Use Types Packs/Day Years [...] for your loved ones. For example, child and adolescent therapist or elderly care for an older adult? [...] on file documented as of this encounter Progress Notes * Makeda Singh RN - 06/29/2025 3:56 PM EST Spoke with the pt Chronic pain in the back Last week started with foul odor with urine and slight burn at the end of urine flow Scheduled eval for 06/30 at 2:15 with 30 min * Tabatha Lagunas - 06/29/2025 2:14 PM EST Patient call requires triage: Symptoms patient is presenting: has chronic back pain, have not been able to use bathroom normally,sleepless night and barely can walk due to pain and urine smells really bad. Has been taking gabapentin and tylenol and has not helped at all with pain How long has patient had these symptoms?: 06/25/2025 For ALL patients calling to schedule any appointment (routine, sick visit, follow up, consult, etc.) in the outpatient setting please ask the following questions: Do you have fever of higher than 101, sore throat with difficulty swallowing or severe shortness ofbreath? no If YES to any of these above symptoms, send a message to triage and do not book. Red dot. If no, an audio or video visit should be booked. Have you had close contact with someone with Coronavirus in the last 14 days? no Have you traveled abroad? no Have you traveled recently to another state outside of [place], [place], [place], [place], [place], [place], [place]? no o If yes, did you quarantine for 14 days or have a negative covid test? no If yes to any of the above, patient is not to be scheduled in office until after 14 day quarantine or negative covid test. If pain or injury related was it due to an accident at work or from a motor vehicle accident? If yes, date of accident/Injury: No If yes, gather 3rd green party insurance information Third Libertarian Information: not applicable PCP: Merry Robin MD Payor: [employer] HEALTH PLAN / Plan: [employer] MEDICAID / Product Type: *No Product type* / documented in this encounter Plan of Treatment Upcoming Encounters Date Type Department Care Team ([facility] st Contact Info) Description 08/05/2025 1:00 PM EST Procedure visit [address] [place] [address] Boby Saunders MD [address] [place] [address] 09/10/2025 11:30 AM EST Procedure visit Vascular Surgery - [place] 300 [facility] [address] [place] [address] Deo Mckeon MD 230 [place] [address] 10/01/2025 10:30 AM EST Office Visit Vascular Surgery - [place] [address] [phone] Manisha Lynch PA [address] [address] 12/09/2025 3:40 PM EDT Appointment Radiology Department - [address] [phone] 12/29/2025 2:00 PM EDT Office Visit Gastroenterology - [address] [phone] Radha Cordon NP [address] [address] documented as of this encounter Visit Diagnoses Not on filedocumented in this encounter Additional Health Concerns Assessment Noted Time PHQ-9 Depression Total Score: 16 025 2:24 PM EDT documented as of this encounter Care Teams Gravity Meter Operator Relationship Specialty Start Date End Date Merry Iqbal MD [address] [place] [address] PCP - General Internal Medicine 10/17/24 documented as of this encounter
--- OUTSIDE RECORDS SUMMARY | 2025-07-01 12:39 | XMS_ITS | Encounter Summary ---
Author Organization [facility] Address [address] [place] [address] Care Team Providers Care Software Test Automation Engineer Name Role Phone Merry Iqbal MD Primary Care Prov ider Encounter Details Date Type Department Care Team (Late st Contact Info) Description 06/30/2025 Results Follow-Up Adult Medicine [facility] [place] [address] [place], [place] [phone] Nika Foreman, REGIONAL BUSINESS DEVELOPMENT MANAGER [address] [place], [place] Social History Tobacco Use Types Packs/Day [...] for your loved ones. For example, child welfare manager or elderly care for an older adult? [...] on file documented as of this encounter Plan of Treatment Upcoming Encounters Date Type Department Care Team ([facility] st Contact Info) Description 08/05/2025 1:00 PM EST Procedure visit [address] [place] [address] Boby Saunders MD 175 [place] [address] 09/10/2025 11:30 AM EST Procedure visit Vascular Surgery - [place] 300 [facility] [address] [place] [address] Deo Mckeon MD 230 [place] [address] 10/01/2025 10:30 AM EST Office Visit Vascular Surgery - [place] [address] [phone] Manisha Lynch PA [address] [address] 12/09/2025 3:40 PM EDT Appointment Radiology Department [address] [phone] 12/29/2025 2:00 PM EDT Office Visit Gastroenterology - [address] [phone] Radha Cordon NP [address] [address] documented as of this encounter Visit Diagnoses Not on filedocumented in this encounter Additional Health Concerns Assessment Noted Time PHQ-9 Depression Total Score: 16 025 2:24 PM EDT documented as of this encounter Care Teams Software Test Automation Engineer Relationship Specialty Start Date End Date Merry Iqbal MD [address] [place] [address] PCP - General Internal Medicine 10/17/24 documented as of this encounter
--- OUTSIDE RECORDS SUMMARY | 2025-07-01 12:39 | XMS_ITS | Encounter Summary ---
Author Organization [facility] Address [address] [place] [address] Care Team Providers Care Track Oiler Name Role Phone Merry Iqbal MD Primary Care Prov ider Encounter Details Date Type Department Care Team (Late st Contact Info) Description 07/01/2025 Results Follow-Up Adult Medicine [facility] [address] [place], [place] [phone] Nika Foreman, APRON OPERATOR [address] [place], [place] Social History Tobacco Use Types Packs/Day [...] care for your loved ones. For example, children's attendant or elderly care for an older adult? [...] Upcoming Encounters Date Type Department Care Team ([facility] st Contact Info) Description 08/05/2025 1:00 PM EST Procedure visit [address] [place] [address] Boby Saunders MD 175 [place] [address] 09/10/2025 11:30 AM EST Procedure visit Vascular Surgery - [place] 300 [facility] [address] [place] [address] Deo Mckeon MD 230 [place] [address] 10/01/2025 10:30 AM EST Office Visit Vascular Surgery - [place] [address] [phone] Manisha Lynch PA [address] [address] 12/09/2025 3:40 PM EDT Appointment Radiology Department [address] [phone] 12/29/2025 2:00 PM EDT Office Visit Gastroenterology - [address] [phone] Radha Cordon NP [address] [address] documented as of this encounter Visit Diagnoses Not on filedocumented in this encounter Additional Health Concerns Assessment Noted Time PHQ-9 Depression Total Score: 16 025 2:24 PM EDT documented as of this encounter Care Teams Track Oiler Relationship Specialty Start Date End Date Merry Iqbal MD [address] [place] [address] PCP - General Internal Medicine 10/17/24 documented as of this encounter
--- OUTSIDE RECORDS SUMMARY | 2025-07-01 12:40 | XMS_ITS | Clinical Summary ---
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 OTC 04/22/20 24 Active riboflavin (VITAMIN B2) 400 mg tablet Take 1 tablet (400 mg total) by mouth 1 (one) time each day. 90 tablet 2 09/29/19 25 Active amitriptyline (ELAVIL) 10 mg tablet Take 1 tablet (10 mg total) by mouth at bedtime. 30 each 11 10/21/19 25 026 Active levothyroxine (SYNTHROID, LEVOTHROID) 50 mcg tablet TAKE 1 TABLET BY MOUTH EVERY DAY 90 tablet 3 10/24/19 25 Active esomeprazole (NexIUM) [address] capsule Take 1 capsule (20 mg total) by mouth 1 (one) time each day before breakfast. 90 capsule 1 10/25/19 25 Active famotidine (PEPCID) 40 mg tablet TAKE 1 TABLET BY MOUTH TWICE A DAY 180 tablet 1 02/13/20 25 Active betamethasone valerate (VALISONE) 0.1 % ointment APPLY TO AFFECTED AREA TWICE A DAY 30 g 1 02/24/20 25 Active fluticasone propionate (FLONASE) 50 mcg/actuation nasal spray ADMINISTER 1 SPRAY INTO EACH NOSTRIL 2 TIMES A DAY FOR 10 DAYS. SHAKE GENTLY CLEAN TIP, REPLACE CAP 48 mL 04/02/20 25 Active SUMAtriptan (IMITREX) 50 mg tablet Take 1 tablet (50 mg total) by mouth 1 (one) time if needed for migraine. 9 tablet 5 04/09/20 25 Active EPINEPHrine (EPIPEN) 0.3 mg/0.3 mL injection Inject 0.3 mL (0.3 mg total) into the thigh if needed for anaphylaxis. Fill with whichever brand is covered by insurance. 1 each 2 05/18/20 25 Active estradioL (ESTRACE) 0.01 % (0.1 mg/gram) vaginal cream 1g PV nightly x2 weeks then twice weekly thereafter 34 g 3 06/26/20 25 Active cyclobenzaprine (FLEXERIL) 5 mg tabletIndications: muscle spasm Take 1 tablet (5 mg total) by mouth 2 (two) times a day if needed for muscle spasms. 30 tablet 06/30/20 25 026 Active predniSONE (DELTASONE) 20 mg tabletIndications: Acute left-sided low back pain with left-sided sciatica Take 60 mg PO daily for 3 days, then take 40 mg PO daily for 3 days, then 20 mg PO daily for 3 days, then stop 18 tablet 06/30/20 25 Active ondansetron ODT (ZOFRAN-ODT) 4 mg disintegrating tabletIndications: Left upper quadrant abdominal pain Dissolve 1 tablet (4 mg total) on top of the tongue every 8 (eight) hours if needed for nausea or vomiting. 30 tablet 05/05/20 25 025 Active Problems Problem Noted Date Diagnosed Date Chest pain 05/28/2025 Intermittent chest pain 03/02/2025 Neck pain 11/06/2024 Assessment & Plan (11/07/2024 12:51 PM EDT): Patient follows up for 1 month flareup of pain in the lower intrascapular/mid thoracic midline back pain, no particular inciting event. She has history of chronic neck pain, but was doing pretty good with her neck until a month ago. She states she has difficulty looking left, right and extension. She feels off balance. Subjectively her arms feel weak, she gets numbness tingling in the palm of the hands into the third and fourth digits. She states she tried physical therapy in 2023, it was too painful and she had to stop it. She has also tried acupuncture. She had EMG a couple years back that was negative for carpal tunnel. She rates her neck pain 5-7/10. C-spine MRI 11/21/2023 showed mild-moderate C5-6, C6-7 >mild C4-5 DDD, moderate bilateral stenosis at C5-6 and C6-7, mild reversal of cervical lordosis. Ms. Ladd has intrascapular and neck pain, upper trapezius muscles with spasm. When I reviewed her MRI with Dr. Montelongo last year, she wanted her to try PT with traction, was not recommending surgery at that time. I gave her prescription to try a TENS unit at home. We talked about trying massage, NSAIDs or Tylenol. She is on gabapentin 600 mg at bedtime. She is not on any statins. She will follow-up in the office with Dr. Montelongo. White matter abnormality on MRI of brain 025 Palpitations 09/10/2024 Multiple food allergies 07/22/2024 Overview (07/22/2024): peanuts,coconut, corn,almonds,chocolate,latex,dogs,cats,dust Continuous right lower quadrant pain 01/03/2024 Overview (07/22/2024): Last Assessment & Plan: I recommended a CT scan for kidney stone. Can also look at appendix, although this is less likely abnormal based on history. If negative, will perform pelvic US to evaluate ovaries. She agreed to schedule. Cervical spondylosis 10/16/2023 Overview (07/22/2024): Last Assessment & Plan: While patient was here to address her low back pain, she mentioned that she also has equally severe neck pain, she is uncomfortable when she sleeping at night. She states she had physical therapy for her neck a couple years ago, they told her not to continue in case it would make her worse . She notes numbness in the left palm of her hand that is fairly constant, worse with sleeping however. She also mention there was an episode about a year ago where she had severe pain between her scapula, was moving like a robot, screaming in pain, that has resolved and has not recurred. 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 Normal EMG left C5-T1 innervated muscles. Her last cervical spine MRI was from 2016, images reviewed on today's visit, with overall mild multilevel degenerative changes. Ms. Ladd describes neck pain, left hand numbness. She will need an updated C- spine MRI to better evaluate her neck pain, I will review her films with Dr. Montelongo. Assessment & Plan (12/09/2024 1:47 PM EDT): Ms. Ladd continues to describe numbness and tingling in both hands. The previous EMG showed some axonal loss in the left median nerve not due to carpal tunnel syndrome. This would not explain her bilateral symptoms and I do not detect weakness on exam. I suggested physical therapy with traction but this made her pain worse when she has tried it. She is going to see if any of this improves on the change in gabapentin dosing. DDD (degenerative disc disease), lumbar 10/16/19 Overview (07/22/2024): Last Assessment & Plan: Patient was seen in the office in 2018 for low back pain, managed conservatively. She was seen in Dr. Kirkpatrick office 2021, was noted to have L4-5, L5-S1 degenerative disc disease. She was also complaining of left hand numbness tingling, had an EMG ordered to rule out carpal tunnel syndrome. She comes in today stating the pain in her low back has progressively been worsening with time, she had to go to the ED in [place] on 02/21/2023 because she was bending over and her back locked up on her. They gave her a Medrol Dosepak, which she states temporarily helped only a little bit. She describes worsening back and left lateral leg pain with sitting, sleeping, she does not sleep well. After sitting for a while, she does get up and move around, it helps a little. The bottom of her left foot is always numb . She has difficulty trying to go down stairs, her left leg subjectively feels weak, like it would not respond. She gets cramping in her left calf and foot frequently. She is on gabapentin 600 mg at bedtime, it does not help. She has not done physical therapy or had cortisone injections for the low back in a couple years. Patient had lumbar spine MRI in [place] 02/21/2023 when she was in the ED, by report she has L4-5 degenerative disc disease, DJD, moderate bilateral lateral recess stenosis and foraminal stenosis, with small central disc bulge. She also has an annular tear at L5-S1. Ms. Ladd has tenderness over the left SI joint, we talked about trying an SI joint injection, which she would like to do when she gets back from [place] 11/14/2023. She mentioned that she is running out of her tizanidine, has been on muscle relaxers for about a year fairly regularly, I asked her to call her PCP for any refills.We will call to request her MRI CD to be mailed to the office to review, I will call her with an update after reviewing it with Dr. Montelongo. Assessment & Plan (12/16/2024 3:02 PM EDT): I explained to María Elena that menopausal hormone therapy is indicated for vasomotor symptoms and vaginal dryness. It is not recommended solely for bone support. In addition, based on her history of DVT, she would not be a candidate for hormone therapy. She was understanding and will follow up for routine care. Assessment & Plan (12/09/2024 1:45 PM EDT): I reviewed the lumbar spine MRI findings in detail with Ms. Ladd and her daughter who helped to translate. She has bone marrow changes diffusely throughout the lumbar spine with some endplate sclerosis and a very mild levoscoliosis. These may be indicators of arthritic changes over the years but there is no fracture or evidence of gross instability. She has loss of disc height with desiccation at L4-5 and L5-S1 without nerve root compression. There is no significant foraminal or central stenosis and as such, I would not recommend the fusion. This is something she discussed in the past with Dr. Kirkpatrick when she was told that she did have nerves. We can see radiculitis from the inflammatory changes of degenerative disc disease, it is unclear if this is causing her leg cramps. She is on gabapentin which makes her drowsy in the mornings but does relieve her symptoms. She only takes it as needed and I think she would see more consistent results if she took it every day. I suggested going down to 300 mg nightly for several days and if she can tolerate the drowsiness in the mornings or if it improves, then she can go back up to 600 mg. She may also return to pain management. Assessment & Plan (11/07/2024 12:55 PM EDT): Patient has chronic low back pain, seems to be worsening with time, worse with sitting, while she is walking feels a little bit better but then when she stops walking symptoms get worse. She describes left >right leg numbness tingling, constant. She would rate her low back pain 7-9/10. Her legs feel weak, she almost fell recently, feels off balanced. She has been taking gabapentin 600 mg at bedtime for a while, it was helping her but now seems to be less effective. She saw Dr. Kirkpatrick in the past (back when he was working in this office), he had talked to her about L4-5, L5-S1 fusion for DDD, she states she is now at a point she would consider surgery but wanted more information. She is a non-smoker. Ms. Ladd had lumbar spine MRI 02/21/2023 in [place], the previous report mentioned L4-5 DDD, DJD, moderate bilateral recess stenosis and foraminal stenosis with small central disc bulge. Annular tear at L5-S1. I do not have this MRI for review. Ms. Ladd will need updated lumbar spine MRI which I ordered at [facility], I will have her follow-up with Dr. Montelongo afterward to see what she recommends. Patient will continue her gabapentin, we talked about adding Tylenol or NSAIDs, heat or ice. I also gave her prescription to try TENS unit which she can use for her neck and low back. She is already tried acupuncture this past year. All questions answered. Hypothyroidism 06/29/2016 Assessment & Plan (04/09/2025 2:33 PM EDT): TSH wnl. Continue levothyroxine 50mcg day. Assessment & Plan (10/24/2024 9:53 AM EST): Currently on levothyroxine 50 mcg a day. Last TSH within normal limits. Will continue same medication. Insomnia 06/29/2016 Allergic rhinitis 07/09/2009 Constipation 11/10/2008 Fibrocystic breast 10/10/2007 Abnormal mammogram 07/29/2007 Overview (07/22/2024): Benign Breast Biposy is 07/26. Patient will have mammograms every 6 months. Anxiety 07/29/2007 Depressive disorder 06/20/2006 Migraine with aura 06/20/2006 Overview (07/22/2024): IMO update Assessment & Plan (10/24/2024 9:53 AM EST): She follows regularly with neurology. Manages with sumatriptan, she also takes amitriptyline at night. Recommended to keep taking the same medications. Follow- up with the specialist. Resolved Problems Problem Noted Date Diagnosed Date Resolved Date Thrombophlebitis of superfic ial veins of left lower extremity 09/10/2024 04/09/2025 Hematuria 07/22/2024 04/09/2025 Vaginal discharge 01/03/2024 04/09/2025 Overview (07/22/2024): Last Assessment & Plan: Likely due to atrophy. Patient does not feel this needs to be treated. Dysuria 01/08/2008 04/09/2025 Overview (07/22/2024): Last Assessment & Plan: Urine only showing blood, which is known and has been evaluated previously. Will send culture and treat empirically with abx given new onset other symptoms. Lumbago 06/20/2006 04/09/2025 Overview (07/22/2024): chronic low back pain. She has required injections to the lumbar spine Encounters Date Type Department Care Team Description 07/01/2025 Results Follow-Up Adult [address] [phone] Nika Foreman, EARL 06/30/2025 2:53 PM EST - 06/30/2025 11:59 PM EST Hospital Encounter [address] [phone] Acute left-sided low back pain with left-sided sciatica Discharge Disposition: Home or Self Care 06/30/2025 2:30 PM EST Office Visit [address] [phone] Nika Foreman, EARL Acute left-sided low back pain with left-sided sciatica (Primary Dx) 06/30/2025 Results Follow-Up Adult [address] [phone] Nika Foreman NP 06/29/2025 Telephone Adult [address] [phone] Merry Iqbal MD 06/26/2025 2:45 PM EST Office [facility] [address] [place] [address] Marija Yoo, DO Vaginal atrophy (Primary Dx) 06/03/2025 Telephone Vascular Surgery - [place] [address] [place] [phone] Susan Bianchi MA 05/28/2025 1:21 PM EDT - 05/29/2025 5:18 PM EDT Hospital Encounter [facility] [address] [place] [phone] Keshav Gentile MD Flores, Carlos M, MD Bell, Alistair A, MD Kela, Kashyap Devendrabhai, MD Chest pain, unspecified type (Primary Dx) Discharge Disposition: Home or Self Care 05/25/2025 1:00 PM EDT - 05/25/2025 11:59 PM EDT Hospital Encounter [facility] Ultrasound [address] [place] [address] Pelvic pain; PID (acute pelvic inflammatory disease) Discharge Disposition: Home or Self Care 05/25/2025 Results Follow-Up Obstetrics and Gynecology - [address] [phone] Oneil Nielsen CNM 05/21/2025 9:15 AM EDT Office Visit Obstetrics & Gynecology - [facility] [address] [place] [address] Oneil Nielsen CNM Vaginal discharge (Primary Dx); Status post hysterectomy; Pelvic pain; Vaginal polyp; PID (acute pelvic inflammatory disease); Venereal disease screening 05/20/2025 1:00 PM EDT Procedure visit [facility] [address] [facility] [address] [place] [phone] Boby Saunders MD Migraine with aura and without status migrainosus, not intractable (Primary Dx) 05/12/2025 11:06 AM EDT - 05/12/2025 11:59 PM EDT Hospital Encounter CT Scan [address] [phone] Left upper quadrant abdominal pain Discharge Disposition: Home or Self Care 05/05/2025 11:00 AM EDT Office Visit Adult Medicine [address] [phone] Merry Iqbal MD Left upper quadrant abdominal pain (Primary Dx); History of pancreatitis; Need for prophylactic vaccination and inoculation against influenza 05/04/2025 Telephone Adult Medicine [address] [phone] Merry Iqbal MD 04/23/2025 Telephone [facility] [address] [facility] [address] [place] [address] Merry Iqbal MD 04/09/2025 2:00 PM EDT Office Visit Adult Medicine [address] [phone] Merry Iqbal MD Adult general medical examination (Primary Dx); Hypothyroidism, unspecified type; Vitamin D deficiency from Last 3 Months Immunizations Immunization Administration Dates Next Due H1N1 Inj Preservative Free 08/05/2009 Influenza Quadravalent, MDCK , 0.5ml, preservative free (Flucelvax) 6mo and older 06/06/2022 Influenza Quadrivalent, 0.5m l, preservative free (Fluarix; FluLaval; Fluzone) ages 6mo and older (Afluria) 3yo and older 06/21/2021 Influenza Quadrivalent, with preservative (Fluzone; Afluria) 6mo and older 06/13/2019 Influenza trivalent, 0.5mL, preservative free (Fluarix; FluLaval; Fluzone) ages 6mo and older (Afluria) 3 years and older 04/22/2024 Influenza trivalent, MDCK, 0 .5mL, preservative free (Flucelvax) 6mo and older 05/05/2025 Influenza trivalent, with pr eservative (Fluzone; Afluria) 6mo and older 06/05/2023,06/29/2016,05/23/2009 Pfizer (ages 12 & older) Bivalent, COVID-19 05/20 Tdap Tetanus diptheria acell ular pertussis (Boostrix; Adacel) 7yo and older 06/29/2016 Surgical History Surgery Date Site/Laterality Comments OTHER SURGICAL HISTORY - 2007 TOTAL HYSTERECTOMY W/O BSO, Dr. Hickman, [facility], fibroids ESOPHAGOGASTRODUODENOSCOPY 02/13/2008 Erosive gastritis/antrum-bx: gastritis,HPylori+(treated 02/2008), nl esophagus-bx:Nl OTHER SURGICAL HISTORY Abdominoplasty COLONOSCOPY 12/28/2009 Up to cecum, good preparation, normal colon exam OTHER SURGICAL HISTORY 03/15/2017 ESOPHAGUS SINGLE CONTRAST STUDY; [facility]; normal examination. OTHER SURGICAL HISTORY 2022 BBL, needed PRBC tranfusion afterwards, [place] OTHER SURGICAL HISTORY N/A BBO 2022 in [place] HYSTERECTOMY Medical History Medical History Date Comments Depressive disorder, not els ewhere classified 06/20/2006 Anxiety state, unspecified 06/20/2006 Allergy, unspecified not els ewhere classified 06/20/2006 Lumbago 06/20/2006 Migraine with aura, without mention of intractable migraine without mention of status migrainosus 06/20/2006 Dyspepsia and other specifie d disorders of function of stomach 06/20/2006 Abnormal mammogram 07/29/2007 Benign Breast Biposy is 07/26. Patient will have mammograms every 6 months. Hypothyroidism 06/29/2016 Insomnia 06/29/2016 Thrombophlebitis of superfic ial veins of left lower extremity 09/10/2024 Family History Medical History Relation Name Comments Prostate cancer Father Colon cancer Paternal Grandfather Breast cancer Sister 1 Cervical cancer Sister 2 Uterine cancer Sister 3 Relation Name Status Comments Daughter Alive Father Paternal Grandfather Sister 1 Sister 2 Sister 3 Alive breast CA at ag e 40. Son 1 Alive Son 2 Alive Social History Tobacco Use Types Packs/Day Years [...] care for your loved ones. For example, director child development center or elderly care for an older adult? [...] PM EST Sexual Orientation Not on file Obstetrics History Para Term AB IAB SAB Ectopic Multiple Livin g Live Births 3 3 3 0 0 0 0 0 Date Outcome GA Total Labor Labor/2nd/3rd Weight Sex Type Anes PTL Julia A1 A5 Name Clin Term Term Term Last Filed Vital Signs Vital Sign Reading Time Taken Comments Blood Pressure 116/61 06/30/2025 2:26 PM EST Pulse 87 06/30/2025 2:26 PM EST Temperature 35.9 C (96.7 F) 06/30/2025 2:26 PM EST Respiratory Rate 16 05/29/2025 11:54 AM EDT Oxygen Saturation 95% 06/30/2025 2:26 PM EST Inhaled Oxygen Concentration - - Weight 66.2 kg (146 lb) 06/30/2025 2:26 PM EST Height 165.1 cm (5' 5 ) 06/30/2025 2:26 PM EST Body Mass Index 24.3 06/30/2025 2:26 PM EST Plan of Treatment Upcoming Encounters Date Type Department Care Team (Late st Contact Info) Description 08/05/2025 1:00 PM EST Procedure visit [facility] [address] [facility] [address] [place] [phone] Boby Saunders MD [address] [place] [address] 09/10/2025 11:30 AM EST Procedure visit Vascular Surgery - [place] [address] [facility] [address] [place] [phone] Deo Mckeon MD [address] [place] [phone] 10/01/2025 10:30 AM EST Office Visit Vascular [facility] [address] [facility] [address] [place] [phone] Manisha Lynch PA [address] [facility] [address] [place] [address] 12/09/2025 3:40 PM EDT Appointment Radiology Department - [address] [phone] 12/29/2025 2:00 PM EDT Office Visit Gastroenterology - [address] [facility] [address] [facility] [address] [place] [phone] Radha Cordon NP [address] [facility] [address] [place] [address] Health Maintenance Due Date Last Done Comments Pneumococcal Vaccine: 50+ Years (1 of 1 - PCV) 2015 Zoster Vaccines (1 of 2) 2015 COVID-19 Vaccine (4 - season) 2025 06/06/2022, 12/24/2020, 12/03/2020 Social Influencers of Health Screening 04/09/2026 04/09/2025 DTaP,Tdap,and Td Vaccines (2 - Td or Tdap) 06/29/2026 06/29/2016 Breast Cancer Screening 12/03/2026 12/04/19, 12/19/2023, 12/19/2023, Additional history exists Cholesterol Screening (Lipid Panel) 10/18/2028 10/19/2023 Colorectal Cancer Screening: Colonoscopy 05/12/2034 05/12/2024 RSV Immunization Adult Patients (1 - 1-dose 75+ series) 2040 HIV Screening Completed 06/22/2006 Cervical Cancer Screening: Pap Smear Discontinued 10/19/2015, 10/19/2015 Hepatitis C Screening Completed 10/19/2023 Depression Screening Completed 04/09/2025, 01/22/20 24 Influenza Vaccine Completed 05/05/2025, , 06/05/2023, Additional history exists HIB Vaccines Aged Out No longer eligi ble based on patient's age to complete this topic HPV Vaccines Aged Out No longer eligi ble based on patient's age to complete this topic Hepatitis A Vaccines Aged Out No long er eligible based on patient's age to complete this topic Hepatitis B Vaccines Discontinued IPV Vaccines Aged Out No longer eligi ble based on patient's age to complete this topic MMR Vaccines Aged Out No longer eligi ble based on patient's age to complete this topic Meningococcal ACWY Vaccine Aged Out N o longer eligible based on patient's age to complete this topic Meningococcal B Vaccine Aged Out No l onger eligible based on patient's age to complete this topic RSV Immunization Patients Under 20 months Aged Out No longer eligible based on patient's age to complete this topic Varicella Vaccines Aged Out No longer eligible based on patient's age to complete this topic Procedures Procedure Name Priority Date/Time Associated Diagnosis [...] left-sided low back pain with left-sided sciatica ECG ANNOTATED 05/30/2025 ECG ANNOTATED 05/30/2025 NM EXERCISE STRESS TEST W/ MYOCARDIAL PERFUSION Routine 05/29/2025 3:40 PM EDT Chest pain, unspecified type MAGNESIUM Routine 05/29/2025 6:57 AM EDT BASIC METABOLIC PANEL Routine 05/29/2025 6:57 AM EDT CBC WITH AUTO DIFFERENTIAL Routine 05/29/2025 6:56 AM EDT CBC AND DIFFERENTIAL Routine 05/29/2025 6:56 AM EDT D-DIMER STAT 05/28/2025 2:44 PM EDT TROPONIN I HIGH SENSITIVITY Timed 05/28/2025 2:05 PM EDT ECG 12-LEAD STAT 05/28/2025 2:00 PM EDT XR CHEST 2 VIEWS STAT 05/28/2025 1:46 PM EDT CBC WITH AUTO DIFFERENTIAL STAT 05/28/2025 1:07 PM EDT B-TYPE NATRIURETIC PEPTIDE STAT 05/28/2025 1:07 PM EDT MAGNESIUM STAT 05/28/2025 1:07 PM EDT LIPASE STAT 05/28/2025 1:07 PM EDT COMPREHENSIVE METABOLIC PANEL STAT 05/28/2025 1:07 PM EDT CBC AND DIFFERENTIAL STAT 05/28/2025 1:07 PM EDT TROPONIN I HIGH SENSITIVITY Timed 05/28/2025 1:07 PM EDT ECG 12-LEAD STAT 05/28/2025 1:05 PM EDT US PELVIS NON OB COMPLETE W TRANSVAGINAL Routine 05/25/2025 1:50 PM EDT Pelvic pain PID (acute pelvic inflammatory disease) TRICHOMONAS VAGINALIS ANTIGEN Routine 05/21/2025 9:04 AM EDT Vaginal discharge CHLAMYDIA TRACHOMATIS AND NEISSERIA GONORRHOEAE PCR Routine 05/21/2025 9:04 AM EDT Venereal disease screening WET PREP, GENITAL Routine 05/21/2025 9:0 4 AM EDT Vaginal discharge CT ABDOMEN PELVIS WO AND W CONTRAST Routine 05/12/2025 11:22 AM EDT Left upper quadrant abdominal pain FRENCH URINE CULTURE TUBE Routine 05/05/2025 12:43 PM EDT Left upper quadrant abdominal pain CBC WITH AUTO DIFFERENTIAL Routine 05/05/2025 11:30 AM EDT Left upper quadrant abdominal pain URINALYSIS WITH REFLEX MICROSCOPIC AND CULTURE Routine 05/05/2025 11:30 AM EDT Left upper quadrant abdominal pain VITAMIN D 25 HYDROXY Routine 05/05/2025 11:30 AM EDT Vitamin D deficiency CBC AND DIFFERENTIAL Routine 05/05/2025 11:30 AM EDT Left upper quadrant abdominal pain LIPASE Routine 05/05/2025 11:30 AM EDT Left upper quadrant abdominal pain BASIC METABOLIC PANEL Routine 05/05/2025 11:30 AM EDT Left upper quadrant abdominal pain URINALYSIS WITH REFLEX MICROSCOPIC AND CULTURE Routine 05/05/2025 11:30 AM EDT Left upper quadrant abdominal pain CULTURE URINE Routine 05/05/2025 11:30 AM EDT Left upper quadrant abdominal pain MAMMO DIGITAL SCREENING W CEASAR BILAT Routine 12/03/2024 1:31 PM EDT Encounter for screening mammogram for breast cancer COLONOSCOPY Routine 05/12/2024 DEPRESSION SCREENING Routine 01/22/2024 HEPATITIS C SCREENING Routine 10/19/2023 LIPID PANEL Routine 10/19/2023 HPV Routine 10/19/2015 HIV SCREENING Routine 06/22/2006 from Last 3 Months or Most Recently Relevant to Health Maintenance Results * XR Lumbar Spine 4+ Views [...] Signed Date: 06/30/2025 19:16 ET Workstation ID: [id number] Transcribed By: Self Edit Transcribed Date: 06/30/2025 [...] height is grossly maintained. Decreased disc height [id number], L1-L2, L4-L5 and L5-S1 with endplate sclerosis. [...] Signed Date: 06/30/2025 19:16 ET Workstation ID: [id number] Transcribed By: Self Edit Transcribed Date: 06/30/2025 19:15 ET us Nika Foreman ELECTRIC POWER LINE REPAIRER IMG XR PROCEDURES Final Resu lt * (ABNORMAL) Urinalysis with reflex microscopic and culture (06/30/2025 3:15 PM EST) Only the most recent of2 resultswithin the time period is included. Specific [place] Urine 1.016 1.003 - 1.030 LAB URINALYSIS - AUTOMATED METHOD 06/30/2025 5:03 PM [facility] pH, Urine 6.0 5.0 - 8.0 pH LAB URINALYSIS - AUTOMATED METHOD 06/30/2025 5:03 PM [facility] Leukocytes, Urine Trace(A) Negative LAB URINALYSIS - AUTOMATED METHOD 06/30/2025 5:03 PM [facility] Nitrite, Urine Negative Negative LAB URINALYSIS - AUTOMATED METHOD 06/30/2025 5:03 PM [facility] Protein, Urine Negative <=Trace mg/dL LAB URINALYSIS - AUTOMATED METHOD 06/30/2025 5:03 PM [facility] Glucose, Urine Negative Negative mg/dL LAB URINALYSIS - AUTOMATED METHOD 06/30/2025 5:03 PM [facility] Ketones, Urine Negative Negative mg/dL LAB URINALYSIS - AUTOMATED METHOD 06/30/2025 5:03 PM [facility] Urobilinogen, Urine 0.2 0.2 - 1.0 mg/dL LAB URINALYSIS - AUTOMATED METHOD 06/30/2025 5:03 PM [facility] Bilirubin, Urine Negative Negative LAB URINALYSIS - AUTOMATED METHOD 06/30/2025 5:03 PM [facility] Blood, Urine Small(A) Negative LAB URINALYSIS - AUTOMATED METHOD 06/30/2025 5:03 PM [facility] RBC, Urine 10(H) 0 - 4 /HPF 06/30/2025 5:03 PM [facility] WBC, Urine 20(H) 0 - 4 /HPF 06/30/2025 5:03 PM [facility] Squamous Epithelial, Urine 80(H) 0 - 60 /LPF 06/30/2025 5:03 PM [facility] Bacteria, Urine Negative Negative /HPF 06/30/2025 5:03 PM [facility] Hyaline Casts, Urine 3 0 - 3 /LPF 06/30/2025 5:03 PM [facility] Urine Urine specimen obtained by clean catch procedure / Unknown Non-blood Collection / Unknown 06/30/2025 3:15 PM EST 06/30/2025 3:16 PM EST Nika Foreman ELECTRIC P[employer] LINE REPAIRER LAB URINE ORDERABLES Final R esult Performing Organization Address City/[facility]/ZIP Co de Phone Number [facility] [address] [place] [address], [place] [phone] * Frnech urine culture tube (06/30/2025 3:15 PM EST) Only the most recent of2 resultswithin the time period is included. Extra Tube Hold for add-ons. 06/30/2025 5:01 PM [facility] Comment:Auto resulted. Urine Urine specimen obtained by clean catch procedure / Unknown Non-blood Collection / Unknown 06/30/2025 3:15 PM EST 06/30/2025 3:16 PM EST Nika Foreman ELECTRIC P[employer] REPAIRER LAB URINE ORDERABLES Final R esult Performing Organization Address City/[facility]/ZIP Co de Phone Number [facility] [address] [place] [address], [place] [phone] * Culture urine (06/30/2025 3:15 PM EST) Only the most recent of2 resultswithin the time period is included. Culture, Urine 10,000-49,000 CFU/mL Mixed urogenital ellen, no uropathogens present. Suggest repeat specimen if clinically indicated. 07/01/2025 8:09 AM EST [facility] Urine Urine specimen obtained by clean catch procedure / Unknown Non-blood Collection / Unknown 06/30/2025 3:15 PM EST 06/30/2025 5:03 PM EST Nika Foreman NP LAB MICROBIOLOGY - GENERAL O RDERABLES Final Result [facility] [address] [place] [address], [place] [phone] * (ABNORMAL) POC Urine Auto W/O Micro (06/30/2025 2:45 PM EST) Leukocytes UA POC Negative Negative Nitrite UA POC Negative Negative Urobilinogen UA POC Negative Negative Protein UA POC Negative Negative PH UA POC 6.0 5.0 - 9.0 Blood UA POC Positive(A) Negative, Trace Specific [place] UA POC 1.020 1.001 - 1.035 Ketones UA POC 1+(A) Negative Bilirubin UA POC Negative Negative Glucose UA POC Normal Normal, Trace Urine Urine specimen obtained by clean catch procedure / Unknown 06/30/2025 2:45 PM EST Nika Foreman NP POINT OF CARE TEST ENTER/ADRIANE T ORDERABLES Final Result * ECG-Annotated (05/30/2025) Only the most recent of2 resultswithin the time period is included. us Provider Onbase MD ECG ORDERABLES Final Result * NM EXERCISE STRESS TEST W/ MYOCARDIAL PERFUSION (05/29/2025 3:40 PM EDT) Exercise/injec tion duration (min) 7 CV PACS STRESS Exercise/injec tion duration (sec) 30 CV PACS STRESS Peak SBP 128 mmHg CV PACS STRESS Peak DBP 60 mmHg CV PACS STRESS Peak HR 155 bpm CV PACS STRESS Baseline HR 67 bpm CV PACS STRESS Baseline SBP 104 mmHg CV PACS STRESS Baseline DBP 78 mmHg CV PACS STRESS Estimated workload 10.1 METS CV PACS STRESS Percent HR 96 % CV PACS STRESS Rate Pressure Product 19,840.0 mmHg*bpm CV PACS STRESS Target HR 137 bpm CV PACS STRESS Anatomical Region Laterality Modality Nuclear Medicine 05/29/2025 1:07 PM EDT 05/29/2025 2:54 PM EDT Impressions 05/29/2025 4:38 PM EDT Normal exercise stress test with nuclear imaging. Nuclear imaging revealed normal myocardial perfusion without evidence of ischemia or infarction. There is a normal TID ratio. Gated SPECT imaging was performed and revealed normal left ventricular systolic function and regional wall motion with an LVEF of 60%. The right ventricle is normal in size with normal systolic function. Narrative 05/29/2025 4:38 PM EDT Exercise stress test was performed. Patient reported no chest pain during the stress test. Exercise capacity was above average for age and gender. Normal blood pressure response. There were no ischemic ECG changes or significant arrhythmias with stress. The patient reported no chest pain with stress. Raw imaging reveals no significant artifacts. The left ventricular cavity is small (38 ml end diastolic volume). Myocardial perfusion imaging of the left ventricle reveals normal myocardial perfusion without evidence of ischemia or infarction. Gated SPECT imaging was performed which demonstrated normal left ventricular systolic function. Regional wall motion is normal. The calculated LVEF is 60%. TID ratio is 1.1. The right ventricle is normal in size. Right ventricular systolic function is normal. Stress Findings A Mk protocol stress test was performed. Overall, the patient's exercise capacity was above average. Total stress time was 7 min and 30 sec. The test was stopped because the patient experienced fatigue. Blood pressure demonstrated a normal response. Heart rate demonstrated a normal response. The patient reported no chest pain during the stress test. ECG 59 year old female admitted with complaint of chest pain. No significant cardiac history. The ECG shows normal sinus rhythm. The ECG axis is normal. There were no arrhythmias during stress. There is non-specific ST abnormalities during stress not meeting strict criteria for ischemia. There were no arrhythmias during recovery. Nuclear Study Quality Study technique: MPI, SPECT, multi, rest and stress, 1 day. Overall image quality is good. CT attenuation correction was utilized. There are no artifacts present. There was no increased lung uptake of the radiopharmaceutical. No radiopharmaceutical dose was extravasated. Patient has a history of chest pain. Nuclear Prior Study There is no prior study available for comparison. Mandi Ramirez MD CV STRESS PROCEDURES Final Resu lt * Magnesium (05/29/2025 6:57 AM EDT) Only the most recent of2 resultswithin the time period is included. Pathologist [facility] Magnesium 1.9 1.9 - 2.6 mg/dL LAB CHEMISTRY METHOD 05/29/2025 7:58 AM EDT [facility] Blood Venous blood specimen / Unknown Venipuncture / Unknown 05/29/2025 6:57 AM EDT 05/29/2025 7:05 AM EDT Simon Qureshi MD LAB BLOOD ORDERABLES Final Re sult [facility] [address] [place] [address], [place] [phone] * Basic metabolic panel (05/29/2025 6:57 AM EDT) Only the most recent of2 resultswithin the time period is included. Sodium 139 133 - 145 mmol/L LAB CHEMISTRY METHOD 05/29/2025 7:58 AM EDT [facility] Potassium 3.9 3.5 - 5.5 mmol/L LAB CHEMISTRY METHOD 05/29/2025 7:58 AM EDT [facility] Chloride 106 96 - 110 mmol/L LAB CHEMISTRY METHOD 05/29/2025 7:58 AM EDT [facility] CO2 28 21 - 32 mmol/L LAB CHEMISTRY METHOD 05/29/2025 7:58 AM EDT [facility] Anion Gap 5 3 - 11 LAB CHEMISTRY METHOD 05/29/2025 7:58 AM EDT [facility] Glucose 83 70 - 100 mg/dL LAB CHEMISTRY METHOD 05/29/2025 7:58 AM EDT [facility] BUN 12 5 - 25 mg/dL LAB CHEMISTRY METHOD 05/29/2025 7:58 AM [facility] Creatinine 0.82 0.50 - 1.10 mg/dL LAB CHEMISTRY METHOD 05/29/2025 7:58 AM EDT [facility] eGFR 83 >=60 mL/min/1. 73m2 LAB CHEMISTRY METHOD 05/29[facility]2025 7:[facility] Comment:Calculation based on the Chronic Kidney Disease Epidemiology Collaboration (CKD-EPI) equation refit without adjustment for race. BUN/Creatinine Ratio 14.6 LAB CHEMISTRY METHOD 05/29/2025 7:58 AM [facility] Calcium 9.2 8.5 - 10.5 mg/dL LAB CHEMISTRY METHOD 05/29/2025 7:58 AM [facility] Blood Venous blood specimen / Unknown Venipuncture / Unknown 05/29/2025 6:57 AM EDT 05/29/2025 7:05 AM EDT us Simon Qureshi MD LAB BLOOD ORDERABLES Final Re sult [facility] [address] [place] [address], * CBC auto differential (05/29/2025 6:56 AM EDT) Only the most recent of3 resultswithin the time period is included. WBC 6.8 4.8 - 10.8 K/mcL LAB HEMETOLOGY METHOD 05/29/2025 7:18 AM EDT [facility] RBC 3.90 3.80 - 4.80 M/[facility] LAB HEMETOLOGY METHOD 05/29/2025 7:18 AM [facility] Hemoglobin 11.7 11.5 - 16.0 g/dL LAB HEMETOLOGY METHOD 05/29/2025 7:18 AM [facility] Hematocrit 35.4 35.0 - 47.0 % LAB HEMETOLOGY METHOD 05/29/2025 7:18 AM [facility] MCV 91.9 79.0 - 98.0 FL LAB HEMETOLOGY METHOD 05/29/2025 7:18 AM [facility] MCH 30.4 27.0 - 32.0 pcg LAB HEMETOLOGY METHOD 05/29/2025 7:18 AM [facility] MCHC 33.1 32.0 - 37.0 g/dL LAB HEMETOLOGY METHOD 05/29/2025 7:18 AM [facility] RDW 12.2 11.0 - 15.0 % LAB HEMETOLOGY METHOD 05/29/2025 7:18 AM [facility] Platelets 229 130 - 400 K/mcL LAB HEMETOLOGY METHOD 05/29/2025 7:18 AM [facility] MPV 8.4 7.0 - 11.0 FL LAB HEMETOLOGY METHOD 05/29/2025 7:18 AM [facility] NRBC 0.0 <1.0 % LAB HEMETOLOGY METHOD 05/29/2025 7:18 AM [facility] NRBC Absolute 0.00 <0.10 K/mcL LAB HEMETOLOGY METHOD 05/29/2025 7:18 AM [facility] Neutrophils Relative 53.3 % LAB HEMETOLOGY METHOD 05/29/2025 7:18 AM [facility] Lymphocytes Relative 35.5 % LAB HEMETOLOGY METHOD 05/29/2025 7:18 AM [facility] Monocytes Relative 9.2 % LAB HEMETOLOGY METHOD 05/29/2025 7:18 AM EDT [facility] Eosinophils Relative 1.0 % LAB HEMETOLOGY METHOD 05/29/2025 7:18 AM EDT [facility] Basophils Relative 0.7 % LAB HEMETOLOGY METHOD 05/29/2025 7:18 AM EDT [facility] Immature Granulocytes Relative 0.3 % LAB HEMETOLOGY METHOD 05/29/2025 7:18 AM EDT [facility] Neutrophils Absolute 3.63 1.50 - 7.00 K/mcL LAB HEMETOLOGY METHOD 05/29/2025 7:18 AM EDT [facility] Lymphocytes Absolute 2.42 1.00 - 5.00 K/mcL LAB HEMETOLOGY METHOD 05/29/2025 7:18 AM EDT [facility] Monocytes Absolute 0.63 0.20 - 1.00 K/mcL LAB HEMETOLOGY METHOD 05/29/2025 7:18 AM EDT [facility] Eosinophils Absolute 0.07 0.00 - 0.50 K/mcL LAB HEMETOLOGY METHOD 05/29/2025 7:18 AM EDT [facility] Basophils Absolute 0.05 0.00 - 0.20 K/mcL LAB HEMETOLOGY METHOD 05/29/2025 7:18 AM EDT [facility] Immature Granulocytes Absolute 0.02 0.00 - 0.03 K/mcL LAB HEMETOLOGY METHOD 05/29/2025 7:18 AM EDT [facility] Blood Venous blood specimen / Unknown Venipuncture / Unknown 05/29/2025 6:56 AM EDT 05/29/2025 7:05 AM EDT us Simon Qureshi MD LAB BLOOD ORDERABLES Final Re sult [facility] [address] [place] [address], [place] [phone] * D-dimer, quantitative (05/28/2025 2:44 PM EDT) [facility] D-Dimer, Quant (D-DU) 189 <=230 ng/mL DDU LAB COAGULATION METHOD 05/28/2025 3:08 PM EDT [facility] Blood Venous blood specimen / Unknown Venipuncture / Unknown 05/28/2025 2:44 PM EDT 05/28/2025 2:54 PM EDT [facility] - 05/28/2025 3:08 PM EDT D-Dimer <230 ng/mL (D-Dimer units) is the threshold for exclusion of DVT/PE. D-Dimer may be elevated in: Critically ill, severely infected, trauma patients, DIC, acute CVA, acute ID, unstable angina, AF, old age, , and smoking. D-Dimer may be decreased with: Initiation of heparin therapy and oral anticoagulants. us Keshav Gentile MD LAB BLOOD ORDERABLES Final Result [facility] [address] [place] [address], [place] [phone] * Troponin I high sensitivity (05/28/2025 2:05 PM EDT) Only the most recent of2 resultswithin the time period is included. [facility] High Sensitivity Troponin I 3 <=54 ng/L LAB CHEMISTRY METHOD 05/28/2025 3:12 PM EDT [facility] Blood Venous blood specimen / Unknown Venipuncture / Unknown 05/28/2025 2:05 PM EDT 05/28/2025 2:17 PM EDT [facility] - 05/28/2025 3:12 PM EDT High levels of biotin in samples may falsely decrease hsTroponin values. Use caution when interpreting hsTroponin results in patients taking biotin who exhibit renal impairment (eGFR <60) or in patients taking more than 20 mg/day of biotin. Lyela Correa LAB BLOOD ORDERABLES Final Re sult Performing Organization Address City/[facility]/ZIP Co de Phone Number [facility] [address] [place] [address], [place] [phone] * ECG 12 lead (05/28/2025 2:00 PM EDT) Only the most recent of2 resultswithin the time period is included. Ventricular Rate ECG 63 BPM GEMUSE Atrial Rate 63 BPM GEMUSE P-R Interval 174 ms GEMUSE QRS Duration 72 ms GEMUSE Q-T Interval 424 ms GEMUSE QTc 433 ms GEMUSE P Wave [place] 61 degrees GEMUSE R [place] 8 degrees GEMUSE T [place] 36 degrees GEMUSE ECG Interpretation Normal sinus rhythm Low voltage QRS Borderline ECG When compared with ECG of 28-MAY-2025 13:05, (unconfirmed) No significant change was found Confirmed by Bety MCKEON YUFENG ([id number]) on 05/28/2025 5:48:56 PM GEMUSE 05/28/2025 2:00 PM EDT 05/28/2025 5:48 PM EDT Leyla Correa DO ECG ORDERABLES Final Result Performing Organization Address [facility] Co de Phone Number GEMUSE * XR Chest 2 Views (05/28/2025 1:46 PM EDT) Anatomical Region Laterality Modality Body Radiographic Krista ging 05/28/2025 2:01 PM EDT Impressions 05/28/2025 2:02 PM EDT FINDINGS/IMPRESSION: Normal heart size and pulmonary vascularity. Lungs are clear and costophrenic angles are sharp. No acute osseous abnormality. There is a nodular opacity at the left apex which is favored to be related to the anterior 1st rib. -------- FINAL REPORT -------- Dictated By: Machelle Crowley Dictated Date: 05/28/2025 14:01 ET Assigned Physician: Machelle Crowley Reviewed and Electronically Signed By: Machelle Crowley Signed Date: 05/28/2025 14:02 ET Workstation ID: [id number] Transcribed By: Self Edit Transcribed Date: 05/28/2025 14:01 ET Narrative 05/28/2025 2:02 PM EDT XR CHEST 2 VIEWS INDICATION: chest pain TECHNIQUE: XR CHEST 2 VIEWS COMPARISON: None Procedure Note Machelle Crowley MD - 05/28/2025 XR CHEST 2 VIEWS INDICATION: chest pain TECHNIQUE: XR CHEST 2 VIEWS COMPARISON: None IMPRESSION: FINDINGS/IMPRESSION: Normal heart size and pulmonary vascularity. Lungsare clear and costophrenic angles are sharp. No acute osseousabnormality. There is a nodular opacity at the left apex which is favoredto be related to the anterior 1st rib. -------- FINAL REPORT -------- Dictated By: Machelle Crowley Dictated Date: 05/28/2025 14:01 ET Assigned Physician: Machelle Crowley Reviewed and Electronically Signed By: Machelle Crowley Signed Date: 05/28/2025 14:02 ET Workstation ID: [id number] Transcribed By: Self Edit Transcribed Date: 05/28/2025 14:01 ET us Leyla Correa DO IMG XR PROCEDURES Final Resul t * B-type natriuretic peptide (05/28/2025 1:07 PM EDT) BNP 28 <=100 pcg/mL LAB CHEMISTRY METHOD 05/28/2025 2:09 PM EDT [facility] Blood Venous blood specimen / Unknown Venipuncture / Unknown 05/28/2025 1:07 PM EDT 05/28/2025 1:16 PM EDT us Leyla Correa DO LAB BLOOD ORDERABLES Final Re sult [facility] [address] [place] [address], [place] [phone] * Lipase (05/28/2025 1:07 PM EDT) Only the most recent of2 resultswithin the time period is included. Lipase 33 13 - 75 unit/L LAB CHEMISTRY METHOD 05/28/2025 2:13 PM [facility] Blood Venous blood specimen / Unknown Venipuncture / Unknown 05/28/2025 1:07 PM EDT 05/28/2025 1:16 PM EDT Leyla Correa DO LAB BLOOD ORDERABLES Final Re sult [facility] [address] [place] [address], [place] [phone] * (ABNORMAL) Comprehensive metabolic panel (05/28/2025 1:07 PM EDT) Pathologist [facility] Sodium 140 133 - 145 mmol/L LAB CHEMISTRY METHOD 05/28/2025 2:21 PM [facility] Potassium 4.3 3.5 - 5.5 mmol/L LAB CHEMISTRY METHOD 05/28/2025 2:21 PM [facility] Chloride 109 96 - 110 mmol/L LAB CHEMISTRY METHOD 05/28/2025 2:21 PM [facility] CO2 26 21 - 32 mmol/L LAB CHEMISTRY METHOD 05/28/2025 2:21 PM [facility] Anion Gap 5 3 - 11 LAB CHEMISTRY METHOD 05/28/2025 2:21 PM [facility] Glucose 110(H) 70 - 100 mg/dL LAB CHEMISTRY METHOD 05/28/2025 2:21 PM [facility] BUN 12 5 - 25 mg/dL LAB CHEMISTRY METHOD 05/28/2025 2:21 PM [facility] Creatinine 0.82 0.50 - 1.10 mg/dL LAB CHEMISTRY METHOD 05/28/2025 2:21 PM EDT [facility] eGFR 83 >=60 mL/min/1. 73m2 LAB CHEMISTRY METHOD 05/28/2025 2:21 PM EDT [facility] Comment:Calculation based on the Chronic Kidney Disease Epidemiology Collaboration (CKD-EPI) equation refit without adjustment for race. BUN/Creatinine Ratio 14.6 LAB CHEMISTRY METHOD 05/28/2025 2:21 PM EDT [facility] Calcium 9.3 8.5 - 10.5 mg/dL LAB CHEMISTRY METHOD 05/28/2025 2:21 PM T [facility] AST (SGOT) 24 10 - 42 unit/L LAB CHEMISTRY METHOD 05/28/2025 2:21 PM [facility] ALT (SGPT) 24 10 - 60 unit/L LAB CHEMISTRY METHOD 05/28/2025 2:21 PM [facility] Alkaline Phosphatase 99 42 - 121 unit/L LAB CHEMISTRY METHOD 05/28/2025 2:21 PM [facility] Total Protein 7.7 6.0 - 8.0 g/dL LAB CHEMISTRY METHOD 05/28/2025 2:21 PM [facility] Albumin 3.7 3.2 - 5.0 g/dL LAB CHEMISTRY METHOD 05/28/2025 2:21 PM [facility] Total Bilirubin 0.2 0.0 - 1.4 mg/dL LAB CHEMISTRY METHOD 05/28/2025 2:21 PM EDT [facility] Blood Venous blood specimen / Unknown Venipuncture / Unknown 05/28/2025 1:07 PM EDT 05/28/2025 1:16 PM EDT us Leyla Correa DO LAB BLOOD ORDERABLES Final Re sult [facility] [address] [place] [address], [place] [phone] * US Pelvis Non OB Complete w Transvaginal (05/25/2025 1:50 PM EDT) Anatomical Region Laterality Modality Body, Pelvis Ultrasound 05/25/2025 4:30 PM EDT Impressions 05/25/2025 4:32 PM EDT Impression: 1. Status post hysterectomy. 2. Ovaries not identified. 3. No abnormality is seen. Telerad PA ([id number]) -------- FINAL REPORT -------- Dictated By: Michelle Rico Dictated Date: 05/25/2025 16:30 ET Assigned Physician: Michelle Rico Reviewed and Electronically Signed By: Michelle Rico Signed Date: 05/25/2025 16:32 ET Workstation ID: [id number] Transcribed By: Self Edit Transcribed Date: 05/25/2025 16:30 ET Narrative 05/25/2025 4:32 PM EDT History: 59-year-old woman status post hysterectomy, complains of pelvic pain and vaginal discharge. Comparison: 02/11/18 Findings: Transvesical imaging of the pelvis is supplemented with transvaginal imaging for better detail of the pelvis. The uterus is absent, in keeping with the surgical history. Neither ovary is identified. No abnormal mass or fluid collection is seen. No pelvic ascites is demonstrated. Procedure Note Michelle Rico MD - 05/25/2025 History: 59-year-old woman status post hysterectomy, complains of pelvicpain and vaginal discharge. Comparison: 02/11/18 Findings: Transvesical imaging of the pelvis is supplemented with transvaginalimaging for better detail of the pelvis. The uterus is absent, in keeping with the surgical history. Neither ovaryis identified. No abnormal mass or fluid collection is seen. No pelvicascites is demonstrated. IMPRESSION: Impression: 1. Status post hysterectomy. 2. Ovaries not identified. 3. No abnormality is seen. Telerad MINA ([id number]) -------- FINAL REPORT -------- Dictated By: Michelle Rico Dictated Date: 05/25/2025 16:30 ET Assigned Physician: Michelle Rico Reviewed and Electronically Signed By: Michelle Rico Signed Date: 05/25/2025 16:32 ET Workstation ID: [id number] Transcribed By: Self Edit Transcribed Date: 05/25/2025 16:30 ET Oneil Nielsen CNM IMG US PROCEDURES Final Resul t * Trichomonas vaginalis antigen (05/21/2025 9:04 AM EDT) Trichomonas vaginalis Negative Negative 05/21/2025 1:19 PM EDT [facility] Swab Vaginal structure / Unknown Non-blood Collection / Unknown 05/21/2025 9:04 AM EDT 05/21/2025 12:14 PM EDT Oneil Nielsen [facility] MICROBIOLOGY - GENERAL OR DERABLES Final Result Performing Organization Address [facility]/ZIP Co de Phone Number [facility] [address] [place] [address], * Chlamydia trachomatis and Neisseria gonorrhoeae molecular study (05/21/2025 9:04 AM EDT) Neisseria gonorrhoeae PCR Negative Negative LAB MOLECULAR DIAGNOSTICS METHOD 05/21/2025 2:41 PM EDT [facility] Chlamydia trachomatis PCR Negative Negative LAB MOLECULAR DIAGNOSTICS METHOD 05/21/2025 2:41 PM EDT [facility] Urine Urine specimen from urethra / Unknown Non-blood Collection / Unknown 05/21/2025 9:04 AM EDT 05/21/2025 12:14 PM EDT Oneil Nielsen [facility] HOSPITAL LAB MICROBIOLOGY - GENERAL OR DERABLES Final Result Performing Organization Address City/[facility]/ZIP Co de Phone Number [facility] [address] [place] [address], [place] [phone] * Wet prep, genital (05/21/2025 9:04 AM EDT) Clue Cells, Wet Prep Negative Negative 05/21/2025 1:19 PM EDT [facility] Yeast, Wet Prep Negative Negative 05/21/2025 1:19 PM EDT [facility] Trichomonas, Wet Prep Indeterminate Negative 05/21/2025 1:19 PM EDT [facility] Comment:Refer to Trichomonas antigen. Swab Vaginal structure / Unknown Non-blood Collection / Unknown 05/21/2025 9:04 AM EDT 05/21/2025 12:14 PM EDT us Oneil [facility]ILL[facility] LAB MICROBIOLOGY - GENERAL OR DERABLES Final Result [facility] [address] [place] [address], [place] [phone] * CT Abdomen Pelvis wo and w Contrast (05/12/2025 11:22 AM EDT) Anatomical Region Laterality Modality Body Computed Tomogra phy 05/12/2025 12:2 9 PM EDT Narrative 05/12/2025 12:[address] of the abdomen and pelvis without intravenous contrast. HISTORY: Abdominal pain. Examination was performed on multidetector scanner without administration of intravenous contrast. Comparison with previous study from 01/03/2024. Evaluation of the abdominal and pelvic organs as well as vascular structures is limited due to lack of intravenous contrast. Liver, spleen, pancreas, kidneys, adrenal glands and gallbladder are stable in appearance without evidence of new focal abnormalities. There is no biliary ducts dilatation. There is no evidence of bowel obstruction. Appendix is unremarkable. There is arm moderate amount of fecal material throughout the colon suggestive of some constipation. There are a few diverticuli in the sigmoid colon without evidence of diverticulitis. Pelvic organs are stable in appearance. Urinary bladder is unremarkable. There is no evidence of ascites or focal fluid collections in the abdomen and pelvis. There is no pathological sized lymphadenopathy in the abdomen and pelvis. Lung bases are clear. Bony structures revealed no suspicious abnormalities. CONCLUSIONS: Limited examination due to lack of intravenous contrast. No acute abdominopelvic pathology. Constipation. Mild diverticulosis of the sigmoid colon without evidence of diverticulitis. -------- FINAL REPORT -------- Dictated By: Makenzie Gordillo Dictated Date: 05/12/2025 12:29 ET Assigned Physician: Makenzie Gordillo Reviewed and Electronically Signed By: Makenzie Gordillo Signed Date: 05/12/2025 12:58 ET Workstation ID: [id number] Transcribed By: Self Edit Transcribed Date: 05/12/2025 12:29 ET Procedure Note Makenzie Gordillo MD - 05/12/2025 CT of the abdomen and pelvis without intravenous contrast. HISTORY: Abdominal pain. Examination was performed on multidetector scanner without administrationof intravenous contrast. Comparison with previous study from 01/03/2024. Evaluation of the abdominal and pelvic organs as well as vascularstructures is limited due to lack of intravenous contrast. Liver, spleen, pancreas, kidneys, adrenal glands and gallbladder arestable in appearance without evidence of new focal abnormalities. There isno biliary ducts dilatation. There is no evidence of bowel obstruction. Appendix is unremarkable. Thereis arm moderate amount of fecal material throughout the colon suggestiveof some constipation. There are a few diverticuli in the sigmoid colonwithout evidence of diverticulitis. Pelvic organs are stable in appearance. Urinary bladder is unremarkable.There is no evidence of ascites or focal fluid collections in the abdomenand pelvis. There is no pathological sized lymphadenopathy in the abdomenand pelvis. Lung bases are clear. Bony structures revealed no suspiciousabnormalities. CONCLUSIONS: Limited examination due to lack of intravenous contrast. No acuteabdominopelvic pathology. Constipation. Mild diverticulosis of the sigmoidcolon without evidence of diverticulitis. -------- FINAL REPORT -------- Dictated By: Makenzie Gordillo Dictated Date: 05/12/2025 12:29 ET Assigned Physician: Makenzie Gordillo Reviewed and Electronically Signed By: Makenzie Gordillo Signed Date: 05/12/2025 12:58 ET Workstation ID: [id number] Transcribed By: Self Edit Transcribed Date: 05/12/2025 12:29 ET Merry Iqbal MD IMG CT PROCEDURES Final Result * (ABNORMAL) Vitamin D 25 hydroxy (05/05/2025 11:30 AM EDT) Vit D, 25-Hydroxy 27.5(L) 30.0 - 80.0 ng/mL LAB CHEMISTRY METHOD 05/05/2025 4:40 PM EDT [facility] Blood Venous blood specimen / Unknown Venipuncture / Unknown 05/05/2025 11:30 AM EDT 05/05/2025 11:30 AM EDT Merry Iqbal MD LAB BLOOD ORDERABL ES Final Result [facility] [address] [place] [address], [place] [phone] * MG Mammo Digital Screening w Ceasar bilat (12/03/2024 1:31 PM EDT) Anatomical Region Laterality Modality Breast Bilateral Mammography 12/04/2024 8:04 AM EDT Impressions 12/04/2024 8:06 AM EDT No mammographic evidence of malignancy. BREAST DENSITY: B - There are scattered areas of fibroglandular density. BI-RADS CATEGORY: 1 - NEGATIVE RECOMMENDATION: Screening bilateral mammogram is recommended in 1 year. MAMMO LOCATION: [facility], [address] [place] [address], [id number], . -------- FINAL REPORT -------- Dictated By: Rachna Heredia Dictated Date: 12/04/2024 08:04 ET Assigned Physician: Rachna Heredia Reviewed and Electronically Signed By: Rachna Heredia Signed Date: 12/04/2024 08:06 ET Workstation ID: [id number] Transcribed By: Self Edit Transcribed Date: 12/04/2024 08:04 ET Narrative 12/04/2024 8:06 AM EDT EXAM: Screening Mammogram CLINICAL: 59 years old, Female, routine annual exam. History of a benign right breast biopsy. COMPARISON: 11/22/2023 and 07/14/2020 TECHNIQUE: Bilateral MLO and CC views were obtained digitally with 3-D mammogram (digital breast tomosynthesis). Computer-aided detection was utilized in evaluation of this exam (CAD). FINDINGS: No new suspicious mass, architectural distortion, or suspicious calcifications. Biopsy marker again noted in the posterior upper outer right breast. Procedure Note Rachna Heredia MD - 12/04/2024 EXAM: Screening Mammogram CLINICAL: 59 years old, Female, routine annual exam. History of a benignright breast biopsy. COMPARISON: 11/22/2023 and 07/14/2020 TECHNIQUE: Bilateral MLO and CC views were obtained digitally with 3-Dmammogram (digital breast tomosynthesis). Computer-aided detection wasutilized in evaluation of this exam (CAD). FINDINGS: No new suspicious mass, architectural distortion, or suspiciouscalcifications. Biopsy marker again noted in the posterior upper outerright breast. IMPRESSION: No mammographic evidence of malignancy. BREAST DENSITY: B - There are scattered areas of fibroglandular density. BI-RADS CATEGORY: 1 - NEGATIVE RECOMMENDATION: Screening bilateral mammogram is recommended in 1 year. MAMMO LOCATION: [facility], [address] [place] [address], [id number], . -------- FINAL REPORT -------- Dictated By: Rachna Heredia Dictated Date: 12/04/2024 08:04 ET Assigned Physician: Rachna Heredia Reviewed and Electronically Signed By: Rachna Heredia Signed Date: 12/04/2024 08:06 ET Workstation ID: [id number] Transcribed By: Self Edit Transcribed Date: 12/04/2024 08:04 ET Merry Iqbal MD IMG BI PROCEDURES Final Result * Colonoscopy (05/12/2024) Colonoscopy abstracted, no interpretation Anatomical Region Laterality Modality Other us Historical Provider HEALTH MAINTENANCE Final Result * Depression Screening (01/22/2024) Pathologist [facility] Depression Screening abstracted Historical Provider HEALTH MAINTENANCE Final Result * Hepatitis C Screening (10/19/2023) Pathologist [facility] Hepatitis C Screening abstracted [facility] Provider HEALTH MAINTENANCE Final Result * (ABNORMAL) Lipid panel (10/19/2023) [facility] LDL/HDL Ratio 3 0 - 4 Triglycerides 65 0 - 150 mg/dL Cholesterol 174 0 - 200 mg/dL HDL 54 >=40 mg/dL LDL Cholesterol 107(A) 0 - 100 mg/dL Blood Venous blood specimen / Unknown [facility] Provider LAB BLOOD ORDERABLES Amanda l Result * Cervical Cancer Screening: HPV (10/19/2015) Pathologist [facility] Cervical Cancer Screening: HPV abstracted, no interpretation [facility] Provider HEALTH MAINTENANCE Final Result * HIV Screening (06/22/2006) [facility] HIV Screening abstracted [facility] Provider HEALTH MAINTENANCE Final Result from Last 3 Months or Most Recently Relevant to Health Maintenance [place] [address] [place] [address] HEALTH PLAN Advance Directives * Full Code - Confirmed (Latest Code Status on File) Date Activated Date Inactivated Comments 05/28/2025 4:16 PM 05/29/2025 7:23 PM This code s tatus was ascertained in the following way: Code status discussion: discussion with patient To update the patient's code status, place a code status order. Do not modify or discontinue any currently active code status orders. * Full Code - Default Date Activated Date Inactivated Comments 05/28/2025 3:54 PM 05/28/2025 4:16 PM This is orde r is used when code status has not been discussed with the patient, or code status is otherwise unknown/unconfirmed To update the patient's code status, place a code status order. Do not modify or discontinue any currently active code status orders. Care Teams Back Shoe Worker Relationship Specialty Start Date End Date Merry Iqbal MD [address] [place] [address] PCP - General Internal Medicine 10/17/24
--- OUTSIDE RECORDS SUMMARY | 2025-07-01 12:40 | XMS_ITS | Encounter Summary ---
Author Organization [facility] Address [address] [place] [address] Phone Care Team Providers Care Glost Tile Sorter Name Role Phone Merry Gomes MD Primary Care Prov ider Encounter Details Date Type Department Care Team (Latest Contact Info) Description 12/19/2023 Transcribe Orders Virtual Department [address] [place] [address] Tiffanie Fischer PA [address] [place] [address] Gastroesophageal reflux disease, unspecified whether esophagitis present (Primary Dx); Esophageal stricture; Esophageal obstruction Social History Tobacco Use Types Packs/Day Years Used Date Smoking Tobacco: Never Assessed Education Answer Date Recorded Are you interested in more education? Not on beulah e 12/18/2023 Are you concerned about learning? Not on file 12/18/2023 No 12/18/2023 No 12/18/2023 Digital Access Answer Date Recorded No 12/18/2023 No 12/18/2023 Reliable internet access at home? Not on file 12/18/2023 Device with a working camera? Not on file Comments Unknown Sex and Gender Information Value Date Recorded Sex Assigned at Not on file Legal Sex Female 3:23 PM EDT Gender Identity Not on file Sexual Orientation Not on file documented as of this encounter Plan of Treatment Not on file documented as of this encounter Results * US ABDOMEN LIMITED RIGHT UPPER QUADRANT (12/25/2023 10:18 AM EDT) Anatomical Region Laterality Modality Abdomen Ultrasound 12/25/2023 12:4 8 PM EDT Impressions 12/25/2023 12:52 PM EDT 1. No evidence of gallbladder abnormality, biliary obstruction, or hepatic parenchymal pathology. Narrative 12/25/2023 12:52 PM EDT US ABDOMEN LIMITED RIGHT UPPER QUADRANT Referring clinician's provided indication for this examination in [facility]: Outside Radiology Order; gerd TECHNIQUE: US Abdominal limited right upper quadrant. COMPARISON: None FINDINGS: Liver: Homogeneous parenchymal echo-texture. No focal mass or cyst. Main Portal Vein: Patent with hepatopedal flow direction. Gallbladder: No cholelithiasis or focal wall thickening. No abnormal pericholecystic fluid. Pickard's Sign: Negative. Biliary: No evidence of biliary obstruction. The common bile duct measures 3 mm. No senia hydronephrosis. Mild fullness of the right renal pelvis. No parenchymal abnormality. Visualized portions of the pancreas unremarkable. Procedure Note Lm Stafford MD - 12/25/2023 US ABDOMEN LIMITED RIGHT UPPER QUADRANT Referring clinician's provided indication for this examination in Epic:Outside Radiology Order; gerd TECHNIQUE: US Abdominal limited right upper quadrant. COMPARISON: None FINDINGS: Liver: Homogeneous parenchymal echo-texture. No focal mass or cyst. Main Portal Vein: Patent with hepatopedal flow direction. Gallbladder: No cholelithiasis or focal wall thickening. No abnormalpericholecystic fluid. Pickard's Sign: Negative. Biliary: No evidence of biliary obstruction. The common bile duct measures 3 mm. No senia hydronephrosis. Mild fullness of the right renal pelvis. Noparenchymal abnormality. Visualized portions of the pancreas unremarkable. IMPRESSION: 1. No evidence of gallbladder abnormality, biliary obstruction, orhepatic parenchymal pathology. Tiffanie ENRIQUEZ IMFlex US ABDOMEN Final Resul t documented in this encounter Visit Diagnoses Diagnosis Gastroesophageal reflux disease, unspecified whether esophagitis present- Primary Esophageal stricture Stricture and stenosis of esophagus Esophageal obstruction Stricture and stenosis of esophagus Gastroesophageal reflux disease, unspecified whether esophagitis present Esophageal stricture Stricture and stenosis of esophagus Esophageal obstruction Stricture and stenosis of esophagus documented in this encounter Care Teams Glost Tile Sorter Relationship Specialty Start Date End Date Merry Gomes MD [address] [place] [phone] PCP - General Internal Medicine 12/18/23 documented as of this encounter Additional Source Comments The information contained in this document represents components of the legal health record. It is not the complete legal health record.[facility]
--- OUTSIDE RECORDS SUMMARY | 2025-07-01 12:40 | XMS_ITS | Clinical Summary ---
Author Organization [facility] Address [address] [place] [address] Phone Care Team Providers Care Adjustment Clerk Name Role Phone Merry Gomes MD Primary Care Prov ider Social History Tobacco Use Types Packs/Day Years [...] on file Sexual Orientation Not on file Plan of Treatment Not on file Medical Devices Not on file [place] [address] [place] [address] [facility] JOLEEN SALAS O [facility] [employer] [facility] [employer] [facility] [employer] [place] [address] [place] [address] [employer] [address] [place] [phone] [facility] Care Teams Adjustment Clerk Relationship Specialty Start Date End Date Merry Gomes MD [address] [place] [id number] PCP - General Internal Medicine 12/18/23 Additional Source Comments The information contained in this document represents components of the legal health record. It is not the complete legal health record.[facility]
--- OUTSIDE RECORDS SUMMARY | 2025-07-01 12:40 | XMS_ITS | Encounter Summary ---
Author Organization [facility] Address [address] [place] [address] Phone Care Team Providers Care Time Checker Name Role Phone Merry Gomes MD Primary Care Prov ider Encounter Details Date Type Department Care Team (Latest Contact Info) Description 12/18/2023 Transcribe Orders [facility] [place] [address] [address] Tiffanie Fischer PA [address] [place] [address] Stricture and stenosis of esophagus (Primary Dx); Gastroesophageal reflux disease with esophagitis, unspecified whether hemorrhage Social History Tobacco Use Types Packs/Day Years [...] documented as of this encounter Results * Lipase (12/18/2023 3:34 PM EDT) LIPASE 34 16 - 63 U/L [facility] Blood 12/18/2023 3:34 PM EDT 12/18/2023 4:15 PM EDT us Tiffanie ENRIQUEZ LAB BLOOD BKR ORDERABLES Fi nal Result Performing Organization Address City/[facility]/ZIP Co de Phone Number [address] [address] * Comprehensive metabolic panel (12/18/2023 3:34 PM EDT) SODIUM 141 133 - 146 mmol/L [facility] POTASSIUM 4.1 3.3 - 5.1 mmol/L [facility] CHLORIDE 105 96 - 108 mmol/L [facility] CO2 26 21 - 35 mmol/L [facility] BUN 13 6 - 19 mg/dL [facility] CREATININE 0.70 0.5 - 1.5 mg/dL [facility] GLUCOSE 93 70 - 99 mg/dL [facility] ALBUMIN 4.2 3.9 - 4.8 g/dL [facility] TOTAL PROTEIN 7.5 6.5 - 8.0 g/dL [facility] CALCIUM 9.4 8.4 - 10.3 mg/dL [facility] ALKALINE PHOSPHATASE 109 39 - 117 U/L [facility] TOTAL BILIRUBIN <0.2 0.0 - 1.2 mg/dL [facility] AST 24 0 - 37 U/L [facility] ALT 13 0 - 40 U/L [facility] GLOBULIN 3.3 1 - 4.8 g/dL [facility] EGFR 100 >59 mL/min/1.7 3m2 [facility] Comment:Estimated glomerular filtration rate calculated using the CKD-EPI refit equation. ANION GAP 14 10 - 20 mmol/L [facility] Blood 12/18/2023 3:34 PM EDT 12/18/2023 4:15 PM EDT us Tiffanie ENRIQUEZ LAB BLOOD BKR ORDERABLES Fi nal Result Performing Organization Address City/[facility]/ZIP Co de Phone Number [address] [address] * CBC (12/18/2023 3:34 PM EDT) WBC 5.94 4.00 - 11.00 K/uL [facility] RBC 4.09 3.72 - 5.30 M/uL [facility] HGB 12.6 11.4 - 15.9 g/dL [facility] HCT 38.9 34.2 - 46.8 % [facility] PLT 259 140 - 430 K/uL [facility] MCV 95.1 78.0 - 97.0 fL [facility] MCH 30.8 25.0 - 33.0 pg [facility] MCHC 32.4 32.0 - 36.0 g/dL [facility] RDW 12.2 11.0 - 16.0 % [facility] MPV 9.1 8.4 - 12.8 fl [facility] Blood 12/18/2023 3:34 PM EDT 12/18/2023 4:15 PM EDT us Tiffanie ENRIQUEZ LAB BLOOD BKR ORDERABLES Fi nal Result [facility] [address] [place] [address] documented in this encounter Visit Diagnoses Diagnosis Stricture and stenosis of esophagus- Primary Gastroesophageal reflux disease with esophagitis, unspecified whether hemorrhage documented in this encounter Care Teams Time Checker Relationship Specialty Start Date End Date Merry Gomes MD [address] [place] [phone] PCP - General Internal Medicine 12/18/23 documented as of this encounter Additional Source Comments The information contained in this document represents components of the legal health record. It is not the complete legal health record.[facility]
--- OUTSIDE RECORDS SUMMARY | 2025-07-01 12:40 | XMS_ITS | Clinical Summary ---
Author Organization [facility] Address [address] [place] [address] Care Team Providers Care Batter Scaler Name Role Phone Flynn Carlos MD Primary Care Provider [phone] Allergies No known active allergies Medications Medication Sig Dispensed Refills Start Date End Date Status levothyroxine (SYNTHROID) tablet 50 mcg Take 50 mcg by mouth. 0 09/06/2017 Active pantoprazole (PROTONIX) 40 MG tablet Take 40 mg by mouth. 0 10/10/2017 Active SUMAtriptan (Imitrex) 50 MG tablet May repeat dose once after 2 hours, if needed. 0 09/06/2017 Active gabapentin (NEURONTIN) 300 MG capsule Take 600 mg by mouth. 0 10/10/2017 Active cetirizine (ZyrTEC) 10 MG tablet Take 10 mg by mouth. 0 08/16/2016 Active Family History Medical History Relation Name Comments Cancer Father Relation Name Status Comments Father Mother Social History Tobacco Use Types Packs/Day Years Used Date Smoking Tobacco: Never Smokeless Tobacco: Never Alcohol Use Standard Drinks/Week Comments Never 0 (1 standard drink = 0.6 oz pur e alcohol) Sex and Gender Information Value Date Recorded Sex Assigned at Female 06/23/2022 12:58 PM EDT Gender Identity Not on file Sexual Orientation Not on file Job Start Date Occupation Industry Not on file Not on file Not on file Last Filed Vital Signs Vital Sign Reading Time Taken Comments Blood Pressure 108/64 06/06/2022 10:46 AM EDT Pulse 63 06/06/2022 10:46 AM EDT Temperature 36.7 C (98.1 F) 06/06/2022 10:46 AM EDT Respiratory Rate - - Oxygen Saturation 99% 06/06/2022 10:46 AM EDT Inhaled Oxygen Concentration - - Weight 68.5 kg (151 lb) 05/31/2022 12:12 PM EDT Height 167.6 cm (5' 6 ) 05/31/2022 12:12 PM EDT Body Mass Index 24.37 05/31/2022 12:12 PM EDT Plan of Treatment Health Maintenance Due Date Last Done Comments Hepatitis B Vaccines (1 of 3 - 3-dose series) 1965 Hepatitis C Screening 1965 Depression Screening 1977 Preventative Health Evaluation 1983 Cervical Cancer Screening (Pap Smear) 1986 Colon Cancer Screening (Colonoscopy) 2010 Breast Cancer Screening (Mammogram) 2015 Shingrix-Zoster Vaccine (1 o f 2) 2015 COVID-19 Vaccine (3 2024-2 6 season) 2025 12/24/2020, 12/03/2020 Influenza Vaccine (#1) 2025 , 06/29/2016, 05/23/2009 DTap / Tdap / Td (2 - Td or Tdap) 06/29/2026 06/29/2016 Pneumococcal Vaccine Aged Out No long er eligible based on patient's age to complete this topic RSV Ped < 20 months Aged Out No longe r eligible based on patient's age to complete this topic Insurance Payer Benefit Plan / Group Subscriber ID Effective Dates Phone Address [facility] [id number] 2021-Prese nt [address] [place] [address] [place]MO [place] [id number] 2022-Pre s ent [address] [place] [address] Medicaid Care Teams Batter Scaler Relationship Specialty Start Date End Date Flynn Carlos MD [address] [place] [address] PCP - General Internal Medicine 10/20/20
== END 2025-07-01 11:38 | disposition home or self-care (01) ==
LOC: HO.HGI 10:34
PROVIDERS: PCP Internal Medicine; Visit Provider Internal Medicine
DX: R13.14 Dysphagia, pharyngoesophageal phase (principal); K58.1 Irritable bowel syndrome with constipation
CPT/HCPCS: 99214

== ENCOUNTER → 2025-07-01 10:33 | Outpatient (BNVA) | payer OTHER, SELFPAY | PROVIDERS: PCP Internal Medicine; Visit Provider Internal Medicine | DX: K58.1 Irritable bowel syndrome with constipation (principal); R13.14 Dysphagia, pharyngoesophageal phase | CPT/HCPCS: 99212 ==